=== PATIENT | female | born 1950 | race Caucasian/White ===

== ENCOUNTER 2020-01-14 12:22 | Day surgery (SDC) | payer MEDICARE, MEDICAID, SELFPAY ==
[2020-01-11 13:26] VITALS: BMI 43.5
--- NOTE | 2020-01-14 06:53 | PM.OP ---
Operative Report Date of procedure: January 14, 2020 Pre-op Diagnosis: lesion skin Post-op diagnosis: same Pathology: none sent Surgeon: Juan Booker Anesthesia: General Complications: none
[2020-01-14 12:39] VITALS: BP 153/96; PULSE 57; RESP 18; TEMP 36.7; O2SAT 98
[2020-01-14] MEDS: sodium chloride 0.9% 1,000 ML 30 ML IV (12:52)
--- NOTE | 2020-01-14 12:58 | ANES.PREANE2 ---
Pre-Anesthetic Assessment Pre-Anesthetic Assessment: Height/Weight: Height 1.6 m Weight 111.584 kg Temp Pulse Resp BP Pulse Ox 98.1 F 57 L 18 153/96 98 01/14/20 12:39 01/14/20 12:39 01/14/20 12:39 01/14/20 12:39 01/14/20 12:39 Preop Diagnosis: Lesion skin of nose Proposed Procedure: Operation Date: 01/14/20 14:00 Proposed Procedures p Excision of skin lesion of face with frozen section 17999 J35.89(Not Applicable) - Juan Booker MD Last intake: Intake Last Liquid Date 01/14/20 Last Liquid Time 11:59 Last Solid Date 01/14/20 Last Solid Time 11:59 Social: Packs per day: 1/3 Pack years: 20 Exam: Pre-Anes Outpt Exam: alert, oriented x 3, clear to auscultation bilaterally and regular rate & rhythm Airway: Submandibular: WNL Cervical ROM: WNL MP: 1 CV/HEM: CV/HEM: Afib (x 20 y) and HTN Comments: x 207 stress test '13 negative '13 cath neg GI: GI: GERD Metabolic: Metabolic: Thyroid Comments: replacement x 6y Musc/skel: Musc/skel: Lower Back Pain Comments: nonradiating Neuropsych: Neuropsych: DONALDSON Anesthetic Plan: ASA status: 3 Anesthesia: General and MAC Meds/Allergies Current Medications: Current Medications Generic Name Dose Route Start Last Admin Trade Name Freq PRN Reason Stop Dose Admin Sodium Chloride 1,000 mls @ 30 ml s/hr 01/14/20 12:45 01/14/20 12:52 Sodium Chloride 0.9% IV 01/15/20 12:44 30 mls/hr .Q24H MELA Administration PFSH Anesthesia PFSH: Medical History (Updated 01/14/20 @ 12:19 by Juan Booker MD) Lesion of skin of nose Social History Smoking and tobacco status: current every day smoker cigarettes [ Other cigarette details: smokes very little ] Data Anesthesia Cardiac Studies: No Data to Display
[2020-01-14] MEDS: neomycin-poly-bacitracin oint 28 gm 1 APPLIC TOPICAL (14:47)
--- NOTE | 2020-01-14 15:34 | SUR.OPER ---
1503 pt spouse updated
--- NOTE | 2020-01-14 16:12 | PM.OP ---
Operative Report Date of procedure: January 14, 2020 Pre-op Diagnosis: Lesion skin of nose Post-op Diagnosis: Nodular basal cell carcinoma Post-op Findings: Nodular basal cell carcinoma Procedure Done: Excision 1.5 cm basal cell carcinoma with rotation flap reconstruction Specimens removed/disposition: Basal cell carcinoma and associated frozen section margins Surgeon: Juan Booker Anesthesia: MAC Complications: None Condition: stable Disposition: PACU Brief History: Katie is a 69-year-old female with a nonhealing lesion in the left nasal tip. I discussed the goals risks and alternatives of treatment and informed consent was obtained to proceed with surgery. Procedure: The patient was taken to the operating room and under satisfactory monitored anesthesia care the area was prepped draped and injected. A 4-minute millimeter punch biopsy was taken. Preliminary frozen section analysis revealed nodular basal cell carcinoma with positive margins. Repeat margin was taken. Preliminary frozen section revealed positive margins at the 12:00 to 6:00 area. Repeat margins and frozen section was taken until the margins were free of cancer. A 1.5 cm defect was present once the cancer had been excised. A single lobe flap was harvested based on the angular artery. It was rotated in place to close the defect. The flap was set in place with 4-0 undyed Vicryl suture. The skin was closed with 5-0 fast-absorbing suture. No complications occurred. The patient tolerated the procedure well. She was returned to the recovery room in stable condition where she was observed. During the observation time postoperative care instructions and counseling including detailed written and verbal instruction given to the patient and her . Once all parties verbalized understanding of all instructions and once the patient met discharge criteria she was discharged in satisfactory and stable condition.
[2020-01-14 16:23] VITALS: BP 129/62; PULSE 64; RESP 18; TEMP 36.4; O2SAT 97
[2020-01-14 16:49] VITALS: BP 163/90; PULSE 54; RESP 18; O2SAT 99
== END 2020-01-14 17:00 | disposition home or self-care (01) ==
PROVIDERS: Family Provider Internal Medicine; PCP Internal Medicine; Visit Provider Otolaryngology
PROC: (CPT 14060; principal; 2020-01-14 14:00)
DX: C44.311 Basal cell carcinoma of skin of nose (principal); F17.210 Nicotine dependence, cigarettes, uncomplicated; I10 Essential (primary) hypertension; K21.9 Gastro-esophageal reflux disease without esophagitis; Z79.82 Long term (current) use of aspirin; Z79.01 Long term (current) use of anticoagulants
CPT/HCPCS: 14060; 12345; 88305; 99214; J2001; J2704; J3010; J7030

== ENCOUNTER → 2020-01-24 14:13 | Outpatient (BNVA) | payer MEDICARE, MEDICAID, SELFPAY | PROVIDERS: Family Provider Internal Medicine; PCP Internal Medicine; Visit Provider Otolaryngology | DX: J31.0 Chronic rhinitis (principal); L98.9 Disorder of the skin and subcutaneous tissue, unspecified; J34.2 Deviated nasal septum; J34.3 Hypertrophy of nasal turbinates | CPT/HCPCS: 96372; 99214; J3301 ==

== ENCOUNTER 2020-06-10 20:31 | Emergency (ER) | payer MEDICARE, MEDICAID, SELFPAY ==
[2020-06-10 20:35] VITALS: BP 184/89; PULSE 75; RESP 17; TEMP 37; O2SAT 96; BMI 44.6
--- NOTE | 2020-06-10 20:58 | W.ED.ANIMALB ---
HPI - Animal Bite General: Chief Complaint: Animal Bite Stated Complaint: bite/sting on butt Time Seen by Provider: 06/10/20 20:52 Source: patient Mode of arrival: ambulatory Limitations: no limitations History of Present Illness: HPI narrative: Ms. Finch is a nice 69-year-old female comes in complaining of a bite or sting on her left buttock. Patient states she was riding a lawnmower past a beehive that they keep but then felt something itchy on her buttock and then felt something staying in the same area. Patient is on Coumadin which concerned her that something may have punctured the skin. Patient denies any shortness of breath, wheezing, throat tightening, hives or any other type of anaphylactic reaction. She has no history of anaphylactic reactions. Associated symptoms: Deny chills, diaphoresis, fever(s), headache(s) or syncope Review of Systems Const: Denies: fever(s), chills, body aches, fatigue, malaise or diaphoresis Eyes: Denies: change in vision, blurry vision, blind spots, photophobia, eye discharge or eye redness ENMT: Denies: throat pain, odynophagia, hoarseness, swelling of lips/tongue, oral sores, ear or mastoid pain, ear discharge, change in hearing or nasal discharge Card: Denies: chest pain, palpitations, irregular heart rhythm, edema, lightheadedness, syncope, pre-syncope, dyspnea on exertion or orthopnea Resp: Denies: dyspnea, productive cough, non-productive cough, wheezing, hemoptysis or chest congestion GI: Denies: abdominal pain, nausea, vomiting, hematemesis, coffee ground emesis, heartburn, diarrhea, constipation, GI cramping, hematochezia or melena : Denies: flank pain, dysuria, urinary frequency, urinary urgency or hematuria Musc: Denies: neck pain, back pain, extremity pain, extremity swelling, joint pain, joint swelling, joint redness, joint warmth or joint stiffness Skin/Breast: Denies: rash, pruritus, erythema, skin tenderness or jaundice Neuro: Denies: headache(s), numbness in extremities, weakness in extremities, sensory changes, lack of coordination, difficulty walking, dizziness, vertigo, confusion, Slurred speech present or seizure-like activity Andrés/Lymph: Denies: easy bruising, easy bleeding, petechiae, purpura or enlarged lymph nodes All/Imm: Denies: urticaria, throat swelling, tongue swelling, facial swelling or acute wheezing PFSH ED PFSH: Medical History Deviated septum Lesion of skin of nose Nasal turbinate hypertrophy Rhinitis Social History Smoking and tobacco status: former smoker Alcohol intake: never Physical Exam Const: COMMON NORMALS: no acute distress, patient oriented x3, no limitations, healthy appearing and well nourished GENERAL APPEARANCE: cooperative, well kempt and well developed HENMT: COMMON NORMALS: normocephalic, atraumatic, external ears normal, EAC's normal and Normal external nose present HEAD & SCALP: normal to inspection, normocephalic and atraumatic FACE & SINUS: normal facial exam and face symmetric NOSE: Normal external nose present and Normal nares present EXTERNAL EAR: Yes external ears normal EXTERNAL AUDITORY CANAL: EAC's normal MOUTH: Normal oral and palatal mucosa present, lip normal and tongue normal Eye: COMMON NORMALS: Equal, round and reactive pupils present and conjunctivae normal GENERAL EYE: appearance normal, both eyes and all related structures ALIGNMENT: Yes alignment normal PERIORBITAL: periorbital findings normal EYELID: eyelids normal CONJUNCTIVA: Yes conjunctivae normal SCLERA: sclerae normal PUPIL: Yes Equal, round and reactive pupils present Neck/C-Spine: COMMON NORMALS: full ROM, no lymphadenopathy, supple, no meningeal signs and no JVD GENERAL: Yes normal visual inspection and Yes trachea midline Chest: COMMONS NORMALS: normal inspection of the chest and normal palpation of entire chest wall Resp: COMMON NORMALS: normal respiratory effort, No retractions and No use of accessory muscles EFFORT & INSPECTION: Yes able to speak in complete sentences and Yes symmetric chest movement AUSCULTATION: no crackles, no rales, no rhonchi and no wheezes Cardio: COMMON NORMALS: no JVD, regular rate, regular rhythm, S1 normal heart sound present and S2 normal heart sound present RATE: regular rate RHYTHM: regular rhythm HEART SOUNDS: S1 normal heart sound present, S2 normal heart sound present, no click, no gallops, no murmurs, no rubs and abnormal split S2 GI: COMMON NORMALS: Soft to palpation and No hepatosplenomegaly present PALPATION: Yes Soft to palpation, No Tenderness to palpation present (GI), No Guarding due to palpation present (GI), No Rigid due to palpation, Yes No hepatosplenomegaly present, No Hernia present, No Palpable mass present and No Pulsatile mass present : COMMON NORMALS: Yes no CVA tenderness BLADDER/KIDNEY EXAM: Yes no CVA tenderness EXTERNAL FEMALE EXAM: No Hernia present Back/Pelvis: COMMON NORMALS: no CVA tenderness, thoracic and lumbar spine normal to inspection, no thoracic nor lumbar tenderness and thoraco-lumbar ROM normal Extremity: COMMON NORMALS: normal to inspection, full ROM, capillary refill normal, no joint enlargement, no clubbing, cyanosis or edema and no calf tenderness Neuro: COMMON NORMALS: patient oriented x3, CN's II-XII intact bilaterally, moves all extremities, no focal motor deficits and no sensory deficits noted MENINGEAL SIGNS: Yes no meningeal signs SPEECH: speech normal Psych: COMMON NORMALS: mental status grossly normal, Normal thought process present, cooperative, normal affect, speech normal and activity/motor behavior normal APPEARANCE: Yes well kempt SPEECH: Yes normal speech THOUGHT PROCESS: Normal thought process present Skin: COMMON NORMALS: no rashes or lesions noted, turgor normal, no jaundice, no petechiae and no mottling NARRATIVE SKIN EXAM: Small area approximately half dollar size around site of believed to be staying over left superior middle buttock. GENERAL SKIN EXAM: no rashes or lesions noted and turgor normal Course Vital Signs: Vital signs: Vital Signs Temperature 98.6 F 06/10/20 20:35 Pulse Rate 75 06/10/20 20:35 Respiratory Rate 16 06/10/20 22:13 Blood Pressure 184/89 06/10/20 20:35 Pulse Oximetry 96 06/10/20 20:35 MDM - Animal Bite MDM Narrative: Medical decision making narrative: Ms. Finch was mowing when something stung or bit her on the left buttock. This is too short of timeframe for her to be infected. I believe the underlying redness is likely blood from the Coumadin that she takes. There is some surrounding swelling like a hive. Family was concerned about brown recluse spider bite but I see no definitive evidence of this. She was driving past the beehive when this happened I believe it is more likely this was a bee sting. The patient agrees to return should she worsen but otherwise she will follow-up with Dr. Golden the in the next 1 to 2 days. I did discuss the case with Dr. Arriaza who is agreeable to have the patient rechecked and will arrange to have her do so. Patient was agree with return should her symptoms change or worsen but at this time she is requesting discharge. Lab Data: Labs: Lab Results 06/10/20 06/10/20 Range/Units 21:34 21:34 WBC 6.0 (4.0-10.0) 10^3/ uL RBC 4.09 L (4.1-5.3) 10^6/u L Hgb 12.7 (11.5-15.3) g/dL Hct 39.7 (37.0-47.0) % MCV 97.1 (81-99) fL MCH 31.1 (28.0-34.0) pg MCHC 32.0 (30.0-36.0) g/dL RDW 12.9 (12.1-15.1) % Plt Count 281 (130-400) 10^3/c mm MPV 10.4 (7.4-10.4) fL Neut % (Auto) 52.7 % Lymph % (Auto) 31.5 % Centre % (Auto) 6.5 % Eos % (Auto) 8.4 % Baso % (Auto) 0.7 % Neut # (Auto) 3.15 (1.8-7.7) 10^3/u L Lymph # (Auto) 1.9 (0.8-4.8) 10^3/u L Centre # (Auto) 0.4 (0.2-0.9) 10^3/u L Eos # (Auto) 0.5 (0.0-0.8) 10^3/u L Baso # (Auto) 0.0 (0.0-0.1) 10^3/u L Nucleated RBC % (a uto) 0 % Nucleated RBCs # 0.0 /100WBC PT 21.30 H (10.5-13.3) SECO NDS INR 1.77 H (0.8-1.2) Discharge Plan Discharge Patient Disposition: Home, Self-Care Clinical Impression: Insect bite Qualifiers: Encounter type: initial encounter Site of insect bite: unspecified site Qualified Code(s): W57.XXXA - Bitten or stung by nonvenomous insect and other nonvenomous arthropods, initial encounter Condition: Stable Prescriptions: New prednisone 10 mg tablet 10 mg PO TID 5 Days Qty: 15 RF: 0 No Action warfarin 5 mg Tablet 5 mg PO DAILY RF: 0 metoprolol tartrate 25 mg Tablet 25 mg PO BID RF: 0 multivitamin Tablet 1 tab PO DAILY RF: 0 potassium chloride 8 mEq Capsule, Extended Release 8 meq PO DAILY RF: 0 omeprazole 40 mg Capsule,Delayed Release(Dr/Ec) 40 mg PO DAILY RF: 0 aspirin [Aspir-81] 81 mg Tablet,Delayed Release (Dr/Ec) 81 mg PO DAILY RF: 0 levothyroxine 150 mcg Tablet 150 mcg PO DAILY RF: 0 vitamin C44-[id number] acid 500-400 mcg Tablet 1 tab PO DAILY RF: 0 albuterol sulfate 90 mcg/actuation HFA aerosol inhaler 5 puff INHALATION QID PRN (Reason: Shortness Of Breath) RF: 0 fluticasone propionate 50 mcg/actuation spray,suspension 2 spray INTRANASAL BID PRN (Reason: allergies) RF: 0 Allergy Relief (loratadine) 10 mg tablet 10 mg PO PRN PRN (Reason: allergies) RF: 0 Discharge Orders: Discharge Order (Routine); Ordered 06/10/20 Ordered By: Wendy Palmer Referrals: Norman Golden DO [Primary Care Provider] - 1-3 days Discharge Diet: Advance as tolerated Discharge Activity: Increase activity as tolerated Patient Instructions: Insect Bite or Sting (ED) Activity Restrictions/Additional Instructions: Please return to the ER immediately for any of the signs or symptoms listed on your discharge instruction sheets, worsening/changing of your symptoms, you are not getting better as quickly as expected, or for ANY other cause or concerns. Be certain to follow-up with Dr. Golden in the next 1 to 2 days for recheck. Discharge Date/Time: 06/10/20 22:15 Coding Level of Care Code ED Child Abuse Worker for Xenia Fwd Exam Comprehensive
[2020-06-10 21:40] LABS: Basophils % 0.7 %; Eosinophils # 0.5 10^3/uL (0.0-0.8); Eosinophils % 8.4 %; Hematocrit 39.7 % (37.0-47.0); Hemoglobin 12.7 g/dL (11.5-15.3); Lymphocytes # 1.9 10^3/uL (0.8-4.8); Lymphocytes % 31.5 %; Mean Corpuscular Hemoglobin 31.1 pg (28.0-34.0); Mean Corpuscular Volume 97.1 fL (81-99); Mean Platelet Volume 10.4 fL (7.4-10.4); Monocytes # 0.4 10^3/uL (0.2-0.9); Monocytes % 6.5 %; Neutrophils # 3.15 10^3/uL (1.8-7.7); Neutrophils % 52.7 %; Nucleated Red Blood Cells % 0 %; Platelet Count 281 10^3/cmm (130-400); Red Blood Count 4.09 10^6/uL (4.1-5.3); Red Cell Distribution Width 12.9 % (12.1-15.1)
[2020-06-10 21:49] LABS: INR 1.77 (0.8-1.2)
[2020-06-10] MEDS: predniSONE 20 mg Tablet 40 MG PO (22:08)
[2020-06-10 22:13] VITALS: RESP 16
== END 2020-06-10 22:15 | disposition home or self-care (01) ==
PROVIDERS: Emergency Provider Emergency Medicine; PCP Internal Medicine
DX: S30.860A Insect bite (nonvenomous) of lower back and pelvis, initial encounter (principal); W57.XXXA Bitten or stung by nonvenomous insect and other nonvenomous arthropods, initial encounter; Z79.01 Long term (current) use of anticoagulants; Z79.02 Long term (current) use of antithrombotics/antiplatelets; Z87.891 Personal history of nicotine dependence
CPT/HCPCS: 12345; 36415; 85025; 85610; 99281; 99283; J7512

== ENCOUNTER 2020-06-22 16:58 | Inpatient (IN) | payer MEDICARE, MEDICAID, SELFPAY ==
[2020-06-22] VITALS (7 sets, daily range): BP systolic 117–150; BP diastolic 80–95; PULSE 100–145; RESP 14–22; TEMP 36.7–37; O2SAT 95–99; BMI 46.0
--- NOTE | 2020-06-22 17:24 | XRR_ITS ---
PROCEDURE INFORMATION: Exam: XR Chest, 1 View Exam date and time: 06/22/2020 5:26 PM Age: 69 years old Clinical indication: Shortness of breath; Additional info: SOB TECHNIQUE: Imaging protocol: XR of the chest Views: 1 view. COMPARISON: CR Chest 1 [place] [id number] 09/23/2018 6:20 PM FINDINGS: Lungs: Unremarkable. No consolidation. Pleural space: Unremarkable. No pleural effusion. No pneumothorax. Heart/Mediastinum: Unremarkable. No cardiomegaly. Bones/joints: Unremarkable. XR/XR chest 1V portable [id number] IMPRESSION: No acute findings.
[2020-06-22 17:38] LABS: Basophils # 0.1 10^3/uL (0.0-0.1); Basophils % 0.9 %; Eosinophils # 0.3 10^3/uL (0.0-0.8); Eosinophils % 3.1 %; Hematocrit 43.4 % (37.0-47.0); Hemoglobin 13.9 g/dL (11.5-15.3); Lymphocytes # 2.5 10^3/uL (0.8-4.8); Lymphocytes % 24.3 %; Mean Corpuscular Volume 96.7 fL (81-99); Mean Platelet Volume 10.7 fL (7.4-10.4); Monocytes # 0.6 10^3/uL (0.2-0.9); Monocytes % 6.2 %; Neutrophils % 65.1 %; Nucleated Red Blood Cells % 0 %; Platelet Count 311 10^3/cmm (130-400); Red Blood Count 4.49 10^6/uL (4.1-5.3); Red Cell Distribution Width 12.8 % (12.1-15.1); White Blood Count 10.1 10^3/uL (4.0-10.0)
[2020-06-22] MEDS: sodium chloride 0.9% 500 ML 999 ML IV (17:39)
[2020-06-22 17:50] LABS: INR 1.71 (0.8-1.2)
[2020-06-22 17:52] LABS: D Dimer <= 0.27 ug/mIFEU (0-0.59)
[2020-06-22 18:00] LABS: Lactate (Lactic Acid level) 1.6 mmol/L (0.5-2.2)
[2020-06-22 18:10] LABS: Alanine Aminotransferase 14 U/L (0-33); Alkaline Phosphatase 97 IU/L (35-105); Anion Gap 14.2 (5-19); Aspartate Amino Transferase 20 U/L (0-32); Blood Urea Nitrogen 19 mg/dL (8-23); Calcium 9.4 mg/dL (8.5-10.5); Carbon Dioxide 25 mmol/L (22-29); Chloride 104 mmol/L (98-107); Globulin 3.5 g/dL (1.3-4.6); Glomerular Filtration Rate 49.5 mL/min (90-130); Glucose 132 mg/dL (65-115); NT Pro B Type Natriuretic Pept 3052 pg/mL (0-125); Osmolality Calculated 286 mOsm/kg (285-295); Potassium 4.2 mmol/L (3.5-5.1); Sodium 139 mmol/L (136-145); Total Bilirubin 0.3 mg/dL (0.15-1.2); Total Protein 7.5 g/dL (6.6-8.7)
--- NOTE | 2020-06-22 18:11 | W.ED.ARRPALP ---
HPI - Arrhythmia/Palpitations General: Chief Complaint: Arrhythmia/Palpitations Stated Complaint: AFIB RVR Time Seen by Provider: 06/22/20 17:15 History of Present Illness: HPI narrative: This patient is a 69-year-old female who comes in today complaining that she has atrial fibrillation. She has had paroxysmal A. fib for a while and gets episodes from time to time. This episode is been going on since 2 AM and she said she is never had one that lasted this long. She feels like her heart is racing and skipping beats. She feels shortness of breath particularly with any sort of exertion. She has some dizziness and actually notes that over the past few days before the A. fib started she has been having some dizzy spells. She takes warfarin and had it checked last about a week and a half or 2 weeks ago. At that time it was 2.3. She has taken her dose today. She takes metoprolol twice a day normally. Today she took it early at 2 AM when the symptoms started. She took a second dose around 9 AM. That has not helped her symptoms at all. MD complaint: rapid heart beat, skipped beats and atrial fibrillation Onset (ago): hour(s) (15) Duration: constant Severity: severe Context: occurred during rest Arrhythmia history: atrial fibrillation Associated symptoms: Reports short of breath; Deny nausea or vomiting Treatments prior to arrival: beta-nicolle Review of Systems General: Reports: 10 or more systems reviewed and unremarkable except in HPI and below Const: Denies: fever(s), chills, fatigue or malaise Eyes: Denies: change in vision ENMT: Denies: odynophagia Card: Reports: irregular heart rhythm and lightheadedness; Denies: chest pain or swelling of feet/ankles Resp: Reports: dyspnea and non-productive cough (Patient says this is related to allergies); Denies: productive cough GI: Denies: abdominal pain, nausea or vomiting : Denies: flank pain or difficulty voiding Musc: Denies: neck pain or back pain Skin/Breast: Denies: rash Neuro: Reports: dizziness; Denies: headache(s), numbness in extremities or weakness in extremities Andrés/Lymph: Denies: easy bruising or easy bleeding PFS ED PFSH: Medical History Anxiety Chronic anticoagulation Chronic kidney disease Deviated septum Diabetes GERD (gastroesophageal reflux disease) Hypertension Hypothyroidism Lesion of skin of nose Nasal turbinate hypertrophy Paroxysmal A-fib Rhinitis Surgical History H/O knee surgery bilateral knees H/O tubal ligation H/O: hysterectomy History of hernia surgery History 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, was malignant Family History Other CAD (coronary artery disease) Social History Smoking and tobacco status: former smoker Alcohol intake: current Alcohol intake frequency: holidays/special occasions only Alcohol type: wine Substance/Drug Use: never Physical Exam Const: COMMON NORMALS: patient oriented x3, no limitations and alert GENERAL APPEARANCE: cooperative and anxious NUTRITIONAL APPEARANCE: overweight ORIENTATION/CONSCIOUSNESS: Yes awake HENMT: HEAD & SCALP: normal to inspection FACE & SINUS: normal facial exam Eye: GENERAL EYE: appearance normal, both eyes and all related structures Neck/C-Spine: COMMON NORMALS: supple, no meningeal signs and no JVD Resp: COMMON NORMALS: normal respiratory effort, No use of accessory muscles and clear to auscultation bilaterally AUSCULTATION: clear to auscultation bilaterally Cardio: COMMON NORMALS: no JVD, regular rate, regular rhythm and No murmurs present (Cardio) RATE: regular rate RHYTHM: regular rhythm GI: COMMON NORMALS: Normal to inspection, nondistended, normoactive bowel sounds present, Soft to palpation and non-tender INSPECTION: Yes normal to inspection AUSCULTATION: Yes normoactive bowel sounds PALPATION: Yes Soft to palpation Back/Pelvis: COMMON NORMALS: thoracic and lumbar spine normal to inspection Extremity: COMMON NORMALS: normal to inspection Neuro: COMMON NORMALS: patient oriented x3, moves all extremities, no focal motor deficits and no sensory deficits noted SENSORIUM/ORIENTATION: Yes alert MENINGEAL SIGNS: Yes no meningeal signs Psych: COMMON NORMALS: mental status grossly normal, cooperative and normal affect Skin: COMMON NORMALS: no rashes or lesions noted and turgor normal GENERAL SKIN EXAM: no rashes or lesions noted and turgor normal Course ED course: Patient felt better on a Cardizem drip however even at a maximum dose her heart rate was still over 100. She remained in A. fib. She is agreeable to admission to the hospital for further management. Discussed with the hospitalist and they will admit. Vital Signs: Vital signs: Vital Signs Temperature 98.0 F 06/22/20 21:32 Pulse Rate 117 H 06/22/20 21:32 Respiratory Rate 22 H 06/22/20 21:32 Blood Pressure 150/86 06/22/20 21:32 Pulse Oximetry 99 06/22/20 21:32 MDM - Arrhythmia/Palpitations MDM Narrative: Medical decision making narrative: A. fib with RVR. Shortness of breath with exertion. INR is subtherapeutic. Control rate, rule out causes of A. fib. Lab Data: Labs: Lab Results 06/22/20 06/22/20 06/22/20 Range/Units 17:28 17:28 17:28 WBC 10.1 H (4.0-10.0) 10^3/ uL RBC 4.49 (4.1-5.3) 10^6/u L Hgb 13.9 (11.5-15.3) g/dL Hct 43.4 (37.0-47.0) % MCV 96.7 (81-99) fL MCH 31.0 (28.0-34.0) pg MCHC 32.0 (30.0-36.0) g/dL RDW 12.8 (12.1-15.1) % Plt Count 311 (130-400) 10^3/c mm MPV 10.7 H (7.4-10.4) fL Neut % (Auto) 65.1 % Lymph % (Auto) 24.3 % [place] % (Auto) 6.2 % Eos % (Auto) 3.1 % Baso % (Auto) 0.9 % Neut # (Auto) 6.60 (1.8-7.7) 10^3/u L Lymph # (Auto) 2.5 (0.8-4.8) 10^3/u L [place] # (Auto) 0.6 (0.2-0.9) 10^3/u L Eos # (Auto) 0.3 (0.0-0.8) 10^3/u L Baso # (Auto) 0.1 (0.0-0.1) 10^3/u L Nucleated RBC % (a uto) 0 % Nucleated RBCs # 0.0 /100WBC PT 20.70 H (10.5-13.3) SECO NDS INR 1.71 H (0.8-1.2) D-Dimer <= 0.27 (0-0.59) ug/mIFE U Sodium 139 (136-145) mmol/L Potassium 4.2 (3.5-5.1) mmol/L Chloride 104 (98-107) mmol/L Carbon Dioxide 25 (22-29) mmol/L Anion Gap 14.2 (5-19) BUN 19 (8-23) mg/dL Creatinine 1.1 H (0.5-0.9) mg/dL GFR Calculation 49.5 L (90-130) mL/min Glucose 132 H (65-115) mg/dL Calculated Osmolal ity 286 (285-295) mOsm/k g Lactate (0.5-2.2) mmol/L Calcium 9.4 (8.5-10.5) mg/dL Magnesium 2.0 (1.7-2.3) mg/dL Total Bilirubin 0.3 (0.15-1.2) mg/dL AST 20 (0-32) U/L ALT 14 (0-33) U/L Alkaline Phosphata se 97 (35-105) IU/L Troponin T Baselin e (0-10) ng/L Troponin T 120 Min chris (0-10) ng/L Delta Troponin T (0-10) ABS# NT-Pro-B Natriuret Pep 3052 H (0-125) pg/mL Total Protein 7.5 (6.6-8.7) g/dL Albumin 4.0 (3.5-5.2) g/dL Globulin 3.5 (1.3-4.6) g/dL TSH (0.27-4.20) uIU/ mL 06/22/20 06/22/20 06/22/20 Range/Units 17:28 17:28 17:28 WBC (4.0-10.0) 10^3/ uL RBC (4.1-5.3) 10^6/u L Hgb (11.5-15.3) g/dL Hct (37.0-47.0) % MCV (81-99) fL MCH (28.0-34.0) pg MCHC (30.0-36.0) g/dL RDW (12.1-15.1) % Plt Count (130-400) 10^3/c mm MPV (7.4-10.4) fL Neut % (Auto) % Lymph % (Auto) % [place] % (Auto) % Eos % (Auto) % Baso % (Auto) % Neut # (Auto) (1.8-7.7) 10^3/u L Lymph # (Auto) (0.8-4.8) 10^3/u L [place] # (Auto) (0.2-0.9) 10^3/u L Eos # (Auto) (0.0-0.8) 10^3/u L Baso # (Auto) (0.0-0.1) 10^3/u L Nucleated RBC % (a uto) % Nucleated RBCs # /100WBC PT (10.5-13.3) SECO NDS INR (0.8-1.2) D-Dimer (0-0.59) ug/mIFE U Sodium (136-145) mmol/L Potassium (3.5-5.1) mmol/L Chloride (98-107) mmol/L Carbon Dioxide (22-29) mmol/L Anion Gap (5-19) BUN (8-23) mg/dL Creatinine (0.5-0.9) mg/dL GFR Calculation (90-130) mL/min Glucose (65-115) mg/dL Calculated Osmolal ity (285-295) mOsm/k g Lactate 1.6 (0.5-2.2) mmol/L Calcium (8.5-10.5) mg/dL Magnesium (1.7-2.3) mg/dL Total Bilirubin (0.15-1.2) mg/dL AST (0-32) U/L ALT (0-33) U/L Alkaline Phosphata se (35-105) IU/L Troponin T Baselin e 17 H (0-10) ng/L Troponin T 120 Min chris (0-10) ng/L Delta Troponin T (0-10) ABS# NT-Pro-B Natriuret Pep (0-125) pg/mL Total Protein (6.6-8.7) g/dL Albumin (3.5-5.2) g/dL Globulin (1.3-4.6) g/dL TSH 2.03 (0.27-4.20) uIU/ mL 06/22/20 Range/Units 19:21 WBC (4.0-10.0) 10^3/ uL RBC (4.1-5.3) 10^6/u L Hgb (11.5-15.3) g/dL Hct (37.0-47.0) % MCV (81-99) fL MCH (28.0-34.0) pg MCHC (30.0-36.0) g/dL RDW (12.1-15.1) % Plt Count (130-400) 10^3/c mm MPV (7.4-10.4) fL Neut % (Auto) % Lymph % (Auto) % [place] % (Auto) % Eos % (Auto) % Baso % (Auto) % Neut # (Auto) (1.8-7.7) 10^3/u L Lymph # (Auto) (0.8-4.8) 10^3/u L [place] # (Auto) (0.2-0.9) 10^3/u L Eos # (Auto) (0.0-0.8) 10^3/u L Baso # (Auto) (0.0-0.1) 10^3/u L Nucleated RBC % (a uto) % Nucleated RBCs # /100WBC PT (10.5-13.3) SECO NDS INR (0.8-1.2) D-Dimer (0-0.59) ug/mIFE U Sodium (136-145) mmol/L Potassium (3.5-5.1) mmol/L Chloride (98-107) mmol/L Carbon Dioxide (22-29) mmol/L Anion Gap (5-19) BUN (8-23) mg/dL Creatinine (0.5-0.9) mg/dL GFR Calculation (90-130) mL/min Glucose (65-115) mg/dL Calculated Osmolal ity (285-295) mOsm/k g Lactate (0.5-2.2) mmol/L Calcium (8.5-10.5) mg/dL Magnesium (1.7-2.3) mg/dL Total Bilirubin (0.15-1.2) mg/dL AST (0-32) U/L ALT (0-33) U/L Alkaline Phosphata se (35-105) IU/L Troponin T Baselin e (0-10) ng/L Troponin T 120 Min chris 15.06 H (0-10) ng/L Delta Troponin T -1.94 L (0-10) ABS# NT-Pro-B Natriuret Pep (0-125) pg/mL Total Protein (6.6-8.7) g/dL Albumin (3.5-5.2) g/dL Globulin (1.3-4.6) g/dL TSH (0.27-4.20) uIU/ mL Discharge Plan Discharge Patient Disposition: Home Discharge Date/Time: 06/22/20 20:36 Coding Level of Care Code ED Gum Dipper for Chg Fwd Exam Comprehensive
--- NOTE | 2020-06-22 18:48 | ECG_ITS ---
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 Measurements Intervals [place] Rate: 100 P: AL: -1 QRS: 1 QRSD: 88 T: 2 QT: 318 QTc: 411 Interpretive Statements ATRIAL FIBRILLATION WITH RAPID VENTRICULAR RESPONSE MINIMAL ST DEPRESSION [0.025+ mV ST DEPRESSION] ABNORMAL RHYTHM ECG Compared to ECG 09/24/2018 01:21:38 ST (T wave) deviation now present Sinus bradycardia no longer present Electronically Signed On 06-23-2020 9:35:46 CDT by Fred Quesada M.D. [email or web address]
[2020-06-22 19:14] LABS: Troponin(5th) Baseline 17 ng/L (0-10)
[2020-06-22 19:21] LABS: Thyroid Stimulating Hormone 2.03 uIU/mL (0.27-4.20)
[2020-06-22 19:47] LABS: Troponin 5 2HR 15.06 ng/L (0-10)
[2020-06-22 19:52] LABS: Troponin 5 2HR Delta -1.94 ABS# (0-10)
--- NOTE | 2020-06-22 20:01 | P.HP_ITS ---
Providers/Chief Complaint Primary Care Provider: Norman Golden DO Chief Complaint: weak, sob, fast hr History of Present Illness Katie Finch is a 69 year old female who carries history of paroxysmal atrial fibrillation, chronic anticoagulation with Coumadin coming in with chief complaint of palpitations. Patient is stating that she was up last night around 2 AM watching television when she started experiencing palpitations, her heart rate was consistently high until she arrived in the ER. She was experiencing chest discomfort, shortness of breath but only on exertion, light activities would aggravate her symptoms hence decided to come to the hospital for further evaluation. She is denying headache, nausea, vomiting, diaphoresis, pressure- like chest discomfort, dysuria, diarrhea. Patient is denying previous history o f CHF. Patient is stating that on her last visit to the hospital her heart rate was consistently in the 50s on metoprolol. She has been compliant with her hypothyroid medications. She is a non-smoker, nonalcoholic, denying orthopnea, PND, weight gain. Diagnostics in the ER revealed A. fib RVR heart rate 1 35-1 40s, she was started on Cardizem drip after bolus, INR 1.7, troponin 3000, EKG did not show any ischemic or infarctive changes, troponins not incredibly high. At the time of my evaluation she was asymptomatic playing her puzzle in the bed, Cardizem was running at 15 mg/h Review of Systems Const: Reports: fatigue and malaise Eyes: Denies: change in vision ENMT: Denies: throat pain Card: Reports: palpitations, irregular heart rhythm and dyspnea on exertion; Denies: chest pain, pre-syncope or orthopnea Resp: Reports: dyspnea; Denies: productive cough or non-productive cough GI: Denies: abdominal pain, nausea or vomiting : Denies: flank pain or difficulty voiding Musc: Denies: neck pain or back pain Skin/Breast: Denies: rash or pruritus Neuro: Denies: headache(s) Psych: Denies: anxiety Endo: Reports: polyuria Andrés/Lymph: Denies: easy bruising All/Imm: Denies: urticaria Medications/Allergies Home Medications Medication Instructions Recorded Confirmed Last Taken Type aspirin [Aspir-81] 81 mg PO DAILY 01/11/20 06/22/20 06/21/20 History levothyroxine See Rx Instructions .ROUTE .COMPLEX 01/11/20 06/22/20 06/21/20 History metoprolol tartrate 25 mg PO BID 01/11/20 06/22/20 06/22/20 History multivitamin 1 tab PO DAILY 01/11/20 06/22/20 06/22/20 History omeprazole 40 mg PO DAILY 01/11/20 06/22/20 06/22/20 History potassium chloride 8 meq PO DAILY 01/11/20 06/22/20 06/22/20 History vitamin T98-[id number] acid 1 tab PO DAILY 01/11/20 06/22/20 06/21/20 History warfarin 5 mg PO DAILY 01/11/20 06/22/20 06/22/20 History albuterol sulfate 5 puff INHALATION QID PRN 06/10/20 06/22/20 Unknown History fluticasone propionate 2 spray INTRANASAL BID PRN 06/10/20 06/22/20 Unknown History loratadine [Allergy Relief 10 mg PO PRN PRN 06/10/20 06/22/20 Unknown History (loratadine)] Allergies Allergy/AdvReac Type Severity Reaction Status Date / Time codeine Allergy ADR-Vomitin Verified 06/22/20 17:42 g Sulfa (Sulfonamide Allergy Unknown Verified 06/22/20 17:42 Antibiotics) Tetanus Vaccines and Toxoid Allergy Unknown Verified 06/22/20 17:42 PFSH Acute PFSH: Medical History Anxiety Chronic anticoagulation Chronic kidney disease Deviated septum Diabetes GERD (gastroesophageal reflux disease) Hypertension Hypothyroidism Lesion of skin of nose Nasal turbinate hypertrophy Paroxysmal A-fib Rhinitis Surgical History H/O knee surgery bilateral knees H/O tubal ligation H/O: hysterectomy History of hernia surgery History 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, was malignant Family History Other CAD (coronary artery disease) Social History Smoking and tobacco status: former smoker Alcohol intake: current Alcohol intake frequency: holidays/special occasions only Alcohol type: wine Substance/Drug Use: never Vitals/I&O/Wt Last Vital Signs Temp 98.6 F 06/22/20 17:07 Pulse 103 H 06/22/20 19:26 Resp 21 H 06/22/20 19:26 BP 143/93 06/22/20 19:26 Pulse Ox 95 06/22/20 19:26 06/22/20 06/22/20 06/22/20 06:59 14:59 22:59 Intake Total 12.584 / 12.584 Balance 12.584 / 12.584 Weight last 48 hrs Weight 117.934 kg Physical Exam Narrative: EXAM NARRATIVE: Head to toe examination Pleasant female who was swelling possible when I entered the room Asymptomatic No active respiratory distress Saturating well on room air Cardizem drip at the bedside 50 mg/h S1, S2 variable, tachycardia Clinically does not look fluid overloaded Lungs are clear to auscultation Abdomen soft nontender distended bowel sound present No lower extremity edema gangrene ulcer EOMI, PERRLA No neurological deficit Data : 06/22/20 17:28 06/22/20 17:28 A&P Assessment and plan (1) Paroxysmal A-fib: Status: Acute (2) Hypothyroidism: Status: Acute (3) Chronic anticoagulation: Status: Acute (4) New onset of congestive heart failure: Status: Acute Additional A&P Information Paroxysmal A. fib with RVR Rule out PE with CTA chest as she is subtherapeutic, no signs of sepsis or pneumonia Continue Cardizem drip and titrate with target heart rate less than 110 on ambulation, less than 90 at rest I would bridge her with Lovenox until her INR is therapeutic, I would do Lovenox 120mg every 12h for a day I would increase her metoprolol to 50 mg instead of 25 mg and monitor her heart rate on telemetry floor New onset congestive heart failure Chest x-ray is clear, no signs of left-sided heart failure, BNP is high, clinically looks well compensated, concern for tachyarrhythmia induced heart failure Rule out PE Would use low-dose Lasix Previous ejection fraction preserved without diastolic heart failure Echo in the morning Hypothyroidism: Check TSH, continue levothyroxine every other day Cardiac diet DVT prophylaxis not needed currently on Lovenox and Coumadin Full code Attestations Medical Necessity Statement*: Patient is requiring Cardizem drip for A. fib RVR currently I am anticipating she will need more than 2 midnights in the hospital for adjustment of her medications to control her A. 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
--- NOTE | 2020-06-22 20:04 | CTR_ITS ---
PROCEDURE INFORMATION: Exam: CT Angiography Chest With Contrast Exam date and time: 06/22/2020 8:10 PM Age: 69 years old Clinical indication: Patient HX: A fib/rvr and SOB; Additional info: Paroxysmal a. Fib TECHNIQUE: Imaging protocol: Computed tomographic angiography of the chest with intravenous contrast. 3D rendering: MIP and/or 3D reconstructed images were created by the technologist. Radiation optimization: All CT scans at this facility use at least one of these dose optimization techniques: automated exposure control; mA and/or kV adjustment per patient size (includes targeted exams where dose is matched to clinical indication); or iterative reconstruction. Contrast material: VISI 320; Contrast volume: 95 ml; Contrast route: INTRAVENOUS (IV); COMPARISON: CR (CHEST, ) 06/22/2020 5:24 PM RADIATION DOSE METRICS: Total DLP (mGy-cm): 593.18 FINDINGS: Pulmonary arteries: Normal. No pulmonary emboli. Aorta: Unremarkable. No aortic aneurysm. No aortic dissection. Lungs: There is a 0.4 cm pleural based nodule along the left major fissure as seen on series 2, image 244.There is probable atelectasis/scar in the lungs. No significant lung consolidation. Pleural space: Unremarkable. No pneumothorax. No pleural effusion. Heart: Unremarkable. No cardiomegaly. No pericardial effusion. Lymph nodes: Unremarkable. No enlarged lymph nodes. Bones/joints: Degenerative change is identified in the spine. There is no evidence for acute fracture or malalignment. Soft tissues: Unremarkable. CT/CT angio chest PE protcl [id number] IMPRESSION: There is no evidence for a pulmonary embolus. There is a pleural base nodule along the left major fissure.For patients at low risk (minimal or absent history of smoking and of other known risk factors), no routine follow-up is indicated. For patients at high risk (history of smoking or of other known risk factors), consider optional CT at 12 months. (keshawn Jeronimo al., Fleischner Society, 2017) Radiation Dose CTDIVOL = (mGy): DLP = 593.18 (mGy-cm)
[2020-06-22] MEDS: iodixanol 320 mg/mL 100mL Btl IV (21:20)
--- NOTE | 2020-06-22 22:08 | PC.NURSE ---
Patient arrived from ER. Patient alert and oriented. Placed on telemetry. Cardizem gtt is infusing at 15mls/hr and heart rate 90 to 110 bpm. Patient denies any pain. call light within reach. Will continue to montior.
[2020-06-22] MEDS: enoxaparin 100 mg/mL Syringe 120 MG SUBCUT (22:19)
--- NOTE | 2020-06-22 22:28 | PC.NURSE ---
Patient questioning whether or not she would get a dose of PO metoprolol. Called Dr. Yates regarding patient concern updated on vitals, heart rate and drip rate. He stated her metopolol would start in the AM and if she comes off the drip tonight we could give her dose then. relayed to the patient the information about the metoprolol and she verbalized understanding. Will continue to monitor.
[2020-06-23 01:04] LABS: Troponin 5 6HR 15.79 ng/L (0-10)
[2020-06-23 01:07] LABS: Troponin 5 6HR Delta -1.21 ng/L (0-12)
[2020-06-23 03:19] VITALS: BP 117/85; PULSE 115; RESP 20; TEMP 36.7; O2SAT 93
[2020-06-23 05:25] LABS: Basophils # 0.1 10^3/uL (0.0-0.1); Basophils % 0.5 %; Eosinophils # 0.4 10^3/uL (0.0-0.8); Eosinophils % 3.4 %; Hematocrit 39.7 % (37.0-47.0); Hemoglobin 12.9 g/dL (11.5-15.3); Lymphocytes # 2.8 10^3/uL (0.8-4.8); Lymphocytes % 26.9 %; Mean Corpuscular HGB Conc 32.5 g/dL (30.0-36.0); Mean Corpuscular Hemoglobin 31.8 pg (28.0-34.0); Mean Corpuscular Volume 97.8 fL (81-99); Mean Platelet Volume 10.9 fL (7.4-10.4); Monocytes # 0.6 10^3/uL (0.2-0.9); Monocytes % 5.4 %; Neutrophils # 6.49 10^3/uL (1.8-7.7); Neutrophils % 63.6 %; Nucleated Red Blood Cells % 0 %; Platelet Count 285 10^3/cmm (130-400); Red Blood Count 4.06 10^6/uL (4.1-5.3); White Blood Count 10.2 10^3/uL (4.0-10.0)
[2020-06-23 05:54] LABS: Anion Gap 13.8 (5-19); Blood Urea Nitrogen 16 mg/dL (8-23); Calcium 8.4 mg/dL (8.5-10.5); Carbon Dioxide 24 mmol/L (22-29); Chloride 105 mmol/L (98-107); Glomerular Filtration Rate 62.5 mL/min (90-130); Glucose 122 mg/dL (65-115); Osmolality Calculated 286 mOsm/kg (285-295); Potassium 3.8 mmol/L (3.5-5.1); Sodium 139 mmol/L (136-145)
--- NOTE | 2020-06-23 06:32 | PC.NURSE ---
Patient states she takes her levothyroxin on , , sat. Changed per patient request.
[2020-06-23] MEDS: FUROsemide 20 mg Tablet PO (08:08)
[2020-06-23 08:10] VITALS: TEMP 36.6
[2020-06-23 08:31] VITALS: BP 150/90; PULSE 90; RESP 23; O2SAT 93
[2020-06-23] MEDS: metoprolol tartrate 25 mg Tablet 50 MG PO ×2 (08:46→17:10)
[2020-06-23] MEDS: warfarin 5 mg Tablet PO (08:46)
[2020-06-23] MEDS: pantoprazole DR 40 mg Tablet PO (08:46)
[2020-06-23] MEDS: aspirin 81 mg EC Tablet PO (08:47)
--- NOTE | 2020-06-23 10:16 | PC.CHAP ---
Pastoral Care Encounter/Spiritual Assessment Type of Contact [] Declined rope walker visit [] Patient/Family/Request visit [] Outpatient visit [] Follow-up visit [] Physician referral [] Code/Alert [x] Routine visit [] Staff referral [] Actively dying [] Patient sleeping [] Family support [] [] Out of room [] Palliative care [] [] Receiving care in room [] Pre-surgical visit [] Trauma [] Long length of stay [] ICU visit [] Other: Relational/Emotional Strength [] Patient feels connected with others/family/visitors/staff [] Distress [] Loneliness/isolation [] Abandonment Spirituality of Patient [] Person of Monique [] Attends Roman Catholic of their Monique [] Believes in Prayer [] Reads Bible or Presybeterian materials [] There are Spiritual issues to be addressed 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 Interventions [x] Prayer [x] Active listening [x] Non-anxious presence [x] Spiritual/emotional support [] Crisis/trauma care [] Spiritual counseling [] Bereavement support [] Provided bereavement packet [] Provided Bible/devotional materials [] Provided toy/stuffed animal, coloring book to patient or family member [] Provided Communion [] Anointing/[place] [] Salvation [x] Completed spiritual assessment [] Other: Impact on Illness or Injury [] Angry [] Fearful [] Anxious [] Often cries [] Exhaustion [] Unable to work [] Unable to attend religion [] Unable to walk/stand [] Unable to read [] Unable to drive [] Unable to eat/drink [] Unable to sleep [] Unable to be with family [] Patient intubated [] Other: Summary patient feeling better. waiting for results of test Time spent with patient 10 min
[2020-06-23] MEDS: enoxaparin 120 mg/0.8 mL Syringe SUBCUT ×2 (10:38→20:28)
[2020-06-23 12:00] VITALS: BP 118/87; PULSE 84; RESP 23; TEMP 36.5; O2SAT 96
--- NOTE | 2020-06-23 14:51 | PM.PN ---
Subjective Subjective: Interval history: Chart reviewed, able to wean off Cardizem drip once rate better controlled, will start on oral Cardizem. Her previously been noted to be bradycardic with metoprolol. On anticoagulation with Coumadin. Vital signs stable, on room air, normal hemoglobin, improved renal function. Resting quietly in bed, no complaints currently, has been ambulatory to and from the bathroom and has felt fine, no recurrence of palpitations, shortness of breath or chest discomfort. Medications: Reviewed: Yes Medication Review Details: Active Medications Generic Name Dose Route Start Last Admin Trade Name Freq PRN Reason Stop Dose Admin Albuterol/Ipratrop ium 3 ml 06/22/20 21:31 Duoneb INHALATION Q6H PRN SHORTNESS OF LONG TH Aspirin 81 mg 06/23/20 09:00 06/23/20 08:47 Aspirin Ec PO 81 mg DAILY [facility] Administration Diltiazem HCl 30 mg 06/23/20 15:00 Cardizem PO Q6H [facility] Enoxaparin Sodium 120 mg 06/23/20 10:00 06/23/20 10:38 Lovenox 1 mg/kg (120 mg) 120 mg SUBCUT Administration Q12H [facility] Fluticasone Propio perico 2 spray 06/22/20 21:31 Flonase INTRANASAL BID PRN allergies Furosemide 20 mg 06/23/20 08:00 06/23/20 08:08 Lasix PO 20 mg DAILY@0800 [facility] Administration Diltiazem HCl 125 mg/ Sodium 125 mls @ 0 mls/h r 06/22/20 17:30 06/23/20 10:39 Chloride IV 0 mg/hr .Q0M [facility] 0 mls/hr Titration Protocol Per Protocol Levothyroxine Sodi um 150 mcg 06/24/20 06:00 Synthroid PO TuThSa [facility] Metoprolol Tartrat e 50 mg 06/23/20 09:00 06/23/20 08:46 Lopressor PO 50 mg BID [facility] Administration Pantoprazole Sodiu m 40 mg 06/23/20 09:00 06/23/20 08:46 Protonix PO 40 mg DAILY [facility] Administration Warfarin Sodium 5 mg 06/23/20 09:00 06/23/20 08:46 Coumadin PO 5 mg DAILY [facility] Administration codeine Allergy (Verified 06/22/20 17:42) ADR-Vomiting Sulfa (Sulfonamide Antibiotics) Allergy (Verified 06/22/20 17:42) Unknown Tetanus Vaccines and Toxoid Allergy (Verified 06/22/20 17:42) Unknown Vitals/I&O/Wt Last Vital Signs Temp 97.7 F 06/23/20 12:00 Pulse 84 06/23/20 12:00 Resp 23 H 06/23/20 12:00 BP 118/87 06/23/20 12:00 Pulse Ox 96 06/23/20 12:00 06/22/20 06/23/20 06/23/20 22:59 06:59 14:59 Intake Total 12.584 / 12.584 317.417 / 330.001 695.500 / 695.500 Balance 12.584 / 12.584 317.417 / 330.001 695.500 / 695.500 Weight last 48 hrs Weight 117.934 kg Physical Exam Const: COMMON NORMALS: no acute distress and patient oriented x3 GENERAL APPEARANCE: cooperative and comfortable NUTRITIONAL APPEARANCE: obese morbidly obese ORIENTATION/CONSCIOUSNESS: Yes awake HENMT: COMMON NORMALS: normocephalic, atraumatic, hearing grossly normal bilaterally and moist oral mucous membranes HEAD & SCALP: normocephalic and atraumatic Eye: COMMON NORMALS: Equal, round and reactive pupils present, EOMs intact bilaterally and conjunctivae normal CONJUNCTIVA: Yes conjunctivae normal PUPIL: Yes Equal, round and reactive pupils present Neck/C-Spine: COMMON NORMALS: full ROM GENERAL: Yes normal visual inspection and Yes trachea midline Resp: COMMON NORMALS: normal respiratory effort, No retractions, No use of accessory muscles and clear to auscultation bilaterally EFFORT & INSPECTION: Yes able to speak in complete sentences, Yes symmetric chest movement and No tachypneic AUSCULTATION: clear to auscultation bilaterally Cardio: COMMON NORMALS: regular rate, S1 normal heart sound present, S2 normal heart sound present and No murmurs present (Cardio) RATE: regular rate RHYTHM: abnormal rhythm irregularly irregular HEART SOUNDS: S1 normal heart sound present and S2 normal heart sound present GI: COMMON NORMALS: Normal to inspection, nondistended, normoactive bowel sounds present, Soft to palpation and non-tender INSPECTION: Yes central obesity PALPATION: Yes Soft to palpation Extremity: COMMON NORMALS: normal to inspection, full ROM and no clubbing, cyanosis or edema NARRATIVE EXTREMITY EXAM: -Minimal non-pitting ankle edema bilaterally Neuro: COMMON NORMALS: patient oriented x3, moves all extremities, no focal motor deficits, no sensory deficits noted and gait normal Psych: COMMON NORMALS: mental status grossly normal, Normal thought process present, cooperative, normal affect and speech normal SPEECH: Yes normal speech THOUGHT PROCESS: Normal thought process present Skin: COMMON NORMALS: no rashes or lesions noted, no jaundice, no petechiae and no mottling GENERAL SKIN EXAM: no rashes or lesions noted Data : 06/23/20 04:47 06/23/20 04:47 A&P Assessment and plan (1) Atrial fibrillation with RVR: -has known hx of paroxysmal atrial fibrillation, presented with A. fib with RVR -Required Cardizem drip, weaned off, will start on oral Cardizem -is already on metoprolol, had reported issues with bradycardia; per review of old [facility] records heart rates primarily in the 60s, lowest heart rate was in April 2018 of around 48 -Telemetry monitoring -Already on anticoagulation with Coumadin, daily INR -Echo: EF=60-65%, mild concentric LVH, trace MR, trace TR, trace MD; previous one in 2017 showed ejection fraction of 65% with normal diastolic function, no RWMA, trace TR, mild MR, mild AR, trace MD -troponins noted with no significant delta -would like referral to Dr. Thompson as outpatient Status: Acute (2) New onset of congestive heart failure: -BNP-3052 -imaging not indicative of fluid overload; not overtly decompensated; could be secondary to A.fib with RVR -Echo as noted above -on oral Lasix Status: Acute (3) Hypothyroidism: -TSH wnl -on levothyroxine Status: Chronic Qualifiers: Hypothyroidism type: unspecified Qualified Code(s): E03.9 - Hypothyroidism, unspecified (4) Chronic anticoagulation: -on Coumadin Status: Chronic Additional A&P Information -Morbid obesity: BMI-46 kg/m2 -cardiac diet as tolerated -GI ppx with PPI -DVT ppx not needed as on coumadin -Dispo: home -Code status: FULL code Attestations Medical Necessity Statement*: Patient requires hospitalization for continued management of A. fib with RVR, weaned off Cardizem drip and started on oral antiarrhythmic and requires continued telemetry monitoring. Time Spent in Patient Care: Greater than 35 minutes (>than 50% of time spent in counselling and/or direct pt care on unit). 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
[2020-06-23] MEDS: dilTIAZem 30 mg Tablet PO ×2 (15:12→20:28)
[2020-06-23] MEDS: TRAMadol 50 mg Tablet PO (15:14)
[2020-06-23 16:00] VITALS: BP 141/94; PULSE 95; RESP 20; TEMP 36.8; O2SAT 94
--- NOTE | 2020-06-23 18:13 | PC.NURSE ---
Patient resting in bed, watching tv. Patient is cooperative with cares and staff. IV Cardizem drip has stopped and switched to oral Cardizem every 6 hours per orders.
--- NOTE | 2020-06-23 18:15 | PC.NURSE ---
Patient does report right knee pain throughout the shift, and PRN tramadol given per orders for pain control. Pain has subsided and is under control at this time.
[2020-06-23 18:59] VITALS: BP 127/84; PULSE 81; RESP 15; TEMP 36.6; O2SAT 96
--- NOTE | 2020-06-23 19:48 | PC.NURSE ---
Rounding: Patient was resting in bed with eyes closed upon entering room. Patient easily awakened.Patient denies any complaints at this time. Patient is alert and oriented Will continue to monitor.
--- NOTE | 2020-06-23 21:47 | USCV_ITS ---
Katie Finch Age: 69 Gender: F : 1950 Exam Date: 06/23/2020 06:00 Ordering Phys: Estelita Yates MD Technologist: Belen Hassan [place] [facility] [place]: R/O Tachycardia induced HF BP: 117 / 85 HR: 91 Rhythm: Atrial fibrillation Technical Quality: Adequate MEASUREMENTS (Male / Female) Normal Values 2D ECHO LV Diastolic Diameter PLAX 4.0 cm 4.2 - 5.9 / 3.9 - 5.3 cm LV Systolic Diameter PLAX 2.0 cm LV Chamber Size 3.6 cm IVS Diastolic Thickness 1.5 cm 0.6 - 1.0 / 0.6 - 0.9 cm IVS Systolic Thickness 1.8 cm LVPW Diastolic Thickness 1.3 cm 0.6 - 1.0 / 0.6 - 0.9 cm LVPW Systolic Thickness 1.9 cm RV Chamber Size 2.9 cm LVOT Diameter 1.9 cm LV Ejection Fraction 2D Teich 82.6 % LV Ejection Fraction MOD 2C 54.7 % LV Ejection Fraction 2C AL 53.4 % LA Diameter 3.6 cm LA Width 3.3 cm LA Height 4.7 cm RA Width 4.2 cm RA Height 4.9 cm Aorta at Sinotubular Diameter 2.9 cm M-MODE Aortic Annulus Diameter 3.8 cm LA Ao Ratio MM 0.9 MV E Point Septal Separation 0.3 cm DOPPLER AV Peak Velocity 159.0 cm/s LVOT Peak Velocity 135.0 cm/s AV Area Cont Eq vti 2.5 cm squared AV Area Cont Eq pk 2.5 cm squared MV Area PHT 3.6 cm squared MV E' Velocity 12.0 cm/s Mitral E to MV E' Ratio 8.6 Mitral E to LV E' Lateral Ratio 9.0 Mitral E to LV E' Septal Ratio 8.2 TR Peak Velocity 258.7 cm/s TR Peak Gradient 26.8 mmHg TR Mean Velocity 180.6 cm/s TR Mean Gradient 15.3 mmHg TR Velocity Time Integral 71.5 cm TV Peak E Velocity 101.0 cm/s Right Atrial Pressure 5.0 mmHg Pulmonary Artery Systolic Pressu 31.8 mmHg PV Peak Velocity 95.0 cm/s RV Acceleration Time 0.1 s RV Ejection Time 0.3 s RV AcT/ET 0.3 FINDINGS Left Ventricle Normal left ventricular size and systolic function with no regional wall motion abnormalities. Mild concentric left ventricular hypertrophy. Left ventricular ejection fraction is estimated at 60-65 %. Right Ventricle Normal right ventricular size and systolic function, RVSP 31.8 mmHg. Right Atrium Normal right atrial size. Right atrial pressure estimated at 3 mmHg. Left Atrium Upper normal left atrial size. Mitral Valve Structurally normal mitral valve. No mitral valve stenosis. Trace mitral valve regurgitation. Aortic Valve Structurally normal trileaflet aortic valve. No aortic valve stenosis. No aortic valve regurgitation. Tricuspid Valve Structurally normal tricuspid valve. Trace tricuspid valve regurgitation. Pulmonic Valve Structurally normal pulmonic valve. No pulmonary valve stenosis. Trace pulmonary valve regurgitation. Pericardium No pericardial effusion. Aorta Normal size aortic root and proximal ascending aorta. Normal- sized inferior vena cava. CONCLUSIONS 1. Normal left ventricular size and systolic function with no regional wall motion abnormalities. Mild concentric left ventricular hypertrophy. Left ventricular ejection fraction is estimated at 60-65 %. 2. Pulmonary artery pressure estimated at 32 mmHg. 3. No significant valvular abnormality. 4. When compared to previous echocardiogram dated 08/22/2017, there may not have been any significant change Amanda Maravilla MD (Electronically Signed) Final Date: 23 June 2020 15:57 S
[2020-06-24] VITALS (10 sets, daily range): BP systolic 98–132; BP diastolic 60–93; PULSE 79–141; RESP 14–25; TEMP 36.4–36.9; O2SAT 92–98
[2020-06-24] MEDS: dilTIAZem 30 mg Tablet PO ×3 (03:09→14:18)
[2020-06-24] MEDS: TRAMadol 50 mg Tablet PO (03:19)
[2020-06-24 05:24] LABS: Basophils # 0.1 10^3/uL (0.0-0.1); Eosinophils # 0.5 10^3/uL (0.0-0.8); Hematocrit 40.9 % (37.0-47.0); Hemoglobin 13.2 g/dL (11.5-15.3); Lymphocytes # 2.8 10^3/uL (0.8-4.8); Lymphocytes % 30.9 %; Mean Corpuscular HGB Conc 32.3 g/dL (30.0-36.0); Mean Corpuscular Hemoglobin 31.4 pg (28.0-34.0); Mean Corpuscular Volume 97.4 fL (81-99); Monocytes # 0.6 10^3/uL (0.2-0.9); Neutrophils # 5.21 10^3/uL (1.8-7.7); Neutrophils % 56.7 %; Nucleated Red Blood Cells % 0 %; Platelet Count 288 10^3/cmm (130-400); White Blood Count 9.2 10^3/uL (4.0-10.0)
[2020-06-24] MEDS: levothyroxine 150 mcg Tablet PO (05:27)
[2020-06-24 05:34] LABS: INR 1.95 (0.8-1.2)
[2020-06-24 05:56] LABS: Blood Urea Nitrogen 17 mg/dL (8-23); Calcium 8.7 mg/dL (8.5-10.5); Carbon Dioxide 24 mmol/L (22-29); Chloride 104 mmol/L (98-107); Glomerular Filtration Rate 55.3 mL/min (90-130); Glucose 103 mg/dL (65-115); Osmolality Calculated 283 mOsm/kg (285-295); Sodium 138 mmol/L (136-145)
[2020-06-24 06:03] LABS: Anion Gap 13.8 (5-19); Potassium 3.8 mmol/L (3.5-5.1)
[2020-06-24] MEDS: aspirin 81 mg EC Tablet PO (07:39)
[2020-06-24] MEDS: warfarin 5 mg Tablet PO (07:39)
[2020-06-24] MEDS: FUROsemide 20 mg Tablet PO (07:39)
[2020-06-24] MEDS: metoprolol tartrate 25 mg Tablet 50 MG PO ×2 (07:39→17:07)
[2020-06-24] MEDS: pantoprazole DR 40 mg Tablet PO (07:39)
[2020-06-24] MEDS: enoxaparin 120 mg/0.8 mL Syringe SUBCUT ×2 (10:00→21:42)
--- NOTE | 2020-06-24 10:03 | PC.NURSE ---
PATIENT HAD EPISODE OF FAST HEART RATE THIS MORNING. 140-150 SUSTAINED IN AFIB. PATIENT SYMPTOMATIC. STATED THAT SHE DIDN'T FEEL GOOD. PATIENT NOTED TO BE CLAMMY AND DIAPHORETIC. NO CHEST PAIN NOTED. RESTARTED PATIENT ON CARDIZEM GTT. WILL TITRATE NEEDED. DR. ACUNA NOTIFIED. ORDERED TO GIVE PO MEDICATIONS EARLY.
--- NOTE | 2020-06-24 16:22 | P.PN_ITS ---
Subjective Subjective: Interval history: Had an episode of symptomatic atrial fibrillation with RVR earlier this AM, cardizem drip restarted, able to wean this off as the day progressed. Feels better when seen in the afternoon, hemodynamically stable, resolved leukocytosis, stable Hg, INR-1.95, stable renal function, voiding independently. Medications: Reviewed: Yes Medication Review Details: Active Medications Generic Name Dose Route Start Last Admin Trade Name Freq PRN Reason Stop Dose Admin Acetaminophen 650 mg 06/23/20 14:52 Tylenol PO Q6H PRN MILD PAIN OR INCR EASE TEMP Albuterol/Ipratrop ium 3 ml 06/22/20 21:31 Duoneb INHALATION Q6H PRN SHORTNESS OF LONG TH Aspirin 81 mg 06/23/20 09:00 06/24/20 07:39 Aspirin Ec PO 81 mg DAILY MELA Administration Diltiazem HCl 30 mg 06/23/20 15:00 06/24/20 14:18 Cardizem PO 30 mg Q6H MELA Administration Enoxaparin Sodium 120 mg 06/23/20 10:00 06/24/20 10:00 Lovenox 1 mg/kg (120 mg) 120 mg SUBCUT Administration Q12H MELA Fluticasone Propio perico 2 spray 06/22/20 21:31 Flonase INTRANASAL BID PRN allergies Furosemide 20 mg 06/23/20 08:00 06/24/20 07:39 Lasix PO 20 mg DAILY@0800 MELA Administration Diltiazem HCl 125 mg/ Sodium 125 mls @ 0 mls/h r 06/22/20 17:30 06/24/20 10:56 Chloride IV 0 mg/hr .Q0M MELA 0 mls/hr Titration Protocol Per Protocol Levothyroxine Sodi um 150 mcg 06/24/20 06:00 06/24/20 05:27 Synthroid PO 150 mcg TuThSa MELA Administration Metoprolol Tartrat e 50 mg 06/23/20 09:00 06/24/20 07:39 Lopressor PO 50 mg BID MELA Administration Pantoprazole Sodiu m 40 mg 06/23/20 09:00 06/24/20 07:39 Protonix PO 40 mg DAILY MELA Administration Potassium Chloride 20 meq 06/24/20 16:25 Klor-Con 10 PO DAILY MELA Tramadol HCl 50 mg 06/23/20 14:52 06/24/20 03:19 Ultram PO 50 mg Q6H PRN Administration MODERATE PAIN Warfarin Sodium 5 mg 06/23/20 09:00 06/24/20 07:39 Coumadin PO 5 mg DAILY MELA Administration codeine Allergy (Verified 06/22/20 17:42) ADR-Vomiting Sulfa (Sulfonamide Antibiotics) Allergy (Verified 06/22/20 17:42) Unknown Tetanus Vaccines and Toxoid Allergy (Verified 06/22/20 17:42) Unknown Vitals/I&O/Wt Last Vital Signs Temp 98.2 F 06/24/20 16:00 Pulse 97 06/24/20 16:00 Resp 21 H 06/24/20 16:00 BP 130/77 06/24/20 16:00 Pulse Ox 94 06/24/20 16:00 06/24/20 06/24/20 06/24/20 06:59 14:59 22:59 Intake Total 388.417 / 388.417 Balance 388.417 / 388.417 Weight last 48 hrs Weight 117.934 kg Physical Exam Const: COMMON NORMALS: no acute distress and patient oriented x3 GENERAL APPEARANCE: cooperative and comfortable NUTRITIONAL APPEARANCE: obese morbidly obese ORIENTATION/CONSCIOUSNESS: Yes awake HENMT: COMMON NORMALS: normocephalic, atraumatic, hearing grossly normal bilaterally and moist oral mucous membranes HEAD & SCALP: normocephalic and atraumatic Eye: COMMON NORMALS: Equal, round and reactive pupils present, EOMs intact bilaterally and conjunctivae normal CONJUNCTIVA: Yes conjunctivae normal PUPIL: Yes Equal, round and reactive pupils present Neck/C-Spine: COMMON NORMALS: full ROM GENERAL: Yes normal visual inspection and Yes trachea midline Resp: COMMON NORMALS: normal respiratory effort, No retractions, No use of accessory muscles and clear to auscultation bilaterally EFFORT & INSPECTION: Yes able to speak in complete sentences, Yes symmetric chest movement and No tachypneic AUSCULTATION: clear to auscultation bilaterally OTHER: -on RA Cardio: COMMON NORMALS: regular rate, S1 normal heart sound present, S2 normal heart sound present and No murmurs present (Cardio) RATE: regular rate RHYTHM: abnormal rhythm irregularly irregular HEART SOUNDS: S1 normal heart sound present and S2 normal heart sound present GI: COMMON NORMALS: Normal to inspection, nondistended, normoactive bowel sounds present, Soft to palpation and non-tender INSPECTION: Yes central obesity PALPATION: Yes Soft to palpation Extremity: COMMON NORMALS: normal to inspection, full ROM and no clubbing, cyanosis or edema NARRATIVE EXTREMITY EXAM: -Minimal non-pitting ankle edema bilaterally Neuro: COMMON NORMALS: patient oriented x3, moves all extremities, no focal motor deficits, no sensory deficits noted and gait normal Psych: COMMON NORMALS: mental status grossly normal, Normal thought process present, cooperative, normal affect and speech normal SPEECH: Yes normal speech THOUGHT PROCESS: Normal thought process present Skin: COMMON NORMALS: no rashes or lesions noted, no jaundice, no petechiae and no mottling GENERAL SKIN EXAM: no rashes or lesions noted Data : 06/24/20 04:19 06/24/20 04:19 A&P Assessment and plan (1) Atrial fibrillation with RVR: -has known hx of paroxysmal atrial fibrillation, presented with A. fib with RVR -Required Cardizem drip, weaned off, will start on oral Cardizem -is already on metoprolol, had reported issues with bradycardia; per review of [employer] records heart rates primarily in the 60s, lowest heart rate was in April 2018 of around 48 -Telemetry monitoring -Already on anticoagulation with Coumadin, bridging with therapeutic Lovenox, daily INR -Echo: EF=60-65%, mild concentric LVH, trace MR, trace TR, trace [place]; previous one in 2017 showed ejection fraction of 65% with normal diastolic function, no RWMA, trace TR, mild MR, mild [place], trace [place] -troponins noted with no significant delta -would like referral to Dr. Thompson as outpatient Status: Acute (2) New onset of congestive heart failure: -[id number] -imaging not indicative of fluid overload; not overtly decompensated; could be secondary to A.fib with RVR -Echo as noted above -on oral Lasix Status: Acute (3) Hypothyroidism: -TSH wnl -on levothyroxine Status: Chronic Qualifiers: Hypothyroidism type: unspecified Qualified Code(s): E03.9 - Hypothyroidism, unspecified (4) Chronic anticoagulation: -on Coumadin Status: Chronic Additional A&P Information -Morbid obesity: BMI-46 kg/m2 -cardiac diet as tolerated -GI ppx with PPI -DVT ppx not needed as on coumadin and lovenox -Dispo: home -Code status: FULL code Attestations Medical Necessity Statement*: Patient requires hospitalization for continued management of A. fib with RVR, requiring continued titration of antiarrhythmics and telemetry monitoring. Time Spent in Patient Care: 16 - 35 minutes (>than 50% of time spent in counselling and/or direct pt care on unit) . 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
[2020-06-24] MEDS: potassium chloride ER 10 mEq Tablet 20 MEQ PO (17:07)
[2020-06-24] MEDS: dilTIAZem 30 mg Tablet 60 MG PO ×2 (17:07→21:42)
[2020-06-25] VITALS (8 sets, daily range): BP systolic 106–134; BP diastolic 73–90; PULSE 79–120; RESP 16–24; TEMP 36.6–36.8; O2SAT 95–98
[2020-06-25] MEDS: dilTIAZem 30 mg Tablet 60 MG PO ×4 (03:59→21:18)
[2020-06-25 05:39] LABS: Blood Urea Nitrogen 19 mg/dL (8-23); Calcium 8.3 mg/dL (8.5-10.5); Carbon Dioxide 25 mmol/L (22-29); Chloride 103 mmol/L (98-107); Glomerular Filtration Rate 55.3 mL/min (90-130); Glucose 106 mg/dL (65-115); Osmolality Calculated 283 mOsm/kg (285-295); Sodium 138 mmol/L (136-145)
[2020-06-25] MEDS: warfarin 5 mg Tablet PO (08:11)
[2020-06-25] MEDS: metoprolol tartrate 25 mg Tablet 50 MG PO (08:11)
[2020-06-25] MEDS: FUROsemide 20 mg Tablet PO (08:12)
[2020-06-25] MEDS: pantoprazole DR 40 mg Tablet PO (08:12)
[2020-06-25] MEDS: aspirin 81 mg EC Tablet PO (08:12)
[2020-06-25] MEDS: potassium chloride ER 10 mEq Tablet 20 MEQ PO (08:13)
--- NOTE | 2020-06-25 08:33 | PC.NURSE ---
Physician Notification Patient running afib, HR 110s-130s on telemetry. PO 50 mg Metoprolol administered at 0811. Patient scheduled to receive 60 mg of Cardizem PO of 1030. Dr. Pickard gave telephone order for nurse to administer 1030 dose of Cardizem now, continue to monitor. RBVO.
--- NOTE | 2020-06-25 08:57 | PC.SOCIAL ---
IMM Update Pg 2 of IMM updated with patient, who verbalized understanding. Copy provided to patient.
[2020-06-25] MEDS: enoxaparin 120 mg/0.8 mL Syringe SUBCUT ×2 (09:04→21:18)
--- NOTE | 2020-06-25 11:07 | PM.PN ---
Subjective Subjective: Interval history: Normotensive, had 1200 mL urine output overnight, telemetry noted to be running in the 110-130 range, given Cardizem dose early. On anticoagulation with Coumadin, INR therapeutic at 2.20. Reports some dizziness when getting up, heart rate has been noted to be ranging from 60s to 80s during my assessment at bedside. Medications: Reviewed: Yes Medication Review Details: Active Medications Generic Name Dose Route Start Last Admin Trade Name Freq PRN Reason Stop Dose Admin Acetaminophen 650 mg 06/23/20 14:52 Tylenol PO Q6H PRN MILD PAIN OR INCR EASE TEMP Albuterol/Ipratrop ium 3 ml 06/22/20 21:31 Duoneb INHALATION Q6H PRN SHORTNESS OF LONG TH Aspirin 81 mg 06/23/20 09:00 06/25/20 08:12 Aspirin Ec PO 81 mg DAILY MELA Administration Diltiazem HCl 60 mg 06/24/20 16:30 06/25/20 08:42 Cardizem PO 60 mg Q6H MELA Administration Enoxaparin Sodium 120 mg 06/23/20 10:00 06/25/20 09:04 Lovenox 1 mg/kg (120 mg) 120 mg SUBCUT Administration Q12H MELA Fluticasone Propio perico 2 spray 06/22/20 21:31 Flonase INTRANASAL BID PRN allergies Furosemide 20 mg 06/23/20 08:00 06/25/20 08:12 Lasix PO 20 mg DAILY@0800 MELA Administration Diltiazem HCl 125 mg/ Sodium 125 mls @ 0 mls/h r 06/22/20 17:30 06/24/20 10:56 Chloride IV 0 mg/hr .Q0M MELA 0 mls/hr Titration Protocol Per Protocol Levothyroxine Sodi um 150 mcg 06/24/20 06:00 06/24/20 05:27 Synthroid PO 150 mcg TuThSa MELA Administration Metoprolol Tartrat e 50 mg 06/23/20 09:00 06/25/20 08:11 Lopressor PO 50 mg BID MELA Administration Pantoprazole Sodiu m 40 mg 06/23/20 09:00 06/25/20 08:12 Protonix PO 40 mg DAILY MELA Administration Potassium Chloride 20 meq 06/24/20 16:25 06/25/20 08:13 Klor-Con 10 PO 20 meq DAILY MELA Administration Tramadol HCl 50 mg 06/23/20 14:52 06/24/20 03:19 Ultram PO 50 mg Q6H PRN Administration MODERATE PAIN Warfarin Sodium 5 mg 06/23/20 09:00 06/25/20 08:11 Coumadin PO 5 mg DAILY MELA Administration codeine Allergy (Verified 06/22/20 17:42) ADR-Vomiting Sulfa (Sulfonamide Antibiotics) Allergy (Verified 06/22/20 17:42) Unknown Tetanus Vaccines and Toxoid Allergy (Verified 06/22/20 17:42) Unknown Vitals/I&O/Wt Last Vital Signs Temp 97.8 F 06/25/20 11:02 Pulse 79 06/25/20 11:02 Resp 23 H 06/25/20 11:02 BP 106/76 06/25/20 11:02 Pulse Ox 97 06/25/20 11:02 06/24/20 06/25/20 06/25/20 22:59 06:59 14:59 Intake Total 480 / 868.417 100 / 968.417 360 / 360 Output Total 1200 / 1200 Balance 480 / 868.417 -1100 / -231.583 360 / 360 Physical Exam Const: COMMON NORMALS: no acute distress and patient oriented x3 GENERAL APPEARANCE: cooperative and comfortable NUTRITIONAL APPEARANCE: obese morbidly obese ORIENTATION/CONSCIOUSNESS: Yes awake HENMT: COMMON NORMALS: normocephalic, atraumatic, hearing grossly normal bilaterally and moist oral mucous membranes HEAD & SCALP: normocephalic and atraumatic Eye: COMMON NORMALS: Equal, round and reactive pupils present, EOMs intact bilaterally and conjunctivae normal CONJUNCTIVA: Yes conjunctivae normal PUPIL: Yes Equal, round and reactive pupils present Neck/C-Spine: COMMON NORMALS: full ROM GENERAL: Yes normal visual inspection and Yes trachea midline Resp: COMMON NORMALS: normal respiratory effort, No retractions, No use of accessory muscles and clear to auscultation bilaterally EFFORT & INSPECTION: Yes able to speak in complete sentences, Yes symmetric chest movement and No tachypneic AUSCULTATION: clear to auscultation bilaterally OTHER: -on RA Cardio: COMMON NORMALS: regular rate, S1 normal heart sound present, S2 normal heart sound present and No murmurs present (Cardio) RATE: regular rate RHYTHM: abnormal rhythm irregularly irregular HEART SOUNDS: S1 normal heart sound present and S2 normal heart sound present GI: COMMON NORMALS: Normal to inspection, nondistended, normoactive bowel sounds present, Soft to palpation and non-tender INSPECTION: Yes central obesity PALPATION: Yes Soft to palpation Extremity: COMMON NORMALS: normal to inspection, full ROM and no clubbing, cyanosis or edema NARRATIVE EXTREMITY EXAM: -Minimal non-pitting ankle edema bilaterally Neuro: COMMON NORMALS: patient oriented x3, moves all extremities, no focal motor deficits, no sensory deficits noted and gait normal Psych: COMMON NORMALS: mental status grossly normal, Normal thought process present, cooperative, normal affect and speech normal SPEECH: Yes normal speech THOUGHT PROCESS: Normal thought process present Skin: COMMON NORMALS: no rashes or lesions noted, no jaundice, no petechiae and no mottling GENERAL SKIN EXAM: no rashes or lesions noted Data : 06/24/20 04:19 06/25/20 04:25 A&P Assessment and plan (1) Atrial fibrillation with RVR: -has known hx of paroxysmal atrial fibrillation, presented with A. fib with RVR -Required Cardizem drip, weaned off, will start on oral Cardizem -is already on metoprolol, had reported issues with bradycardia; per review of old [employer] records heart rates primarily in the 60s, lowest heart rate was in April 2018 of around 48 -Telemetry monitoring -Already on anticoagulation with Coumadin, bridging with therapeutic Lovenox, daily INR -Echo: EF=60-65%, mild concentric LVH, trace MR, trace TR, trace [place]; previous one in 2017 showed ejection fraction of 65% with normal diastolic function, no RWMA, trace TR, mild MR, mild [place], trace [place] -troponins noted with no significant delta -would like referral to Dr. Thompson as outpatient Status: Acute (2) New onset of congestive heart failure: -BNP-3052 -imaging not indicative of fluid overload; not overtly decompensated; could be secondary to A.fib with RVR -Echo as noted above -on oral Lasix Status: Acute (3) Hypothyroidism: -TSH wnl -on levothyroxine Status: Chronic Qualifiers: Hypothyroidism type: unspecified Qualified Code(s): E03.9 - Hypothyroidism, unspecified (4) Chronic anticoagulation: -on Coumadin Status: Chronic Additional A&P Information -Morbid obesity: BMI-46 kg/m2 -cardiac diet as tolerated -GI ppx with PPI -DVT ppx not needed as on coumadin and lovenox -Dispo: home -Code status: FULL code Attestations Medical Necessity Statement*: Patient requires hospitalization for continued optimization of antiarrhythmics for management of atrial fibrillation with RVR. Time Spent in Patient Care: 16 - 35 minutes (>than 50% of time spent in counselling and/or direct pt care on unit). 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
--- NOTE | 2020-06-25 13:00 | PC.NURSE ---
Physician Notification Patient currently bradycardic with complaints of dizziness and occasional SOB, HR 50s-60s. Dr. Pickard notified in person. Physician to report to bedside and make medication adjustments.
[2020-06-25] MEDS: metoprolol tartrate 25 mg Tablet PO (17:18)
--- NOTE | 2020-06-25 18:13 | PC.NURSE ---
Shift Summary No further events. Patient has maintained a fib with rate controlled. No new requests at this time. Nurse to continue to monitor.
--- NOTE | 2020-06-25 19:30 | PC.NURSE ---
Patient resting in bed. Patient is alert and oriented at this time. Patient is on telemetry and denies any complaints. Will continue to monitor.
[2020-06-26] VITALS (18 sets, daily range): BP systolic 100–148; BP diastolic 59–110; PULSE 66–152; RESP 17–25; TEMP 36.2–36.8; O2SAT 90–96
[2020-06-26] MEDS: dilTIAZem 30 mg Tablet 60 MG PO ×3 (04:10→17:07)
[2020-06-26] MEDS: levothyroxine 150 mcg Tablet PO (05:49)
--- NOTE | 2020-06-26 05:57 | PC.NURSE ---
End of shift: Patient has rested well this shift. Patient is alert and oriented and vitals are stable. Patient denies any complaints and will continue to monitor.
[2020-06-26] MEDS: warfarin 5 mg Tablet PO (08:27)
[2020-06-26] MEDS: FUROsemide 20 mg Tablet PO (08:28)
[2020-06-26] MEDS: aspirin 81 mg EC Tablet PO (08:28)
[2020-06-26] MEDS: potassium chloride ER 10 mEq Tablet 20 MEQ PO (08:28)
[2020-06-26] MEDS: pantoprazole DR 40 mg Tablet PO (08:28)
[2020-06-26] MEDS: metoprolol tartrate 25 mg Tablet PO ×2 (08:29→17:08)
[2020-06-26] MEDS: enoxaparin 120 mg/0.8 mL Syringe SUBCUT (09:48)
--- NOTE | 2020-06-26 10:32 | PC.NURSE ---
Patient up ad frannie to chair this am for breakfast. Patient has not had any complaints of SOB, CP, or dizziness. Patient in a fib rate controlled at this time. Nurse to continue to monitor.
--- NOTE | 2020-06-26 14:10 | PC.NURSE ---
Dr. Pickard at bedside. Physician discussed plan of care with patient and will make adjustments accordingly.
--- NOTE | 2020-06-26 14:59 | PM.PN ---
Subjective Subjective: Interval history: Patient seen and examined, quite anxious, emotional and tearful this morning during my visit, states that she continues to be dizzy particularly when she sits up or tries to ambulate, also continues to have palpitations. Overall her demeanor is extremely anxious. Had 900 mL urine output overnight. INR is 2.40, so we will discontinue Lovenox. Hemodynamically stable for review of vital signs, HR peaked in the 110 range at bedside during my encounter. Discussed that we will have cardiology further evaluate which she is agreeable to. Medications: Reviewed: Yes Medication Review Details: Active Medications Generic Name Dose Route Start Last Admin Trade Name Freq PRN Reason Stop Dose Admin Acetaminophen 650 mg 06/23/20 14:52 Tylenol PO Q6H PRN MILD PAIN OR INCR EASE TEMP Albuterol/Ipratrop ium 3 ml 06/22/20 21:31 Duoneb INHALATION Q6H PRN SHORTNESS OF LONG TH Aspirin 81 mg 06/23/20 09:00 06/26/20 08:28 Aspirin Ec PO 81 mg DAILY MELA Administration Diltiazem HCl 60 mg 06/24/20 16:30 06/26/20 09:48 Cardizem PO 60 mg Q6H MELA Administration Fluticasone Propio perico 2 spray 06/22/20 21:31 Flonase INTRANASAL BID PRN allergies Furosemide 20 mg 06/23/20 08:00 06/26/20 08:28 Lasix PO 20 mg DAILY@0800 MELA Administration Diltiazem HCl 125 mg/ Sodium 125 mls @ 0 mls/h r 06/22/20 17:30 06/24/20 10:56 Chloride IV 0 mg/hr .Q0M MELA 0 mls/hr Titration Protocol Per Protocol Levothyroxine Sodi um 150 mcg 06/24/20 06:00 06/26/20 05:49 Synthroid PO 150 mcg TuThSa MELA Administration Metoprolol Tartrat e 25 mg 06/25/20 18:00 06/26/20 08:29 Lopressor PO 25 mg BID MELA Administration Pantoprazole Sodiu m 40 mg 06/23/20 09:00 06/26/20 08:28 Protonix PO 40 mg DAILY MELA Administration Potassium Chloride 20 meq 06/24/20 16:25 06/26/20 08:28 Klor-Con 10 PO 20 meq DAILY MELA Administration Tramadol HCl 50 mg 06/23/20 14:52 06/24/20 03:19 Ultram PO 50 mg Q6H PRN Administration MODERATE PAIN Warfarin Sodium 5 mg 06/23/20 09:00 06/26/20 08:27 Coumadin PO 5 mg DAILY MELA Administration codeine Allergy (Verified 06/22/20 17:42) ADR-Vomiting Sulfa (Sulfonamide Antibiotics) Allergy (Verified 06/22/20 17:42) Unknown Tetanus Vaccines and Toxoid Allergy (Verified 06/22/20 17:42) Unknown Vitals/I&O/Wt Last Vital Signs Temp 98.0 F 06/26/20 11:31 Pulse 86 06/26/20 11:31 Resp 19 H 06/26/20 11:31 BP 108/68 06/26/20 11:31 Pulse Ox 94 06/26/20 11:31 06/25/20 06/26/20 06/26/20 22:59 06:59 14:59 Intake Total 120 / 480 120 / 600 600 / 600 Output Total 900 / 1400 300 / 300 Balance 120 / -20 -780 / -800 300 / 300 Physical Exam Const: COMMON NORMALS: patient oriented x3 and alert GENERAL APPEARANCE: cooperative, comfortable and anxious (Tearful and very emotional) NUTRITIONAL APPEARANCE: obese morbidly obese ORIENTATION/CONSCIOUSNESS: Yes awake HENMT: COMMON NORMALS: normocephalic, atraumatic, hearing grossly normal bilaterally and moist oral mucous membranes HEAD & SCALP: normocephalic and atraumatic Eye: COMMON NORMALS: Equal, round and reactive pupils present, EOMs intact bilaterally and conjunctivae normal CONJUNCTIVA: Yes conjunctivae normal PUPIL: Yes Equal, round and reactive pupils present Neck/C-Spine: COMMON NORMALS: full ROM GENERAL: Yes normal visual inspection and Yes trachea midline Resp: COMMON NORMALS: normal respiratory effort, No retractions, No use of accessory muscles and clear to auscultation bilaterally EFFORT & INSPECTION: Yes able to speak in complete sentences, Yes symmetric chest movement and No tachypneic AUSCULTATION: clear to auscultation bilaterally OTHER: -on RA Cardio: COMMON NORMALS: regular rate, S1 normal heart sound present, S2 normal heart sound present and No murmurs present (Cardio) RATE: regular rate and tachycardic (Intermittently) RHYTHM: abnormal rhythm irregularly irregular HEART SOUNDS: S1 normal heart sound present and S2 normal heart sound present GI: COMMON NORMALS: Normal to inspection, nondistended, normoactive bowel sounds present, Soft to palpation and non-tender INSPECTION: Yes central obesity PALPATION: Yes Soft to palpation Extremity: COMMON NORMALS: normal to inspection, full ROM and no clubbing, cyanosis or edema Neuro: COMMON NORMALS: patient oriented x3, moves all extremities, no focal motor deficits, no sensory deficits noted and gait normal SENSORIUM/ORIENTATION: Yes alert Psych: COMMON NORMALS: mental status grossly normal, Normal thought process present, cooperative and speech normal SPEECH: Yes normal speech MOOD & AFFECT: Yes anxious and Yes tearful THOUGHT PROCESS: Normal thought process present Skin: COMMON NORMALS: no rashes or lesions noted, no jaundice, no petechiae and no mottling GENERAL SKIN EXAM: no rashes or lesions noted Data : 06/24/20 04:19 06/25/20 04:25 A&P Assessment and plan (1) Atrial fibrillation with RVR: -has known hx of paroxysmal atrial fibrillation, presented with A. fib with RVR -Required Cardizem drip, weaned off, will start on oral Cardizem -is already on metoprolol, had reported issues with bradycardia; per review of old [employer] records heart rates primarily in the 60s, lowest heart rate was in April 2018 of around 48 -Telemetry monitoring -Already on anticoagulation with Coumadin, bridging with therapeutic Lovenox, daily INR -Echo: EF=60-65%, mild concentric LVH, trace MR, trace TR, trace [place]; previous one in 2017 showed ejection fraction of 65% with normal diastolic function, no RWMA, trace TR, mild MR, mild AR, trace [place] -troponins noted with no significant delta -would like referral to Dr. Thompson as outpatient -Cardiology consult requested due to continued symptomatic A. fib, case discussed briefly with Dr. Bowling who will evaluate the patient later this afternoon. Status: Acute (2) New onset of congestive heart failure: -BNP-3052 -imaging not indicative of fluid overload; not overtly decompensated; could be secondary to A.fib with RVR -Echo as noted above -on oral Lasix Status: Acute (3) Hypothyroidism: -TSH wnl -on levothyroxine Status: Chronic Qualifiers: Hypothyroidism type: unspecified Qualified Code(s): E03.9 - Hypothyroidism, unspecified (4) Chronic anticoagulation: -on Coumadin Status: Chronic Additional A&P Information -Morbid obesity: BMI-46 kg/m2 -cardiac diet as tolerated -GI ppx with PPI -DVT ppx not needed as on coumadin and lovenox -Dispo: home -Code status: FULL code Attestations Medical Necessity Statement*: Patient requires hospitalization for continued management of symptomatic atrial fibrillation with intermittent RVR requiring continued telemetry monitoring, optimization of medication. Time Spent in Patient Care: 16 - 35 minutes (>than 50% of time spent in counselling and/or direct pt care on unit). 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
--- NOTE | 2020-06-26 18:18 | PC.NURSE ---
Patient returned to afib RVR, HR 140-160s, diaphoretic, SOB, dizzy while resting in bed. Dr. Bowling notified of findings via telephone at 1740. Physician to report to bedside before giving further orders. Patient states she sees Dr. Thompson outpatient. Dr. Thompson currently on unit. Dr. Thompson reported to bedside to examine patient. Physician gave verbal order to give patient 10 mg Cardizem bolus over 15 minutes then initiate Cardizem gtt per protocol. Orders were also clarified with Dr. Gonzalez who reported to floor. Physician gave verbal permission to continue with Dr. Thompson's orders.
--- NOTE | 2020-06-26 18:34 | PC.NURSE ---
Cardizem bolus administered with gtt. See infusion record.
--- NOTE | 2020-06-26 19:15 | PC.NURSE ---
Received report from KYRIE Anton. Patient current heart rate running 120s to mid 130s. Patient has cardizem drip running at 5ml/hr. Increased to 10ml/hr at this time. Patient assisted up to bathroom. Patient reports feeling palpitations, dizziness and lightheadedness. Instructed patient to call for assistance when ambulating to bathroom. Patient verbalized complete understanding.
--- NOTE | 2020-06-26 20:27 | PC.NURSE ---
Current heart rate at low 80s to low 90s. Patient still reports feeling slightly SOB. Denies other discomforts at this time. Decreased Cardizem drip to 5ml/hr.
--- NOTE | 2020-06-26 21:19 | P.CONIM_ITS ---
Providers/Reason For Consult Consulting Physican/Specialty*: Cardiology Reason for Consult*: Atrial fibrillation with RVR Attending Physician: Emily Pickard MD Primary Care Provider: Norman Golden DO History of Present Illness History of Present Illness 69 year old female with PMH of paroxysmal atrial fibrillation, chronic anticoagulation with Coumadin was admitted with chief complaint of palpitations and found to have afib with RVR 4 days ago. Patient was initially on Cardizem gtt, that was switched to PO cardizem and metoprolol. Cardiology was consulted today as her heart rates have intermittently been increasing and today went upto 150. She feels chest tightness, shortness of breath and anxiety with these episodes. Blood pressure has stayed stable. At admission, her INR was 1.7, today it is 2.4. Review of Systems Narrative: CONSTITUTIONAL: No fever chills weight loss or gain or night sweats. [] HEENT: Normocephalic, atraumatic.[] RESPIRATORY: Shortness of breath.[] CARDIOVASCULAR: Palpitations, chest discomfort[] GI: no nausea vomiting diarrhea. [] BOTTOM TURNER: No numbness, tingling, weakness or loss of function in any part of the body. [] MUSCULOSKELETAL: No knee or joint pain or rashes. [] Meds/Allergies Home Medications and Allergies Home Medications Medication Instructions Recorded Confirmed Last Taken Type aspirin [Aspir-81] 81 mg PO DAILY 01/11/20 06/22/20 06/21/20 History levothyroxine See Rx Instructions .ROUTE .COMPLEX 01/11/20 06/22/20 06/21/20 History multivitamin 1 tab PO DAILY 01/11/20 06/22/20 06/22/20 History omeprazole 40 mg PO DAILY 01/11/20 06/22/20 06/22/20 History potassium chloride 8 meq PO DAILY 01/11/20 06/22/20 06/22/20 History vitamin [id number] acid 1 tab PO DAILY 01/11/20 06/22/20 06/21/20 History albuterol sulfate 5 puff INHALATION QID PRN 06/10/20 06/22/20 Unknown History fluticasone propionate 2 spray INTRANASAL BID PRN 06/10/20 06/22/20 Unknown History loratadine [Allergy Relief 10 mg PO PRN PRN 06/10/20 06/22/20 Unknown History (loratadine)] metoprolol tartrate 25 mg PO BID 30 Days #60 tab 06/26/20 Unknown Rx warfarin 5 mg PO DAILY #30 tab 06/26/20 Unknown Rx Allergies Allergy/AdvReac Type Severity Reaction Status Date / Time codeine Allergy ADR-Vomitin Verified 06/22/20 17:42 g Sulfa (Sulfonamide Allergy Unknown Verified 06/22/20 17:42 Antibiotics) Tetanus Vaccines and Toxoid Allergy Unknown Verified 06/22/20 17:42 Current Medications Current Medications Generic Name Dose Route Start Last Admin Trade Name Freq PRN Reason Stop Dose Admin Aspirin 81 mg 06/23/20 09:00 06/26/20 08:28 Aspirin Ec PO 81 mg DAILY MELA Administration Diltiazem HCl 60 mg 06/24/20 16:30 06/26/20 17:07 Cardizem PO 60 mg Q6H MELA Administration Furosemide 20 mg 06/23/20 08:00 06/26/20 08:28 Lasix PO 20 mg DAILY@0800 MELA Administration Diltiazem HCl 125 mg/ Sodium 125 mls @ 0 mls/hr 06/22/20 17:30 06/26/20 20:27 Chloride IV 5 mg/hr .Q0M MELA 5 mls/hr Titration Protocol Per Protocol Levothyroxine Sodium 150 mcg 06/24/20 06:00 06/26/20 05:49 Synthroid PO 150 mcg TuThSa MELA Administration Metoprolol Tartrate 25 mg 06/25/20 18:00 06/26/20 17:08 Lopressor PO 25 mg BID MELA Administration Pantoprazole Sodium 40 mg 06/23/20 09:00 06/26/20 08:28 Protonix PO 40 mg DAILY MELA Administration Potassium Chloride 20 meq 06/24/20 16:25 06/26/20 08:28 Klor-Con 10 PO 20 meq DAILY MELA Administration Tramadol HCl 50 mg 06/23/20 14:52 06/24/20 03:19 Ultram PO 50 mg Q6H PRN Administration MODERATE PAIN Warfarin Sodium 5 mg 06/23/20 09:00 06/26/20 08:27 Coumadin PO 5 mg DAILY MELA Administration PFSH Acute PFSH: Medical History Anxiety Chronic anticoagulation Chronic kidney disease Deviated septum Diabetes GERD (gastroesophageal reflux disease) Hypertension Hypothyroidism Lesion of skin of nose Nasal turbinate hypertrophy Paroxysmal A-fib Rhinitis Surgical History H/O knee surgery bilateral knees H/O tubal ligation H/O: hysterectomy History of hernia surgery History 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, was malignant Family History Other CAD (coronary artery disease) Social History Smoking and tobacco status: former smoker Alcohol intake: current Alcohol intake frequency: holidays/special occasions only Alcohol type: wine Substance/Drug Use: never Vitals/I&O/Wt Last Vital Signs Temp 98.2 F 06/26/20 20:00 Pulse 66 06/26/20 20:48 Resp 18 06/26/20 20:48 BP 127/87 06/26/20 20:00 Pulse Ox 95 06/26/20 20:48 06/26/20 06/26/20 06/26/20 06:59 14:59 22:59 Intake Total 120 / 600 600 / 600 384.917 / 984.917 Output Total 900 / 1400 300 / 300 250 / 550 Balance -780 / -800 300 / 300 134.917 / 434.917 Physical Exam Narrative: EXAM NARRATIVE: GENERAL: Patient is alert, awake and oriented x3. [] NECK: No jugular vein distension. [] HEENT: No cyanosis. No icterus. No pallor. [] HEART: Irregularly irregular rhythm, tachycardia. No murmur, rub or gallop. [] LUNGS: Clear to auscultate bilaterally. [] ABDOMEN: Soft, nontender and nondistended. Positive bowel sounds. No guarding, rebound or tenderness. [] CENTRAL NERVOUS SYSTEM: Grossly nonfocal. [] EXTREMITIES: Lower extremities with 1+ edema bilaterally. Pulses palpable in the lower extremities, both dorsalis pedis and posterior tibial. A&P Assessment and plan (1) Atrial fibrillation with RVR: Status: Acute (2) New onset of congestive heart failure: Status: Acute (3) Chronic anticoagulation: Status: Chronic (4) Hypertension: Patient has been having episodes of intermittent RVR on p.o. medications. We will recommend to put her back on Cardizem drip for tonight. In the a.m. if her heart rate is well controlled, start p.o. Cardizem at 90 mg q6 hours. After 1hour of first dose of Cardizem p.o., please start weaning off the Cardizem drip. In case rate control is difficult to achieve with p.o. medications, will consider rhythm control strategy. As patient's INR at time of admission was less than 2, MALACHI will be needed if final plan is to cardiovert her back to normal sinus rhythm with chemical or electrical cardioversion. In that case, rhythm controlling medications will need to be continued after cardioversion. Continue anticoagulation with Coumadin at current dose and monitor daily INR. Thank you for involving us in the management of this patient, please feel free to call with questions. We will continue to follow the patient. 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
--- NOTE | 2020-06-26 23:03 | PC.NURSE ---
Assisted patient up to bathroom. Heart rate at 70s to low 90s. Rate does increase to low 100s-120s on exertion. Patient only c/o feeling palpitations during exertion. No distress observed.
[2020-06-27] VITALS (11 sets, daily range): BP systolic 99–146; BP diastolic 62–90; PULSE 62–116; RESP 15–25; TEMP 36.4–36.9; O2SAT 91–97
[2020-06-27 05:04] LABS: INR 2.14 (0.8-1.2)
--- NOTE | 2020-06-27 08:30 | PC.NURSE ---
Dr. Bowling at bedside. Physician gives verbal order to change PO Cardizem to 90 mg [id number]. Discontinue Cardizem gtt 1 hour after oral Cardizem dose. Physician to collaborate with Dr. Pickard.
[2020-06-27] MEDS: dilTIAZem 30 mg Tablet 90 MG PO ×3 (08:57→21:00)
[2020-06-27] MEDS: aspirin 81 mg EC Tablet PO (08:57)
[2020-06-27] MEDS: warfarin 5 mg Tablet PO (08:58)
[2020-06-27] MEDS: pantoprazole DR 40 mg Tablet PO (08:58)
[2020-06-27] MEDS: potassium chloride ER 10 mEq Tablet 20 MEQ PO (08:58)
[2020-06-27] MEDS: metoprolol tartrate 25 mg Tablet PO ×3 (08:58→18:09)
[2020-06-27] MEDS: FUROsemide 20 mg Tablet PO (08:59)
--- NOTE | 2020-06-27 10:08 | PC.SOCIAL ---
IMM Update Pg. 2 of IMM updated and copy provided to patient.
--- NOTE | 2020-06-27 11:16 | PM.PN ---
Subjective Subjective: Interval history: Cardizem drip restarted yesterday afternoon due to A.fib with RVR, remains on drip, will resume oral cardizem at higher dose. Hemodynamically stable, on RA. INR-2.14. Reports that she had 2 more symptomatic episodes correlating with RVR. She is currently sitting in chair by bedside, seems to be in good spirits and reports feeling well. Has been off Cardizem drip for about an hour now. Medications: Reviewed: Yes Medication Review Details: Active Medications Generic Name Dose Route Start Last Admin Trade Name Freq PRN Reason Stop Dose Admin Acetaminophen 650 mg 06/23/20 14:52 Tylenol PO Q6H PRN MILD PAIN OR INCR EASE TEMP Albuterol/Ipratrop ium 3 ml 06/22/20 21:31 Duoneb INHALATION Q6H PRN SHORTNESS OF LONG TH Aspirin 81 mg 06/23/20 09:00 06/27/20 08:57 Aspirin Ec PO 81 mg DAILY MELA Administration Diltiazem HCl 90 mg 06/27/20 09:00 06/27/20 08:57 Cardizem PO 90 mg Q6H MELA Administration Fluticasone Propio perico 2 spray 06/22/20 21:31 Flonase INTRANASAL BID PRN allergies Furosemide 20 mg 06/23/20 08:00 06/27/20 08:59 Lasix PO 20 mg DAILY@0800 MELA Administration Diltiazem HCl 125 mg/ Sodium 125 mls @ 0 mls/h r 06/22/20 17:30 06/27/20 10:12 Chloride IV 0 mg/hr .Q0M MELA 0 mls/hr Titration Protocol Per Protocol Levothyroxine Sodi um 150 mcg 06/24/20 06:00 06/26/20 05:49 Synthroid PO 150 mcg TuThSa MELA Administration Metoprolol Tartrat e 25 mg 06/25/20 18:00 06/27/20 08:58 Lopressor PO 25 mg BID MELA Administration Pantoprazole Sodiu m 40 mg 06/23/20 09:00 06/27/20 08:58 Protonix PO 40 mg DAILY MELA Administration Potassium Chloride 20 meq 06/24/20 16:25 06/27/20 08:58 Klor-Con 10 PO 20 meq DAILY MELA Administration Tramadol HCl 50 mg 06/23/20 14:52 06/24/20 03:19 Ultram PO 50 mg Q6H PRN Administration MODERATE PAIN Warfarin Sodium 5 mg 06/23/20 09:00 06/27/20 08:58 Coumadin PO 5 mg DAILY MELA Administration codeine Allergy (Verified 06/22/20 17:42) ADR-Vomiting Sulfa (Sulfonamide Antibiotics) Allergy (Verified 06/22/20 17:42) Unknown Tetanus Vaccines and Toxoid Allergy (Verified 06/22/20 17:42) Unknown Vitals/I&O/Wt Last Vital Signs Temp 97.6 F 06/27/20 07:01 Pulse 94 06/27/20 07:01 Resp 19 H 06/27/20 07:01 BP 106/65 06/27/20 07:01 Pulse Ox 94 06/27/20 07:01 06/26/20 06/27/20 06/27/20 22:59 06:59 14:59 Intake Total 387.667 / 987.667 16.917 / 1004.584 515.666 / 515.666 Output Total 250 / 550 600 / 600 Balance 137.667 / 437.667 16.917 / 454.584 -84.334 / -84.334 Physical Exam Const: COMMON NORMALS: patient oriented x3 and alert GENERAL APPEARANCE: cooperative, comfortable and anxious (Low threshold for anxiety) NUTRITIONAL APPEARANCE: obese morbidly obese ORIENTATION/CONSCIOUSNESS: Yes awake HENMT: COMMON NORMALS: normocephalic, atraumatic, hearing grossly normal bilaterally and moist oral mucous membranes HEAD & SCALP: normocephalic and atraumatic Eye: COMMON NORMALS: Equal, round and reactive pupils present, EOMs intact bilaterally and conjunctivae normal CONJUNCTIVA: Yes conjunctivae normal PUPIL: Yes Equal, round and reactive pupils present Neck/C-Spine: COMMON NORMALS: full ROM GENERAL: Yes normal visual inspection and Yes trachea midline Resp: COMMON NORMALS: normal respiratory effort, No retractions, No use of accessory muscles and clear to auscultation bilaterally EFFORT & INSPECTION: Yes able to speak in complete sentences, Yes symmetric chest movement and No tachypneic AUSCULTATION: clear to auscultation bilaterally OTHER: -on RA Cardio: COMMON NORMALS: regular rate, S1 normal heart sound present, S2 normal heart sound present and No murmurs present (Cardio) RATE: regular rate and tachycardic (Intermittently) RHYTHM: abnormal rhythm irregularly irregular HEART SOUNDS: S1 normal heart sound present and S2 normal heart sound present GI: COMMON NORMALS: Normal to inspection, nondistended, normoactive bowel sounds present, Soft to palpation and non-tender INSPECTION: Yes central obesity PALPATION: Yes Soft to palpation Extremity: COMMON NORMALS: normal to inspection, full ROM and no clubbing, cyanosis or edema Neuro: COMMON NORMALS: patient oriented x3, moves all extremities, no focal motor deficits, no sensory deficits noted and gait normal SENSORIUM/ORIENTATION: Yes alert Psych: COMMON NORMALS: mental status grossly normal, Normal thought process present, cooperative and speech normal SPEECH: Yes normal speech MOOD & AFFECT: Yes anxious THOUGHT PROCESS: Normal thought process present Skin: COMMON NORMALS: no rashes or lesions noted, no jaundice, no petechiae and no mottling GENERAL SKIN EXAM: no rashes or lesions noted Data : 06/24/20 04:19 06/25/20 04:25 A&P Assessment and plan (1) Atrial fibrillation with RVR: -has known hx of paroxysmal atrial fibrillation, presented with A. fib with RVR, quite symptomatic -Resumed Cardizem drip, wean off as tolerated, increase oral Cardizem dose -is already on metoprolol, had reported issues with bradycardia; per review of old [facility] records heart rates primarily in the 60s, lowest heart rate was in April 2018 of around 48 -Telemetry monitoring -Already on anticoagulation with Coumadin, off therapeutic Lovenox, INR therapeutic (2.14) -Echo: EF=60-65%, mild concentric LVH, trace MR, trace TR, trace ID; previous one in 2017 showed ejection fraction of 65% with normal diastolic function, no RWMA, trace TR, mild MR, mild AR, trace ID -troponins noted with no significant delta -would like referral to Dr. Thompson as outpatient -Cardiology consult by Dr. Bowling appreciated -may need cardioversion if persist despite medication optimization Status: Acute (2) New onset of congestive heart failure: -[id number] -imaging not indicative of fluid overload; not overtly decompensated; could be secondary to A.fib with RVR -Echo as noted above -on oral Lasix Status: Acute (3) Hypothyroidism: -TSH wnl -on levothyroxine Status: Chronic Qualifiers: Hypothyroidism type: unspecified Qualified Code(s): E03.9 - Hypothyroidism, unspecified (4) Chronic anticoagulation: -on Coumadin Status: Chronic Additional A&P Information -Morbid obesity: BMI-46 kg/m2 -cardiac diet as tolerated -GI ppx with PPI -DVT ppx not needed as on coumadin and lovenox -Dispo: home -Code status: FULL code Attestations Medical Necessity Statement*: Patient requires hospitalization for continued management of atrial fibrillation with RVR, needs optimization of medication, telemetry monitoring. Time Spent in Patient Care: 16 - 35 minutes (>than 50% of time spent in counselling and/or direct pt care on unit). Coding Level of Care Code Acute Underwriting Support Manager for [facility] Fwd Exam Comprehensive Diagnoses Atrial fibrillation with RVR I48.91 New onset of congestive heart failure I50.9 Hypothyroidism E03.9 Hypothyroidism type: unspecified Chronic anticoagulation Z79.01
--- NOTE | 2020-06-27 14:00 | PC.NURSE ---
Dr. Thompson informed nurse he will be taking over for cardiology on patient. Nurse will report to him for any concerns or patient updates.
--- NOTE | 2020-06-27 16:39 | PC.NURSE ---
Patient HR 100-120s a fib, patient reports dizziness, denies palpitations or SOB. BP 109/77. Dr. Thompson notified of findings. Physician gave telephone order for metoprolol 25 mg now, RBVO.
--- NOTE | 2020-06-27 17:55 | PM.PN ---
Subjective Subjective: Interval history: Patient continues to have fast heart rate anywhere ranges from 100-140 Medications: Reviewed: Yes Medication Review Details: Active Medications Generic Name Dose Route Start Last Admin Trade Name Freq PRN Reason Stop Dose Admin Acetaminophen 650 mg 06/23/20 14:52 Tylenol PO Q6H PRN MILD PAIN OR INCR EASE TEMP Albuterol/Ipratrop ium 3 ml 06/22/20 21:31 Duoneb INHALATION Q6H PRN SHORTNESS OF LONG TH Aspirin 81 mg 06/23/20 09:00 06/27/20 08:57 Aspirin Ec PO 81 mg DAILY MELA Administration Diltiazem HCl 90 mg 06/27/20 09:00 06/27/20 08:57 Cardizem PO 90 mg Q6H MELA Administration Fluticasone Propio perico 2 spray 06/22/20 21:31 Flonase INTRANASAL BID PRN allergies Furosemide 20 mg 06/23/20 08:00 06/27/20 08:59 Lasix PO 20 mg DAILY@0800 MELA Administration Diltiazem HCl 125 mg/ Sodium 125 mls @ 0 mls/h r 06/22/20 17:30 06/27/20 10:12 Chloride IV 0 mg/hr .Q0M MELA 0 mls/hr Titration Protocol Per Protocol Levothyroxine Sodi um 150 mcg 06/24/20 06:00 06/26/20 05:49 Synthroid PO 150 mcg TuThSa MELA Administration Metoprolol Tartrat e 25 mg 06/25/20 18:00 06/27/20 08:58 Lopressor PO 25 mg BID MELA Administration Pantoprazole Sodiu m 40 mg 06/23/20 09:00 06/27/20 08:58 Protonix PO 40 mg DAILY MELA Administration Potassium Chloride 20 meq 06/24/20 16:25 06/27/20 08:58 Klor-Con 10 PO 20 meq DAILY MELA Administration Tramadol HCl 50 mg 06/23/20 14:52 06/24/20 03:19 Ultram PO 50 mg Q6H PRN Administration MODERATE PAIN Warfarin Sodium 5 mg 06/23/20 09:00 06/27/20 08:58 Coumadin PO 5 mg DAILY MELA Administration codeine Allergy (Verified 06/22/20 17:42) ADR-Vomiting Sulfa (Sulfonamide Antibiotics) Allergy (Verified 06/22/20 17:42) Unknown Tetanus Vaccines and Toxoid Allergy (Verified 06/22/20 17:42) Unknown Vitals/I&O/Wt Last Vital Signs Temp 97.5 F L 06/27/20 16:00 Pulse 116 H 06/27/20 16:00 Resp 20 H 06/27/20 16:00 BP 120/83 06/27/20 16:00 Pulse Ox 95 06/27/20 16:00 06/27/20 06/27/20 06/27/20 06:59 14:59 22:59 Intake Total 16.917 / 1004.584 875.666 / 875.666 360 / 1235.666 Output Total 600 / 600 300 / 900 Balance 16.917 / 454.584 275.666 / 275.666 60 / 335.666 Physical Exam Narrative: EXAM NARRATIVE: GENERAL: Patient is alert, awake and oriented x3. NECK: No jugular vein distension. HEENT: No cyanosis. No icterus. No pallor. HEART: iregularly irregular S1 and S2. No murmur, rub or gallop. LUNGS: Clear to auscultate bilaterally. ABDOMEN: Soft, nontender and nondistended. Positive bowel sounds. No guarding, rebound or tenderness. CENTRAL NERVOUS SYSTEM: Grossly nonfocal. EXTREMITIES: Lower extremities without edema bilaterally. Data : 06/24/20 04:19 06/25/20 04:25 A&P Assessment and plan (1) Atrial fibrillation with RVR: We will further titrate medicine. I will give extra 25 mg of metoprolol. She is on Cardizem 90 mg every 6. I will increase metoprolol 50 mg twice daily from tomorrow. Status: Acute (2) Chronic anticoagulation: INR is therapeutic now Status: Chronic (3) Hypertension: Well-controlled continue medicine Status: Acute Attestations Medical Necessity Statement*: Patient require continuation hospitalization for above defined care. Coding Level of Care Code Established Pt Acute Lapel Padder Blindstitch for Xenia Fwd Patient Type Established History Expanded Problem Focused Exam Expanded Problem Focused Medical Decision Making Moderate Complexity Diagnoses Atrial fibrillation with RVR I48.91 Chronic anticoagulation Z79.01 Hypertension I10
--- NOTE | 2020-06-27 18:00 | PC.NURSE ---
Evening administration of metoprolol clarified with Dr. Thompson as that would put patient receiving 50 mg in 1 hour. Physician gave verbal order for nurse to administer metoprolol as scheduled. Dr. Thompson gave verbal order for patient to begin taking metoprolol 50 mg BID and Cardizem (extended release) 240 mg daily starting 0900 tomorrow. Physician instructed nurse to continue 60 mg Cardizem q6 administration for 2100 and 0300 doses then discontinue and start long acting form at 0900 tomorrow, RBVO.
[2020-06-28] MEDS: dilTIAZem 30 mg Tablet 90 MG PO (01:57)
[2020-06-28 03:33] VITALS: BP 103/81; PULSE 82; RESP 14; TEMP 36.6; O2SAT 97
[2020-06-28 05:00] LABS: INR 2.02 (0.8-1.2)
[2020-06-28] MEDS: levothyroxine 150 mcg Tablet PO (05:10)
[2020-06-28 07:25] VITALS: BP 103/76; PULSE 74; RESP 20; TEMP 36.6; O2SAT 93
[2020-06-28] MEDS: aspirin 81 mg EC Tablet PO (08:20)
[2020-06-28] MEDS: FUROsemide 20 mg Tablet PO (08:20)
[2020-06-28] MEDS: dilTIAZem ER (24HR) 240 mg Capsule PO (08:20)
[2020-06-28] MEDS: metoprolol tartrate 50 mg Tablet PO ×2 (08:20→17:58)
[2020-06-28] MEDS: potassium chloride ER 10 mEq Tablet 20 MEQ PO (08:20)
[2020-06-28] MEDS: pantoprazole DR 40 mg Tablet PO (08:21)
[2020-06-28] MEDS: warfarin 5 mg Tablet PO (08:21)
[2020-06-28 09:32] VITALS: PULSE 94; RESP 16; O2SAT 96
[2020-06-28 12:00] VITALS: BP 103/64; PULSE 88; RESP 17; TEMP 36.7; O2SAT 93
--- NOTE | 2020-06-28 12:18 | P.PN_ITS ---
Subjective Subjective: Interval history: Some noted tachycardia overnight, metoprolol dose increased to 50 mg twice daily, INR therapeutic at 2.02, Cardizem changed to extended release, 240 mg daily. Seems to be in better spirits today, seen ambulating with nursing staff, case discussed with Dr. Thompson and if patient continues to do well may be discharged to this afternoon. We will plan on event monitor, to be done on Tuesday. Medications: Reviewed: Yes Medication Review Details: Active Medications Generic Name Dose Route Start Last Admin Trade Name Freq PRN Reason Stop Dose Admin Acetaminophen 650 mg 06/23/20 14:52 Tylenol PO Q6H PRN MILD PAIN OR INCR EASE TEMP Albuterol/Ipratrop ium 3 ml 06/22/20 21:31 Duoneb INHALATION Q6H PRN SHORTNESS OF LONG TH Aspirin 81 mg 06/23/20 09:00 06/28/20 08:20 Aspirin Ec PO 81 mg DAILY MELA Administration Diltiazem HCl 90 mg 06/27/20 09:00 06/28/20 01:57 Cardizem PO 90 mg Q6H MELA Administration Diltiazem HCl 240 mg 06/28/20 09:00 06/28/20 08:20 Cardizem Cd (24h r) PO 240 mg DAILY MELA Administration Fluticasone Propio perico 2 spray 06/22/20 21:31 Flonase INTRANASAL BID PRN allergies Furosemide 20 mg 06/23/20 08:00 06/28/20 08:20 Lasix PO 20 mg DAILY@0800 MELA Administration Diltiazem HCl 125 mg/ Sodium 125 mls @ 0 mls/h r 06/22/20 17:30 06/27/20 10:12 Chloride IV 0 mg/hr .Q0M MELA 0 mls/hr Titration Protocol Per Protocol Levothyroxine Sodi um 150 mcg 06/24/20 06:00 06/28/20 05:10 Synthroid PO 150 mcg TuThSa MELA Administration Lorazepam 0.5 mg 06/27/20 11:16 Ativan PO TID PRN ANXIETY Metoprolol Tartrat e 50 mg 06/28/20 09:00 06/28/20 08:20 Lopressor PO 50 mg BID MELA Administration Pantoprazole Sodiu m 40 mg 06/23/20 09:00 06/28/20 08:21 Protonix PO 40 mg DAILY MELA Administration Potassium Chloride 20 meq 06/24/20 16:25 06/28/20 08:20 Klor-Con 10 PO 20 meq DAILY MELA Administration Tramadol HCl 50 mg 06/23/20 14:52 06/24/20 03:19 Ultram PO 50 mg Q6H PRN Administration MODERATE PAIN Warfarin Sodium 5 mg 06/23/20 09:00 06/28/20 08:21 Coumadin PO 5 mg DAILY MELA Administration codeine Allergy (Verified 06/22/20 17:42) ADR-Vomiting Sulfa (Sulfonamide Antibiotics) Allergy (Verified 06/22/20 17:42) Unknown Tetanus Vaccines and Toxoid Allergy (Verified 06/22/20 17:42) Unknown Vitals/I&O/Wt Last Vital Signs Temp 97.9 F 06/28/20 07:25 Pulse 94 06/28/20 09:32 Resp 16 06/28/20 09:32 BP 103/76 06/28/20 07:25 Pulse Ox 96 06/28/20 09:32 06/27/20 06/28/20 06/28/20 22:59 06:59 14:59 Intake Total 360 / 1235.666 0 / 1235.666 360 / 360 Output Total 300 / 900 Balance 60 / 335.666 0 / 335.666 360 / 360 Physical Exam Const: COMMON NORMALS: patient oriented x3 and alert GENERAL APPEARANCE: cooperative, comfortable and anxious (Low threshold for anxiety) NUTRITIONAL APPEARANCE: obese morbidly obese ORIENTATION/CONSCIOUSNESS: Yes awake HENMT: COMMON NORMALS: normocephalic, atraumatic, hearing grossly normal bilaterally and moist oral mucous membranes HEAD & SCALP: normocephalic and atraumatic Eye: COMMON NORMALS: Equal, round and reactive pupils present, EOMs intact bilaterally and conjunctivae normal CONJUNCTIVA: Yes conjunctivae normal PUPIL: Yes Equal, round and reactive pupils present Neck/C-Spine: COMMON NORMALS: full ROM GENERAL: Yes normal visual inspection and Yes trachea midline Resp: COMMON NORMALS: normal respiratory effort, No retractions, No use of accessory muscles and clear to auscultation bilaterally EFFORT & INSPECTION: Yes able to speak in complete sentences, Yes symmetric chest movement and No tachypneic AUSCULTATION: clear to auscultation bilaterally OTHER: -on RA Cardio: COMMON NORMALS: regular rate, S1 normal heart sound present, S2 normal heart sound present and No murmurs present (Cardio) RATE: regular rate and tachycardic (Intermittently) RHYTHM: abnormal rhythm irregularly irregular HEART SOUNDS: S1 normal heart sound present and S2 normal heart sound present GI: COMMON NORMALS: Normal to inspection, nondistended, normoactive bowel sounds present, Soft to palpation and non-tender INSPECTION: Yes central obesity PALPATION: Yes Soft to palpation Extremity: COMMON NORMALS: normal to inspection, full ROM and no clubbing, cyanosis or edema Neuro: COMMON NORMALS: patient oriented x3, moves all extremities, no focal motor deficits, no sensory deficits noted and gait normal SENSORIUM /ORIENTATION: Yes alert Psych: COMMON NORMALS: mental status grossly normal, Normal thought process present, cooperative and speech normal SPEECH: Yes normal speech MOOD & AFFECT: Yes anxious THOUGHT PROCESS: Normal thought process present Skin: COMMON NORMALS: no rashes or lesions noted, no jaundice, no petechiae and no mottling GENERAL SKIN EXAM: no rashes or lesions noted Data : 06/24/20 04:19 06/25/20 04:25 A&P Assessment and plan (1) Atrial fibrillation with RVR: -has known hx of paroxysmal atrial fibrillation, presented with A. fib with RVR, quite symptomatic -Resumed Cardizem drip, wean off as tolerated, switched to long acting Cardizem -is already on metoprolol, had reported issues with bradycardia; per review of old [employer] records heart rates primarily in the 60s, lowest heart rate was in April 2018 of around 48 -Telemetry monitoring -Already on anticoagulation with Coumadin, off therapeutic Lovenox, INR therapeutic (2.02) -Echo: EF=60-65%, mild concentric LVH, trace MR, trace TR, trace MA; previous one in 2017 showed ejection fraction of 65% with normal diastolic function, no RWMA, trace TR, mild MR, mild AR, trace MA -troponins noted with no significant delta -f/u with Dr. Thompson on d/c -Cardiology consult appreciated -may need cardioversion if persist despite medication optimization Status: Acute (2) New onset of congestive heart failure: -[id number] -imaging not indicative of fluid overload; not overtly decompensated; could be secondary to A.fib with RVR -Echo as noted above -on oral Lasix Status: Acute (3) Hypothyroidism: -TSH wnl -on levothyroxine Status: Chronic Qualifiers: Hypothyroidism type: unspecified Qualified Code(s): E03.9 - Hypothyroidism, unspecified (4) Chronic anticoagulation: -on Coumadin Status: Chronic Additional A&P Information -Morbid obesity: BMI-46 kg/m2 -cardiac diet as tolerated -GI ppx with PPI -DVT ppx not needed as on coumadin -Dispo: home -Code status: FULL code Attestations Medical Necessity Statement*: Discharge home this afternoon Time Spent in Patient Care: 16 - 35 minutes (>than 50% of time spent in counselling and/or direct pt care on unit) . 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
--- NOTE | 2020-06-28 13:59 | PM.PN ---
Subjective Subjective: Interval history: Heart rate is under control resting heart rate 70 which has not gone above 105 upon ambulation. She still feels weak but overall better Medications: Reviewed: Yes Medication Review Details: Active Medications Generic Name Dose Route Start Last Admin Trade Name Freq PRN Reason Stop Dose Admin Acetaminophen 650 mg 06/23/20 14:52 Tylenol PO Q6H PRN MILD PAIN OR INCR EASE TEMP Albuterol/Ipratrop ium 3 ml 06/22/20 21:31 Duoneb INHALATION Q6H PRN SHORTNESS OF LONG TH Aspirin 81 mg 06/23/20 09:00 06/28/20 08:20 Aspirin Ec PO 81 mg DAILY MELA Administration Diltiazem HCl 90 mg 06/27/20 09:00 06/28/20 01:57 Cardizem PO 90 mg Q6H MELA Administration Diltiazem HCl 240 mg 06/28/20 09:00 06/28/20 08:20 Cardizem Cd (24h r) PO 240 mg DAILY MELA Administration Fluticasone Propio perico 2 spray 06/22/20 21:31 Flonase INTRANASAL BID PRN allergies Furosemide 20 mg 06/23/20 08:00 06/28/20 08:20 Lasix PO 20 mg DAILY@0800 MELA Administration Diltiazem HCl 125 mg/ Sodium 125 mls @ 0 mls/h r 06/22/20 17:30 06/27/20 10:12 Chloride IV 0 mg/hr .Q0M MELA 0 mls/hr Titration Protocol Per Protocol Levothyroxine Sodi um 150 mcg 06/24/20 06:00 06/28/20 05:10 Synthroid PO 150 mcg TuThSa MELA Administration Lorazepam 0.5 mg 06/27/20 11:16 Ativan PO TID PRN ANXIETY Metoprolol Tartrat e 50 mg 06/28/20 09:00 06/28/20 08:20 Lopressor PO 50 mg BID MELA Administration Pantoprazole Sodiu m 40 mg 06/23/20 09:00 06/28/20 08:21 Protonix PO 40 mg DAILY MELA Administration Potassium Chloride 20 meq 06/24/20 16:25 06/28/20 08:20 Klor-Con 10 PO 20 meq DAILY MELA Administration Tramadol HCl 50 mg 06/23/20 14:52 06/24/20 03:19 Ultram PO 50 mg Q6H PRN Administration MODERATE PAIN Warfarin Sodium 5 mg 06/23/20 09:00 06/28/20 08:21 Coumadin PO 5 mg DAILY MELA Administration codeine Allergy (Verified 06/22/20 17:42) ADR-Vomiting Sulfa (Sulfonamide Antibiotics) Allergy (Verified 06/22/20 17:42) Unknown Tetanus Vaccines and Toxoid Allergy (Verified 06/22/20 17:42) Unknown Vitals/I&O/Wt Last Vital Signs Temp 98.0 F 06/28/20 12:00 Pulse 88 06/28/20 12:00 Resp 17 06/28/20 12:00 BP 103/64 06/28/20 12:00 Pulse Ox 93 06/28/20 12:00 06/27/20 06/28/20 06/28/20 22:59 06:59 14:59 Intake Total 360 / 1235.666 0 / 1235.666 480 / 480 Output Total 300 / 900 Balance 60 / 335.666 0 / 335.666 480 / 480 Physical Exam Narrative: EXAM NARRATIVE: GENERAL: Patient is alert, awake and oriented x3. NECK: No jugular vein distension. HEENT: No cyanosis. No icterus. No pallor. HEART: iregularly irregular S1 and S2. No murmur, rub or gallop. LUNGS: Clear to auscultate bilaterally. ABDOMEN: Soft, nontender and nondistended. Positive bowel sounds. No guarding, rebound or tenderness. CENTRAL NERVOUS SYSTEM: Grossly nonfocal. EXTREMITIES: Lower extremities without edema bilaterally. Data : 06/24/20 04:19 06/25/20 04:25 A&P Assessment and plan (1) Atrial fibrillation with RVR: We will switch patient to 300 mg of Cardizem long-acting along with 50 mg of twice daily. Continue anticoagulation. 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 Patient can follow-up with Nakita Ivy cardiology nurse practitioner in 7 to 10 days. I will see patient back in 6 to 8 weeks in my office. Status: Acute (2) Chronic anticoagulation: INR is therapeutic now Status: Chronic (3) Hypertension: Well-controlled. 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
[2020-06-28 15:13] VITALS: BP 121/74; PULSE 83; RESP 17; TEMP 36.7; O2SAT 95
--- NOTE | 2020-06-28 16:52 | P.DS_ITS ---
Discharge Providers Date of Admission: 06/22/20 20:07 Date of Discharge: June 28, 2020 Attending Provider at Admission: Estelita Yates MD Attending Provider at Discharge: Emily Pickard MD Consults: Cardiology Primary Care Provider: Norman Golden DO Diagnoses at Discharge Discharge Diagnosis (1) Atrial fibrillation with RVR: Status: Acute Problem details: -has known hx of paroxysmal atrial fibrillation, presented with A. fib with RVR, quite symptomatic -off Cardizem drip, switched to long acting Cardizem -is already on metoprolol, had reported issues with bradycardia; per review of old [employer] records heart rates primarily in the 60s, lowest heart rate was in April 2018 of around 48 -Telemetry monitoring -Already on anticoagulation with Coumadin, off therapeutic Lovenox, INR therapeutic (2.02) -Echo: EF=60-65%, mild concentric LVH, trace MR, trace TR, trace VT; previous one in 2017 showed ejection fraction of 65% with normal diastolic function, no RWMA, trace TR, mild MR, mild AR, trace VT -troponins noted with no significant delta -f/u with Dr. Thompson on d/c -Cardiology consult appreciated -may need cardioversion if persist despite medication optimization (2) New onset of congestive heart failure: Status: Acute Problem details: -BNP-3052 -imaging not indicative of fluid overload; not overtly decompensated; could be secondary to A.fib with RVR -Echo as noted above -on oral Lasix (3) Hypothyroidism: Status: Chronic Problem details: -TSH wnl -on levothyroxine Qualifiers: Hypothyroidism type: unspecified Qualified Code(s): E03.9 - Hypothyroidism, unspecified (4) Chronic anticoagulation: Status: Chronic Problem details: -on Coumadin Other Information Additional DC diagnoses/information: -Morbid obesity: BMI-46 kg/m2 Reason for Visit Reason for Visit: weak, sob, fast hr Hospital Course Hospital Course: Patient was admitted to the cardiac stepdown unit and placed on telemetry monitoring due to noted atrial fibrillation with RVR. She required Cardizem drip off and on due to intermittent RVR in addition to oral metoprolol and Cardizem as well. Rate control was a challenge so cardiology was consulted. Recommended continued titration of medication of which she is currently on long-acting Cardizem and an increased dose of her metoprolol. She has been maintained on her anticoagulation with Coumadin, initially bridged with addition of therapeutic Lovenox. INR has been therapeutic, currently at 2.02. Anxiety seems to be a factor and increasing her tendency to be symptomatic, as such I have added an anxiolytic that she can take as needed. She will be following up closely with cardiology and there there has been some discussion about possible cardioversion if unable to consistently control her heart rate. Rhythm has consistently been irregularly irregular. Arrangements have been made for event monitor to be placed on Tuesday through [facility] with Dr. Thompson following up on this. Echo is as noted above. She will continue on her anticoagulation with Coumadin with appropriate INR checks. She will also need to follow-up with her primary care physician. She will follow-up with Nakita Ivy at [facility] in 7 to 10 days. Of note she also appears to have new onset diastolic CHF so diuretic has been added to her medication regimen. She did not require aggressive diuresis as she was not overtly fluid overloaded and I suspect that this was brought on by her underlying arrhythmia. Discharge Summary: -Patient to follow-up with her primary care physician within 1 week -Patient to follow-up with Nakita Ivy at [facility] in 7 to 10 days -Patient to follow-up with Dr. Thompson in 6 weeks Physical Exam Const: COMMON NORMALS: patient oriented x3 and alert GENERAL APPEARANCE: cooperative, comfortable and anxious (Low threshold for anxiety) NUTRITIONAL APPEARANCE: obese morbidly obese ORIENTATION/CONSCIOUSNESS: Yes awake HENMT: COMMON NORMALS: normocephalic, atraumatic, hearing grossly normal bilaterally and moist oral mucous membranes HEAD & SCALP: normocephalic and atraumatic Eye: COMMON NORMALS: Equal, round and reactive pupils present, EOMs intact bilaterally and conjunctivae normal CONJUNCTIVA: Yes conjunctivae normal PUPIL: Yes Equal, round and reactive pupils present Neck/C-Spine: COMMON NORMALS: full ROM GENERAL: Yes normal visual inspection and Yes trachea midline Resp: COMMON NORMALS: normal respiratory effort, No retractions, No use of accessory muscles and clear to auscultation bilaterally EFFORT & INSPECTION: Yes able to speak in complete sentences, Yes symmetric chest movement and No tachypneic AUSCULTATION: clear to auscultation bilaterally OTHER: -on RA Cardio: COMMON NORMALS: regular rate, S1 normal heart sound present, S2 normal heart sound present and No murmurs present (Cardio) RATE: regular rate and tachycardic (Intermittently) RHYTHM: abnormal rhythm irregularly irregular HEART SOUNDS: S1 normal heart sound present and S2 normal heart sound present GI: COMMON NORMALS: Normal to inspection, nondistended, normoactive bowel sounds present, Soft to palpation and non-tender INSPECTION: Yes central obesity PALPATION: Yes Soft to palpation Extremity: COMMON NORMALS: normal to inspection, full ROM and no clubbing, cyanosis or edema NARRATIVE EXTREMITY EXAM: -Minimal non-pitting ankle edema bilaterally Neuro: COMMON NORMALS: patient oriented x3, moves all extremities, no focal motor deficits, no sensory deficits noted and gait normal SENSORIUM/ORIENTATION: Yes alert Psych: COMMON NORMALS: mental status grossly normal, Normal thought process present, cooperative and speech normal SPEECH: Yes normal speech MOOD & AFFECT: Yes anxious THOUGHT PROCESS: Normal thought process present Skin: COMMON NORMALS: no rashes or lesions noted, no jaundice, no petechiae and no mottling GENERAL SKIN EXAM: no rashes or lesions noted Discharge Data Data Completed and Pending: Completed Studies During Hospitalization Category Date Time Status CT angio chest PE protcl [id number] Stat Cat Scan 06/22/20 20:04 Completed XR chest 1V akash ble [id number] Stat Exams 06/22/20 17:24 Completed CV echo complete* [id number] Routine Ultrasound 06/23/20 21:47 Completed Pending at discharge Category Date Time Status Prothrombin Time INR AM LABS Lab 06/29/20 04:00 Ordered Labs from last 24 hours 06/28/20 04:22 PT 23.60 H INR 2.02 H Vitals: Last Vital Signs Temp 98.1 F 06/28/20 15:13 Pulse 83 06/28/20 15:13 Resp 17 06/28/20 15:13 BP 121/74 06/28/20 15:13 Pulse Ox 95 06/28/20 15:13 Discharge Plan Discharge Patient Disposition: Home Condition: Stable Prescriptions: New metoprolol tartrate 50 mg Tablet 50 mg PO BID Qty: 60 RF: 4 diltiazem HCl 240 mg Capsule,Extended Release 24hr 300 mg PO DAILY Qty: 30 RF: 3 lorazepam 0.5 mg Tablet 0.5 mg PO TID PRN (Reason: Anxiety) Qty: 30 RF: 0 furosemide 20 mg Tablet 20 mg PO DAILY@0800 Qty: 30 RF: 0 potassium chloride 10 mEq Tablet Extended Release 20 meq PO DAILY Qty: 60 RF: 0 Continued multivitamin Tablet 1 tab PO DAILY RF: 0 omeprazole 40 mg Capsule,Delayed Release(Dr/Ec) 40 mg PO DAILY RF: 0 aspirin [Aspir-81] 81 mg Tablet,Delayed Release (Dr/Ec) 81 mg PO DAILY RF: 0 levothyroxine 150 mcg Tablet See Rx Instructions .ROUTE .COMPLEX RF: 0 vitamin A11-vuerj acid 500-400 mcg Tablet 1 tab PO DAILY RF: 0 albuterol sulfate 90 mcg/actuation HFA aerosol inhaler 5 puff INHALATION QID PRN (Reason: Shortness Of Breath) RF: 0 fluticasone propionate 50 mcg/actuation spray,suspension 2 spray INTRANASAL BID PRN (Reason: allergies) RF: 0 loratadine [Allergy Relief (loratadine)] 10 mg tablet 10 mg PO PRN PRN (Reason: allergies) RF: 0 warfarin 5 mg Tablet 5 mg PO DAILY Qty: 30 RF: 0 Discontinued metoprolol tartrate 25 mg Tablet 25 mg PO BID RF: 0 potassium chloride 8 mEq Capsule, Extended Release 8 meq PO DAILY RF: 0 Discharge Orders: Discharge Order (Routine); Ordered 06/28/20 Ordered By: Emily Pickard Other Ambulatory Orders: [place] 2 week event monitor (Routine) Timeframe: 20200630 Facility: [facility] - Location: [facility] Ordered By: Emily Pickard Referrals: Estelita Thompson MD [Physician] - 6 Weeks (Post hospital discharge follow up) Nakita Ivy FNP [Nurse Practitioner] - 7-10 days (Post hospital discharge follow up) Norman Golden DO [Primary Care Provider] - 4-7 days (Post hospital discharge follow up. Treated for atrial fibrillation with RVR. ) Discharge Diet: Cardiac Discharge Activity: Resume usual activity and Increase activity as tolerated Patient Instructions: Atrial Fibrillation (DC), Hypertension (DC), CHF Stoplight Activity Restrictions/Additional Instructions: -Please continue to have your INR levels monitored as you are taking coumadin which is a blood thinner -Please seek medical attention immediately if symptoms recur -Please note that she will need to return to [facility] to be fitted for an event monitor Discharge Attestations Time Spent in Discharge Care*: greater than 30 min Specific Discharge Activities: Specific discharge activities: educating patient, educating and/or supporting family/caregiver, discussing with pcp/other providers, discussing with community case manager/social workers/dc planners, documenting/other paperwork and evaluating patient/reviewing data Status at Discharge: Cognitive status at discharge: cognitively intact , Behavioral status at discharge: cooperative , Functional status at discharge: independent ambulation Overall status at discharge: patient is progressing back to baseline Quality Metrics Clinical Quality Measures During this hospital stay, did patient experience: None 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
--- NOTE | 2020-06-28 17:04 | PC.NURSE ---
AT APPROXIMATELY 1420 PATIENT AMBULATED IN THE HALLWAY WITH STAFF AND PORTABLE [employer]. PATIENT HAD TWO EPISODES OF INCREASED DIZZINESS WITHOUT A CHANGE IN HER HEART RATE. DR. JO WAS ON THE FLOOR DURING THIS AND WAS NOTIFIED. THE HIGHEST HEART RATE NOTED WHILE AMBULATING WAS 105BPM. DR. JO AND DR. ACUNA PRESENT FOR THIS AMBULATION.
[2020-06-28 17:16] VITALS: BP 121/74; PULSE 83; RESP 17; TEMP 36.7; O2SAT 95
== END 2020-06-28 17:59 | disposition home or self-care (01) | DRG 308 ==
LOC: ER 17:15 → CSU 20:21
PROVIDERS: Emergency Medicine; Admitting Provider Internal Medicine; PCP Internal Medicine; Visit Provider Family Medicine
DX: I48.0 Paroxysmal atrial fibrillation (principal); I50.31 Acute diastolic (congestive) heart failure; I13.0 Hypertensive heart and chronic kidney disease with heart failure and stage 1 through stage 4 chronic kidney disease, or unspecified chronic kidney disease; Z68.42 Body mass index [BMI] 45.0-49.9, adult; E03.9 Hypothyroidism, unspecified; Z79.01 Long term (current) use of anticoagulants; E66.01 Morbid (severe) obesity due to excess calories; Z79.82 Long term (current) use of aspirin; F41.9 Anxiety disorder, unspecified; K21.9 Gastro-esophageal reflux disease without esophagitis; E11.22 Type 2 diabetes mellitus with diabetic chronic kidney disease; N18.9 Chronic kidney disease, unspecified; Z87.891 Personal history of nicotine dependence
CPT/HCPCS: 12345; 36415; 71045; 71275; 80048; 80053; 83605; 83735; 83880; 84443; 84484; 85025; 85378; 85610; 93005; 93306; 96372; 96375; 99282; J1650; J3490; J7040; Q9967

== ENCOUNTER 2020-07-04 01:29 | Emergency (ER) | payer MEDICARE, MEDICAID, SELFPAY ==
[2020-07-04 01:39] VITALS: BP 124/84; PULSE 102; RESP 16; TEMP 36.4; O2SAT 96; BMI 44.6
--- NOTE | 2020-07-04 01:39 | ECG_ITS ---
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 Measurements Intervals [place] Rate: 88 P: MI: -1 QRS: 20 QRSD: 97 T: 14 QT: 355 QTc: 430 Interpretive Statements ATRIAL FIBRILLATION MINIMAL ST DEPRESSION [0.025+ mV ST DEPRESSION] ABNORMAL RHYTHM ECG Compared to ECG 06/22/2020 20:16:09 No significant changes Electronically Signed On 07-04-2020 13:48:21 CDT by Rohan Bowling M.D. [email or web address]
--- NOTE | 2020-07-04 01:39 | XR_ITS ---
WS: [id number] Portable AP upright chest, 07/04/2020 Clinical Data: Shortness of breath Comparison: Frontal chest, 06/22/2020. Findings: No nodules, masses or effusions are seen. The heart is normal. The pulmonary vascularity is not increased. No pneumonia or pneumothorax is seen. The aortic arch is minimally tortuous. Monitor leads on the chest wall. There is an electronic device overlying the midportion of the chest. XR/XR chest 1V portable [id number] Impression: Atherosclerosis.
--- NOTE | 2020-07-04 01:53 | ED_ITS ---
HPI - Arrhythmia/Palpitations General: Chief Complaint: Arrhythmia/Palpitations Stated Complaint: went into a fib today/ swollen Time Seen by Provider: 07/04/20 01:48 Source: patient Mode of arrival: ambulatory Limitations: no limitations History of Present Illness: HPI narrative: Katie is a 69-year-old female who comes in complaining of palpitations. Patient has a history of paroxysmal A. fib but she states now she feels as though she is in A. fib all the time. She is on Coumadin. She also takes metoprolol. Dr. Daniesl has her on a Holter monitor she states for the next 14 days. This is to see if her heart truly is in atrial fibrillation constantly. Patient states tonight she felt her heart beating very rapidly but then took a metoprolol and it has improved. She denies any chest pain or worsening shortness of breath. She does describe mild increase in leg swelling. Associated symptoms: Deny diaphoresis, nausea, pre-syncope, syncope or vomiting Review of Systems Const: Denies: fever(s), chills, body aches, fatigue, malaise or diaphoresis Eyes: Denies: change in vision, blurry vision, photophobia, eye discomfort, eye discharge or eye redness ENMT: Denies: throat pain, odynophagia, hoarseness, swelling of lips/tongue, ear or mastoid pain, ear discharge, change in hearing or nasal discharge Card: Reports: swelling of feet/ankles; Denies: chest pain, irregular heart rhythm, edema, lightheadedness, syncope, pre-syncope, dyspnea on exertion or orthopnea Resp: Denies: dyspnea, productive cough, non-productive cough, wheezing, hemoptysis or chest congestion GI: Denies: abdominal pain, nausea, vomiting, hematemesis, coffee ground emesis, heartburn, diarrhea, constipation, GI cramping, hematochezia or melena : Denies: flank pain, dysuria, urinary frequency, urinary urgency or hematuria Musc: Denies: neck pain, back pain, extremity pain, extremity swelling, joint pain, joint swelling, joint redness, joint warmth or joint stiffness Skin/Breast: Denies: rash, pruritus, erythema or skin tenderness Neuro: Denies: headache(s), numbness in extremities, weakness in extremities, sensory changes, lack of coordination, difficulty walking, dizziness, vertigo, confusion, Slurred speech present or seizure-like activity Andrés/Lymph: Denies: easy bruising, easy bleeding, petechiae, purpura or enlarged lymph nodes All/Imm: Denies: urticaria, throat swelling, tongue swelling, facial swelling or acute wheezing PFSH ED PFSH: Medical History Anxiety Chronic anticoagulation -on Coumadin Chronic kidney disease Deviated septum Diabetes GERD (gastroesophageal reflux disease) Hypertension Hypothyroidism -TSH wnl -on levothyroxine Lesion of skin of nose Nasal turbinate hypertrophy New onset of congestive heart failure -[id number] -imaging not indicative of fluid overload; not overtly decompensated; could be secondary to A.fib with RVR -Echo as noted above -on oral Lasix Paroxysmal A-fib Rhinitis Surgical History H/O knee surgery bilateral knees H/O tubal ligation H/O: hysterectomy History of hernia surgery History 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, was malignant Family History Other CAD (coronary artery disease) Social History Smoking and tobacco status: former smoker Alcohol intake: current Alcohol intake frequency: holidays/special occasions only Alcohol type: wine Physical Exam Const: COMMON NORMALS: no acute distress, patient oriented x3, no limitations, healthy appearing and well nourished GENERAL APPEARANCE: cooperative, well kempt and well developed HENMT: COMMON NORMALS: normocephalic, atraumatic, external ears normal, EAC's normal and Normal external nose present HEAD & SCALP: normal to inspection, normocephalic and atraumatic FACE & SINUS: normal facial exam and face symmetric NOSE: Normal external nose present and Normal nares present EXTERNAL EAR: Yes external ears normal EXTERNAL AUDITORY CANAL: EAC's normal MOUTH: Normal oral and palatal mucosa present, lip normal and tongue normal Eye: COMMON NORMALS: Equal, round and reactive pupils present and conjunctivae normal GENERAL EYE: appearance normal, both eyes and all related structures ALIGNMENT: Yes alignment normal PERIORBITAL: periorbital findings normal EYELID: eyelids normal CONJUNCTIVA: Yes conjunctivae normal SCLERA: sclerae normal PUPIL: Yes Equal, round and reactive pupils present Neck/C-Spine: COMMON NORMALS: full ROM, no lymphadenopathy, supple, no meningeal signs and no JVD GENERAL: Yes normal visual inspection and Yes trachea midline Chest: COMMONS NORMALS: normal inspection of the chest and normal palpation of entire chest wall Resp: COMMON NORMALS: normal respiratory effort, No retractions, No use of accessory muscles and clear to auscultation bilaterally EFFORT & INSPECTION: Yes able to speak in complete sentences and Yes symmetric chest movement AUSCULTATION: clear to auscultation bilaterally, no crackles, no rales, no rhonchi and no wheezes Cardio: COMMON NORMALS: no JVD, S1 normal heart sound present and S2 normal heart sound present RATE: tachycardic RHYTHM: abnormal rhythm irregularly irregular HEART SOUNDS: S1 normal heart sound present, S2 normal heart sound present, no click, no gallops, no murmurs, no rubs and abnormal split S2 GI: COMMON NORMALS: Soft to palpation and No hepatosplenomegaly present PALPATION: Yes Soft to palpation, No Tenderness to palpation present (GI), No Guarding due to palpation present (GI), No Rigid due to palpation, Yes No hepatosplenomegaly present, No Hernia present, No Palpable mass present and No Pulsatile mass present : COMMON NORMALS: Yes no CVA tenderness BLADDER/KIDNEY EXAM: Yes no CVA tenderness EXTERNAL FEMALE EXAM: No Hernia present Back/Pelvis: COMMON NORMALS: no CVA tenderness, thoracic and lumbar spine normal to inspection, no thoracic nor lumbar tenderness and thoraco-lumbar ROM normal Extremity: COMMON NORMALS: normal to inspection, full ROM, capillary refill normal, no joint enlargement, no clubbing, cyanosis or edema and no calf tenderness Neuro: COMMON NORMALS: patient oriented x3, CN's II-XII intact bilaterally, moves all extremities, no focal motor deficits and no sensory deficits noted MENINGEAL SIGNS: Yes no meningeal signs SPEECH: speech normal Psych: COMMON NORMALS: mental status grossly normal, Normal thought process present, cooperative, normal affect, speech normal and activity/motor behavior normal APPEARANCE: Yes well kempt SPEECH: Yes normal speech THOUGHT PROCESS: Normal thought process present Skin: COMMON NORMALS: no rashes or lesions noted, turgor normal, no jaundice, no petechiae and no mottling GENERAL SKIN EXAM: no rashes or lesions noted and turgor normal Course Vital Signs: Vital signs: Vital Signs Temperature 97.6 F 07/04/20 01:39 Pulse Rate 83 07/04/20 03:34 Respiratory Rate 16 07/04/20 03:34 Blood Pressure 115/72 07/04/20 03:34 Pulse Oximetry 98 07/04/20 03:34 MDM - Arrhythmia/Palpitations MDM Narrative: Medical decision making narrative: Patient is feeling tremendously better and wants to go home. Her heart rate has dropped down to the 70s after the metoprolol she took at home. She is chronically in A. fib and she is anticoagulated. There is no evidence clinically of congestive heart failure but I will give her 1 dose of Lasix as she is complaining of increased leg swelling. The patient declined staying for another EKG and troponin. She wants to go home. She agrees to follow-up with Dr. Daniels as scheduled. Lab Data: Attestation: I reviewed the patient's lab results. Labs: Lab Results 07/04/20 07/04/20 07/04/20 Range/Units 02:00 02:00 02:00 WBC 9.0 (4.0-10.0) 10^3/ uL RBC 3.98 L (4.1-5.3) 10^6/u L Hgb 12.4 (11.5-15.3) g/dL Hct 38.5 (37.0-47.0) % MCV 96.7 (81-99) fL MCH 31.2 (28.0-34.0) pg MCHC 32.2 (30.0-36.0) g/dL RDW 13.1 (12.1-15.1) % Plt Count 317 (130-400) 10^3/c mm MPV 10.6 H (7.4-10.4) fL Neut % (Auto) 52.8 % Lymph % (Auto) 34.2 % [place] % (Auto) 6.6 % Eos % (Auto) 5.3 % Baso % (Auto) 0.9 % Neut # (Auto) 4.74 (1.8-7.7) 10^3/u L Lymph # (Auto) 3.1 (0.8-4.8) 10^3/u L [place] # (Auto) 0.6 (0.2-0.9) 10^3/u L Eos # (Auto) 0.5 (0.0-0.8) 10^3/u L Baso # (Auto) 0.1 (0.0-0.1) 10^3/u L Nucleated RBC % (a uto) 0 % Nucleated RBCs # 0.0 /100WBC PT 29.80 H (12.1-14.9) SECO NDS INR 2.71 H (0.8-1.2) Sodium 138 (136-145) mmol/L Potassium 4.2 (3.5-5.1) mmol/L Chloride 104 (98-107) mmol/L Carbon Dioxide 25 (22-29) mmol/L Anion Gap 13.2 (5-19) BUN 23 (8-23) mg/dL Creatinine 1.0 H (0.5-0.9) mg/dL GFR Calculation 55.3 L (90-130) mL/min Glucose 129 H (65-115) mg/dL Calculated Osmolal ity 284 L (285-295) mOsm/k g Calcium 8.7 (8.5-10.5) mg/dL Magnesium 2.1 (1.7-2.3) mg/dL Total Bilirubin 0.2 (0.15-1.2) mg/dL AST 19 (0-32) U/L ALT 26 (0-33) U/L Alkaline Phosphata se 125 H (35-105) IU/L Troponin T Baselin e (0-10) ng/L NT-Pro-B Natriuret Pep 1802 H (0-125) pg/mL Total Protein 7.3 (6.6-8.7) g/dL Albumin 3.8 (3.5-5.2) g/dL Globulin 3.5 (1.3-4.6) g/dL TSH 3.75 (0.27-4.20) uIU/ mL Free T4 1.27 (0.82-1.77) ng/d L 07/04/20 Range/Units 02:00 WBC (4.0-10.0) 10^3/ uL RBC (4.1-5.3) 10^6/u L Hgb (11.5-15.3) g/dL Hct (37.0-47.0) % MCV (81-99) fL MCH (28.0-34.0) pg MCHC (30.0-36.0) g/dL RDW (12.1-15.1) % Plt Count (130-400) 10^3/c mm MPV (7.4-10.4) fL Neut % (Auto) % Lymph % (Auto) % [place] % (Auto) % Eos % (Auto) % Baso % (Auto) % Neut # (Auto) (1.8-7.7) 10^3/u L Lymph # (Auto) (0.8-4.8) 10^3/u L [place] # (Auto) (0.2-0.9) 10^3/u L Eos # (Auto) (0.0-0.8) 10^3/u L Baso # (Auto) (0.0-0.1) 10^3/u L Nucleated RBC % (a uto) % Nucleated RBCs # /100WBC PT (12.1-14.9) SECO NDS INR (0.8-1.2) Sodium (136-145) mmol/L Potassium (3.5-5.1) mmol/L Chloride (98-107) mmol/L Carbon Dioxide (22-29) mmol/L Anion Gap (5-19) BUN (8-23) mg/dL Creatinine (0.5-0.9) mg/dL GFR Calculation (90-130) mL/min Glucose (65-115) mg/dL Calculated Osmolal ity (285-295) mOsm/k g Calcium (8.5-10.5) mg/dL Magnesium (1.7-2.3) mg/dL Total Bilirubin (0.15-1.2) mg/dL AST (0-32) U/L ALT (0-33) U/L Alkaline Phosphata se (35-105) IU/L Troponin T Baselin e 7 (0-10) ng/L NT-Pro-B Natriuret Pep (0-125) pg/mL Total Protein (6.6-8.7) g/dL Albumin (3.5-5.2) g/dL Globulin (1.3-4.6) g/dL TSH (0.27-4.20) uIU/ mL Free T4 (0.82-1.77) ng/d L EKG Data^: EKG 1: Attestation: I personally reviewed and interpreted this EKG as follows: EKG interpretation date: 07/04/20 EKG interpretation time: 01:59 Interpretation: Atrial fibrillation with a ventricular rate of 88 beats a minute, normal axis, no acute ST or T wave changes. Discharge Plan Discharge Patient Disposition: Home Clinical Impression: Atrial fibrillation Qualifiers: Atrial fibrillation type: persistent (not longstanding) Qualified Code(s): I48.19 - Other persistent atrial fibrillation Condition: Stable Prescriptions: No Action multivitamin Tablet 1 tab PO DAILY RF: 0 omeprazole 40 mg Capsule,Delayed Release(Dr/Ec) 40 mg PO DAILY RF: 0 aspirin [Aspir-81] 81 mg Tablet,Delayed Release (Dr/Ec) 81 mg PO DAILY RF: 0 levothyroxine 150 mcg Tablet See Rx Instructions .ROUTE .COMPLEX RF: 0 vitamin Q99-rbsxn acid 500-400 mcg Tablet 1 tab PO DAILY RF: 0 albuterol sulfate 90 mcg/actuation HFA aerosol inhaler 5 puff INHALATION QID PRN (Reason: Shortness Of Breath) RF: 0 fluticasone propionate 50 mcg/actuation spray,suspension 2 spray INTRANASAL BID PRN (Reason: allergies) RF: 0 loratadine [Allergy Relief (loratadine)] 10 mg tablet 10 mg PO PRN PRN (Reason: allergies) RF: 0 warfarin 5 mg Tablet 5 mg PO DAILY Qty: 30 RF: 0 metoprolol tartrate 50 mg Tablet 50 mg PO BID Qty: 60 RF: 4 diltiazem HCl 240 mg Capsule,Extended Release 24hr 300 mg PO DAILY Qty: 30 RF: 3 lorazepam 0.5 mg Tablet 0.5 mg PO TID PRN (Reason: Anxiety) Qty: 30 RF: 0 furosemide 20 mg Tablet 20 mg PO DAILY@0800 Qty: 30 RF: 0 potassium chloride 10 mEq Tablet Extended Release 20 meq PO DAILY Qty: 60 RF: 0 Discharge Orders: Discharge Order (Routine); Ordered 07/04/20 Ordered By: Wendy Palmer Referrals: Estelita Thompson MD [Physician] - 1-3 days Norman Golden DO [Primary Care Provider] - 1-3 days Discharge Diet: Advance as tolerated Discharge Activity: Increase activity as tolerated Patient Instructions: Atrial Fibrillation (ED) Activity Restrictions/Additional Instructions: Please return to the ER immediately for any of the signs or symptoms listed on your discharge instruction sheets, worsening/changing of your symptoms, you are not getting better as quickly as expected, or for ANY other cause or concerns. 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
[2020-07-04 02:11] VITALS: BP 118/81; PULSE 84; RESP 14; O2SAT 96
[2020-07-04 02:13] LABS: Basophils # 0.1 10^3/uL (0.0-0.1); Basophils % 0.9 %; Eosinophils # 0.5 10^3/uL (0.0-0.8); Eosinophils % 5.3 %; Hematocrit 38.5 % (37.0-47.0); Hemoglobin 12.4 g/dL (11.5-15.3); Lymphocytes # 3.1 10^3/uL (0.8-4.8); Lymphocytes % 34.2 %; Mean Corpuscular HGB Conc 32.2 g/dL (30.0-36.0); Mean Corpuscular Hemoglobin 31.2 pg (28.0-34.0); Mean Corpuscular Volume 96.7 fL (81-99); Mean Platelet Volume 10.6 fL (7.4-10.4); Monocytes # 0.6 10^3/uL (0.2-0.9); Monocytes % 6.6 %; Neutrophils # 4.74 10^3/uL (1.8-7.7); Neutrophils % 52.8 %; Nucleated Red Blood Cells % 0 %; Platelet Count 317 10^3/cmm (130-400); Red Blood Count 3.98 10^6/uL (4.1-5.3); Red Cell Distribution Width 13.1 % (12.1-15.1)
[2020-07-04 02:37] LABS: INR 2.71 (0.8-1.2)
[2020-07-04 02:38] LABS: Troponin(5th) Baseline 7 ng/L (0-10)
[2020-07-04 02:50] LABS: Alanine Aminotransferase 26 U/L (0-33); Albumin Level 3.8 g/dL (3.5-5.2); Alkaline Phosphatase 125 IU/L (35-105); Anion Gap 13.2 (5-19); Aspartate Amino Transferase 19 U/L (0-32); Blood Urea Nitrogen 23 mg/dL (8-23); Calcium 8.7 mg/dL (8.5-10.5); Carbon Dioxide 25 mmol/L (22-29); Chloride 104 mmol/L (98-107); Free T4 Free Thyroxine 1.27 ng/dL (0.82-1.77); Globulin 3.5 g/dL (1.3-4.6); Glomerular Filtration Rate 55.3 mL/min (90-130); Glucose 129 mg/dL (65-115); Magnesium 2.1 mg/dL (1.7-2.3); NT Pro B Type Natriuretic Pept 1802 pg/mL (0-125); Osmolality Calculated 284 mOsm/kg (285-295); Potassium 4.2 mmol/L (3.5-5.1); Sodium 138 mmol/L (136-145); Thyroid Stimulating Hormone 3.75 uIU/mL (0.27-4.20); Total Bilirubin 0.2 mg/dL (0.15-1.2); Total Protein 7.3 g/dL (6.6-8.7)
[2020-07-04] MEDS: FUROsemide 10 mg/mL SDV 4mL 40 MG IVP (03:29)
[2020-07-04 03:34] VITALS: BP 115/72; PULSE 83; RESP 16; O2SAT 98
== END 2020-07-04 03:43 | disposition home or self-care (01) ==
PROVIDERS: Emergency Provider Emergency Medicine; PCP Internal Medicine
DX: I48.19 Other persistent atrial fibrillation (principal); Z79.01 Long term (current) use of anticoagulants; Z79.82 Long term (current) use of aspirin; E11.9 Type 2 diabetes mellitus without complications; I11.0 Hypertensive heart disease with heart failure; I50.9 Heart failure, unspecified; Z87.891 Personal history of nicotine dependence
CPT/HCPCS: 12345; 71045; 80053; 83735; 83880; 84439; 84443; 84484; 85025; 85610; 93005; 93010; 96374; 99283; 99284; J1940

== ENCOUNTER 2020-10-10 04:47 | Emergency (ER) | payer MEDICARE, MEDICAID, SELFPAY ==
[2020-10-10 04:50] VITALS: BP 151/87; PULSE 95; RESP 18; TEMP 36.4; O2SAT 99; BMI 46.3
--- NOTE | 2020-10-10 05:21 | PC.NURSE ---
EKG done at 0520 and shown to ER doctor
--- NOTE | 2020-10-10 05:31 | XR_ITS ---
WS: [id number] Exam: XR chest 1V portable [id number] Date/Time of Exam: 10/10/2020 6:01 AM Reason For Exam: Dyspnea Compared to prior study 07/04/2020. The lungs are fully expanded. No consolidating infiltrates. Chronic interstitial changes in the right base. Heart size is top limits normal. No pleural effusions. Monitoring leads superimpose the chest. XR/XR chest 1V portable [id number] IMPRESSION: 1. No acute cardiopulmonary finding. 2. Chronic right basal changes.
--- NOTE | 2020-10-10 05:45 | W.ED.SOB ---
Documented by User: Wendy Palmer 10/10/20 05:49 HPI - SOB/Dyspnea General: Chief Complaint: Shortness of Breath/Dyspnea Stated Complaint: afib/ sounds like rice crispies in her throat Time Seen by Provider: 10/10/20 05:19 Source: patient Mode of arrival: ambulatory Limitations: no limitations History of Present Illness: HPI Narrative: Mrs. Finch is a very nice 69-year-old female who comes in complaining of crackles in her chest. Patient states that her A. fib has been out of control recently and she can feel the crackling in her chest. She has some shortness of breath but not much worse than normal. She denies any chest pain. She has palpitations at times she can feel her A. fib running very rapidly. Patient has any syncope or near syncope type symptoms. She has no cough or fever. She is unaware of anything that makes her symptoms better or worse. Associated symptoms: Reports palpitations; Deny abdominal pain, chest congestion, chest pain, diaphoresis, dizziness, extremity pain, fever(s), hemoptysis, lightheadedness, nausea, orthopnea, syncope or vomiting Review of Systems Const: Denies: fever(s), chills, body aches, fatigue, malaise or diaphoresis Eyes: Denies: change in vision, blurry vision, photophobia, eye discomfort, eye discharge, eye redness or yellow eyes ENMT: Denies: throat pain, odynophagia, hoarseness, swelling of lips/tongue, ear or mastoid pain, ear discharge, change in hearing or nasal discharge Card: Reports: palpitations; Denies: chest pain, irregular heart rhythm, edema, lightheadedness, syncope, pre-syncope, dyspnea on exertion or orthopnea Resp: Reports: dyspnea; Denies: productive cough, non-productive cough, wheezing, hemoptysis or chest congestion GI: Denies: abdominal pain, nausea, vomiting, hematemesis, coffee ground emesis, heartburn, diarrhea, constipation, GI cramping, hematochezia or melena : Denies: flank pain, dysuria, urinary frequency, urinary urgency or hematuria Musc: Denies: neck pain, back pain, extremity pain, extremity swelling, joint pain, joint swelling, joint redness, joint warmth or joint stiffness Skin/Breast: Denies: rash, pruritus, erythema, skin pain or skin tenderness Neuro: Denies: headache(s), numbness in extremities, weakness in extremities, sensory changes, lack of coordination, difficulty walking, dizziness, vertigo, confusion, Slurred speech present or seizure-like activity Andrés/Lymph: Denies: easy bruising, easy bleeding, petechiae, purpura or enlarged lymph nodes All/Imm: Denies: urticaria, throat swelling, tongue swelling, facial swelling or acute wheezing PFSH ED PFSH: Medical History Anxiety Atrial fibrillation Chronic anticoagulation -on Coumadin Chronic kidney disease Deviated septum Diabetes GERD (gastroesophageal reflux disease) Hypertension Hypothyroidism -TSH wnl -on levothyroxine Lesion of skin of nose Nasal turbinate hypertrophy New onset of congestive heart failure -BNP-3052 -imaging not indicative of fluid overload; not overtly decompensated; could be secondary to A.fib with RVR -Echo as noted above -on oral Lasix Paroxysmal A-fib Rhinitis Surgical History H/O knee surgery bilateral knees H/O tubal ligation H/O: hysterectomy History of hernia surgery History 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, was malignant Family History Other CAD (coronary artery disease) Social History Smoking and tobacco status: former smoker Alcohol intake: current Alcohol intake frequency: holidays/special occasions only Alcohol type: wine Physical Exam Const: COMMON NORMALS: no acute distress, patient oriented x3, no limitations and alert GENERAL APPEARANCE: cooperative HENMT: COMMON NORMALS: normocephalic, atraumatic, external ears normal, EAC's normal and Normal external nose present HEAD & SCALP: normal to inspection, normocephalic and atraumatic FACE & SINUS: normal facial exam and face symmetric NOSE: Normal external nose present and Normal nares present EXTERNAL EAR: Yes external ears normal EXTERNAL AUDITORY CANAL: EAC's normal MOUTH: Normal oral and palatal mucosa present, lip normal and tongue normal Eye: COMMON NORMALS: Equal, round and reactive pupils present and conjunctivae normal GENERAL EYE: appearance normal, both eyes and all related structures ALIGNMENT: Yes alignment normal PERIORBITAL: periorbital findings normal EYELID: eyelids normal CONJUNCTIVA: Yes conjunctivae normal SCLERA: sclerae normal PUPIL: Yes Equal, round and reactive pupils present Neck/C-Spine: COMMON NORMALS: full ROM, no lymphadenopathy, supple, no meningeal signs and no JVD GENERAL: Yes normal visual inspection and Yes trachea midline Chest: COMMONS NORMALS: normal inspection of the chest and normal palpation of entire chest wall Resp: COMMON NORMALS: normal respiratory effort, No retractions, No use of accessory muscles and clear to auscultation bilaterally EFFORT & INSPECTION: Yes able to speak in complete sentences and Yes symmetric chest movement AUSCULTATION: clear to auscultation bilaterally, no crackles, no rales, no rhonchi and no wheezes Cardio: COMMON NORMALS: no JVD, regular rate, S1 normal heart sound present and S2 normal heart sound present RATE: regular rate RHYTHM: abnormal rhythm irregularly irregular HEART SOUNDS: S1 normal heart sound present, S2 normal heart sound present, no click, no gallops, no murmurs and no rubs GI: COMMON NORMALS: Soft to palpation and No hepatosplenomegaly present PALPATION: Yes Soft to palpation, No Tenderness to palpation present (GI), No Guarding due to palpation present (GI), No Rigid due to palpation, Yes No hepatosplenomegaly present, No Hernia present, No Palpable mass present and No Pulsatile mass present : COMMON NORMALS: Yes no CVA tenderness BLADDER/KIDNEY EXAM: Yes no CVA tenderness EXTERNAL FEMALE EXAM: No Hernia present Back/Pelvis: COMMON NORMALS: no CVA tenderness, thoracic and lumbar spine normal to inspection, no thoracic nor lumbar tenderness and thoraco-lumbar ROM normal Extremity: COMMON NORMALS: normal to inspection, full ROM, capillary refill normal, no joint enlargement, no clubbing, cyanosis or edema and no calf tenderness Neuro: COMMON NORMALS: patient oriented x3, CN's II-XII intact bilaterally, moves all extremities, no focal motor deficits and no sensory deficits noted SENSORIUM/ORIENTATION: Yes alert MENINGEAL SIGNS: Yes no meningeal signs SPEECH: speech normal Psych: COMMON NORMALS: mental status grossly normal, Normal thought process present, cooperative, normal affect, speech normal and activity/motor behavior normal SPEECH: Yes normal speech THOUGHT PROCESS: Normal thought process present Skin: COMMON NORMALS: no rashes or lesions noted, turgor normal, no jaundice, no petechiae and no mottling GENERAL SKIN EXAM: no rashes or lesions noted and turgor normal Course Vital Signs: Vital signs: Vital Signs Temperature 97.6 F 10/10/20 04:50 Pulse Rate 74 10/10/20 08:30 Respiratory Rate 20 H 10/10/20 08:30 Blood Pressure 143/83 10/10/20 08:30 Pulse Oximetry 97 10/10/20 08:30 MDM - SOB/Dyspnea Lab Data: Labs: Lab Results 10/10/20 10/10/20 10/10/20 Range/Units 06:00 06:00 06:00 WBC 8.0 (4.0-10.0) 10^3/ uL RBC 3.95 L (4.1-5.3) 10^6/u L Hgb 12.4 (11.5-15.3) g/dL Hct 38.6 (37.0-47.0) % MCV 97.7 (81-99) fL MCH 31.4 (28.0-34.0) pg MCHC 32.1 (30.0-36.0) g/dL RDW 13.4 (12.1-15.1) % Plt Count 288 (130-400) 10^3/c mm MPV 10.2 (7.4-10.4) fL Neut % (Auto) 59.7 % Lymph % (Auto) 26.3 % Upson % (Auto) 7.1 % Eos % (Auto) 5.8 % Baso % (Auto) 0.8 % Neut # (Auto) 4.77 (1.8-7.7) 10^3/u L Lymph # (Auto) 2.1 (0.8-4.8) 10^3/u L Upson # (Auto) 0.6 (0.2-0.9) 10^3/u L Eos # (Auto) 0.5 (0.0-0.8) 10^3/u L Baso # (Auto) 0.1 (0.0-0.1) 10^3/u L Nucleated RBC % (a uto) 0 % Nucleated RBCs # 0.0 /100WBC PT (12.1-14.9) SECO NDS INR (0.8-1.2) Sodium 138 (136-145) mmol/L Potassium 4.1 (3.5-5.1) mmol/L Chloride 103 (98-107) mmol/L Carbon Dioxide 25 (22-29) mmol/L Anion Gap 14.1 (5-19) BUN 24 H (8-23) mg/dL Creatinine 1.1 H (0.5-0.9) mg/dL GFR Calculation 49.5 L (90-130) mL/min Glucose 109 (65-115) mg/dL Calculated Osmolal ity 291 (285-295) mOsm/k g Calcium 8.7 (8.5-10.5) mg/dL Total Bilirubin 0.2 (0.15-1.2) mg/dL AST 17 (0-32) U/L ALT 17 (0-33) U/L Alkaline Phosphata se 108 H (35-105) IU/L Troponin T Baselin e (0-10) ng/L Troponin T 120 Min morongo (0-10) ng/L Delta Troponin T (0-10) ABS# NT-Pro-B Natriuret Pep 1505 H (0-125) pg/mL Total Protein 7.0 (6.6-8.7) g/dL Albumin 3.9 (3.5-5.2) g/dL Globulin 3.1 (1.3-4.6) g/dL Urine Color (Yellow) Urine Appearance (CLEAR) Urine pH (5-7) Ur Specific Gravit y (1.005-1.030) Urine Protein (Negative) Urine Glucose (UA) (Normal) Urine Ketones (Negative) Urine Blood (Negative) Urine Nitrate (Negative) Urine Bilirubin (Negative) Urine Urobilinogen (Negative) mg/dL Ur Leukocyte Cassia ase (Negative) Digoxin 0.6 (0.6-1.2) ng/mL 10/10/20 10/10/20 10/10/20 Range/Units 06:00 06:00 06:25 WBC (4.0-10.0) 10^3/ uL RBC (4.1-5.3) 10^6/u L Hgb (11.5-15.3) g/dL Hct (37.0-47.0) % MCV (81-99) fL MCH (28.0-34.0) pg MCHC (30.0-36.0) g/dL RDW (12.1-15.1) % Plt Count (130-400) 10^3/c mm MPV (7.4-10.4) fL Neut % (Auto) % Lymph % (Auto) % Upson % (Auto) % Eos % (Auto) % Baso % (Auto) % Neut # (Auto) (1.8-7.7) 10^3/u L Lymph # (Auto) (0.8-4.8) 10^3/u L Upson # (Auto) (0.2-0.9) 10^3/u L Eos # (Auto) (0.0-0.8) 10^3/u L Baso # (Auto) (0.0-0.1) 10^3/u L Nucleated RBC % (a uto) % Nucleated RBCs # /100WBC PT 31.30 H (12.1-14.9) SECO NDS INR 2.89 H (0.8-1.2) Sodium (136-145) mmol/L Potassium (3.5-5.1) mmol/L Chloride (98-107) mmol/L Carbon Dioxide (22-29) mmol/L Anion Gap (5-19) BUN (8-23) mg/dL Creatinine (0.5-0.9) mg/dL GFR Calculation (90-130) mL/min Glucose (65-115) mg/dL Calculated Osmolal ity (285-295) mOsm/k g Calcium (8.5-10.5) mg/dL Total Bilirubin (0.15-1.2) mg/dL AST (0-32) U/L ALT (0-33) U/L Alkaline Phosphata se (35-105) IU/L Troponin T Baselin e 11 H (0-10) ng/L Troponin T 120 Min morongo (0-10) ng/L Delta Troponin T (0-10) ABS# NT-Pro-B Natriuret Pep (0-125) pg/mL Total Protein (6.6-8.7) g/dL Albumin (3.5-5.2) g/dL Globulin (1.3-4.6) g/dL Urine Color Straw (Yellow) Urine Appearance Clear (CLEAR) Urine pH 5 (5-7) Ur Specific Gravit y 1.015 (1.005-1.030) Urine Protein Neg (Negative) Urine Glucose (UA) Norm (Normal) Urine Ketones Negative (Negative) Urine Blood Neg (Negative) Urine Nitrate Negative (Negative) Urine Bilirubin Neg (Negative) Urine Urobilinogen Norm (Negative) mg/dL Ur Leukocyte Cassia ase Negative (Negative) Digoxin (0.6-1.2) ng/mL 10/10/20 Range/Units 08:00 WBC (4.0-10.0) 10^3/ uL RBC (4.1-5.3) 10^6/u L Hgb (11.5-15.3) g/dL Hct (37.0-47.0) % MCV (81-99) fL MCH (28.0-34.0) pg MCHC (30.0-36.0) g/dL RDW (12.1-15.1) % Plt Count (130-400) 10^3/c mm MPV (7.4-10.4) fL Neut % (Auto) % Lymph % (Auto) % Upson % (Auto) % Eos % (Auto) % Baso % (Auto) % Neut # (Auto) (1.8-7.7) 10^3/u L Lymph # (Auto) (0.8-4.8) 10^3/u L Upson # (Auto) (0.2-0.9) 10^3/u L Eos # (Auto) (0.0-0.8) 10^3/u L Baso # (Auto) (0.0-0.1) 10^3/u L Nucleated RBC % (a uto) % Nucleated RBCs # /100WBC PT (12.1-14.9) SECO NDS INR (0.8-1.2) Sodium (136-145) mmol/L Potassium (3.5-5.1) mmol/L Chloride (98-107) mmol/L Carbon Dioxide (22-29) mmol/L Anion Gap (5-19) BUN (8-23) mg/dL Creatinine (0.5-0.9) mg/dL GFR Calculation (90-130) mL/min Glucose (65-115) mg/dL Calculated Osmolal ity (285-295) mOsm/k g Calcium (8.5-10.5) mg/dL Total Bilirubin (0.15-1.2) mg/dL AST (0-32) U/L ALT (0-33) U/L Alkaline Phosphata se (35-105) IU/L Troponin T Baselin e (0-10) ng/L Troponin T 120 Min morongo 9.94 (0-10) ng/L Delta Troponin T -1.06 L (0-10) ABS# NT-Pro-B Natriuret Pep (0-125) pg/mL Total Protein (6.6-8.7) g/dL Albumin (3.5-5.2) g/dL Globulin (1.3-4.6) g/dL Urine Color (Yellow) Urine Appearance (CLEAR) Urine pH (5-7) Ur Specific Gravit y (1.005-1.030) Urine Protein (Negative) Urine Glucose (UA) (Normal) Urine Ketones (Negative) Urine Blood (Negative) Urine Nitrate (Negative) Urine Bilirubin (Negative) Urine Urobilinogen (Negative) mg/dL Ur Leukocyte Cassia ase (Negative) Digoxin (0.6-1.2) ng/mL EKG Data^: EKG 1: Attestation: I personally reviewed and interpreted this EKG as follows: EKG Interpretation Date: 10/10/20 EKG interpretation time: 05:18 Interpretation: Atrial fibrillation with a ventricular rate of 72 beats a minute, normal intervals, nonspecific ST-T wave changes. Discharge Plan Discharge Patient Disposition: Home Clinical Impression: Community acquired pneumonia, Atrial fibrillation Condition: Stable Prescriptions: New levofloxacin 750 mg tablet 750 mg PO DAILY 7 Days Qty: 7 RF: 0 Medrol (Carlin) 4 mg tablets,dose pack See Rx Instructions .ROUTE .COMPLEX Qty: 21 RF: 0 albuterol sulfate 90 mcg/actuation HFA aerosol inhaler 2 inh INHALATION Q4H PRN (Reason: shortness of breath or wheezing) Qty: 18 RF: 0 No Action digoxin 125 mcg (0.125 mg) tablet 125 mcg PO DAILY Qty: 30 RF: 2 multivitamin Tablet 1 tab PO DAILY RF: 0 omeprazole 40 mg Capsule,Delayed Release(Dr/Ec) 40 mg PO DAILY RF: 0 aspirin [Aspir-81] 81 mg Tablet,Delayed Release (Dr/Ec) 81 mg PO DAILY RF: 0 levothyroxine 150 mcg Tablet See Rx Instructions .ROUTE .COMPLEX RF: 0 vitamin L19-ixugu acid 500-400 mcg Tablet 1 tab PO DAILY RF: 0 albuterol sulfate 90 mcg/actuation HFA aerosol inhaler 2 puff INHALATION QID PRN (Reason: Shortness Of Breath) RF: 0 fluticasone propionate 50 mcg/actuation spray,suspension 2 spray INTRANASAL BID PRN (Reason: allergies) RF: 0 loratadine [Allergy Relief (loratadine)] 10 mg tablet 10 mg PO PRN PRN (Reason: allergies) RF: 0 warfarin 5 mg Tablet 5 mg PO DAILY Qty: 30 RF: 0 metoprolol tartrate 50 mg Tablet 50 mg PO BID Qty: 60 RF: 4 diltiazem HCl 240 mg Capsule,Extended Release 24hr 300 mg PO DAILY Qty: 30 RF: 3 lorazepam 0.5 mg Tablet 0.5 mg PO TID PRN (Reason: Anxiety) Qty: 30 RF: 0 furosemide 20 mg Tablet 20 mg PO DAILY@0800 Qty: 30 RF: 0 potassium chloride 10 mEq Tablet Extended Release 20 meq PO DAILY Qty: 60 RF: 0 Discharge Orders: Discharge Order (Routine); Ordered 10/10/20 Ordered By: Raymundo Arias Referrals: Norman Golden DO [Primary Care Provider] - Discharge Diet: Usual diet Discharge Activity: Increase activity as tolerated Activity Restrictions/Additional Instructions: Follow-up with your primary care physician in 3 to 4 days return to the emergency room sooner if you have problems. Sign Out Sign Out Data: Patient Sign Out occurred on 10/10/20 at 07:36. Patient's care was discussed, and care was transferred from to Raymundo Arias DO. 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 Fwd Exam Comprehensive Documented by User: Raymundo Arias DO 10/10/20 09:37 HPI - SOB/Dyspnea General: Chief Complaint: Shortness of Breath/Dyspnea Stated Complaint: afib/ sounds like rice crispies in her throat Time Seen by Provider: 10/10/20 05:19 PFSH ED PFSH: Medical History Anxiety Atrial fibrillation Chronic anticoagulation -on Coumadin Chronic kidney disease Deviated septum Diabetes GERD (gastroesophageal reflux disease) Hypertension Hypothyroidism -TSH wnl -on levothyroxine Lesion of skin of nose Nasal turbinate hypertrophy New onset of congestive heart failure -BNP-3052 -imaging not indicative of fluid overload; not overtly decompensated; could be secondary to A.fib with RVR -Echo as noted above -on oral Lasix Paroxysmal A-fib Rhinitis Surgical History H/O knee surgery bilateral knees H/O tubal ligation H/O: hysterectomy History of hernia surgery History 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, was malignant Family History Other CAD (coronary artery disease) Social History Smoking and tobacco status: former smoker Alcohol intake: current Alcohol intake frequency: holidays/special occasions only Alcohol type: wine Physical Exam Resp: AUSCULTATION: rales on the right at the base Cardio: COMMON NORMALS: regular rate and regular rhythm RATE: regular rate RHYTHM: regular rhythm HEART SOUNDS: no murmurs Course Vital Signs: Vital signs: Vital Signs Temperature 97.6 F 10/10/20 04:50 Pulse Rate 74 10/10/20 08:30 Respiratory Rate 20 H 10/10/20 08:30 Blood Pressure 143/83 10/10/20 08:30 Pulse Oximetry 97 10/10/20 08:30 MDM - SOB/Dyspnea MDM Narrative: Medical decision making narrative: Care assumed a change of shift. she does have a little bit of coarse breath sounds at the right base chest x-ray seems a little to have some increased markings we will go and treat her with prednisone Levaquin and albuterol her vital signs are good we will discharge her home we will also screen her for Covid asked her remaining quarantine until the results are available. Lab Data: Labs: Lab Results 10/10/20 10/10/20 10/10/20 Range/Units 06:00 06:00 06:00 WBC 8.0 (4.0-10.0) 10^3/ uL RBC 3.95 L (4.1-5.3) 10^6/u L Hgb 12.4 (11.5-15.3) g/dL Hct 38.6 (37.0-47.0) % MCV 97.7 (81-99) fL MCH 31.4 (28.0-34.0) pg MCHC 32.1 (30.0-36.0) g/dL RDW 13.4 (12.1-15.1) % Plt Count 288 (130-400) 10^3/c mm MPV 10.2 (7.4-10.4) fL Neut % (Auto) 59.7 % Lymph % (Auto) 26.3 % Upson % (Auto) 7.1 % Eos % (Auto) 5.8 % Baso % (Auto) 0.8 % Neut # (Auto) 4.77 (1.8-7.7) 10^3/u L Lymph # (Auto) 2.1 (0.8-4.8) 10^3/u L Upson # (Auto) 0.6 (0.2-0.9) 10^3/u L Eos # (Auto) 0.5 (0.0-0.8) 10^3/u L Baso # (Auto) 0.1 (0.0-0.1) 10^3/u L Nucleated RBC % (a uto) 0 % Nucleated RBCs # 0.0 /100WBC PT (12.1-14.9) SECO NDS INR (0.8-1.2) Sodium 138 (136-145) mmol/L Potassium 4.1 (3.5-5.1) mmol/L Chloride 103 (98-107) mmol/L Carbon Dioxide 25 (22-29) mmol/L Anion Gap 14.1 (5-19) BUN 24 H (8-23) mg/dL Creatinine 1.1 H (0.5-0.9) mg/dL GFR Calculation 49.5 L (90-130) mL/min Glucose 109 (65-115) mg/dL Calculated Osmolal ity 291 (285-295) mOsm/k g Calcium 8.7 (8.5-10.5) mg/dL Total Bilirubin 0.2 (0.15-1.2) mg/dL AST 17 (0-32) U/L ALT 17 (0-33) U/L Alkaline Phosphata se 108 H (35-105) IU/L Troponin T Baselin e (0-10) ng/L Troponin T 120 Min morongo (0-10) ng/L Delta Troponin T (0-10) ABS# NT-Pro-B Natriuret Pep 1505 H (0-125) pg/mL Total Protein 7.0 (6.6-8.7) g/dL Albumin 3.9 (3.5-5.2) g/dL Globulin 3.1 (1.3-4.6) g/dL Urine Color (Yellow) Urine Appearance (CLEAR) Urine pH (5-7) Ur Specific Gravit y (1.005-1.030) Urine Protein (Negative) Urine Glucose (UA) (Normal) Urine Ketones (Negative) Urine Blood (Negative) Urine Nitrate (Negative) Urine Bilirubin (Negative) Urine Urobilinogen (Negative) mg/dL Ur Leukocyte Cassia ase (Negative) Digoxin 0.6 (0.6-1.2) ng/mL 10/10/20 10/10/20 10/10/20 Range/Units 06:00 06:00 06:25 WBC (4.0-10.0) 10^3/ uL RBC (4.1-5.3) 10^6/u L Hgb (11.5-15.3) g/dL Hct (37.0-47.0) % MCV (81-99) fL MCH (28.0-34.0) pg MCHC (30.0-36.0) g/dL RDW (12.1-15.1) % Plt Count (130-400) 10^3/c mm MPV (7.4-10.4) fL Neut % (Auto) % Lymph % (Auto) % Upson % (Auto) % Eos % (Auto) % Baso % (Auto) % Neut # (Auto) (1.8-7.7) 10^3/u L Lymph # (Auto) (0.8-4.8) 10^3/u L Upson # (Auto) (0.2-0.9) 10^3/u L Eos # (Auto) (0.0-0.8) 10^3/u L Baso # (Auto) (0.0-0.1) 10^3/u L Nucleated RBC % (a uto) % Nucleated RBCs # /100WBC PT 31.30 H (12.1-14.9) SECO NDS INR 2.89 H (0.8-1.2) Sodium (136-145) mmol/L Potassium (3.5-5.1) mmol/L Chloride (98-107) mmol/L Carbon Dioxide (22-29) mmol/L Anion Gap (5-19) BUN (8-23) mg/dL Creatinine (0.5-0.9) mg/dL GFR Calculation (90-130) mL/min Glucose (65-115) mg/dL Calculated Osmolal ity (285-295) mOsm/k g Calcium (8.5-10.5) mg/dL Total Bilirubin (0.15-1.2) mg/dL AST (0-32) U/L ALT (0-33) U/L Alkaline Phosphata se (35-105) IU/L Troponin T Baselin e 11 H (0-10) ng/L Troponin T 120 Min morongo (0-10) ng/L Delta Troponin T (0-10) ABS# NT-Pro-B Natriuret Pep (0-125) pg/mL Total Protein (6.6-8.7) g/dL Albumin (3.5-5.2) g/dL Globulin (1.3-4.6) g/dL Urine Color Straw (Yellow) Urine Appearance Clear (CLEAR) Urine pH 5 (5-7) Ur Specific Gravit y 1.015 (1.005-1.030) Urine Protein Neg (Negative) Urine Glucose (UA) Norm (Normal) Urine Ketones Negative (Negative) Urine Blood Neg (Negative) Urine Nitrate Negative (Negative) Urine Bilirubin Neg (Negative) Urine Urobilinogen Norm (Negative) mg/dL Ur Leukocyte Cassia ase Negative (Negative) Digoxin (0.6-1.2) ng/mL 10/10/20 Range/Units 08:00 WBC (4.0-10.0) 10^3/ uL RBC (4.1-5.3) 10^6/u L Hgb (11.5-15.3) g/dL Hct (37.0-47.0) % MCV (81-99) fL MCH (28.0-34.0) pg MCHC (30.0-36.0) g/dL RDW (12.1-15.1) % Plt Count (130-400) 10^3/c mm MPV (7.4-10.4) fL Neut % (Auto) % Lymph % (Auto) % Upson % (Auto) % Eos % (Auto) % Baso % (Auto) % Neut # (Auto) (1.8-7.7) 10^3/u L Lymph # (Auto) (0.8-4.8) 10^3/u L Upson # (Auto) (0.2-0.9) 10^3/u L Eos # (Auto) (0.0-0.8) 10^3/u L Baso # (Auto) (0.0-0.1) 10^3/u L Nucleated RBC % (a uto) % Nucleated RBCs # /100WBC PT (12.1-14.9) SECO NDS INR (0.8-1.2) Sodium (136-145) mmol/L Potassium (3.5-5.1) mmol/L Chloride (98-107) mmol/L Carbon Dioxide (22-29) mmol/L Anion Gap (5-19) BUN (8-23) mg/dL Creatinine (0.5-0.9) mg/dL GFR Calculation (90-130) mL/min Glucose (65-115) mg/dL Calculated Osmolal ity (285-295) mOsm/k g Calcium (8.5-10.5) mg/dL Total Bilirubin (0.15-1.2) mg/dL AST (0-32) U/L ALT (0-33) U/L Alkaline Phosphata se (35-105) IU/L Troponin T Baselin e (0-10) ng/L Troponin T 120 Min morongo 9.94 (0-10) ng/L Delta Troponin T -1.06 L (0-10) ABS# NT-Pro-B Natriuret Pep (0-125) pg/mL Total Protein (6.6-8.7) g/dL Albumin (3.5-5.2) g/dL Globulin (1.3-4.6) g/dL Urine Color (Yellow) Urine Appearance (CLEAR) Urine pH (5-7) Ur Specific Gravit y (1.005-1.030) Urine Protein (Negative) Urine Glucose (UA) (Normal) Urine Ketones (Negative) Urine Blood (Negative) Urine Nitrate (Negative) Urine Bilirubin (Negative) Urine Urobilinogen (Negative) mg/dL Ur Leukocyte Cassia ase (Negative) Digoxin (0.6-1.2) ng/mL Discharge Plan Discharge Patient Disposition: Home Clinical Impression: Community acquired pneumonia, Atrial fibrillation Condition: Stable Prescriptions: New levofloxacin 750 mg tablet 750 mg PO DAILY 7 Days Qty: 7 RF: 0 Medrol (Carlin) 4 mg tablets,dose pack See Rx Instructions .ROUTE .COMPLEX Qty: 21 RF: 0 albuterol sulfate 90 mcg/actuation HFA aerosol inhaler 2 inh INHALATION Q4H PRN (Reason: shortness of breath or wheezing) Qty: 18 RF: 0 No Action digoxin 125 mcg (0.125 mg) tablet 125 mcg PO DAILY Qty: 30 RF: 2 multivitamin Tablet 1 tab PO DAILY RF: 0 omeprazole 40 mg Capsule,Delayed Release(Dr/Ec) 40 mg PO DAILY RF: 0 aspirin [Aspir-81] 81 mg Tablet,Delayed Release (Dr/Ec) 81 mg PO DAILY RF: 0 levothyroxine 150 mcg Tablet See Rx Instructions .ROUTE .COMPLEX RF: 0 vitamin S47-wrhtj acid 500-400 mcg Tablet 1 tab PO DAILY RF: 0 albuterol sulfate 90 mcg/actuation HFA aerosol inhaler 2 puff INHALATION QID PRN (Reason: Shortness Of Breath) RF: 0 fluticasone propionate 50 mcg/actuation spray,suspension 2 spray INTRANASAL BID PRN (Reason: allergies) RF: 0 loratadine [Allergy Relief (loratadine)] 10 mg tablet 10 mg PO PRN PRN (Reason: allergies) RF: 0 warfarin 5 mg Tablet 5 mg PO DAILY Qty: 30 RF: 0 metoprolol tartrate 50 mg Tablet 50 mg PO BID Qty: 60 RF: 4 diltiazem HCl 240 mg Capsule,Extended Release 24hr 300 mg PO DAILY Qty: 30 RF: 3 lorazepam 0.5 mg Tablet 0.5 mg PO TID PRN (Reason: Anxiety) Qty: 30 RF: 0 furosemide 20 mg Tablet 20 mg PO DAILY@0800 Qty: 30 RF: 0 potassium chloride 10 mEq Tablet Extended Release 20 meq PO DAILY Qty: 60 RF: 0 Discharge Orders: Discharge Order (Routine); Ordered 10/10/20 Ordered By: Raymundo Arias Referrals: Norman Golden DO [Primary Care Provider] - Discharge Diet: Usual diet Discharge Activity: Increase activity as tolerated Activity Restrictions/Additional Instructions: Follow-up with your primary care physician in 3 to 4 days return to the emergency room sooner if you have problems. Sign Out Sign Out Data: Patient Sign Out occurred on 10/10/20 at 07:36. Patient's care was discussed, and care was transferred from to Raymundo Arias DO. Coding Level of Care Code ED [employer] Fwd Exam Comprehensive
[2020-10-10 05:56] VITALS: BP 136/79; PULSE 88; RESP 16; O2SAT 98
[2020-10-10 06:11] LABS: Basophils # 0.1 10^3/uL (0.0-0.1); Basophils % 0.8 %; Eosinophils # 0.5 10^3/uL (0.0-0.8); Eosinophils % 5.8 %; Hematocrit 38.6 % (37.0-47.0); Hemoglobin 12.4 g/dL (11.5-15.3); Lymphocytes # 2.1 10^3/uL (0.8-4.8); Lymphocytes % 26.3 %; Mean Corpuscular HGB Conc 32.1 g/dL (30.0-36.0); Mean Corpuscular Hemoglobin 31.4 pg (28.0-34.0); Mean Corpuscular Volume 97.7 fL (81-99); Mean Platelet Volume 10.2 fL (7.4-10.4); Monocytes # 0.6 10^3/uL (0.2-0.9); Monocytes % 7.1 %; Neutrophils # 4.77 10^3/uL (1.8-7.7); Neutrophils % 59.7 %; Nucleated Red Blood Cells % 0 %; Platelet Count 288 10^3/cmm (130-400); Red Blood Count 3.95 10^6/uL (4.1-5.3); Red Cell Distribution Width 13.4 % (12.1-15.1)
[2020-10-10 06:22] LABS: INR 2.89 (0.8-1.2)
[2020-10-10 06:30] VITALS: PULSE 82; RESP 18; O2SAT 98
[2020-10-10 06:42] LABS: Alanine Aminotransferase 17 U/L (0-33); Albumin Level 3.9 g/dL (3.5-5.2); Alkaline Phosphatase 108 IU/L (35-105); Anion Gap 14.1 (5-19); Aspartate Amino Transferase 17 U/L (0-32); Blood Urea Nitrogen 24 mg/dL (8-23); Calcium 8.7 mg/dL (8.5-10.5); Carbon Dioxide 25 mmol/L (22-29); Chloride 103 mmol/L (98-107); Globulin 3.1 g/dL (1.3-4.6); Glomerular Filtration Rate 49.5 mL/min (90-130); Glucose 109 mg/dL (65-115); Osmolality Calculated 291 mOsm/kg (285-295); Potassium 4.1 mmol/L (3.5-5.1); Sodium 138 mmol/L (136-145); Total Bilirubin 0.2 mg/dL (0.15-1.2); Troponin(5th) Baseline 11 ng/L (0-10)
[2020-10-10 06:50] LABS: Add Urine Microscopic? NO
[2020-10-10] MEDS: cefTRIAXone 1,000 MG in sodium chloride 0.9% (plus) 50 ML 100 MG IV (06:52)
[2020-10-10 07:03] LABS: Digoxin 0.6 ng/mL (0.6-1.2)
[2020-10-10 07:26] LABS: Bilirubin Urine Neg (Negative); Blood Urine Neg (Negative); Glucose Urine UA Norm (Normal); Ketones Urine Negative (Negative); Leukocyte Esterase Urine Negative (Negative); Nitrate Urine Negative (Negative); Protein Urine Neg (Negative); Specific Gravity, Urine 1.015 (1.005-1.030); Urine Appearance Clear (CLEAR); Urine Color Straw (Yellow); Urobilinogen Urine Norm (Negative); pH Urine 5 (5-7)
--- NOTE | 2020-10-10 07:32 | ECG_ITS ---
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 Measurements Intervals [place] Rate: 71 P: [place]: QRS: 14 QRSD: 89 T: 5 QT: 369 QTc: 402 Interpretive Statements ATRIAL FIBRILLATION LOW QRS VOLTAGE IN PRECORDIAL LEADS [QRS DEFLECTION < 1.0 mV IN CHEST LEADS] NONSPECIFIC T-WAVE ABNORMALITY Compared to ECG 10/10/2020 05:18:52 No significant changes Electronically Signed On 10-10-2020 10:27:38 BABY DOCTOR by Amanda Maravilla M.D. [id number]
[2020-10-10 07:39] LABS: NT Pro B Type Natriuretic Pept 1505 pg/mL (0-125)
[2020-10-10 08:25] LABS: Troponin 5 2HR 9.94 ng/L (0-10)
[2020-10-10 08:30] VITALS: BP 143/83; PULSE 74; RESP 20; O2SAT 97
[2020-10-10 08:37] LABS: Troponin 5 2HR Delta -1.06 ABS# (0-10)
[2020-10-10 09:36] VITALS: BP 132/85; PULSE 89; RESP 18; O2SAT 97
--- NOTE | 2020-10-10 11:32 | ECG_ITS ---
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 Measurements Intervals [place] Rate: 72 P: [place]: QRS: 12 QRSD: 90 T: 29 QT: 359 QTc: 395 Interpretive Statements ATRIAL FIBRILLATION LOW QRS VOLTAGE IN PRECORDIAL LEADS [QRS DEFLECTION < 1.0 mV IN CHEST LEADS] NONSPECIFIC ST & T-WAVE ABNORMALITY Compared to ECG 07/04/2020 01:59:44 Low QRS voltage now present T-wave abnormality now present ST (T wave) deviation no longer present Electronically Signed On 10-10-2020 10:27:45 PREASSEMBLER PRINTED CIRCUIT BOARD by Amanda Maravilla M.D. [id number]
[2020-10-12 22:19] LABS: Quest SARS-CoV-2 RNA NOT DETECTED (NOT DETECTED)
--- NOTE | 2020-10-13 08:34 | PC.NURSE ---
notified pt of negative COVID results
== END 2020-10-10 09:36 | disposition home or self-care (01) ==
PROVIDERS: Emergency Medicine; Emergency Provider Family Medicine; PCP Internal Medicine
DX: I48.91 Unspecified atrial fibrillation (principal); J18.9 Pneumonia, unspecified organism; Z79.82 Long term (current) use of aspirin; Z79.01 Long term (current) use of anticoagulants; E11.9 Type 2 diabetes mellitus without complications; I10 Essential (primary) hypertension; Z87.891 Personal history of nicotine dependence
CPT/HCPCS: 12345; 71045; 80053; 80162; 81003; 83880; 84484; 85025; 85610; 87635; 93005; 96365; 99283; 99284; J0696

== ENCOUNTER 2020-11-12 22:24 | Emergency (ER) | payer MEDICARE, MEDICAID, SELFPAY ==
[2020-11-12 22:29] VITALS: BP 179/120; PULSE 108; RESP 20; TEMP 36.6; O2SAT 98; BMI 48.9
--- NOTE | 2020-11-12 22:37 | XRR_ITS ---
PROCEDURE INFORMATION: Exam: XR Chest, 1 View Exam date and time: 11/12/2020 10:46 PM Age: 69 years old Clinical indication: Shortness of breath; Additional info: SOB TECHNIQUE: Imaging protocol: XR of the chest Views: 1 view. COMPARISON: CR XR chest 2V* [id number] 10/31/2020 12:33 PM FINDINGS: Lungs: Mild chronic bronchiectasis or interstitial scarring of right lower lung. No lobar consolidation. Pleural space: Unremarkable. No pleural effusion. No pneumothorax. Heart/Mediastinum: Cardiac enlargement. Vasculature: Calcified thoracic aorta. Bones/joints: Degenerative change of the spine. Osteopenia. XR/XR chest 1V portable [id number] IMPRESSION: 1. Cardiomegaly. 2. Mild chronic bronchiectasis or interstitial scarring right lower lobe.
--- NOTE | 2020-11-12 22:37 | ECG_ITS ---
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 Measurements Intervals [place] Rate: 101 P: [place]: QRS: 23 QRSD: 100 T: 12 QT: 335 QTc: 436 Interpretive Statements ATRIAL FIBRILLATION WITH RAPID VENTRICULAR RESPONSE MODERATE ST DEPRESSION [0.05+ mV ST DEPRESSION] Compared to ECG 10/10/2020 07:50:01 ST (T wave) deviation now present T-wave abnormality no longer present Electronically Signed On 11-15-2020 16:45:52 CLIENT DIRECTOR by Rohan Bowling M.D. [id number]
--- NOTE | 2020-11-12 22:49 | ED_ITS ---
HPI - Arrhythmia/Palpitations General: Chief Complaint: Arrhythmia/Palpitations Stated Complaint: swollen, in afib, blood thin Time Seen by Provider: 11/12/20 22:30 Source: patient Mode of arrival: ambulatory Limitations: no limitations History of Present Illness: HPI narrative: 69-year-old female states that she has had increased leg swelling over the last week. States she talked her PCP today who informed her to increase her Lasix states she is continued to have swelling. She is only on 20 mg daily. She states that she has a history of A. fib as well and is on digoxin and her heart rate had increased today but is currently 95 in the room. She denies any chest pain. She denies any shortness of breath. Denies any weakness. Denies any worsening improving factors. She states her main complaint is the swelling she is having in her lower extremities. Associated symptoms: Deny nausea or vomiting Review of Systems Const: Denies: fever(s), chills, body aches or change in appetite Eyes: Denies: blurry vision or eye discomfort ENMT: Denies: throat pain or dental pain Card: Reports: irregular heart rhythm Resp: Denies: dyspnea GI: Denies: abdominal pain, nausea, vomiting or diarrhea : Denies: dysuria Musc: Reports: extremity swelling Skin/Breast: Denies: rash Neuro: Denies: headache(s) Psych: Denies: depression Andrés/Lymph: Denies: easy bruising All/Imm: Denies: urticaria PFSH ED PFSH: Medical History Anxiety Atrial fibrillation Chronic anticoagulation -on Coumadin Chronic kidney disease Deviated septum Diabetes GERD (gastroesophageal reflux disease) Hypertension Hypothyroidism -TSH wnl -on levothyroxine Lesion of skin of nose Nasal turbinate hypertrophy New onset of congestive heart failure -BNP-3052 -imaging not indicative of fluid overload; not overtly decompensated; could be secondary to A.fib with RVR -Echo as noted above -on oral Lasix Paroxysmal A-fib Rhinitis Surgical History H/O knee surgery bilateral knees H/O tubal ligation H/O: hysterectomy History of hernia surgery History 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, was malignant Family History Other CAD (coronary artery disease) Social History Smoking and tobacco status: former smoker Alcohol intake: current Alcohol intake frequency: holidays/special occasions only Alcohol type: wine Current gender identity: Female Physical Exam Const: COMMON NORMALS: no acute distress, patient oriented x3 and healthy appearing HENMT: COMMON NORMALS: normocephalic and atraumatic HEAD & SCALP: normocephalic and atraumatic Eye: COMMON NORMALS: Equal, round and reactive pupils present and EOMs intact bilaterally PUPIL: Yes Equal, round and reactive pupils present Neck/C-Spine: COMMON NORMALS: full ROM and supple Chest: COMMONS NORMALS: normal inspection of the chest and normal palpation of entire chest wall Resp: COMMON NORMALS: normal respiratory effort, No retractions, No use of accessory muscles and clear to auscultation bilaterally AUSCULTATION: clear to auscultation bilaterally Cardio: COMMON NORMALS: regular rate and No murmurs present (Cardio) RATE: regular rate RHYTHM: abnormal rhythm irregularly irregular GI: COMMON NORMALS: Normal to inspection, nondistended, normoactive bowel sounds present, Soft to palpation, non-tender and no masses PALPATION: Yes Soft to palpation Extremity: COMMON NORMALS: full ROM NARRATIVE EXTREMITY EXAM: 2+ edema Neuro: COMMON NORMALS: patient oriented x3, moves all extremities and no focal motor deficits Psych: COMMON NORMALS: mental status grossly normal, Normal thought process present and cooperative THOUGHT PROCESS: Normal thought process present Skin: COMMON NORMALS: no rashes or lesions noted and no wounds GENERAL SKIN EXAM: no rashes or lesions noted Course Vital Signs: Vital signs: Vital Signs Temperature 97.8 F 11/12/20 22:29 Pulse Rate 108 H 11/12/20 22:29 Respiratory Rate 20 H 11/12/20 22:29 Blood Pressure 179/120 11/12/20 22:29 Pulse Oximetry 98 11/12/20 22:29 MDM - Arrhythmia/Palpitations 2 MDM Narrative: Medical decision making narrative: Patient presents here with A. fib that is chronic. She has no tachycardia or RVR here. Patient is worried about edema did give her IV Lasix will up her Lasix from 20-40. She has no signs of congestive heart failure. Patient is stable for discharge and is to follow-up with PCP in 3 to 5 days return if worsening. She understands and agrees to plan. Lab Data: Labs: Lab Results 11/12/20 11/12/20 11/12/20 Range/Units 22:50 22:50 22:50 WBC 8.1 (4.0-10.0) 10^3/ uL RBC 4.02 L (4.1-5.3) 10^6/u L Hgb 12.6 (11.5-15.3) g/dL Hct 38.6 (37.0-47.0) % MCV 96.0 (81-99) fL MCH 31.3 (28.0-34.0) pg MCHC 32.6 (30.0-36.0) g/dL RDW 13.7 (12.1-15.1) % Plt Count 270 (130-400) 10^3/c mm MPV 10.3 (7.4-10.4) fL Neut % (Auto) 56.4 % Lymph % (Auto) 27.6 % Randolph % (Auto) 8.0 % Eos % (Auto) 6.6 % Baso % (Auto) 0.9 % Neut # (Auto) 4.55 (1.8-7.7) 10^3/u L Lymph # (Auto) 2.2 (0.8-4.8) 10^3/u L Randolph # (Auto) 0.6 (0.2-0.9) 10^3/u L Eos # (Auto) 0.5 (0.0-0.8) 10^3/u L Baso # (Auto) 0.1 (0.0-0.1) 10^3/u L Nucleated RBC % (a uto) 0 % Nucleated RBCs # 0.0 /100WBC PT 31.90 H (12.1-14.9) SECO NDS INR 2.96 H (0.8-1.2) Sodium 137 (136-145) mmol/L Potassium 3.9 (3.5-5.1) mmol/L Chloride 103 (98-107) mmol/L Carbon Dioxide 24 (22-29) mmol/L Anion Gap 13.9 (5-19) BUN 16 (8-23) mg/dL Creatinine 1.0 H (0.5-0.9) mg/dL GFR Calculation 55.3 L (90-130) mL/min Glucose 120 H (65-115) mg/dL Calculated Osmolal ity 286 (285-295) mOsm/k g Calcium 9.1 (8.5-10.5) mg/dL Total Bilirubin 0.2 (0.15-1.2) mg/dL AST 26 (0-32) U/L ALT 23 (0-33) U/L Alkaline Phosphata se 118 H (35-105) IU/L Troponin T Baselin e (0-10) ng/L Troponin T 120 Min [place] (0-10) ng/L Delta Troponin T (0-10) ABS# NT-Pro-B Natriuret Pep 1593 H (0-125) pg/mL Total Protein 7.3 (6.6-8.7) g/dL Albumin 3.8 (3.5-5.2) g/dL Globulin 3.5 (1.3-4.6) g/dL Digoxin (0.6-1.2) ng/mL 11/12/20 11/12/20 11/13/20 Range/Units 22:50 23:13 01:00 WBC (4.0-10.0) 10^3/ uL RBC (4.1-5.3) 10^6/u L Hgb (11.5-15.3) g/dL Hct (37.0-47.0) % MCV (81-99) fL MCH (28.0-34.0) pg MCHC (30.0-36.0) g/dL RDW (12.1-15.1) % Plt Count (130-400) 10^3/c mm MPV (7.4-10.4) fL Neut % (Auto) % Lymph % (Auto) % Randolph % (Auto) % Eos % (Auto) % Baso % (Auto) % Neut # (Auto) (1.8-7.7) 10^3/u L Lymph # (Auto) (0.8-4.8) 10^3/u L Randolph # (Auto) (0.2-0.9) 10^3/u L Eos # (Auto) (0.0-0.8) 10^3/u L Baso # (Auto) (0.0-0.1) 10^3/u L Nucleated RBC % (a uto) % Nucleated RBCs # /100WBC PT (12.1-14.9) SECO NDS INR (0.8-1.2) Sodium (136-145) mmol/L Potassium (3.5-5.1) mmol/L Chloride (98-107) mmol/L Carbon Dioxide (22-29) mmol/L Anion Gap (5-19) BUN (8-23) mg/dL Creatinine (0.5-0.9) mg/dL GFR Calculation (90-130) mL/min Glucose (65-115) mg/dL Calculated Osmolal ity (285-295) mOsm/k g Calcium (8.5-10.5) mg/dL Total Bilirubin (0.15-1.2) mg/dL AST (0-32) U/L ALT (0-33) U/L Alkaline Phosphata se (35-105) IU/L Troponin T Baselin e 11 H (0-10) ng/L Troponin T 120 Min [place] 11.26 H (0-10) ng/L Delta Troponin T 0.26 (0-10) ABS# NT-Pro-B Natriuret Pep (0-125) pg/mL Total Protein (6.6-8.7) g/dL Albumin (3.5-5.2) g/dL Globulin (1.3-4.6) g/dL Digoxin 0.8 (0.6-1.2) ng/mL Imaging Data^: CXR: Attestation: I personally reviewed and interpreted this imaging study as follows: My impression: no acute abnormality EKG Data^: EKG 1: Attestation: I personally reviewed and interpreted this EKG as follows: EKG interpretation date: 11/12/20 EKG interpretation time: 22:37 Interpretation: afib hr [address] or t wave abnormaliites qrs 100 qtc 393 EKG 2: Attestation: I personally reviewed and interpreted this EKG as follows: EKG interpretation date: 11/13/20 EKG interpretation time: 00:36 Interpretation: afib hr [address] or t wave abnormalities qrs 91 qtc 388 Discharge Plan Discharge Patient Disposition: Home Clinical Impression: Atrial fibrillation Qualifiers: Atrial fibrillation type: unspecified Qualified Code(s): I48.91 - Unspecified atrial fibrillation Condition: Stable Prescriptions: Changed furosemide 20 mg Tablet 40 mg PO DAILY@0800 Qty: 30 RF: 0 No Action digoxin 125 mcg (0.125 mg) tablet 125 mcg PO DAILY Qty: 30 RF: 2 diltiazem HCl 240 mg capsule,extended release 24hr 300 mg PO DAILY Qty: 90 RF: 3 multivitamin Tablet 1 tab PO DAILY RF: 0 omeprazole 40 mg Capsule,Delayed Release(Dr/Ec) 40 mg PO DAILY RF: 0 aspirin [Aspir-81] 81 mg Tablet,Delayed Release (Dr/Ec) 81 mg PO DAILY RF: 0 levothyroxine 150 mcg Tablet See Rx Instructions .ROUTE .COMPLEX RF: 0 vitamin S46-jcbti acid 500-400 mcg Tablet 1 tab PO DAILY RF: 0 albuterol sulfate 90 mcg/actuation HFA aerosol inhaler 2 puff INHALATION QID PRN (Reason: Shortness Of Breath) RF: 0 fluticasone propionate 50 mcg/actuation spray,suspension 2 spray INTRANASAL BID PRN (Reason: allergies) RF: 0 loratadine [Allergy Relief (loratadine)] 10 mg tablet 10 mg PO PRN PRN (Reason: allergies) RF: 0 warfarin 5 mg Tablet 5 mg PO DAILY Qty: 30 RF: 0 metoprolol tartrate 50 mg Tablet 50 mg PO BID Qty: 60 RF: 4 lorazepam 0.5 mg Tablet 0.5 mg PO TID PRN (Reason: Anxiety) Qty: 30 RF: 0 potassium chloride 10 mEq Tablet Extended Release 20 meq PO DAILY Qty: 60 RF: 0 Medrol (Carlin) 4 mg tablets,dose pack See Rx Instructions .ROUTE .COMPLEX Qty: 21 RF: 0 albuterol sulfate 90 mcg/actuation HFA aerosol inhaler 2 inh INHALATION Q4H PRN (Reason: shortness of breath or wheezing) Qty: 18 RF: 0 Discharge Orders: Discharge ED (Routine); Ordered 11/13/20 Ordered By: Laura Cowart Referrals: Norman Golden DO [Primary Care Provider] - 1-3 days Discharge Diet: Advance as tolerated Discharge Activity: Resume usual activity Patient Instructions: Atrial Fibrillation (ED), Leg Edema (ED) Coding Level of Care Code ED Logistics Tech for Chg Fwd Exam Comprehensive
[2020-11-12 22:55] LABS: Basophils # 0.1 10^3/uL (0.0-0.1); Basophils % 0.9 %; Eosinophils # 0.5 10^3/uL (0.0-0.8); Eosinophils % 6.6 %; Hematocrit 38.6 % (37.0-47.0); Hemoglobin 12.6 g/dL (11.5-15.3); Lymphocytes # 2.2 10^3/uL (0.8-4.8); Lymphocytes % 27.6 %; Mean Corpuscular HGB Conc 32.6 g/dL (30.0-36.0); Mean Corpuscular Hemoglobin 31.3 pg (28.0-34.0); Mean Platelet Volume 10.3 fL (7.4-10.4); Monocytes # 0.6 10^3/uL (0.2-0.9); Neutrophils # 4.55 10^3/uL (1.8-7.7); Neutrophils % 56.4 %; Nucleated Red Blood Cells % 0 %; Platelet Count 270 10^3/cmm (130-400); Red Blood Count 4.02 10^6/uL (4.1-5.3); Red Cell Distribution Width 13.7 % (12.1-15.1); White Blood Count 8.1 10^3/uL (4.0-10.0)
[2020-11-12 23:16] LABS: INR 2.96 (0.8-1.2)
[2020-11-12] MEDS: FUROsemide 10 mg/mL SDV 10mL 60 MG IVP (23:16)
[2020-11-12 23:21] LABS: Troponin(5th) Baseline 11 ng/L (0-10)
[2020-11-12 23:29] LABS: Alanine Aminotransferase 23 U/L (0-33); Albumin Level 3.8 g/dL (3.5-5.2); Alkaline Phosphatase 118 IU/L (35-105); Anion Gap 13.9 (5-19); Aspartate Amino Transferase 26 U/L (0-32); Blood Urea Nitrogen 16 mg/dL (8-23); Calcium 9.1 mg/dL (8.5-10.5); Carbon Dioxide 24 mmol/L (22-29); Chloride 103 mmol/L (98-107); Creatinine Clr Calc Pharmacy 70.2513; Globulin 3.5 g/dL (1.3-4.6); Glomerular Filtration Rate 55.3 mL/min (90-130); Glucose 120 mg/dL (65-115); NT Pro B Type Natriuretic Pept 1593 pg/mL (0-125); Osmolality Calculated 286 mOsm/kg (285-295); Potassium 3.9 mmol/L (3.5-5.1); Sodium 137 mmol/L (136-145); Total Bilirubin 0.2 mg/dL (0.15-1.2); Total Protein 7.3 g/dL (6.6-8.7)
[2020-11-13 00:06] LABS: Digoxin 0.8 ng/mL (0.6-1.2)
--- NOTE | 2020-11-13 00:37 | ECG_ITS ---
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 Measurements Intervals [place] Rate: 84 P: [place]: QRS: 20 QRSD: 91 T: 44 QT: 347 QTc: 412 Interpretive Statements ATRIAL FIBRILLATION NONSPECIFIC ST & T-WAVE ABNORMALITY ABNORMAL RHYTHM ECG Compared to ECG 11/12/2020 22:37:39 T-wave abnormality now present ST (T wave) deviation no longer present Electronically Signed On 11-16-2020 10:10:13 BUFFING MACHINE OPERATOR by Amanda Maravilla M.D. [id number]
--- NOTE | 2020-11-13 00:40 | PC.NURSE ---
EKG done at 0035 and shown to ER doctor
[2020-11-13 01:34] LABS: Troponin 5 2HR 11.26 ng/L (0-10); Troponin 5 2HR Delta 0.26 ABS# (0-10)
[2020-11-13 01:48] VITALS: BP 154/87; PULSE 78; RESP 16; O2SAT 98
== END 2020-11-13 01:50 | disposition home or self-care (01) ==
PROVIDERS: Emergency Provider Emergency Medicine; PCP Internal Medicine
DX: I48.91 Unspecified atrial fibrillation (principal); Z79.01 Long term (current) use of anticoagulants; Z79.82 Long term (current) use of aspirin; E11.9 Type 2 diabetes mellitus without complications; I11.0 Hypertensive heart disease with heart failure; I50.9 Heart failure, unspecified; Z87.891 Personal history of nicotine dependence
CPT/HCPCS: 12345; 71045; 80053; 80162; 83880; 84484; 85025; 85610; 93005; 96374; 99282; 99284; J1940

== ENCOUNTER → 2021-02-23 14:45 | Outpatient (BNVA) | payer MEDICARE, MEDICAID, SELFPAY | PROVIDERS: PCP Internal Medicine; Visit Provider Nurse Practitioner Family | DX: I50.32 Chronic diastolic (congestive) heart failure (principal); I48.91 Unspecified atrial fibrillation | CPT/HCPCS: 80048 ==

== ENCOUNTER 2021-03-19 11:51 | Inpatient (IN) | payer MEDICARE, MEDICAID, SELFPAY ==
[2021-03-19 13:09] VITALS: BMI 43.9
--- NOTE | 2021-03-19 14:00 | PC.NURSE ---
Direct admit Received pt from [facility] clinic. Pt stated she's been SOB and fatigue for past months. Pt denies any chest pain or discomfort. Call light provided to pt.
--- NOTE | 2021-03-19 14:12 | ECG_ITS ---
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 Measurements Intervals [place] Rate: 55 P: [place]: QRS: 29 QRSD: 89 T: -3 QT: 395 QTc: 379 Interpretive Statements ATRIAL FIBRILLATION WITH SLOW VENTRICULAR RESPONSE NONSPECIFIC ST & T-WAVE ABNORMALITY Compared to ECG 11/13/2020 00:36:24 No significant changes Electronically Signed On 03-20-2021 7:42:56 CDT by Amanda Maravilla M.D. [email or web address]/store/[id number]
--- NOTE | 2021-03-19 19:10 | PC.NURSE ---
Bedside report received from Ernst RN. Patient is sitting in bed watching TV. Patient has no complaints of pain or other needs at this time. Nurse will continue to monitor.
[2021-03-19 19:26] VITALS: BP 115/77; PULSE 67; RESP 20; TEMP 36.6; O2SAT 97
--- NOTE | 2021-03-19 19:38 | PM.HP ---
Providers/Chief Complaint Admitting Physician: Estelita Thompson MD Primary Care Provider: Norman Golden DO Chief Complaint: Afib History of Present Illness Katie Finch is a 70 year old female past medical history significant for hypertension hyperlipidemia diastolic heart failure chronic atrial fibrillation for worsening of atrial fibrillation RVR and because of the fact she is not tolerating rate control strategy remains short of breath and in heart failure we decided to bring her to the hospital for loading of antiarrhythmics. I will start her on sotalol 80 mg twice a day we will monitor QT QTC 3 hours after every dose of sotalol for 6 doses. If patient does not convert into sinus rhythm I may will electrically cardiovert her. I will continue warfarin. Echocardiogram showed normal left ventricle ejection fraction without significant valvular abnormality. Medications/Allergies Home Medications Medication Instructions Recorded Confirmed Last Taken Type aspirin [Aspir-81] 81 mg PO DAILY 01/11/20 03/19/21 03/18/21 22:30 History levothyroxine 150 mcg PO TUTHSA 01/11/20 03/19/21 03/19/21 09:30 History omeprazole 40 mg PO DAILY 01/11/20 03/19/21 03/19/21 09:30 History warfarin 5 mg PO DAILY #30 tab 06/26/20 03/19/21 03/19/21 09:30 Rx lorazepam 0.5 mg PO TID PRN #30 tab 06/28/20 03/19/21 Unknown Rx metoprolol tartrate 50 mg tablet 50 mg PO BID #60 tab 11/20/20 03/19/21 03/19/21 09:30 Rx digoxin 125 mcg (0.125 mg) tablet 125 mcg PO DAILY #30 tab 12/23/20 03/19/21 03/19/21 09:30 Rx alprazolam 0.25 mg tablet 0.25 mg PO TID PRN 02/09/21 03/19/21 Unknown History furosemide 20 mg tablet 40 mg PO BID #180 tab 02/09/21 03/19/21 03/18/21 16:30 Rx diltiazem HCl [Cartia XT] 300 mg PO DAILY 03/19/21 03/19/21 03/19/21 09:30 History omnemaiujvn-doaehmojq-bymijyfa 1 inh INHALATION DAILY 03/19/21 03/19/21 Unknown History [Trelegy Ellipta] potassium chloride 10 meq PO 1600 03/19/21 03/19/21 03/18/21 16:30 History potassium chloride 20 meq PO DAILY 03/19/21 03/19/21 03/19/21 09:30 History Allergies Allergy/AdvReac Type Severity Reaction Status Date / Time avocado Allergy Severe cant breath Verified 03/10/21 13:04 codeine Allergy ADR-Vomitin Verified 03/10/21 13:04 g Sulfa (Sulfonamide Allergy Unknown Verified 03/10/21 13:04 Antibiotics) Tetanus Vaccines and Toxoid Allergy Unknown Verified 03/10/21 13:04 PFSH Acute PFSH: Medical History (Updated 03/19/21 @ 19:42 by Estelita Thompson MD) Anxiety Atrial fibrillation CHF (congestive heart failure) Chronic anticoagulation -on Coumadin Chronic kidney disease Deviated septum Diabetes GERD (gastroesophageal reflux disease) Hypertension Hypothyroidism -TSH wnl -on levothyroxine Lesion of skin of nose Nasal turbinate hypertrophy New onset of congestive heart failure -BNP-3052 -imaging not indicative of fluid overload; not overtly decompensated; could be secondary to A.fib with RVR -Echo as noted above -on oral Lasix Paroxysmal A-fib Rhinitis Surgical History H/O knee surgery bilateral knees H/O tubal ligation H/O: hysterectomy History of hernia surgery History 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, was malignant Family History Other CAD (coronary artery disease) Social History Smoking and tobacco status: former smoker Alcohol intake: current Alcohol intake frequency: holidays/special occasions only Alcohol type: wine Current gender identity: Female Vitals/I&O/Wt Last Vital Signs Temp 97.9 F 03/19/21 19:26 Pulse 67 03/19/21 19:26 Resp 20 H 03/19/21 19:26 BP 115/77 03/19/21 19:26 Pulse Ox 97 03/19/21 19:26 03/19/21 03/19/21 03/19/21 06:59 14:59 22:59 Intake Total 240 / 240 Balance 240 / 240 Weight last 48 hrs Weight 256 lb Weight 256 lb 1.6 oz Physical Exam Narrative: EXAM NARRATIVE: GENERAL: Patient is alert, awake and oriented x3. NECK: No jugular vein distension. HEENT: No cyanosis. No icterus. No pallor. HEART: Irregularly irregular S1 and S2. No murmur, rub or gallop. LUNGS: Clear to auscultate bilaterally. ABDOMEN: Soft, nontender and nondistended. Positive bowel sounds. No guarding, rebound or tenderness. CENTRAL NERVOUS SYSTEM: Grossly nonfocal. EXTREMITIES: Lower extremities without edema bilaterally. A&P Assessment and plan (1) Atrial fibrillation: I will stop beta-nicolle and calcium channel nicolle. I will start patient on sotalol. We will monitor QT QTC along with the dosages. Continue anticoagulation. We will monitor her for next 48 hours if does not controlled with antiarrhythmic I may will electrically cardiovert her Status: Acute Qualifiers: Atrial fibrillation type: unspecified Qualified Code(s): I48.91 - Unspecified atrial fibrillation (2) CHF (congestive heart failure): Appear to be euvolemic continue current Status: Acute Qualifiers: Heart failure type: diastolic Heart failure chronicity: chronic Qualified Code(s): I50.32 - Chronic diastolic (congestive) heart failure (3) Hypertension: Well-controlled continue medicine. Status: Acute Qualifiers: Hypertension type: essential hypertension Qualified Code(s): I10 - Essential (primary) hypertension Attestations Medical Necessity Statement*: Patient require continuation hospitalization for above defined care. I am expecting her stay to cross more than 2 midnights. This is inpatient admission Coding Level of Care Code New Pt Acute Inspector Heating And Refrigeration for g Fwd Patient Type New History Detailed Exam Detailed Medical Decision Making Moderate Complexity Diagnoses Atrial fibrillation I48.91 Atrial fibrillation type: unspecified CHF (congestive heart failure) I50.32 Heart failure type: diastolic Heart failure chronicity: chronic Hypertension I10 Hypertension type: essential hypertension
[2021-03-19 20:02] VITALS: PULSE 66
--- NOTE | 2021-03-19 21:22 | PC.NURSE ---
Patient's heart rate decreasing to upper 50s to mid 70s. Informed Dr Thompson and received instruction to hold beta blockers tonight.
--- NOTE | 2021-03-19 21:52 | PC.NURSE ---
Sotalol not given. VORB from Dr. Brooks to hold Sotalol dose due to patients HR going down to 40's.
[2021-03-19] MEDS: pneumococcal (23 valent) SDV 0.5 mL IM (21:54)
[2021-03-19 22:00] VITALS: PULSE 75
[2021-03-19 23:58] VITALS: BP 122/71; PULSE 70; RESP 21
[2021-03-20] VITALS (9 sets, daily range): BP systolic 126–139; BP diastolic 71–92; PULSE 63–101; RESP 15–20; TEMP 36.6–36.9; O2SAT 94–96
[2021-03-20] MEDS: sotalol 80 mg Tablet PO ×2 (08:45→20:48)
[2021-03-20] MEDS: aspirin 81 mg EC Tablet PO (08:46)
[2021-03-20] MEDS: digoxin 125 mcg Tablet PO (08:46)
[2021-03-20] MEDS: pantoprazole DR 40 mg Tablet PO (08:46)
[2021-03-20] MEDS: FUROsemide 40 mg Tablet PO ×2 (08:46→17:19)
[2021-03-20 09:16] LABS: INR 2.48 (0.8-1.2)
--- NOTE | 2021-03-20 12:00 | ECG_ITS ---
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 Measurements Intervals [place] Rate: 77 P: [place]: QRS: 23 QRSD: 101 T: -5 QT: 397 QTc: 452 Interpretive Statements ATRIAL FIBRILLATION NONSPECIFIC ST & T-WAVE ABNORMALITY ABNORMAL RHYTHM ECG Compared to ECG 03/19/2021 14:27:04 No significant changes Electronically Signed On 03-20-2021 19:16:57 CDT by Rohan Bowling M.D. [id number]
[2021-03-20] MEDS: warfarin 5 mg Tablet PO (14:51)
[2021-03-20] MEDS: potassium chloride ER 20 mEq Tablet PO (14:52)
[2021-03-20] MEDS: potassium chloride ER 10 mEq Tablet PO (17:19)
--- NOTE | 2021-03-20 19:05 | PC.NURSE ---
Bedside report received from Ernst RN. Patient is sitting in bed crocheting. A & O x4. Patient has complaints of mild anxiety. Will administer Xanax 0.25mg. Patients has no complaints of pain or other needs at this time. Nurse will continue to monitor.
--- NOTE | 2021-03-20 20:36 | PM.PN ---
Subjective Subjective: Interval history: Patient remained in atrial fibrillation with rapid ventricle response started on sotalol. Stable doing fine from a cardiac Medications: Reviewed: Yes Vitals/I&O/Wt Last Vital Signs Temp 97.8 F 03/20/21 19:24 Pulse 96 03/20/21 19:24 Resp 15 03/20/21 19:24 BP 126/90 03/20/21 19:24 Pulse Ox 94 03/20/21 19:24 03/20/21 03/20/21 03/20/21 06:59 14:59 22:59 Intake Total 480 / 480 360 / 840 Balance 480 / 480 360 / 840 Weight last 48 hrs Weight 256 lb Weight 256 lb 1.6 oz Physical Exam Narrative: EXAM NARRATIVE: GENERAL: Patient is alert, awake and oriented x3. NECK: No jugular vein distension. HEENT: No cyanosis. No icterus. No pallor. HEART: Irregularly irregular S1 and S2. No murmur, rub or gallop. LUNGS: Clear to auscultate bilaterally. ABDOMEN: Soft, nontender and nondistended. Positive bowel sounds. No guarding, rebound or tenderness. CENTRAL NERVOUS SYSTEM: Grossly nonfocal. EXTREMITIES: Lower extremities without edema bilaterally. A&P Assessment and plan (1) Atrial fibrillation: I will stop beta-nicolle and calcium channel nicolle. I will start patient on sotalol. We will monitor QT QTC along with the dosages. Continue anticoagulation. We will monitor her for next 48 hours if does not controlled with antiarrhythmic I may will electrically cardiovert her Last night sotalol was held because of bradycardia since home meds metoprolol wears off we started sotalol this morning check QT QTC every 3 hours after each dose. Please inform Dr. Thompson with the result. Patient has been discussed in detail regarding expectation she has to be watched for at least 6 dosages for 3 days. We have also discussed regarding if he does not convert into sinus rhythm we may have to perform MALACHI guided cardioversion for her. He says he is so fatigued and fed up that she would like to do it during this admission. Status: Acute Qualifiers: Atrial fibrillation type: unspecified Qualified Code(s): I48.91 - Unspecified atrial fibrillation (2) CHF (congestive heart failure): Appear to be well compensated continue current medicine Status: Acute Qualifiers: Heart failure type: diastolic Heart failure chronicity: chronic Qualified Code(s): I50.32 - Chronic diastolic (congestive) heart failure (3) Hypertension: Well-controlled continue medicine. Status: Acute Qualifiers: Hypertension type: essential hypertension Qualified Code(s): I10 - Essential (primary) hypertension Attestations Medical Necessity Statement*: Patient require continuation hospitalization for above defined care Coding Level of Care Code Established Pt Acute Human Services Care Specialist for g Fwd Patient Type Established History Detailed Exam Detailed Medical Decision Making Moderate Complexity Diagnoses Atrial fibrillation I48.91 Atrial fibrillation type: unspecified CHF (congestive heart failure) I50.32 Heart failure type: diastolic Heart failure chronicity: chronic Hypertension I10 Hypertension type: essential hypertension
[2021-03-20] MEDS: ALPRAZolam 0.25 mg Tablet PO (20:54)
[2021-03-21] VITALS (10 sets, daily range): BP systolic 121–146; BP diastolic 75–107; PULSE 83–112; RESP 10–21; TEMP 36.4–37.1; O2SAT 91–97
--- NOTE | 2021-03-21 | ECG_ITS ---
[facility] Test Date: 2021-03-21 Pat Name: Katie Finch Department: Room: 105 Gender: Female Visual Training Aide: : 1950 Requested By: Estelita Thompson Order Number: [id number] Reading MD: ESTELITA THOMPSON Measurements Intervals [place] Rate: 93 P: [place]: QRS: 33 QRSD: 100 T: 28 QT: 373 QTc: 466 Interpretive Statements ATRIAL FIBRILLATION NONSPECIFIC ST & T-WAVE ABNORMALITY ABNORMAL RHYTHM ECG Compared to ECG 03/20/2021 11:52:38 No significant changes Electronically Signed On 03-22-2021 22:30:07 CDT by ESTELITA THOMPSON [id number]
[2021-03-21] MEDS: levothyroxine 150 mcg Tablet PO (05:21)
[2021-03-21] MEDS: FUROsemide 40 mg Tablet PO ×2 (09:02→16:15)
[2021-03-21] MEDS: aspirin 81 mg EC Tablet PO (09:02)
[2021-03-21] MEDS: digoxin 125 mcg Tablet PO (09:02)
[2021-03-21] MEDS: pantoprazole DR 40 mg Tablet PO (09:02)
[2021-03-21] MEDS: sotalol 80 mg Tablet PO ×2 (09:02→20:55)
[2021-03-21] MEDS: potassium chloride ER 20 mEq Tablet PO (09:04)
--- NOTE | 2021-03-21 12:00 | ECG_ITS ---
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
[2021-03-21] MEDS: sotalol 80 mg Tablet 40 MG PO ×2 (12:26→21:36)
--- NOTE | 2021-03-21 13:31 | PC.NURSE ---
QTc is 390 on 12 lead EKG done at 12 noon.
--- NOTE | 2021-03-21 14:13 | PM.PN ---
Subjective Subjective: Interval history: Heart rate remains 90-100 with atrial fibrillation as underlying rhythm. Denies any complaint except fatigue and shortness of breath Medications: Reviewed: Yes Vitals/I&O/Wt Last Vital Signs Temp 98.7 F 03/21/21 11:09 Pulse 94 03/21/21 14:00 Resp 19 H 03/21/21 11:09 BP 128/99 03/21/21 11:09 Pulse Ox 97 03/21/21 11:09 03/20/21 03/21/21 03/21/21 22:59 06:59 14:59 Intake Total 360 / 840 590 / 590 Balance 360 / 840 590 / 590 Physical Exam Narrative: EXAM NARRATIVE: GENERAL: Patient is alert, awake and oriented x3. NECK: No jugular vein distension. HEENT: No cyanosis. No icterus. No pallor. HEART: Irregularly irregular S1 and S2. No murmur, rub or gallop. LUNGS: Clear to auscultate bilaterally. ABDOMEN: Soft, nontender and nondistended. Positive bowel sounds. No guarding, rebound or tenderness. CENTRAL NERVOUS SYSTEM: Grossly nonfocal. EXTREMITIES: Lower extremities without edema bilaterally. A&P Assessment and plan (1) Atrial fibrillation: I will stop beta-nicolle and calcium channel nicolle. I will start patient on sotalol. We will monitor QT QTC along with the dosages. Continue anticoagulation. We will monitor her for next 48 hours if does not controlled with antiarrhythmic I may will electrically cardiovert her Last night sotalol was held because of bradycardia since home meds metoprolol wears off we started sotalol this morning check QT QTC every 3 hours after each dose. Please inform Dr. Thompson with the result. Patient has been discussed in detail regarding expectation she has to be watched for at least 6 dosages for 3 days. We have also discussed regarding if he does not convert into sinus rhythm we may have to perform MALACHI guided cardioversion for her. He says he is so fatigued and fed up that she would like to do it during this admission. On today's visit we will increase sotalol to 120 mg in the morning and keep 80 mg in the night. We will will assess QT QTC within next few hours Status: Acute Qualifiers: Atrial fibrillation type: unspecified Qualified Code(s): I48.91 - Unspecified atrial fibrillation (2) CHF (congestive heart failure): Well compensated continue to monitor Status: Acute Qualifiers: Heart failure type: diastolic Heart failure chronicity: chronic Qualified Code(s): I50.32 - Chronic diastolic (congestive) heart failure (3) Hypertension: Well-controlled continue medicine. Status: Acute Qualifiers: Hypertension type: essential hypertension Qualified Code(s): I10 - Essential (primary) hypertension Attestations Medical Necessity Statement*: Patient require continuation hospitalization for above defined care Coding Level of Care Code Established Pt Acute Director Of Solutions Architecture for [facility] Norm Patient Type Established History Detailed Exam Detailed Diagnoses Atrial fibrillation I48.91 Atrial fibrillation type: unspecified CHF (congestive heart failure) I50.32 Heart failure type: diastolic Heart failure chronicity: chronic Hypertension I10 Hypertension type: essential hypertension
[2021-03-21] MEDS: warfarin 5 mg Tablet PO (14:59)
[2021-03-21] MEDS: potassium chloride ER 10 mEq Tablet PO (16:15)
--- NOTE | 2021-03-21 19:55 | PC.NURSE ---
Bedside report received from Katherine MITTAL. Patient is lying in bed watching TV. Patient has no complaints of pain or needs at this time. Nurse will continue to monitor.
[2021-03-21] MEDS: ALPRAZolam 0.25 mg Tablet PO (20:55)
--- NOTE | 2021-03-21 21:00 | PC.NURSE ---
Patient is questioning order for Sotalol. Patient given 80mg and patient thinks she should have 120mg. Dr. Brooks has been notified, awaiting response. BP 124/101 Pulse 124 at the time of administration of 80mg dose. Nurse will continue to monitor.
--- NOTE | 2021-03-21 21:16 | PC.NURSE ---
Clarified medication order with Dr Thompson regarding changes to Sotalol dosing.
[2021-03-22] VITALS (11 sets, daily range): BP systolic 101–131; BP diastolic 60–83; PULSE 86–115; RESP 15–35; TEMP 36.4–36.7; O2SAT 93–98
--- NOTE | 2021-03-22 00:30 | ECG_ITS ---
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
--- NOTE | 2021-03-22 02:19 | PC.NURSE ---
QTc is 392 on 12 lead EKG done at 0030 .
[2021-03-22] MEDS: sotalol 80 mg Tablet 120 MG PO ×2 (08:40→20:18)
[2021-03-22] MEDS: aspirin 81 mg EC Tablet PO (08:41)
[2021-03-22] MEDS: FUROsemide 40 mg Tablet PO ×2 (08:41→16:33)
[2021-03-22] MEDS: pantoprazole DR 40 mg Tablet PO (08:41)
[2021-03-22] MEDS: digoxin 125 mcg Tablet PO (08:41)
[2021-03-22] MEDS: potassium chloride ER 20 mEq Tablet PO (08:41)
--- NOTE | 2021-03-22 09:31 | PC.SOCIAL ---
*IMM UPDATE* Gave patient IMM update, provided her copy of page 2 of IMM. 03/22/21 @ 0908 Initialed, dated timed and placed in chart.
--- NOTE | 2021-03-22 11:38 | PC.CHAP ---
Pastoral Care Encounter/Spiritual Assessment Type of Contact [] Declined superintendent commissary visit [] Patient/Family/Request visit [] Outpatient visit [] Follow-up visit [] Physician referral [] Code/Alert [XX] Routine visit [] Staff referral [] Actively dying [] Patient sleeping [] Family support [] [] Out of room [] Palliative care [] [] Receiving care in room [] Pre-surgical visit [] Trauma [] Long length of stay [] ICU visit [] Other: Relational/Emotional Strength [XX] Patient feels connected with others/family/visitors/staff [] Distress [] Loneliness/isolation [] Abandonment Spirituality of Patient [XX] Person of Monique [] Attends Restorationism of their Monique [XX] Believes in Prayer [XX] Reads Bible or Methodist materials [] There are Spiritual issues to be addressed Insulation Power Unit Tender Interventions [XX] Prayer [XX] Active listening [] Non-anxious presence [] Spiritual/emotional support [] Crisis/trauma care [] Spiritual counseling [] Bereavement support [] Provided bereavement packet [XX] Provided Bible/devotional materials [] Provided toy/stuffed animal, coloring book to patient or family member [] Provided Communion [] Anointing/Margie [] Salvation [XX] Completed spiritual assessment [] Other: Impact on Illness or Injury [] Angry [] Fearful [XX] Anxious [] Often cries [] Exhaustion [] Unable to work [] Unable to attend hindu [] Unable to walk/stand [] Unable to read [] Unable to drive [] Unable to eat/drink [] Unable to sleep [] Unable to be with family [] Patient intubated [] Other: Summary: Pt's hospital admission was planned to get A-Fib under control. Pt's had undergone surgery to remove parts of pancreas and spleen due to pancreatic cancer. Pt was his caregiver until he was stable enough for pt to be admitted for the A-Fib issue. However, last night, pt's developed complications, was brought to ED at [facility] and transferred to [facility]. Pt rec'd a great deal of support and assistance by [facility] staff who took her to ED to be with her and security moved her car, etc. Pt is grateful. Meds have not yet stabilized the A-Fib so tomorrow, Tuesday, 03/23, she may undergo a procedure to shock the heart out of A-Fib and into regular rate and rhythm. This makes pt nervous. Pt has limited family/community support. Pt and her are primary supports for one another. Time spent with patient: 25 mins
[2021-03-22] MEDS: warfarin 5 mg Tablet PO (14:07)
--- NOTE | 2021-03-22 14:23 | PC.NURSE ---
rounding with Dr bonilla verbal instructions to schedule to order MALACHI with cardioversion
[2021-03-22] MEDS: potassium chloride ER 10 mEq Tablet PO (16:33)
--- NOTE | 2021-03-22 17:00 | P.PN_ITS ---
Subjective Subjective: Interval history: Heart rate remains in between 80 to 110. Patient would only like to be treated with the medicine she is little bit frustrated the heart rate is not getting under control. Medications: Reviewed: Yes Vitals/I&O/Wt Last Vital Signs Temp 97.6 F 03/22/21 14:35 Pulse 99 03/22/21 14:35 Resp 18 03/22/21 14:35 BP 117/74 03/22/21 14:35 Pulse Ox 98 03/22/21 14:35 03/22/21 03/22/21 03/22/21 06:59 14:59 22:59 Intake Total 840 / 840 Balance 840 / 840 Physical Exam Narrative: EXAM NARRATIVE: GENERAL: Patient is alert, awake and oriented x3. NECK: No jugular vein distension. HEENT: No cyanosis. No icterus. No pallor. HEART: Irregularly irregular S1 and S2. No murmur, rub or gallop. LUNGS: Clear to auscultate bilaterally. ABDOMEN: Soft, nontender and nondistended. Positive bowel sounds. No guarding, rebound or tenderness. CENTRAL NERVOUS SYSTEM: Grossly nonfocal. EXTREMITIES: Lower extremities without edema bilaterally. A&P Assessment and plan (1) Atrial fibrillation: I will stop beta-nicolle and calcium channel nicolle. I will start patient on sotalol. We will monitor QT QTC along with the dosages. Continue anticoagulation. We will monitor her for next 48 hours if does not controlled with antiarrhythmic I may will electrically cardiovert her Last night sotalol was held because of bradycardia since home meds metoprolol wears off we started sotalol this morning check QT QTC every 3 hours after each dose. Please inform Dr. Thomspon with the result. Patient has been discussed in detail regarding expectation she has to be watched for at least 6 dosages for 3 days. We have also discussed regarding if he does not convert into sinus rhythm we may have to perform MALACHI guided cardioversion for her. He says he is so fatigued and fed up that she would like to do it during this admission. On today's visit we will increase sotalol to 120 mg in the morning and keep 80 mg in the night. We will will assess QT QTC within next few hours On today's visit patient heart rate is not well controlled again he refused electrical cardioversion. I will increase amiodarone to 400 mg 3 times daily. We will back off on Cardizem to 60 twice daily due to low blood pressure. I have discussed with the patient her and her daughter who is joining us over the phone regarding her treatment they are all in agreement Status: Acute Qualifiers: Atrial fibrillation type: unspecified Qualified Code(s): I48.91 - Unspecified atrial fibrillation (2) CHF (congestive heart failure): Well compensated continue to monitor Status: Acute Qualifiers: Heart failure type: diastolic Heart failure chronicity: chronic Qualified Code(s): I50.32 - Chronic diastolic (congestive) heart failure (3) Hypertension: Well-controlled continue medicine. Status: Acute Qualifiers: Hypertension type: essential hypertension Qualified Code(s): I10 - Essential (primary) hypertension Attestations Medical Necessity Statement*: Patient require continuation hospitalization for above defined care Coding Level of Care Code Established Pt Acute Record Changer for Xenia Fwnati Patient Type Established History Detailed Exam Detailed Medical Decision Making Moderate Complexity Diagnoses Atrial fibrillation I48.91 Atrial fibrillation type: unspecified CHF (congestive heart failure) I50.32 Heart failure type: diastolic Heart failure chronicity: chronic Hypertension I10 Hypertension type: essential hypertension
[2021-03-22] MEDS: ALPRAZolam 0.25 mg Tablet PO (20:19)
--- NOTE | 2021-03-22 23:18 | ECG_ITS ---
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 Measurements Intervals [place] Rate: 95 P: [place]: QRS: 32 QRSD: 88 T: -31 QT: 345 QTc: 434 Interpretive Statements ATRIAL FIBRILLATION NONSPECIFIC ST & T-WAVE ABNORMALITY Compared to ECG 03/22/2021 01:02:52 No significant changes Electronically Signed On 03-25-2021 8:05:31 CDT by Rohan Bowling M.D. [id number]
[2021-03-23] VITALS (9 sets, daily range): BP systolic 109–130; BP diastolic 63–83; PULSE 84–121; RESP 16–20; TEMP 36.6–36.7; O2SAT 96–98
[2021-03-23 07:22] LABS: Basophils # 0.1 10^3/uL (0.0-0.1); Basophils % 0.6 %; Eosinophils # 0.5 10^3/uL (0.0-0.8); Eosinophils % 5.4 %; Hematocrit 41.7 % (37.0-47.0); Hemoglobin 13.6 g/dL (11.5-15.3); Lymphocytes # 2.1 10^3/uL (0.8-4.8); Lymphocytes % 20.5 %; Mean Corpuscular HGB Conc 32.6 g/dL (30.0-36.0); Mean Corpuscular Hemoglobin 31.3 pg (28.0-34.0); Mean Corpuscular Volume 96.1 fL (81-99); Mean Platelet Volume 10.2 fL (7.4-10.4); Monocytes # 0.5 10^3/uL (0.2-0.9); Monocytes % 5.3 %; Neutrophils # 6.79 10^3/uL (1.8-7.7); Neutrophils % 67.9 %; Nucleated Red Blood Cells % 0 %; Platelet Count 320 10^3/cmm (130-400); Red Blood Count 4.34 10^6/uL (4.1-5.3); Red Cell Distribution Width 13.5 % (12.1-15.1)
[2021-03-23 07:44] LABS: Anion Gap 13.2 (5-19); Blood Urea Nitrogen 15 mg/dL (8-23); Calcium 8.1 mg/dL (8.5-10.5); Carbon Dioxide 28 mmol/L (22-29); Chloride 101 mmol/L (98-107); Glomerular Filtration Rate 62.3 mL/min (90-130); Glucose 108 mg/dL (65-115); Osmolality Calculated 287 mOsm/kg (285-295); Potassium 4.2 mmol/L (3.5-5.1); Sodium 138 mmol/L (136-145)
[2021-03-23 07:45] LABS: INR 2.63 (0.8-1.2)
[2021-03-23] MEDS: FUROsemide 40 mg Tablet PO ×2 (09:04→17:57)
[2021-03-23] MEDS: potassium chloride ER 20 mEq Tablet PO (09:04)
[2021-03-23] MEDS: pantoprazole DR 40 mg Tablet PO (09:04)
[2021-03-23] MEDS: aspirin 81 mg EC Tablet PO (09:04)
[2021-03-23] MEDS: digoxin 125 mcg Tablet PO (09:04)
[2021-03-23] MEDS: sotalol 80 mg Tablet 120 MG PO ×2 (09:12→20:30)
--- NOTE | 2021-03-23 12:15 | ECG_ITS ---
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 Measurements Intervals [place] Rate: 89 P: SD: QRS: 7 QRSD: 101 T: -7 QT: 363 QTc: 442 Interpretive Statements ATRIAL FIBRILLATION NONSPECIFIC ST & T-WAVE ABNORMALITY ABNORMAL RHYTHM ECG Compared to ECG 03/22/2021 23:53:20 No significant changes Electronically Signed On 03-25-2021 8:07:08 CDT by Rohan Bowling M.D. [id number]
[2021-03-23] MEDS: potassium chloride ER 10 mEq Tablet PO (15:40)
[2021-03-23] MEDS: warfarin 5 mg Tablet PO (15:40)
--- NOTE | 2021-03-23 18:22 | PM.PN ---
Subjective Subjective: Interval history: Medicine atrial fibrillation. She is scheduled to undergo MALACHI guided electrical cardioversion tomorrow. Medications: Reviewed: Yes Vitals/I&O/Wt Last Vital Signs Temp 98.0 F 03/23/21 15:09 Pulse 114 H 03/23/21 15:09 Resp 18 03/23/21 15:09 BP 130/68 03/23/21 15:09 Pulse Ox 98 03/23/21 15:09 03/23/21 03/23/21 03/23/21 06:59 14:59 22:59 Intake Total 160 / 1280 720 / 720 120 / 840 Balance 160 / 1280 720 / 720 120 / 840 Weight last 48 hrs Weight 255 lb Physical Exam Narrative: EXAM NARRATIVE: GENERAL: Patient is alert, awake and oriented x3. NECK: No jugular vein distension. HEENT: No cyanosis. No icterus. No pallor. HEART: Irregularly irregular S1 and S2. No murmur, rub or gallop. LUNGS: Clear to auscultate bilaterally. ABDOMEN: Soft, nontender and nondistended. Positive bowel sounds. No guarding, rebound or tenderness. CENTRAL NERVOUS SYSTEM: Grossly nonfocal. EXTREMITIES: Lower extremities without edema bilaterally. Data : 03/23/21 07:16 03/23/21 07:16 A&P Assessment and plan (1) Atrial fibrillation: I will stop beta-nicolle and calcium channel nicolle. I will start patient on sotalol. We will monitor QT QTC along with the dosages. Continue anticoagulation. We will monitor her for next 48 hours if does not controlled with antiarrhythmic I may will electrically cardiovert her Last night sotalol was held because of bradycardia since home meds metoprolol wears off we started sotalol this morning check QT QTC every 3 hours after each dose. Please inform Dr. Thompson with the result. Patient has been discussed in detail regarding expectation she has to be watched for at least 6 dosages for 3 days. We have also discussed regarding if he does not convert into sinus rhythm we may have to perform MALACHI guided cardioversion for her. He says he is so fatigued and fed up that she would like to do it during this admission. On today's visit we will increase sotalol to 120 mg in the morning and keep 80 mg in the night. We will will assess QT QTC within next few hours Patient continues remain A. fib despite of optimization of medicine and increase sotalol to 120 mg twice a day. Tomorrow we will proceed with MALACHI guided cardioversion. Status: Acute Qualifiers: Atrial fibrillation type: unspecified Qualified Code(s): I48.91 - Unspecified atrial fibrillation (2) CHF (congestive heart failure): Well compensated continue to monitor Status: Acute Qualifiers: Heart failure type: diastolic Heart failure chronicity: chronic Qualified Code(s): I50.32 - Chronic diastolic (congestive) heart failure (3) Hypertension: Well-controlled continue medicine. Status: Acute Qualifiers: Hypertension type: essential hypertension Qualified Code(s): I10 - Essential (primary) hypertension Attestations Medical Necessity Statement*: Patient require continuation hospitalization for above defined care. Coding Level of Care Code Established Pt Acute Purchasing Clerk for Xenia Moore Patient Type Established History Expanded Problem Focused Exam Expanded Problem Focused Medical Decision Making Moderate Complexity Diagnoses Atrial fibrillation I48.91 Atrial fibrillation type: unspecified CHF (congestive heart failure) I50.32 Heart failure type: diastolic Heart failure chronicity: chronic Hypertension I10 Hypertension type: essential hypertension
--- NOTE | 2021-03-23 23:30 | ECG_ITS ---
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 Measurements Intervals [place] Rate: 99 P: [place]: QRS: 28 QRSD: 102 T: -21 QT: 387 QTc: 499 Interpretive Statements ATRIAL FIBRILLATION WITH ABERRANT CONDUCTION OR VENTRICULAR PREMATURE COMPLEXES NONSPECIFIC ST & T-WAVE ABNORMALITY ABNORMAL RHYTHM ECG Compared to ECG 03/23/2021 13:22:13 Ventricular premature complex(es) now present Aberrant conduction of supraventricular beat(s) now present T-wave abnormality still present Electronically Signed On 03-25-2021 8:05:14 CDT by Rohan Bowling M.D. [id number]
[2021-03-24] VITALS (10 sets, daily range): BP systolic 98–135; BP diastolic 56–82; PULSE 60–111; RESP 12–21; TEMP 36.6–36.8; O2SAT 95–98
[2021-03-24] MEDS: levothyroxine 150 mcg Tablet PO (06:11)
[2021-03-24] MEDS: digoxin 125 mcg Tablet PO (08:46)
[2021-03-24] MEDS: FUROsemide 40 mg Tablet PO ×2 (08:46→18:10)
[2021-03-24] MEDS: aspirin 81 mg EC Tablet PO (08:46)
[2021-03-24] MEDS: pantoprazole DR 40 mg Tablet PO (08:46)
[2021-03-24] MEDS: potassium chloride ER 20 mEq Tablet PO (08:47)
[2021-03-24] MEDS: sotalol 80 mg Tablet 120 MG PO (08:51)
--- NOTE | 2021-03-24 11:08 | PC.SOCIAL ---
IMM Update Pg. 2 of IMM updated and reviewed with patient who verbalized understanding. Copy provided.
--- NOTE | 2021-03-24 13:32 | P.PN_ITS ---
Subjective Subjective: Interval history: Atrial fibrillation continues patient has not converted to sinus rhythm. Today MALACHI guided cardioversion is scheduled at 130 Medications: Reviewed: Yes Vitals/I&O/Wt Last Vital Signs Temp 98.0 F 03/24/21 07:25 Pulse 111 H 03/24/21 11:00 Resp 15 03/24/21 11:00 BP 99/75 03/24/21 11:00 Pulse Ox 96 03/24/21 11:00 03/23/21 03/24/21 03/24/21 22:59 06:59 14:59 Intake Total 170 / 890 Balance 170 / 890 Weight last 48 hrs Weight 256 lb Weight 255 lb Physical Exam Narrative: EXAM NARRATIVE: GENERAL: Patient is alert, awake and oriented x3. NECK: No jugular vein distension. HEENT: No cyanosis. No icterus. No pallor. HEART: Irregularly irregular S1 and S2. No murmur, rub or gallop. LUNGS: Clear to auscultate bilaterally. ABDOMEN: Soft, nontender and nondistended. Positive bowel sounds. No guarding, rebound or tenderness. CENTRAL NERVOUS SYSTEM: Grossly nonfocal. EXTREMITIES: Lower extremities without edema bilaterally. Data : 03/23/21 07:16 03/23/21 07:16 A&P Assessment and plan (1) Atrial fibrillation: I will stop beta-nicolle and calcium channel nicolle. I will start patient on sotalol. We will monitor QT QTC along with the dosages. Continue anticoagulation. We will monitor her for next 48 hours if does not controlled with antiarrhythmic I may will electrically cardiovert her Last night sotalol was held because of bradycardia since home meds metoprolol wears off we started sotalol this morning check QT QTC every 3 hours after each dose. Please inform Dr. Thompson with the result. Patient has been discussed in detail regarding expectation she has to be watched for at least 6 dosages for 3 days. We have also discussed regarding if he does not convert into sinus rhythm we may have to perform MALACHI guided cardioversion for her. He says he is so fatigued and fed up that she would like to do it during this admission. On today's visit we will increase sotalol to 120 mg in the morning and keep 80 mg in the night. We will will assess QT QTC within next few hours Patient continues remain A. fib despite of optimization of medicine and increase sotalol to 120 mg twice a day. Tomorrow we will proceed with MALACHI guided cardioversion. MALACHI guided cardioversion today since patient continues to benefit Status: Acute Qualifiers: Atrial fibrillation type: unspecified Qualified Code(s): I48.91 - Unspecified atrial fibrillation (2) CHF (congestive heart failure): Well compensated continue to monitor Status: Acute Qualifiers: Heart failure type: diastolic Heart failure chronicity: chronic Qualified Code(s): I50.32 - Chronic diastolic (congestive) heart failure (3) Hypertension: Well-controlled continue medicine. 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
--- NOTE | 2021-03-24 13:47 | W.PM.OPSUD ---
Surgery/Procedure H&P Update DATE OF PROCEDURE: March 24, 2021 DATE H&P PERFORMED: 03/24/21 H&P UPDATE INFORMATION: I have reviewed H&P completed within last 30 days, I have examined patient prior to procedure and No changes to prior documentation PREOP DIAGNOSIS: MALACHI guided electrical cardioversion PLANNED PROCEDURE: Operation Date: 03/24/21 13:30 Proposed Procedures p MALACHI (Transesophageal Echocardiogram) w/ cardioversion(Not Applicable) - Estelita Thompson MD Related Problem List Diagnoses (1) Atrial fibrillation: Qualifiers: Atrial fibrillation type: unspecified Qualified Code(s): I48.91 - Unspecified atrial fibrillation (2) CHF (congestive heart failure): Qualifiers: Heart failure type: diastolic Heart failure chronicity: chronic Qualified Code(s): I50.32 - Chronic diastolic (congestive) heart failure (3) Hypertension: Qualifiers: Hypertension type: essential hypertension Qualified Code(s): I10 - Essential (primary) hypertension
--- NOTE | 2021-03-24 14:03 | USCV_ITS ---
Katie Finch Age: 70 Gender: F : 1950 Exam Date: 03/24/2021 14:05 Ordering Phys: Estelita Thompson MD ([email or web address]) Technologist: [place] [facility] [place]: AFIB CARDIOVERION BP: / HR: Rhythm: Sinus Technical Quality: Excellent MEASUREMENTS (Male / Female) Normal Values Medications Patient given IV sedation by anesthesia service, for details please refer to the anesthesia report. Complications None. Proc. Components FINDINGS Left Ventricle Normal left ventricular cavity size. Normal left ventricular systolic function. Left ventricular ejection fraction is estimated at 55 %. Right Ventricle The right ventricle is normal in size and function. Right Atrium The right atrium is normal in size. Left Atrium The left atrium is normal in size. LA Appendage The LA appendage is normal. IA Septum The interatrial septum is normal. Mitral Valve Structurally normal mitral valve without significant stenosis or prolapse. There is no mitral regurgitation. Aortic Valve Structurally normal aortic valve without significant sclerosis or stenosis. There is no aortic regurgitation. Tricuspid Valve Structurally normal tricuspid valve without significant stenosis or regurgitation. Pulmonary artery systolic pressure is normal. Pulmonic Valve Structurally normal pulmonic valve without significant stenosis. There is no pulmonic regurgitation. Pericardium Normal pericardium without effusion. Aorta Normal ascending aorta dimension. CONCLUSIONS 1-Normal left ventricular cavity size. Normal left ventricular systolic function. Left ventricular ejection fraction is estimated at 55 %. 2-The LA appendage is normal. 3-No significant valve abnormalities. 4-There is no pericardial effusion. 5-There are no prior echocardiogram studies to compare. Estelita Thompson MD (Electronically Signed) Final Date: 31 Mar 2021 22:50 S
--- NOTE | 2021-03-24 14:14 | ECG_ITS ---
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 Measurements Intervals [place] Rate: 68 P: 28 GA: 196 QRS: 3 QRSD: 91 T: -31 QT: 437 QTc: 466 Interpretive Statements SINUS RHYTHM ST DEVIATION AND MODERATE T-WAVE ABNORMALITY, CONSIDER ANTEROLATERAL ISCHEMIA [-0.1+ mV T WAVE IN V3-V6] Compared to ECG 03/23/2021 23:38:17 Possible ischemia now present Atrial fibrillation no longer present Ventricular premature complex(es) no longer present Aberrant conduction of supraventricular beat(s) no longer present T-wave abnormality still present Electronically Signed On 03-25-2021 8:02:52 CDT by Rohan Bowling M.D. [id number]
--- NOTE | 2021-03-24 14:25 | P.ANESASSM_ITS ---
Pre-Anesthetic Assessment Pre-Anesthetic Assessment: Height/Weight: Height 1.63 m Weight 116.12 kg Temp Pulse Resp BP Pulse Ox 98.0 F 111 H 15 99/75 96 03/24/21 07:25 03/24/21 11:00 03/24/21 11:00 03/24/21 11:00 03/24/21 11:00 Preop Diagnosis: MALACHI guided electrical cardioversion Proposed Procedure: Operation Date: 03/24/21 13:30 Proposed Procedures p MALACHI (Transesophageal Echocardiogram) w/ cardioversion(Not Applicable) - Estelita Thompson MD Was Beta Juju taken within 24 hours: Yes Was Clonidine taken within 24 hours: N/A Social: Social History: No alcohol and No tobacco Exam: Pre-Anes Outpt Exam: alert, oriented x 3 and clear to auscultation bilaterally Additional Exam Findings (including area of procedure): Irregular Airway: Submandibular: WNL Cervical ROM: WNL MP: 2 Additional comments: upper edentulous CV/HEM: CV/HEM: Afib, Arrythmia, CHF and HTN : : Chronic renal Insufficiency GI: GI: GERD Metabolic: Metabolic: Morbid obesity and Thyroid Neuropsych: Neuropsych: Anxiety Anesthetic Plan: ASA status: 3 Anesthesia: MAC Risk of > 500 ml blood loss (7ml/kg in children): No Meds/Allergies Current Medications: Current Medications Generic Name Dose Route Start Last Admin Trade Name Freq PRN Reason Stop Dose Admin Aspirin 81 mg 03/20/21 09:00 03/24/21 08:46 Aspirin 81 Mg Ec Tablet PO 81 mg DAILY MELA Administration Digoxin 125 mcg 03/20/21 09:00 03/24/21 08:46 Digoxin 125 Mcg Tablet PO 125 mcg DAILY MELA Administration Furosemide 40 mg 03/20/21 09:00 03/24/21 08:46 Furosemide 40 Mg Tablet PO 40 mg BID MELA Administration Levothyroxine Sodi um 150 mcg 03/21/21 06:00 03/24/21 06:11 Levothyroxine 15 0 Mcg Tablet PO 150 mcg TuThSa@0600 MELA Administration Non-Formulary Medi cation 1 inh 03/20/21 09:00 03/24/21 08:54 Fluticasone-Umec lidin-Vilanter [Tr elegy Ellipta] INHALATION Not Given DAILY MELA Pantoprazole Sodiu m 40 mg 03/20/21 09:00 03/24/21 08:[address] 40 Mg Tablet PO 40 mg DAILY MELA Administration Potassium Chloride 10 meq 03/20/21 16:00 03/23/21 15:40 Potassium Chlori de Er 10 Meq Table t PO 10 meq 1600 MELA Administration Potassium Chloride 20 meq 03/21/21 09:00 03/24/21 08:47 Potassium Chlori de Er 20 Meq Table t PO 20 meq DAILY MELA Administration Sotalol HCl 120 mg 03/22/21 09:00 03/24/21 08:51 Sotalol 80 Mg Ta blet PO 120 mg BID@0900,2100 MELA Administration Sotalol HCl 40 mg 03/21/21 21:15 03/21/21 21:36 Sotalol 80 Mg Ta blet PO 40 mg ONCE MELA Administration Warfarin Sodium 5 mg 03/20/21 14:00 03/23/21 15:40 Warfarin 5 Mg Ta blet PO 5 mg DAILY@1400 MELA Administration PFSH Anesthesia PFSH: Medical History (Updated 03/19/21 @ 19:42 by Estelita Thompson MD) Anxiety Atrial fibrillation CHF (congestive heart failure) Chronic anticoagulation -on Coumadin Chronic kidney disease Deviated septum Diabetes GERD (gastroesophageal reflux disease) Hypertension Hypothyroidism -TSH wnl -on levothyroxine Lesion of skin of nose Nasal turbinate hypertrophy New onset of congestive heart failure -[id number] -imaging not indicative of fluid overload; not overtly decompensated; could be secondary to A.fib with RVR -Echo as noted above -on oral Lasix Paroxysmal A-fib Rhinitis Surgical History H/O knee surgery bilateral knees H/O tubal ligation H/O: hysterectomy History of hernia surgery History 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, was malignant Family History Other CAD (coronary artery disease) Social History Smoking and tobacco status: former smoker Alcohol intake: current Alcohol intake frequency: holidays/special occasions only Alcohol type: wine Current gender identity: Female Data Anesthesia CBC & Chem 7: 03/23/21 07:16 03/23/21 07:16 Other Labs: Laboratory Results - last 48 hr 03/23/21 03/23/21 03/23/21 07:16 07:16 07:16 WBC 10.0 RBC 4.34 Hgb 13.6 Hct 41.7 MCV 96.1 MCH 31.3 MCHC 32.6 RDW 13.5 Plt Count 320 MPV 10.2 Neut % (Auto) 67.9 Lymph % (Auto) 20.5 [place] % (Auto) 5.3 Eos % (Auto) 5.4 Baso % (Auto) 0.6 Neut # (Auto) 6.79 Lymph # (Auto) 2.1 [place] # (Auto) 0.5 Eos # (Auto) 0.5 Baso # (Auto) 0.1 Nucleated RBC % (auto) 0 Nucleated RBCs # 0.0 PT 28.60 H INR 2.63 H Sodium 138 Potassium 4.2 Chloride 101 Carbon Dioxide 28 Anion Gap 13.2 BUN 15 Creatinine 0.9 GFR Calculation 62.3 L Glucose 108 Calculated Osmolality 287 Calcium 8.1 L 03/24/21 07:36 WBC RBC Hgb Hct MCV MCH MCHC RDW Plt Count MPV Neut % (Auto) Lymph % (Auto) [place] % (Auto) Eos % (Auto) Baso % (Auto) Neut # (Auto) Lymph # (Auto) [place] # (Auto) Eos # (Auto) Baso # (Auto) Nucleated RBC % (auto) Nucleated RBCs # PT 29.10 H INR 2.70 H Sodium Potassium Chloride Carbon Dioxide Anion Gap BUN Creatinine GFR Calculation Glucose Calculated Osmolality Calcium Cardiac Studies: Holter Monitor 07/22/20
--- NOTE | 2021-03-24 14:31 | P.PCN_ITS ---
Procedure Note: Date of procedure: 03/24/21 Pre-procedure diagnosis: Electrical cardioversion Other Information: After carefully explaining risk benefit and alternative for the procedure, propofol was administered by anesthesia to perform transesophageal echocardiogram. Transesophageal echocardiogram ruled out left ventricle atrial and appendicular thrombus. Once confirmed that there is no intracardiac thrombus transesophageal echocardiographic probe was withdrawn out of patient's body. Defibrillator patches were attached to the front and the back of the left side of the patient chest. After confirming deep anesthesia in the sync mode 200 J of shock was delivered to the patient. Patient converted back to sinus rhythm. Twelve-lead EKG was ordered. Patient tolerated procedure well and recovering without any complication. 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
--- NOTE | 2021-03-24 15:00 | PC.NURSE ---
After MALACHI & cardioversion was completed Dr. Thompson requested the nurse giving the next dose of sotalol call him prior ro giving dose. Next dose is scheduled for 2100 today.
--- NOTE | 2021-03-24 15:00 | ANE.PACU2 ---
Inpatient post-anesthesia follow up: Airway intact: Yes Vital signs: Temperature 98.0 F Pulse Rate 111 Respiratory Rate 15 Blood Pressure 99/75 Pulse Oximetry 96 Oxygen Delivery Me thod Room Air Oxygen Flow Rate Fraction of Inspir ed Oxygen Hydration adequate: Yes Nausea and vomiting: No Pain level: 1 Mental status: Baseline
[2021-03-24] MEDS: warfarin 5 mg Tablet PO (15:37)
[2021-03-24] MEDS: acetaminophen 325 mg Tablet 650 MG PO (18:10)
[2021-03-24] MEDS: potassium chloride ER 10 mEq Tablet PO (18:10)
--- NOTE | 2021-03-24 20:00 | ECG_ITS ---
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 Measurements Intervals [place] Rate: 71 P: 45 [place]: 192 QRS: 13 QRSD: 101 T: -62 QT: 413 QTc: 450 Interpretive Statements SINUS RHYTHM ST DEVIATION AND MODERATE T-WAVE ABNORMALITY, CONSIDER INFERIOR ISCHEMIA [-0.1+ mV T WAVE IN II/aVF] Compared to ECG 03/24/2021 14:24:04 No significant changes Electronically Signed On 03-25-2021 10:02:35 CDT by Rohan Bowling M.D. [id number]
[2021-03-24] MEDS: ALPRAZolam 0.25 mg Tablet PO (22:14)
[2021-03-24] MEDS: sotalol 80 mg Tablet PO (22:14)
[2021-03-25 04:00] VITALS: BP 104/57; PULSE 63; RESP 17; TEMP 36.6; O2SAT 96
--- NOTE | 2021-03-25 05:22 | ECG_ITS ---
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 Measurements Intervals [place] Rate: 67 P: 48 ME: 197 QRS: 41 QRSD: 105 T: -14 QT: 426 QTc: 453 Interpretive Statements SINUS RHYTHM NONSPECIFIC ST & T-WAVE ABNORMALITY Compared to ECG 03/24/2021 20:57:18 Possible ischemia no longer present T-wave abnormality still present Electronically Signed On 03-25-2021 10:02:24 CDT by Rohan Bowling M.D. [id number]
[2021-03-25 06:00] VITALS: PULSE 50
[2021-03-25 08:00] VITALS: BP 130/75; PULSE 66; RESP 14; TEMP 36.8; O2SAT 97
[2021-03-25] MEDS: sotalol 80 mg Tablet PO (08:25)
[2021-03-25] MEDS: aspirin 81 mg EC Tablet PO (08:26)
[2021-03-25] MEDS: FUROsemide 40 mg Tablet PO (08:26)
[2021-03-25] MEDS: pantoprazole DR 40 mg Tablet PO (08:26)
[2021-03-25] MEDS: potassium chloride ER 20 mEq Tablet PO (08:26)
--- NOTE | 2021-03-25 08:26 | PC.CHAP ---
Pastoral Care Encounter/Spiritual Assessment Type of Contact [] Declined employment clerk visit [] Patient/Family/Request visit [] Outpatient visit [] Follow-up visit [] Physician referral [] Code/Alert [x] Routine visit [] Staff referral [] Actively dying [] Patient sleeping [] Family support [] [] Out of room [] Palliative care [] [] Receiving care in room [] Pre-surgical visit [] Trauma [] Long length of stay [] ICU visit [] Other: Relational/Emotional Strength [x] Patient feels connected with others/family/visitors/staff [] Distress [] Loneliness/isolation [] Abandonment Spirituality of Patient [x] Person of Monique [x] Attends Scientologist of their Monique [x] Believes in Prayer [x] Reads Bible or Mosque materials [] There are Spiritual issues to be addressed Live Ammunition Inspector Interventions [] Prayer [x] Active listening [x] Non-anxious presence [x] Spiritual/emotional support [] Crisis/trauma care [] Spiritual counseling [] Bereavement support [] Provided bereavement packet [] Provided Bible/devotional materials [] Provided toy/stuffed animal, coloring book to patient or family member [] Provided Communion [] Anointing/[facility] [] Salvation [x] Completed spiritual assessment [] Other: Impact on Illness or Injury [] Angry [] Fearful [x] Anxious [] Often cries [] Exhaustion [] Unable to work [] Unable to attend hindu [] Unable to walk/stand [] Unable to read [] Unable to drive [] Unable to eat/drink [] Unable to sleep [] Unable to be with family [] Patient intubated [] Other: Summary Afib has been corrected so Pt believes she will be released to go home today. has been released from hospital and doing well. We discussed if she has considered her shelter situation and she stated she has but has not confirmed anything in her mind. We also discussed Pt exploring and becoming involved in a local spiritism which could provide the community support she may need in the future. We concluded our meeting when a nurse entered to complete some work. We did not pray but she stated she would appreciate chaplains prayers. Time spent with patient 15m
--- NOTE | 2021-03-25 11:00 | ECG_ITS ---
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 Measurements Intervals [place] Rate: 50 P: 56 [place]: 187 QRS: 28 QRSD: 87 T: 5 QT: 433 QTc: 398 Interpretive Statements SINUS BRADYCARDIA ST DEVIATION AND MODERATE T-WAVE ABNORMALITY, CONSIDER ANTERIOR ISCHEMIA [-0.1+ mV T WAVE IN V3/V4] Compared to ECG 03/25/2021 06:06:18 Possible ischemia now present Sinus rhythm no longer present T-wave abnormality still present Electronically Signed On 03-26-2021 9:41:23 CDT by Rohan Bowling M.D. [id number]
[2021-03-25 11:15] VITALS: BP 133/68; PULSE 49; RESP 16; TEMP 36.6; O2SAT 97
--- NOTE | 2021-03-25 13:03 | P.DS_ITS ---
Discharge Providers Date of Admission: 03/19/21 11:51 Date of Discharge: March 25, 2021 Attending Provider at Admission: Estelita Thompson MD Attending Provider at Discharge: Estelita Thompson MD Primary Care Provider: Norman Golden DO Diagnoses at Discharge Discharge Diagnosis (1) Atrial fibrillation: Status: Acute Qualifiers: Atrial fibrillation type: unspecified Qualified Code(s): I48.91 - Unspecified atrial fibrillation (2) CHF (congestive heart failure): Status: Acute Qualifiers: Heart failure type: diastolic Heart failure chronicity: chronic Qualified Code(s): I50.32 - Chronic diastolic (congestive) heart failure (3) Hypertension: Status: Acute Qualifiers: Hypertension type: essential hypertension Qualified Code(s): I10 - Essential (primary) hypertension Reason for Visit Reason for Visit: Afib Hospital Course Hospital Course 70-year-old female past medical history significant for uncontrolled atrial fibrillation, hypertension, congestive heart failure after failing conservative management and titration of medicine admitted to the hospital for better control of heart rate along with symptoms of shortness of breath and fatigue secondary to not tolerating atrial fibrillation rhythm. She was loaded with sotalol. QT QTC remains within normal limits. Despite of increase sotalol to 120 mg twice a day her heart rate did not get under control and she did not converted to sinus rhythm. Yesterday she underwent transesophageal guided electrical cardioversion which remained successful. With MALACHI no clot was seen in the left atrial appendage or left ventricle. Patient was shocked out using 200 J biphasic defibrillator. Metoprolol was discontinued along with digoxin. Cartia was reduced to 240 mg due to bradycardia. Sotalol was reduced to 80 mg twice a day. Currently her heart rate stays in the 70s. She is moving around without any difficulty. She is being discharged home. Follow-up with Nakita Ivy in 7 days. Follow-up with Dr. Thompson in 3 months Physical Exam Narrative: EXAM NARRATIVE: GENERAL: Patient is alert, awake and oriented x3. NECK: No jugular vein distension. HEENT: No cyanosis. No icterus. No pallor. HEART: Regular S1 and S2. No murmur, rub or gallop. LUNGS: Clear to auscultate bilaterally. ABDOMEN: Soft, nontender and nondistended. Positive bowel sounds. No guarding, rebound or tenderness. CENTRAL NERVOUS SYSTEM: Grossly nonfocal. EXTREMITIES: Lower extremities without edema bilaterally. Discharge Data Data Completed and Pending: Pending at discharge Category Date Time Status CV echo transesop hageal 01331 Routi ne Ultrasound 03/24/21 14:03 Taken Vitals: Last Vital Signs Temp 97.9 F 03/25/21 11:15 Pulse 49 L 03/25/21 11:15 Resp 16 03/25/21 11:15 BP 133/68 03/25/21 11:15 Pulse Ox 97 03/25/21 11:15 Discharge Plan Discharge Patient Disposition: Home Condition: Stable Prescriptions: New sotalol 80 mg Tablet 80 mg PO BID@0900,2100 Qty: 60 RF: 3 Continued alprazolam [Xanax] 0.25 mg tablet 0.25 mg PO TID PRN (Reason: Anxiety) RF: 0 furosemide 20 mg tablet 40 mg PO BID Qty: 180 RF: 2 omeprazole 40 mg Capsule,Delayed Release(Dr/Ec) 40 mg PO DAILY RF: 0 aspirin [Aspir-81] 81 mg Tablet,Delayed Release (Dr/Ec) 81 mg PO DAILY RF: 0 levothyroxine 150 mcg Tablet 150 mcg PO TUTHSA RF: 0 warfarin 5 mg Tablet 5 mg PO DAILY Qty: 30 RF: 0 lorazepam 0.5 mg Tablet 0.5 mg PO TID PRN (Reason: Anxiety) Qty: 30 RF: 0 potassium chloride 20 mEq tablet,ER particles/crystals 20 meq PO DAILY RF: 0 potassium chloride 10 mEq tablet extended release 10 meq PO 1600 RF: 0 Trelegy Ellipta 100-62.5-25 mcg Blister With Device 1 inh INHALATION DAILY RF: 0 Changed Cartia XT 300 mg capsule,extended release 24hr 240 mg PO DAILY Qty: 0 RF: 0 Discontinued metoprolol tartrate 50 mg tablet 50 mg PO BID Qty: 60 RF: 3 digoxin 125 mcg (0.125 mg) tablet 125 mcg PO DAILY Qty: 30 RF: 2 Discharge Diet: Cardiac and Low Salt Discharge Activity: Increase activity as tolerated Patient Instructions: Transesophageal Echocardiogram (DC), Opioid Safety Discharge Attestations Time Spent in Discharge Care*: less than 30 min Specific Discharge Activities: educating patient Status at Discharge: Cognitive status at discharge: cognitively intact , Behavioral status at discharge: cooperative , Quality Metrics Clinical Quality Measures During this hospital stay, did patient experience: None Coding Level of Care Code Established Pt Acute Chg FW DC note Patient Type Established History Detailed Exam Detailed Medical Decision Making Moderate Complexity Diagnoses Atrial fibrillation I48.91 Atrial fibrillation type: unspecified CHF (congestive heart failure) I50.32 Heart failure type: diastolic Heart failure chronicity: chronic Hypertension I10 Hypertension type: essential hypertension
[2021-03-25 14:39] VITALS: BP 133/68; PULSE 49; RESP 16; TEMP 36.6; O2SAT 97
--- NOTE | 2021-03-25 15:28 | PC.NURSE ---
Patient education provided to patient and . No questions or concerns. IV removed with no complications. VS stable upon departure. Wheeled pt out to main entrance via wheelchair.
--- NOTE | 2021-06-25 15:09 | DCPLANNER ---
fixed income manager had message that patient received the monoclonal antibody infusion. fixed income manager called patient to check on patient to see how she was feeling. Patient stated that before the infusion, she had a cough, was achy, had a low grade fever, had a headache, and had some nausea. Patient stated that after the infusion, patient stated that she still has a small cough, she does not have a headache, does not have a fever, and she has no achyness. Patient stated that overall she is feeling better.
== END 2021-03-25 15:00 | disposition home or self-care (01) | DRG 309 ==
PROVIDERS: Admitting Provider Internal Medicine Cardiovascular Disease; PCP Internal Medicine; Visit Provider Internal Medicine Cardiovascular Disease
DX: I48.91 Unspecified atrial fibrillation (principal); I13.0 Hypertensive heart and chronic kidney disease with heart failure and stage 1 through stage 4 chronic kidney disease, or unspecified chronic kidney disease; I50.32 Chronic diastolic (congestive) heart failure; E11.22 Type 2 diabetes mellitus with diabetic chronic kidney disease; N18.9 Chronic kidney disease, unspecified; E78.5 Hyperlipidemia, unspecified; F41.9 Anxiety disorder, unspecified; J34.2 Deviated nasal septum; K21.9 Gastro-esophageal reflux disease without esophagitis; E03.9 Hypothyroidism, unspecified; Z87.891 Personal history of nicotine dependence; Z79.82 Long term (current) use of aspirin; Z79.01 Long term (current) use of anticoagulants
CPT/HCPCS: 36415; 80048; 85025; 85610; 90471; 90732; 93005; 93312; 93320; 93325; J2704

== ENCOUNTER → 2021-06-11 11:40 | Outpatient (BNVA) | payer MEDICARE, MEDICAID, SELFPAY | PROVIDERS: PCP Internal Medicine; Visit Provider Internal Medicine Cardiovascular Disease | DX: I49.1 Atrial premature depolarization (principal); I50.32 Chronic diastolic (congestive) heart failure | CPT/HCPCS: 80162 ==

== ENCOUNTER 2021-06-18 07:24 | Outpatient (CLI) | payer MEDICARE, MEDICAID, SELFPAY ==
[2021-06-18 08:39] VITALS: BP 151/90; BP 165/84; PULSE 59; PULSE 64; RESP 18; RESP 22; TEMP 37.9; O2SAT 100; O2SAT 96
--- NOTE | 2021-06-18 08:51 | ED_ITS ---
HPI - General Adult History of Present Illness: HPI narrative: This patient presents to the emerg ency department for outpatient monoclonal antibiotic therapy. Due to recent COVID-19 infection. Patient states no increased shortness of breath is mild body aches. Patient understands risk and concerns were answered patient may proceed with monoclonal antibody infusion. Will be discharged afterward if no complications. Onset (ago): day(s) Associated symptoms: Deny chest pain, dyspnea, headache(s), nausea, rash, palpitations or vomiting Review of Systems General: Reports: 10 or more systems reviewed and unremarkable except in HPI and below Const: Denies: fever(s), chills, body aches or fatigue Eyes: Denies: change in vision or blurry vision ENMT: Denies: throat pain, hoarseness or mouth pain Card: Denies: chest pain, palpitations, irregular heart rhythm, edema, swelling of feet/ankles or lightheadedness Resp: Denies: dyspnea, productive cough, non-productive cough, wheezing or pain on inspiration GI: Denies: abdominal pain, nausea or vomiting : Denies: flank pain, difficulty voiding, dysuria, urinary frequency, urinary urgency or urinary hesitancy Musc: Denies: neck pain, back pain, extremity pain, extremity swelling, joint pain, joint swelling, joint redness, joint warmth or limited range of motion Skin/Breast: Denies: rash, pruritus, erythema or skin tenderness Neuro: Denies: headache(s), numbness in extremities or weakness in extremities Psych: Denies: anxiety or depression PFSH ED PFSH: Medical History Anxiety Atrial fibrillation CHF (congestive heart failure) Chronic anticoagulation -on Coumadin Chronic kidney disease Deviated septum Diabetes GERD (gastroesophageal reflux disease) History of cardioversion Hypertension Hypothyroidism -TSH wnl -on levothyroxine Lesion of skin of nose Nasal turbinate hypertrophy New onset of congestive heart failure -BNP-3052 -imaging not indicative of fluid overload; not overtly decompensated; could be secondary to A.fib with RVR -Echo as noted above -on oral Lasix Paroxysmal A-fib Rhinitis Surgical History H/O knee surgery bilateral knees H/O tubal ligation H/O: hysterectomy History of hernia surgery History 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, was malignant Family History Other CAD (coronary artery disease) Social History Smoking and tobacco status: former smoker Alcohol intake: current Alcohol intake frequency: holidays/special occasions only Alcohol type: wine Current gender identity: Female Physical Exam Const: COMMON NORMALS: no acute distress, average body habitus, patient oriented x3, no limitations, healthy appearing, alert and well nourished HENMT: COMMON NORMALS: normocephalic, atraumatic, hearing grossly normal bilaterally, external ears normal, EAC's normal, TM's normal bilaterally, Normal external nose present, Normal nasal mucous membranes and turbinates present, moist oral mucous membranes, oropharynx normal, dentition normal and gingiva normal HEAD & SCALP: normocephalic and atraumatic NOSE: Normal external nose present and Normal nasal mucous membranes and turbinates present EXTERNAL EAR: Yes external ears normal EXTERNAL AUDITORY CANAL: EAC's normal TYMPANIC MEMBRANE: TM's normal bilaterally Neck/C-Spine: COMMON NORMALS: full ROM, no lymphadenopathy, supple, no meningeal signs, no JVD, Thyroid normal and No carotid bruits THYROID: Thyroid normal Chest: COMMONS NORMALS: normal inspection of the chest, normal palpation of entire chest wall, normal inspection of the breasts and normal palpation of the breasts Breast/axilla inspection: Yes normal inspection of the breasts BREAST/AXILLA PALPATION: Yes normal palpation of the breasts Resp: COMMON NORMALS: normal respiratory effort, No retractions, No use of accessory muscles, clear to auscultation bilaterally and percussion normal AUSCULTATION: clear to auscultation bilaterally PERCUSSION: percussion normal Cardio: COMMON NORMALS: no JVD, regular rate, regular rhythm, S1 normal heart sound present, S2 normal heart sound present, No gallops present (Cardio), No clicks present (Cardio), No murmurs present (Cardio), No rub (Cardio) and Peripheral pulses 2+ throughout RATE: regular rate RHYTHM: regular rhythm HEART SOUNDS: S1 normal heart sound present and S2 normal heart sound present PERIPHERAL PULSES: Peripheral pulses 2+ throughout GI: COMMON NORMALS: Normal to inspection, nondistended, normoactive bowel sounds present, Soft to palpation, non-tender, No hepatosplenomegaly present, no masses and no bruits PALPATION: Yes Soft to palpation and Yes No hepatosplenomegaly present Back/Pelvis: COMMON NORMALS: thoracic and lumbar spine normal to inspection, no thoracic nor lumbar tenderness, thoraco-lumbar ROM normal and straight leg raise negative bilaterally Extremity: COMMON NORMALS: normal to inspection, full ROM, capillary refill normal, no joint enlargement, no clubbing, cyanosis or edema, no calf tenderness and no pedal edema Neuro: COMMON NORMALS: patient oriented x3 SENSORIUM/ORIENTATION: Yes alert MENINGEAL SIGNS: Yes no meningeal signs Course Vital Signs: Vital signs: Vital Signs Temperature 100.3 F H 06/18/21 08:39 Pulse Rate 59 L 06/18/21 08:39 Respiratory Rate 18 06/18/21 08:39 Blood Pressure 151/90 06/18/21 08:39 Pulse Oximetry 100 06/18/21 08:39 Discharge Plan Discharge Prescriptions: No Action alprazolam [Xanax] 0.25 mg tablet 0.25 mg PO TID PRN (Reason: Anxiety) RF: 0 montelukast 10 mg tablet 10 mg PO DAILY RF: 0 losartan 50 mg tablet 50 mg PO DAILY RF: 0 digoxin 125 mcg (0.125 mg) tablet 125 mcg PO DAILY Qty: 30 RF: 0 potassium chloride 10 mEq tablet extended release 30 meq PO DIRECTED Qty: 90 RF: 6 furosemide 20 mg tablet 40 mg PO BID Qty: 360 RF: 3 omeprazole 40 mg Capsule,Delayed Release(Dr/Ec) 40 mg PO DAILY RF: 0 aspirin [Aspir-81] 81 mg Tablet,Delayed Release (Dr/Ec) 81 mg PO DAILY RF: 0 levothyroxine 150 mcg Tablet 150 mcg PO TUTHSA RF: 0 warfarin 5 mg Tablet 5 mg PO DAILY Qty: 30 RF: 0 lorazepam 0.5 mg Tablet 0.5 mg PO TID PRN (Reason: Anxiety) Qty: 30 RF: 0 Trelegy Ellipta 100-62.5-25 mcg Blister With Device 1 inh INHALATION DAILY RF: 0 sotalol 80 mg Tablet 80 mg PO BID@0900,2100 Qty: 60 RF: 3 Coding Level of Care Code ED Food Service Associate for Chg Teresa
== END 2021-06-18 12:06 | disposition home or self-care (01) ==
LOC: ER 07:26
PROVIDERS: PCP Internal Medicine; Visit Provider Nurse Practitioner
DX: U07.1 COVID-19 (principal); E11.22 Type 2 diabetes mellitus with diabetic chronic kidney disease; I13.0 Hypertensive heart and chronic kidney disease with heart failure and stage 1 through stage 4 chronic kidney disease, or unspecified chronic kidney disease; N18.9 Chronic kidney disease, unspecified; I50.9 Heart failure, unspecified; Z79.01 Long term (current) use of anticoagulants; I48.91 Unspecified atrial fibrillation; K21.9 Gastro-esophageal reflux disease without esophagitis; F41.9 Anxiety disorder, unspecified; E03.9 Hypothyroidism, unspecified; Z82.49 Family history of ischemic heart disease and other diseases of the circulatory system; Z87.891 Personal history of nicotine dependence
CPT/HCPCS: 96365

== ENCOUNTER 2021-07-29 13:00 | Outpatient (CLI) | payer MEDICARE, MEDICAID, SELFPAY ==
--- NOTE | 2021-07-29 13:09 | CT_ITS ---
WS: [id number] CT CHEST WITHOUT INTRAVENOUS CONTRAST HISTORY: Abnormal chest radiograph. TECHNIQUE: Contiguous 5 mm axial imaging performed on the thorax. Coronal and sagittal reformats are submitted. All CT scans at [facility] use at least one of these dose optimization techniques: automated exposure control; mA and/or kV adjustment per patient size (includes targeted exams where dose is matched to clinical indication); or iterative reconstruction. CONTRAST: None DLP: 1059.08 mGycm COMPARISON: 2019 and chest radiograph 07/01/2021 Lungs and central airway: As compared to the prior chest radiograph from 07/01/2021 the aeration appea rs better. There are a few residual patchy areas of interstitial thickening involving all lobes. Pred ominantly within a peripheral distribution no dense areas of consolidation. There are few pulmonary n odules which are subcentimeter in the RIGHT middle lobe and along the LEFT major fissure. Pleura: Normal. No pleural effusion. Heart and pericardium: Moderately enlarged heart. No effusion. Moderate coronary artery calcification s. Mediastinum and reginaldo: No mediastinum or hilar adenopathy. Vessels: Mild atherosclerosis aorta. Normal size pulmonary artery. Chest wall and lower neck: No soft tissue masses. Upper abdomen: Large incarcerated hiatal hernia. Hepatic steatosis. Osseous structures: No destructive process. CT/CT chest [facility] [id number] IMPRESSION: 1. Mild persistent peripheral interstitial opacifications. Opacifications do a ppear improved since the chest radiograph of 07/01/2021. Most likely due to reso lving pneumonitis. 2. Mild atherosclerosis aorta. 3. Large incarcerated hiatal hernia.
== END 2021-07-29 13:01 | disposition home or self-care (01) ==
PROVIDERS: PCP Internal Medicine; Visit Provider Internal Medicine
DX: R93.89 Abnormal findings on diagnostic imaging of other specified body structures (principal); I70.0 Atherosclerosis of aorta; K44.9 Diaphragmatic hernia without obstruction or gangrene
CPT/HCPCS: 71250

== ENCOUNTER 2021-09-13 17:37 | Emergency (ER) | payer MEDICARE, MEDICAID, SELFPAY ==
[2021-09-13] VITALS (8 sets, daily range): BP systolic 147–170; BP diastolic 68–94; PULSE 52–60; RESP 14–20; TEMP 36.9; O2SAT 95–99; BMI 42.5
--- NOTE | 2021-09-13 18:41 | XRR_ITS ---
PROCEDURE INFORMATION: Exam: XR Chest Exam date and time: 09/13/2021 6:41 PM Age: 70 years old Clinical indication: Patient HX: Hypertensive. History of afib. ; Additional info: HTN TECHNIQUE: Imaging protocol: XR of the chest. Views: 1 view. COMPARISON: CT chest wo con [id number] 07/29/2021 1:14 PM FINDINGS: Lungs: Lungs are clear bilaterally. Pleural spaces: No pleural effusion. No pneumothorax. Heart/Mediastinum: Stable moderate enlargement of the cardiac silhouette. Mediastinal contours are unremarkable. Stable small hiatal hernia. Vasculature: Stable vascular calcifications in the aorta. Bones/joints: Unremarkable for age. XR/XR chest 1V portable [id number] IMPRESSION: 1. No acute cardiopulmonary process. 2. Incidental/nonacute findings are listed in the report. Radiation Dose CTDIVOL = (mGy): DLP = (mGy-cm)
--- NOTE | 2021-09-13 18:42 | ECG_ITS ---
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 Measurements Intervals [place] Rate: 51 P: 12 ID: 180 QRS: 1 QRSD: 100 T: -13 QT: 465 QTc: 430 Interpretive Statements SINUS BRADYCARDIA MINIMAL ST DEPRESSION [0.025+ mV ST DEPRESSION] Compared to ECG 03/25/2021 10:43:58 ST (T wave) deviation now present T-wave abnormality no longer present Possible ischemia no longer present Electronically Signed On 09-14-2021 23:38:12 CDT by Fred Quesada M.D. [id number]
--- NOTE | 2021-09-13 18:43 | CTR_ITS ---
PROCEDURE INFORMATION: Exam: CT Head Without Contrast Exam date and time: 09/13/2021 6:43 PM Age: 70 years old Clinical indication: Patient HX: Dizziness with hypertension. ; Additional info: Dizzy, HTN TECHNIQUE: Imaging protocol: Computed tomography of the head without contrast. Sagittal and coronal reformatted images were created and reviewed. Radiation optimization: All CT scans at this facility use at least one of these dose optimization techniques: automated exposure control; mA and/or kV adjustment per patient size (includes targeted exams where dose is matched to clinical indication); or iterative reconstruction. COMPARISON: No relevant prior studies available. RADIATION DOSE METRICS: Total DLP (mGy-cm): 872.79 FINDINGS: Brain: No acute intracranial hemorrhage. No acute infarct. No intra-axial or extra-axial masses. [place]-white matter differentiation is preserved. No cerebral edema. No extra-axial fluid collections. No midline shift. Mildly decreased attenuation in the deep white matter, consistent with mild chronic microangiopathic change. Focal areas of decreased attenuation consistent with old lacunar infarcts in the right and left basal ganglia. No evidence for Chiari 1 malformation. Cerebral ventricles: No hydrocephalus. Paranasal sinuses: Visualized paranasal sinuses are clear. Mastoid air cells: Mastoid air cells are clear bilaterally. Orbital cavity: No acute abnormality in the visualized orbits. Vasculature: Atherosclerotic changes in the visualized arteries. Bones/joints: No acute fracture. Soft tissues: The extracranial soft tissues are unremarkable. CT/CT head wo con* [id number] IMPRESSION: 1. No acute abnormality of the brain. 2. Mild chronic white matter microangiopathic change. 3. 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 4. Incidental/nonacute findings are listed in the report. Radiation Dose CTDIVOL = (mGy): DLP = 872.79 (mGy-cm)
[2021-09-13 18:58] LABS: Basophils # 0.1 10^3/uL (0.0-0.1); Basophils % 0.7 %; Eosinophils # 0.5 10^3/uL (0.0-0.8); Eosinophils % 6.2 %; Hematocrit 38.7 % (37.0-47.0); Hemoglobin 12.5 g/dL (11.5-15.3); Lymphocytes # 2.4 10^3/uL (0.8-4.8); Lymphocytes % 29.1 %; Mean Corpuscular HGB Conc 32.3 g/dL (30.0-36.0); Mean Corpuscular Hemoglobin 31.6 pg (28.0-34.0); Mean Platelet Volume 11.4 fL (7.4-10.4); Monocytes # 0.6 10^3/uL (0.2-0.9); Monocytes % 7.8 %; Neutrophils # 4.51 10^3/uL (1.8-7.7); Nucleated Red Blood Cells % 0 %; Platelet Count 296 10^3/cmm (130-400); Red Blood Count 3.95 10^6/uL (4.1-5.3); Red Cell Distribution Width 13.2 % (12.1-15.1); White Blood Count 8.1 10^3/uL (4.0-10.0)
[2021-09-13 19:03] LABS: INR 1.36 (0.8-1.2)
[2021-09-13 19:07] LABS: Troponin(5th) Baseline 11 ng/L (0-10)
[2021-09-13 19:15] LABS: Alanine Aminotransferase 14 U/L (0-33); Albumin Level 3.4 g/dL (3.5-5.2); Alkaline Phosphatase 96 IU/L (35-105); Anion Gap 15.3 (5-19); Aspartate Amino Transferase 14 U/L (0-32); Blood Urea Nitrogen 14 mg/dL (8-23); Calcium 8.9 mg/dL (8.5-10.5); Carbon Dioxide 26 mmol/L (22-29); Chloride 102 mmol/L (98-107); Globulin 3.7 g/dL (1.3-4.6); Glomerular Filtration Rate 71.3 mL/min (90-130); Glucose 94 mg/dL (65-115); NT Pro B Type Natriuretic Pept 534 pg/mL (0-125); Osmolality Calculated 288 mOsm/kg (285-295); Potassium 4.3 mmol/L (3.5-5.1); Sodium 139 mmol/L (136-145); Total Bilirubin 0.2 mg/dL (0.15-1.2); Total Protein 7.1 g/dL (6.6-8.7)
[2021-09-13] MEDS: hyDRALAzine 20 mg/mL INJ 1 mL 10 MG IVP (19:48)
[2021-09-13] MEDS: amlodipine 10 mg Tablet PO (19:49)
--- NOTE | 2021-09-13 19:55 | ED_ITS ---
HPI - Dizziness General: Chief Complaint: Dizziness Stated Complaint: DIZZINESS, HIGH BP Time Seen by Provider: 09/13/21 18:14 History of Present Illness: HPI Narrative: 70-year-old female with a history of hypertension and atrial fibrillation. She presents with uncontrolled blood pressures for about 2 days. She states that she has been having trouble controlling her blood pressure on her medication. Her 25 mg losartan was doubled to 50 mg twice daily, which resulted in some lower blood pressures. She went back to 25 mg twice daily, with increased blood pressure. She was last told to take 1.5 tablets of her 25 mg twice daily, but is still had trouble with hypertension. Her blood pressure was 209 systolic at home. When she is hypertensive like this, she has headaches, blurry vision, and dizziness. The symptoms have resolved currently. She also notes that she had an episode of rapid A. fib earlier today, that was resolved after she took her home sotalol. MD elicited complaint: dizziness and other Pertinent past history: other Onset (ago): day(s) Timing: intermittent Severity: moderate Context: change in medication History of similar symptoms: No Exacerbating factors: other Relieving factors: other Associated symptoms: Reports chest pain (2 days ago none currently) and palpitations (Earlier today, resolved); Denies chills Associated neuro symptoms: Reports visual changes; Deny confusion, difficulty speaking, dysphagia, diplopia, extremity weakness, facial numbness, facial weakness or numbness in extremities Stroke scale total: 0 Review of Systems Const: Denies: fever(s) or chills Card: Reports: chest pain (2 days ago none currently), palpitations (Earlier today, resolved), irregular heart rhythm (Earlier today, resolved) and lightheadedness Resp: Denies: dyspnea, productive cough or non-productive cough GI: Denies: dysphagia Neuro: Denies: numbness in extremities or confusion [facility] ED PFSH: Medical History (Updated 09/13/21 @ 20:43 by Rufino Nagel DO) Anxiety Atrial fibrillation CHF (congestive heart failure) Chronic anticoagulation -on Coumadin Chronic kidney disease Deviated septum Diabetes GERD (gastroesophageal reflux disease) Hiatal hernia History of cardioversion Hypertension Hypothyroidism -TSH wnl -on levothyroxine New onset of congestive heart failure -BNP-3052 -imaging not indicative of fluid overload; not overtly decompensated; could be secondary to A.fib with RVR -Echo as noted above -on oral Lasix Rhinitis Surgical History H/O knee surgery bilateral knees H/O tubal ligation H/O: hysterectomy History of hernia surgery History 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, was malignant Family History Other CAD (coronary artery disease) Social History (Updated 08/25/21 @ 11:20 by Jourdan West) Smoking and tobacco status: former smoker Alcohol intake: current Alcohol intake frequency: holidays/special occasions only Alcohol type: wine History of recent travel: No Current gender identity: Female Physical Exam Const: COMMON NORMALS: no acute distress, patient oriented x3 and alert HENMT: COMMON NORMALS: normocephalic HEAD & SCALP: normocephalic Eye: COMMON NORMALS: Equal, round and reactive pupils present and EOMs intact bilaterally PUPIL: Yes Equal, round and reactive pupils present Chest: COMMONS NORMALS: normal inspection of the chest Resp: COMMON NORMALS: normal respiratory effort, No use of accessory muscles and clear to auscultation bilaterally AUSCULTATION: clear to auscultation bilaterally Cardio: COMMON NORMALS: regular rate and regular rhythm RATE: regular rate RHYTHM: regular rhythm GI: COMMON NORMALS: Normal to inspection, nondistended, normoactive bowel sounds present Neuro: COMMON NORMALS: patient oriented x3 SENSORIUM/ORIENTATION: Yes alert CRANIAL NERVES: Yes CN normal except as noted SPEECH: speech normal Course Vital Signs: Vital signs: Vital Signs Temperature 98.4 F 09/13/21 17:40 Pulse Rate 53 L 09/13/21 18:45 Respiratory Rate 20 H 09/13/21 18:45 Blood Pressure 165/91 09/13/21 18:45 Pulse Oximetry 97 09/13/21 18:45 MDM - Dizziness MDM Narrative: Medical decision making narrative: 70-year-old female with symptomatic hypertension. She has headaches, blurred vision, and dizziness. Symptoms are resolved now. Blood pressure has been 150-160 systolic here. She is given hydralazine and amlodipine here for blood pressure control. Her troponin did not rise at 2 hours. EKG does not show any acute ST changes. Her chest x-ray is negative. Her head CT shows no acute findings she will be allowed home Lab Data: Labs: Lab Results 09/13/21 09/13/21 09/13/21 18:07 18:07 18:07 WBC 8.1 10^3/uL 10^3/ uL (4.0-10.0) RBC 3.95 10^6/uL L 10 ^6/uL (4.1-5.3) Hgb 12.5 g/dL g/dL (11.5-15.3) Hct 38.7 % % (37.0-47.0) MCV 98.0 fl fl (81-99) MCH 31.6 pg pg (28.0-34.0) MCHC 32.3 g/dL g/dL (30.0-36.0) RDW 13.2 % % (12.1-15.1) Plt Count 296 10^3/cmm 10^3 /cmm (130-400) MPV 11.4 fL H fL (7.4-10.4) Neut % (Auto) 56.0 % % Lymph % (Auto) 29.1 % % [place] % (Auto) 7.8 % % Eos % (Auto) 6.2 % % Baso % (Auto) 0.7 % % Neut # (Auto) 4.51 10^3/uL 10^3 /uL (1.8-7.7) Lymph # (Auto) 2.4 10^3/uL 10^3/ uL (0.8-4.8) [place] # (Auto) 0.6 10^3/uL 10^3/ uL (0.2-0.9) Eos # (Auto) 0.5 10^3/uL 10^3/ uL (0.0-0.8) Baso # (Auto) 0.1 10^3/uL 10^3/ uL (0.0-0.1) Nucleated RBC % (a uto) 0 % % Nucleated RBCs # 0.0 /100WBC /100W BC PT 17.20 SECONDS H S ECONDS (12.1-14.9) INR 1.36 H (0.8-1.2) Sodium 139 mmol/L mmol/L (136-145) Potassium 4.3 mmol/L mmol/L (3.5-5.1) Chloride 102 mmol/L mmol/L (98-107) Carbon Dioxide 26 mmol/L mmol/L (22-29) Anion Gap 15.3 (5-19) BUN 14 mg/dL mg/dL (8-23) Creatinine 0.8 mg/dL mg/dL (0.5-0.9) GFR Calculation 71.3 mL/min L mL/ min (90-130) Glucose 94 mg/dL mg/dL (65-115) Calculated Osmolal ity 288 mOsm/kg mOsm/ kg (285-295) Calcium 8.9 mg/dL mg/dL (8.5-10.5) Total Bilirubin 0.2 mg/dL mg/dL (0.15-1.2) AST 14 U/L U/L (0-32) ALT 14 U/L U/L (0-33) Alkaline Phosphata se 96 IU/L IU/L (35-105) Troponin T Baselin e Troponin T 120 Min [place] Troponin T NT-Pro-B Natriuret Pep 534 pg/mL H pg/mL (0-125) Total Protein 7.1 g/dL g/dL (6.6-8.7) Albumin 3.4 g/dL L g/dL (3.5-5.2) Globulin 3.7 g/dL g/dL (1.3-4.6) Urine Color Urine Appearance Urine pH Ur Specific Gravit y Urine Protein Urine Glucose (UA) Urine Ketones Urine Blood Urine Nitrate Urine Bilirubin Urine Urobilinogen Ur Leukocyte Cassia ase Digoxin 09/13/21 09/13/21 09/13/21 18:07 18:07 20:04 WBC RBC Hgb Hct MCV MCH MCHC RDW Plt Count MPV Neut % (Auto) Lymph % (Auto) [place] % (Auto) Eos % (Auto) Baso % (Auto) Neut # (Auto) Lymph # (Auto) [place] # (Auto) Eos # (Auto) Baso # (Auto) Nucleated RBC % (a uto) Nucleated RBCs # PT INR Sodium Potassium Chloride Carbon Dioxide Anion Gap BUN Creatinine GFR Calculation Glucose Calculated Osmolal ity Calcium Total Bilirubin AST ALT Alkaline Phosphata se Troponin T Baselin e 11 ng/L H ng/L (0-10) Troponin T 120 Min [place] 11.28 ng/L H ng/L (0-10) Delta Troponin T 0.28 ABS# ABS# (0-10) NT-Pro-B Natriuret Pep Total Protein Albumin Globulin Urine Color Urine Appearance Urine pH Ur Specific Gravit y Urine Protein Urine Glucose (UA) Urine Ketones Urine Blood Urine Nitrate Urine Bilirubin Urine Urobilinogen Ur Leukocyte Cassia ase Digoxin 0.5 ng/mL L ng/mL (0.6-1.2) 09/13/21 20:13 WBC RBC Hgb Hct MCV MCH MCHC RDW Plt Count MPV Neut % (Auto) Lymph % (Auto) [place] % (Auto) Eos % (Auto) Baso % (Auto) Neut # (Auto) Lymph # (Auto) [place] # (Auto) Eos # (Auto) Baso # (Auto) Nucleated RBC % (a uto) Nucleated RBCs # PT INR Sodium Potassium Chloride Carbon Dioxide Anion Gap BUN Creatinine GFR Calculation Glucose Calculated Osmolal ity Calcium Total Bilirubin AST ALT Alkaline Phosphata se Troponin T Baselin e Troponin T 120 Min [place] Troponin T NT-Pro-B Natriuret Pep Total Protein Albumin Globulin Urine Color Yellow (Yellow) Urine Appearance Clear (CLEAR) Urine pH 6 (5-7) Ur Specific Gravit y 1.015 (1.005-1.030) Urine Protein Neg (Negative) Urine Glucose (UA) Norm (Normal) Urine Ketones Negative (Negative) Urine Blood Neg (Negative) Urine Nitrate Negative (Negative) Urine Bilirubin Neg (Negative) Urine Urobilinogen Norm mg/dL mg/dL (Negative) Ur Leukocyte Cassia ase Negative (Negative) Digoxin Discharge Plan Discharge Patient Disposition: Home Clinical Impression: Hypertensive urgency Condition: Stable Prescriptions: New amlodipine 10 mg tablet 10 mg PO DAILY Qty: 30 RF: 0 No Action warfarin 5 mg tablet 2.5 mg PO DAILY RF: 0 alprazolam [Xanax] 0.25 mg tablet 0.25 mg PO TID PRN (Reason: Anxiety) RF: 0 montelukast 10 mg tablet 10 mg PO DAILY RF: 0 potassium chloride 10 mEq tablet extended release 30 meq PO DIRECTED Qty: 90 RF: 6 furosemide 20 mg tablet 40 mg PO BID Qty: 360 RF: 3 sotalol 80 mg tablet 80 mg PO BID@0900,2100 Qty: 60 RF: 3 digoxin 125 mcg (0.125 mg) tablet 125 mcg PO DAILY Qty: 30 RF: 6 losartan 25 mg tablet 37.5 mg PO BID Qty: 90 RF: 3 omeprazole 40 mg Capsule,Delayed Release(Dr/Ec) 40 mg PO DAILY RF: 0 aspirin [Aspir-81] 81 mg Tablet,Delayed Release (Dr/Ec) 81 mg PO DAILY RF: 0 levothyroxine 150 mcg Tablet 150 mcg PO TUTHSA RF: 0 Trelegy Ellipta 100-62.5-25 mcg Blister With Device 1 inh INHALATION DAILY RF: 0 Discharge Orders: Discharge ED (Routine); Ordered 09/13/21 Ordered By: Rufino Nagel Referrals: Norman Golden DO [Primary Care Provider] - 1-3 days Patient Instructions: Hypertension (ED) Activity Restrictions/Additional Instructions: Continue to check your blood pressures twice daily. If you have systolic (the top number) pressures greater than 150, you may take the medication prescribed (amlodipine). Wait at least 2 hours before checking your blood pressure again. Report numbers to your physician. Return to the emergency department for headaches, mental status changes, significant vision changes, chest discomfort, any other concerning symptoms. 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
[2021-09-13 20:25] LABS: Add Urine Microscopic? NO; Charge for UA Resulting for Rev
[2021-09-13 20:31] LABS: Bilirubin Urine Neg (Negative); Blood Urine Neg (Negative); Glucose Urine UA Norm (Normal); Ketones Urine Negative (Negative); Leukocyte Esterase Urine Negative (Negative); Nitrate Urine Negative (Negative); Protein Urine Neg (Negative); Specific Gravity, Urine 1.015 (1.005-1.030); Urine Appearance Clear (CLEAR); Urine Color Yellow (Yellow); Urobilinogen Urine Norm (Negative); pH Urine 6 (5-7)
[2021-09-13 20:36] LABS: Digoxin 0.5 ng/mL (0.6-1.2)
[2021-09-13 20:38] LABS: Troponin 5 2HR 11.28 ng/L (0-10); Troponin 5 2HR Delta 0.28 ABS# (0-10)
--- NOTE | 2021-09-13 20:42 | ECG_ITS ---
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 Measurements Intervals [place] Rate: 53 P: -1 [place]: 168 QRS: 3 QRSD: 102 T: -13 QT: 474 QTc: 447 Interpretive Statements SINUS BRADYCARDIA WITH OCCASIONAL SUPRAVENTRICULAR PREMATURE COMPLEXES Nonspecific T wave change Compared to ECG 09/13/2021 20:00:16 ST (T wave) deviation no longer present Electronically Signed On 09-14-2021 23:52:28 CDT by Fred Quesada M.D. [id number]
== END 2021-09-13 21:14 | disposition home or self-care (01) ==
PROVIDERS: Emergency Provider Emergency Medicine; PCP Internal Medicine
DX: I16.0 Hypertensive urgency (principal); I48.91 Unspecified atrial fibrillation; I13.0 Hypertensive heart and chronic kidney disease with heart failure and stage 1 through stage 4 chronic kidney disease, or unspecified chronic kidney disease; I50.9 Heart failure, unspecified; N18.9 Chronic kidney disease, unspecified; E11.22 Type 2 diabetes mellitus with diabetic chronic kidney disease; K21.9 Gastro-esophageal reflux disease without esophagitis; E03.9 Hypothyroidism, unspecified; Z87.891 Personal history of nicotine dependence; Z79.01 Long term (current) use of anticoagulants; Z79.82 Long term (current) use of aspirin; Z79.899 Other long term (current) drug therapy
CPT/HCPCS: 36415; 70450; 71045; 80053; 80162; 81003; 83880; 84484; 85025; 85610; 93005; 96374; 99284; J0360

== ENCOUNTER → 2021-09-28 14:00 | Outpatient (BNVA) | payer MEDICARE, MEDICAID, SELFPAY | PROVIDERS: PCP Internal Medicine; Visit Provider Surgery | DX: Z20.822 Contact with and (suspected) exposure to COVID-19 (principal); Z11.52 Encounter for screening for COVID-19 | CPT/HCPCS: 87635 ==

== ENCOUNTER 2021-10-01 08:20 | Day surgery (SDC) | payer MEDICARE, MEDICAID, SELFPAY ==
[2021-09-29 14:49] VITALS: BMI 42.5
--- NOTE | 2021-10-01 08:43 | ANES.PREANE2 ---
Pre-Anesthetic Assessment Pre-Anesthetic Assessment: Height/Weight: Height 1.6 m Weight 108.862 kg Preop Diagnosis: MALACHI guided electrical cardioversion Proposed Procedure: Operation Date: 10/01/21 10:00 Proposed Procedures p EGD Dilation W/ Balloon 75585 r13.10(Not Applicable) - Guanaco Young MD Was Beta Juju taken within 24 hours: Yes Was Clonidine taken within 24 hours: N/A Social: Social History: No alcohol and No tobacco Exam: Pre-Anes Outpt Exam: alert, oriented x 3, clear to auscultation bilaterally and regular rate & rhythm Airway: Submandibular: WNL Cervical ROM: WNL MP: 3 History/ROS: No significant complaints CV/HEM: CV/HEM: Afib, Arrythmia and HTN Comments: Echo 03/2021: EF 55%, normal function and valves. Anesthetic Plan: ASA status: 2 Anesthesia: Anesthesia Evaluation and MAC Risk of > 500 ml blood loss (7ml/kg in children): No PFSH Anesthesia PFSH: Medical History Anxiety Atrial fibrillation CHF (congestive heart failure) Chronic anticoagulation -on Coumadin Chronic kidney disease Deviated septum Diabetes GERD (gastroesophageal reflux disease) Hiatal hernia History of cardioversion Hypertension Hypothyroidism -TSH wnl -on levothyroxine New onset of congestive heart failure -BNP-3052 -imaging not indicative of fluid overload; not overtly decompensated; could be secondary to A.fib with RVR -Echo as noted above -on oral Lasix Rhinitis Surgical History H/O knee surgery bilateral knees H/O tubal ligation H/O: hysterectomy History of hernia surgery History 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
[2021-10-01 09:08] VITALS: BP 156/95; PULSE 52; RESP 18; TEMP 36.3; O2SAT 98
[2021-10-01] MEDS: sodium chloride 0.9% 1,000 ML 30 ML IV (09:15)
--- NOTE | 2021-10-01 10:20 | P.HP_ITS ---
Same Day Surgery H&P Indication for Procedure/HPI DATE OF PROCEDURE: October 01, 2021 CHIEF COMPLAINT/INDICATIONFOR SURGICAL PROCEDURE: egd with dilation PREOP DIAGNOSIS: upper gi symptoms PLANNED PROCEDRUE: Operation Date: 10/01/21 10:00 Proposed Procedures p EGD Dilation W/ Balloon 82787 r13.10(Not Applicable) - Guanaco Young MD Medications/Allergies* Home Medications Medication Instructions Recorded Confirmed Type aspirin [Aspir-81] 81 mg PO DAILY 01/11/20 10/01/21 History levothyroxine 150 mcg PO TUTHSA 01/11/20 10/01/21 History omeprazole 40 mg PO DAILY 01/11/20 10/01/21 History alprazolam 0.25 mg tablet 0.25 mg PO TID PRN 02/09/21 10/01/21 History Trelegy Ellipta 1 inh INHALATION DAILY 03/19/21 10/01/21 History montelukast 10 mg tablet 10 mg PO DAILY 06/08/21 10/01/21 History warfarin 5 mg tablet 2.5 mg PO DAILY tab 08/17/21 10/01/21 History Allergies/Adverse Reactions Allergy/AdvReac Type Severity Reaction Status Date / Time avocado Allergy Severe cant breath Verified 10/01/21 09:07 codeine Allergy ADR-Vomitin Verified 10/01/21 09:07 g Sulfa (Sulfonamide Allergy Unknown Verified 10/01/21 09:07 Antibiotics) Tetanus Vaccines and Toxoid Allergy Unknown Verified 10/01/21 09:07 Current Medications: Generic Name Dose Route Start Last Admin Trade Name Freq PRN Reason Stop Dose Admin Sodium Chloride 1,000 mls @ 30 mls/hr 10/01/21 09:00 10/01/21 09:15 Sodium Chloride 0.9% IV 10/02/21 08:59 30 mls/hr .Q24H MELA Administration Pertinent History/Comorbid Conditions* Medical History (Updated 09/21/21 @ 00:01 by ) Anxiety Atrial fibrillation CHF (congestive heart failure) Chronic anticoagulation -on Coumadin Chronic kidney disease Deviated septum Diabetes GERD (gastroesophageal reflux disease) Hiatal hernia History of cardioversion Hypertension Hypothyroidism -TSH wnl -on levothyroxine New onset of congestive heart failure -BNP-3052 -imaging not indicative of fluid overload; not overtly decompensated; could be secondary to A.fib with RVR -Echo as noted above -on oral Lasix Rhinitis Surgical History (Updated 06/22/20 @ 20:03 by Estelita Yates MD) H/O knee surgery bilateral knees H/O tubal ligation H/O: hysterectomy History of hernia surgery History 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, was malignant Family History (Updated 06/22/20 @ 20:03 by Estelita Yates MD) CAD (coronary artery disease) Social History Alcohol intake: current Alcohol intake frequency: holidays/special occasions only Alcohol type: wine History of recent travel: No Current gender identity: Female Pertinent Exam Findings alert, oriented x 3 and regular rate & rhythm Recommendations Surgery/Procedure today Coding Level of Care Code Acute 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
--- NOTE | 2021-10-01 10:20 | W.PM.OPSUD ---
Surgery/Procedure H&P Update DATE OF PROCEDURE: October 01, 2021 DATE H&P PERFORMED: 08/25/21 H&P UPDATE INFORMATION: I have reviewed H&P completed within last 30 days, I have examined patient prior to procedure and No changes to prior documentation PREOP DIAGNOSIS: upper gi symptoms PLANNED PROCEDURE: Operation Date: 10/01/21 10:00 Proposed Procedures p EGD Dilation W/ Balloon 29276 r13.10(Not Applicable) - Guanaco Young MD
[2021-10-01 10:41] VITALS: BP 128/65; PULSE 52; RESP 18; TEMP 36.1; O2SAT 97
[2021-10-01 10:51] VITALS: BP 124/72; PULSE 53; RESP 18; O2SAT 97
[2021-10-01 11:01] VITALS: BP 137/81; PULSE 48; RESP 18; O2SAT 97
[2021-10-01 11:11] VITALS: BP 143/99; PULSE 48; RESP 18; O2SAT 98
--- NOTE | 2021-10-01 15:28 | ANE.PACU2 ---
Inpatient post-anesthesia follow up: Airway intact: Yes Vital signs: Temperature 97.0 F Pulse Rate 48 Respiratory Rate 18 Blood Pressure 143/99 Pulse Oximetry 98 Oxygen Delivery Me thod Room Air Oxygen Flow Rate 4 Fraction of Inspir ed Oxygen Hydration adequate: Yes Nausea and vomiting: No Pain level: 1 Mental status: Baseline
== END 2021-10-01 11:15 | disposition home or self-care (01) ==
PROVIDERS: PCP Internal Medicine; Visit Provider Surgery
DX: R13.10 Dysphagia, unspecified (principal); I48.91 Unspecified atrial fibrillation; I13.0 Hypertensive heart and chronic kidney disease with heart failure and stage 1 through stage 4 chronic kidney disease, or unspecified chronic kidney disease; N18.9 Chronic kidney disease, unspecified; I50.9 Heart failure, unspecified; E11.22 Type 2 diabetes mellitus with diabetic chronic kidney disease; K21.9 Gastro-esophageal reflux disease without esophagitis; E03.9 Hypothyroidism, unspecified; Z79.82 Long term (current) use of aspirin; Z79.01 Long term (current) use of anticoagulants
CPT/HCPCS: 43235; 96360; 96361; J2704; J7030

== ENCOUNTER 2021-11-23 09:36 | Outpatient (CLI) | payer MEDICARE, MEDICAID, SELFPAY ==
--- NOTE | 2021-11-23 09:44 | FL_ITS ---
WS: [id number] UPPER GI WITH AIR TECHNICAL: Double contrast upper GI. FLUOROSCOPY TIME: 2.8 minutes CLINICAL INFORMATION: R13.10 - Dysphagia, unspecified COMPARISON: None. FINDINGS: Swallowing: Normal. Esophagus: Normal caliber and motility. No evidence of obstructing stricture or mass. Gastroesophageal reflux: Mild Stomach: Moderate esophageal hiatal hernia. Otherwise normal double contrast stomach. Normal stomach emptying. Duodenum: Normal duodenal C-loop. Incidental duodenal diverticulum measuring 2.6 x 1.5 cm Other findings: None. FL/FL upper GI w air* [id number] IMPRESSION: 1. Moderate esophageal hiatal hernia. 2. Mild esophageal reflux. 3. No evidence of esophageal stricture or obstructing mass. Normal esophageal motility. 4. Incidental duodenal diverticulum.
== END 2021-11-23 09:37 | disposition home or self-care (01) ==
PROVIDERS: PCP Internal Medicine; Visit Provider Surgery
DX: R13.10 Dysphagia, unspecified (principal); K44.9 Diaphragmatic hernia without obstruction or gangrene; K57.10 Diverticulosis of small intestine without perforation or abscess without bleeding
CPT/HCPCS: 74246

== ENCOUNTER 2021-12-20 17:47 | Emergency (ER) | payer MEDICARE, MEDICAID, SELFPAY ==
[2021-12-20 18:05] VITALS: BP 177/74; PULSE 61; RESP 18; TEMP 36.8; O2SAT 96; BMI 42.6
--- NOTE | 2021-12-20 18:32 | XRR_ITS ---
PROCEDURE INFORMATION: Exam: XR Chest Exam date and time: 12/20/2021 6:32 PM Age: 70 years old Clinical indication: Dyspnea; Additional info: SOB TECHNIQUE: Imaging protocol: XR of the chest. Views: 1 view. COMPARISON: CR XR chest 1V portable [id number] 09/13/2021 7:05 PM FINDINGS: Lungs: Mild left basilar atelectasis and/or pneumonia. Pleural spaces: Unremarkable. No pleural effusion. No pneumothorax. Heart/Mediastinum: Unremarkable. No cardiomegaly. Vasculature: Calcification of the thoracic aorta and/or great vessels consistent with atherosclerotic vessel disease. Bones/joints: Mild dextroscoliosis. XR/XR chest 1V portable [id number] IMPRESSION: Mild left basilar atelectasis and/or pneumonia.
--- NOTE | 2021-12-20 21:25 | W.ED.URI ---
HPI - URI/Sore Throat General: Chief Complaint: Headache Stated Complaint: Cough, Bad Headache Time Seen by Provider: 12/20/21 21:08 History of Present Illness: Patient is a 70-year-old female who comes to the ED with upper respiratory symptoms. She states she has had cough that has been going on mildly for the past 2 weeks but yesterday got a lot worse. Cough is described as productive but she has not looked at sputum to see what color it is. A couple of her kids live in her house and arel currently having upper respiratory symptoms and have been tested for Covid and all of them were negative. Patient has not been tested for COVID-19 yet. Endorses having a headache. She denies any fever, chills, body aches, diarrhea, nausea/vomiting, shortness of breath, chest pain. She is been able to eat and drink normally and still has her taste and smell. Patient does say she frequently gets bronchitis multiple times a year. Associated symptoms: Reports headache(s); Deny abdominal pain, chills, chest pain, diarrhea, fever(s), nasal congestion, nausea or vomiting Review of Systems Const: Denies: fever(s), chills or fatigue Eyes: Denies: change in vision or eye discomfort ENMT: Denies: throat pain, odynophagia, nasal discharge or nasal congestion Card: Denies: chest pain, palpitations, edema, swelling of feet/ankles, dyspnea on exertion or orthopnea Resp: Reports: productive cough; Denies: dyspnea or non-productive cough GI: Denies: abdominal pain, nausea, vomiting, diarrhea, constipation or hematochezia : Denies: flank pain, dysuria or hematuria Musc: Denies: neck pain, back pain or extremity swelling Skin/Breast: Denies: rash or new lesions Neuro: Reports: headache(s) PFS ED PFSH: Medical History Anxiety Atrial fibrillation CHF (congestive heart failure) Chronic anticoagulation -on Coumadin Chronic kidney disease Deviated septum Diabetes GERD (gastroesophageal reflux disease) Hiatal hernia History of cardioversion Hypertension Hypothyroidism -TSH wnl -on levothyroxine New onset of congestive heart failure -BNP-3052 -imaging not indicative of fluid overload; not overtly decompensated; could be secondary to A.fib with RVR -Echo as noted above -on oral Lasix Rhinitis Surgical History H/O esophagogastroduodenoscopy (10/01/21) H/O knee surgery bilateral knees H/O tubal ligation H/O: hysterectomy History of colonoscopy History of hernia surgery History 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, was malignant History of umbilical hernia repair Family History Other CAD (coronary artery disease) Social History Alcohol intake: current Alcohol intake frequency: holidays/special occasions only Alcohol type: wine History of recent travel: No Current gender identity: Female Physical Exam Const: COMMON NORMALS: no acute distress, patient oriented x3, healthy appearing and alert HENMT: COMMON NORMALS: normocephalic HEAD & SCALP: normocephalic MOUTH: Normal oral and palatal mucosa present THROAT: posterior oropharynx normal and uvula midline Eye: COMMON NORMALS: Equal, round and reactive pupils present GENERAL EYE: appearance normal, both eyes and all related structures PUPIL: Yes Equal, round and reactive pupils present Neck/C-Spine: COMMON NORMALS: supple GENERAL: Yes normal visual inspection Resp: COMMON NORMALS: normal respiratory effort, No retractions and No use of accessory muscles EFFORT & INSPECTION: Yes able to speak in complete sentences, No tachypneic and No respiratory distress AUSCULTATION: rhonchi left lower Cardio: COMMON NORMALS: regular rate, regular rhythm, S1 normal heart sound present, S2 normal heart sound present, No gallops present (Cardio), No clicks present (Cardio), No murmurs present (Cardio) and Peripheral pulses 2+ throughout RATE: regular rate RHYTHM: regular rhythm HEART SOUNDS: S1 normal heart sound present and S2 normal heart sound present PERIPHERAL PULSES: Peripheral pulses 2+ throughout GI: COMMON NORMALS: Normal to inspection, nondistended, normoactive bowel sounds present, Soft to palpation, non-tender and no masses PALPATION: Yes Soft to palpation : COMMON NORMALS: Yes no CVA tenderness BLADDER/KIDNEY EXAM: Yes no CVA tenderness Back/Pelvis: COMMON NORMALS: no CVA tenderness Extremity: COMMON NORMALS: normal to inspection Neuro: COMMON NORMALS: patient oriented x3 SENSORIUM/ORIENTATION: Yes alert GAIT: Yes Normal gait present Skin: GENERAL SKIN EXAM: dry skin Course Vital Signs: Vital signs: Vital Signs Temperature 97.9 F 12/20/21 22:34 Pulse Rate 58 L 12/20/21 22:34 Respiratory Rate 18 12/20/21 22:34 Blood Pressure 153/90 12/20/21 22:34 Pulse Oximetry 97 12/20/21 22:34 MDM - URI/Sore Throat Medical Decision Making Patient is a 70-year-old female comes to the ED with a cough that has been going on for over 2 weeks. Gotten worse over the past couple days. She says it is productive but she does not look at sputum color when she coughs it up. She has a history of getting bronchitis. Denies fever, chills, body aches, nausea/vomiting, diarrhea or any other upper respiratory symptoms. Vitals stable. Exam shows some coarse rhonchi lung sounds at left lung base but the rest of exam is benign. Patient appears in no acute distress or pain and showing no signs of any respiratory distress. COVID-19 test is pending. Chest x-ray shows possible atelectasis of left basilar. Patient diagnosed with bronchitis and was discharged home with a prescription for Tessalon Perles, prednisone and azithromycin. She was told to follow-up with her PCP in 7 to 10 days for reevaluation. Her COVID-19 test is pending I told her to call [facility] in the next day or 2 to get results. Return to ED precautions given. Patient understood and agreed with plan. Lab Data Radiology Impressions Chest X-Ray 12/20/21 18:32 IMPRESSION: Mild left basilar atelectasis and/or pneumonia. Discharge Plan Discharge Patient Disposition: Home Clinical Impression: Bronchitis Condition: Stable Prescriptions: New azithromycin 250 mg tablet 250 mg PO DAILY 4 Days Qty: 4 0RF Rx Instructions: start on day 2 of therapy prednisone 20 mg tablet 20 mg PO BID 5 Days Qty: 10 0RF Tessalon Perles 100 mg capsule 100 mg PO TID PRN (Reason: cough) Qty: 20 0RF No Action warfarin 5 mg tablet 2.5 mg PO DAILY 0RF amlodipine 10 mg tablet 10 mg PO DAILY Qty: 90 3RF alprazolam [Xanax] 0.25 mg tablet 0.25 mg PO TID PRN (Reason: Anxiety) 0RF montelukast 10 mg tablet 10 mg PO DAILY 0RF furosemide 20 mg tablet 40 mg PO BID Qty: 360 3RF digoxin 125 mcg (0.125 mg) tablet 125 mcg PO DAILY Qty: 30 6RF valsartan 40 mg tablet 20 mg PO DAILY Qty: 90 3RF sotalol 80 mg tablet 80 mg PO BID@0900,2100 Qty: 180 3RF potassium chloride 10 mEq tablet extended release 30 meq PO DIRECTED Qty: 90 6RF Rx Instructions: take 20Meq in AM 10meq in PM omeprazole 40 mg Capsule,Delayed Release(Dr/Ec) 40 mg PO DAILY 0RF aspirin [Aspir-81] 81 mg Tablet,Delayed Release (Dr/Ec) 81 mg PO DAILY 0RF levothyroxine 150 mcg Tablet 150 mcg PO TUTHSA 0RF Rx Instructions: 150 mcg orally takes Tuesday, and Tuesday. Trelegy Ellipta 100-62.5-25 mcg Blister With Device 1 inh INHALATION DAILY 0RF Discharge Orders: Discharge ED (Routine); Ordered 12/20/21 Ordered By: Marco Antonio Alcaraz Referrals: Norman Golden DO [Primary Care Provider] - Discharge Diet: Regular Discharge Activity: Increase activity as tolerated Patient Instructions: Bronchitis (Acute) - Adult Activity Restrictions/Additional Instructions: Follow-up with medical provider as directed in the next 5 to 7 days reevaluation. Your COVID-19 test is pending and results should be back in the next 2 to 3 days. You can call [facility] to find out results. Take medications as prescribed. Return to the ER or your medical provider if condition worsens. Please read and understand discharge instructions. Thank you for choosing [facility] for your healthcare needs today. Please realize this is an emergency room and that we are providing you with a medical screening exam and this may not be complete and all inclusive of all the testing and or work up that you may need to determine your ailment or severity of your illness. It is very important that you follow up as instructed or that you return to the Emergency Department should you have concerns or if your condition changes or worsens in any way. Coding Level of Care Code ED Learning Developer for Xenia Moore Exam Comprehensive
[2021-12-20] MEDS: predniSONE 20 mg Tablet 40 MG PO (22:05)
[2021-12-20] MEDS: acetaminophen 500 mg Tablet 1000 MG PO (22:05)
[2021-12-20] MEDS: azithromycin 250 mg Tablet 500 MG PO (22:05)
[2021-12-20 22:34] VITALS: BP 153/90; PULSE 58; RESP 18; TEMP 36.6; O2SAT 97
[2021-12-22 19:19] LABS: Quest SARS-CoV-2 RNA NOT DETECTED (NOT DETECTED)
--- NOTE | 2021-12-23 14:26 | PC.NURSE ---
Attempted to contact pt. No Voicemail.
== END 2021-12-20 22:36 | disposition home or self-care (01) ==
PROVIDERS: Emergency Provider Physician Assistant; PCP Internal Medicine
DX: J40 Bronchitis, not specified as acute or chronic (principal); Z79.01 Long term (current) use of anticoagulants; Z79.82 Long term (current) use of aspirin; I11.0 Hypertensive heart disease with heart failure; I50.9 Heart failure, unspecified; E11.9 Type 2 diabetes mellitus without complications; Z20.822 Contact with and (suspected) exposure to COVID-19
CPT/HCPCS: 71045; 87635; 99283; J7512; Q0144

== ENCOUNTER 2022-01-04 14:23 | Outpatient (CLI) | payer MEDICARE, MEDICAID, SELFPAY ==
--- NOTE | 2022-01-04 14:15 | USCV_ITS ---
Katie Finch Age: 71 Gender: F : 1950 Exam Date: 01/04/2022 14:58 Ordering Phys: Nakita Ivy Technologist: QUIN Exam Location: [facility] Indication: Evaluate for RIGHT heart strain. No hx cardiac intervention per patient. BP: / HR: 78 Rhythm: Sinus Technical Quality: Adequate MEASUREMENTS (Male / Female) Normal Values 2D ECHO LV Diastolic Diameter PLAX 4.5 cm 4.2 - 5.9 / 3.9 - 5.3 cm LV Systolic Diameter PLAX 3.0 cm IVS Diastolic Thickness 1.2 cm 0.6 - 1.0 / 0.6 - 0.9 cm IVS Systolic Thickness 1.8 cm LVPW Diastolic Thickness 1.4 cm 0.6 - 1.0 / 0.6 - 0.9 cm LVPW Systolic Thickness 1.7 cm LVOT Diameter 1.9 cm LV Ejection Fraction 2D Teich 60.3 % LV Ejection Fraction MOD 2C 77.5 % LV Ejection Fraction 2C AL 78.7 % LA Diameter 4.1 cm LA Width 4.3 cm LA Height 5.3 cm RA Width 3.8 cm RA Height 5.9 cm Aorta at Sinotubular Diameter 3.7 cm M-MODE Aortic Annulus Diameter 2.6 cm LA Ao Ratio MM 1.6 MV E Point Septal Separation 0.3 cm DOPPLER AV Peak Velocity 162.0 cm/s LVOT Peak Velocity 112.0 cm/s AV Area Cont Eq vti 1.8 cm squared AV Area Cont Eq pk 2.0 cm squared MV Peak Velocity 132.0 cm/s MV Area PHT 4.1 cm squared Mitral E to A Ratio 1.0 MV E' Velocity 56.5 cm/s Mitral E to MV E' Ratio 8.8 Mitral E to LV E' Lateral Ratio 10.2 Mitral E to LV E' Septal Ratio 7.7 TR Peak Velocity 267.7 cm/s TR Peak Gradient 28.7 mmHg TV Peak E Velocity 66.0 cm/s Right Atrial Pressure 10.0 mmHg Pulmonary Artery Systolic Pressu 38.7 mmHg PV Peak Velocity 87.0 cm/s RV Acceleration Time 0.1 s RV Ejection Time 0.5 s RV AcT/ET 0.2 FINDINGS Left Ventricle Normal left ventricular size, systolic function and wall thickness, with no regional wall motion abnormalities. Left ventricular ejection fraction is estimated at 65 %.Normal diastolic function. Right Ventricle Normal right ventricular size and systolic function. Right ventricular systolic pressure 45 mmHg. Right Atrium Mildly increased right atrial size. Left Atrium Moderately increased left atrial size. Mitral Valve Mildly thickened mitral valve. No mitral valve stenosis. Mild- moderate somewhat posteriorly directed mitral valve regurgitation. Aortic Valve Structurally normal trileaflet aortic valve. No aortic valve stenosis. Mild aortic valve regurgitation. Tricuspid Valve Structurally normal tricuspid valve. No tricuspid valve stenosis. Mild tricuspid valve regurgitation. Pulmonic Valve Structurally normal pulmonic valve. No pulmonary valve stenosis. Trace pulmonary valve regurgitation. Pericardium No pericardial effusion. Aorta Normal size aortic root and proximal ascending aorta. CONCLUSIONS 1. Normal left ventricular size, systolic function and wall thickness, with no regional wall motion abnormalities. Left ventricular ejection fraction is estimated at 65 %.Normal diastolic function. 2. Normal right ventricular size and systolic function. 3. Mild pulmonary hypertension with pulmonary pressure estimated at 45 mmHg. 4. Mild-moderate somewhat posteriorly directed mitral valve regurgitation. 5. Mild aortic and tricuspid valve regurgitation. 6. When compared to previous echocardiogram dated 06/23/2020, there is mild to moderate mitral regurgitation and mild aortic regurgitation now. Amanda Maravilla MD (Electronically Signed) Final Date: 05 January 2022 14:02 S
== END 2022-01-04 14:24 | disposition home or self-care (01) ==
LOC: RAD 14:26
PROVIDERS: PCP Internal Medicine; Visit Provider Nurse Practitioner Family
DX: I50.810 Right heart failure, unspecified (principal); R01.1 Cardiac murmur, unspecified; I27.20 Pulmonary hypertension, unspecified; I35.1 Nonrheumatic aortic (valve) insufficiency; I07.1 Rheumatic tricuspid insufficiency
CPT/HCPCS: 93306

== ENCOUNTER 2022-01-06 16:17 | Outpatient (CLI) | payer MEDICARE, MEDICAID, SELFPAY | END 2022-01-06 16:18 | disposition home or self-care (01) | LOC: SPT 16:18 | PROVIDERS: PCP Internal Medicine; Visit Provider Podiatrist Foot & Ankle Surgery | DX: Z46.89 Encounter for fitting and adjustment of other specified devices (principal); M72.2 Plantar fascial fibromatosis | CPT/HCPCS: 97760; L4397 ==

== ENCOUNTER 2022-01-27 14:44 | Outpatient (CLI) | payer MEDICARE, MEDICAID, SELFPAY ==
--- NOTE | 2022-01-27 14:50 | MM_ITS ---
WS: [id number] BILATERAL DIGITAL SCREENING MAMMOGRAPHY WITH CAD AND 3-D TOMOSYNTHESIS CLINICAL INFORMATION: SCREENING HISTORY: Screening mammogram. LEFT breast pain and soreness COMPARISON: 019 TECHNIQUE: Bilateral CC and MLO views. FINDINGS: Scattered fibroglandular densities bilaterally. Vascular calcification. Punctate calcifications. No s uspicious focal mass, asymmetry, calcifications, or architectural distortion. No evidence of malignan cy. MM/[place] [id number] IMPRESSION: BI-RADS: 2-Benign FOLLOW UP: 1 Year Follow-up Recommend return to annual screening mammography.
== END 2022-01-27 14:45 | disposition home or self-care (01) ==
LOC: RADSHAW 14:46
PROVIDERS: PCP Internal Medicine; Visit Provider Internal Medicine
DX: Z12.31 Encounter for screening mammogram for malignant neoplasm of breast (principal)
CPT/HCPCS: 77063; 77067

== ENCOUNTER 2022-02-04 00:34 | Emergency (ER) | payer MEDICARE, MEDICAID, SELFPAY ==
--- NOTE | 2022-02-04 00:43 | W.ED.CHESTPA ---
HPI - Chest Pain General: Chief Complaint: Chest Pain Stated Complaint: Chest discomfort, dizzy Time Seen by Provider: 02/04/22 00:42 History of Present Illness: Ms. Finch is a 71-year-old lady with significant past medical history of CHF, hypertension, hyperlipidemia, atrial fibrillation who presents emergency department due to generalized complaints including chest discomfort. She reports approximately 1 week history of intermittent episodes of chest discomfort which occurs randomly and increased palpitations. She denies other typical cardiac features. Over past few days she has also had cough, unsteady feeling, and mild headache. 2 days ago she noticed lower extremity edema which showed up fairly rapidly though has been symmetrical. Intensity symptoms moderate. Course has persisted. No other specific changes in health, sick contacts, exacerbating, relieving factors identified. Onset (ago): day(s) Timing of current episode: episodic Prior episodes: Yes Onset: other Severity: moderate Review of Systems General: Reports: 10 or more systems reviewed and unremarkable except in HPI and below PFSH ED PFSH: Medical History (Updated 02/05/22 @ 10:59 by TACO Abernathy) Anxiety Aortic regurgitation Atrial fibrillation CHF (congestive heart failure) Chronic anticoagulation -on Coumadin Chronic kidney disease Deviated septum Diabetes GERD (gastroesophageal reflux disease) Hiatal hernia History of cardioversion Hypertension Hypothyroidism -TSH wnl -on levothyroxine Mitral regurgitation New onset of congestive heart failure -[id number] -imaging not indicative of fluid overload; not overtly decompensated; could be secondary to A.fib with RVR -Echo as noted above -on oral Lasix Psychiatric care Rhinitis Surgical History H/O esophagogastroduodenoscopy (10/01/21) H/O knee surgery bilateral knees H/O tubal ligation H/O: hysterectomy History of colonoscopy History of hernia surgery History 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, was malignant History of umbilical hernia repair Family History Other CAD (coronary artery disease) Social History Smoking and tobacco status: former smoker Alcohol intake: current Alcohol intake frequency: holidays/special occasions only Alcohol type: wine History of recent travel: No Current gender identity: Female Physical Exam Const: COMMON NORMALS: alert GENERAL APPEARANCE: cooperative and well developed HENMT: COMMON NORMALS: normocephalic and atraumatic HEAD & SCALP: normocephalic and atraumatic Eye: COMMON NORMALS: conjunctivae normal CONJUNCTIVA: Yes conjunctivae normal SCLERA: sclerae normal Neck/C-Spine: COMMON NORMALS: supple GENERAL: Yes trachea midline Resp: COMMON NORMALS: normal respiratory effort and clear to auscultation bilaterally EFFORT & INSPECTION: Yes able to speak in complete sentences AUSCULTATION: clear to auscultation bilaterally Cardio: COMMON NORMALS: regular rate and regular rhythm RATE: regular rate RHYTHM: regular rhythm GI: COMMON NORMALS: Soft to palpation PALPATION: Yes Soft to palpation and No Tenderness to palpation present (GI) PERCUSSION: normal to percussion Extremity: GENERAL: Yes normal exam except as noted and Yes edema (2+ bilaterally) Neuro: COMMON NORMALS: moves all extremities SENSORIUM/ORIENTATION: Yes alert and No Orientation impaired Psych: COMMON NORMALS: mental status grossly normal and Normal thought process present THOUGHT PROCESS: Normal thought process present Course ED course: - Patient was seen and evaluated by me at bedside - Patient placed on cardiac monitors, IV access obtained - Initial evaluation notable for exam as above, bilateral lower extremity edema which is symmetric without evidence of infection - Labs notable for mild cytosis, normal hemoglobin. D-dimer negative. Metabolic and without acute electrolyte derangement. BNP only minimally elevated. TSH elevated with normal free T4. Urinalysis not concerning for urinary tract infection given squamous epithelial contamination. - Imaging notable for no lobar consolidation or pneumothorax. - Upon serial reexamination after treatment the patient was similar. Lasix ordered. - Based on patient history, evaluation, and testing as interpreted the most likely cause of the patient's condition is peripheral edema. - I discussed need for increased Lasix and close outpatient follow-up. Patient reports Lasix typically only taking the morning dose and afternoon dose rarely as needed. Plan to switch to twice daily. - The results of ED evaluation were discussed with the patient including prescriptions and/or symptomatic cares (if applicable) including appropriate and responsible use, followup plan, and return precautions. The patient verbalized understanding and felt safe for discharge. - Patient discharged in satisfactory condition. Note: Click bubbles or prepopulated long in note writing are used for assistance with data collection and billing and are inherently more limited than narrative and other text portions of this note. Please use narrative for additional clinical history and defer to narrative/free test for any case of contradictory information. If information appears in only free text or click bubble it should be considered present or absent as reported. Please contact note life underwriter for clarifications of clinical information or contradictory information. MDM is a brief summary, contradictory or erroneous seeming information should be clarified and full note should be reviewed. Vital Signs: Vital signs: Vital Signs Temperature 97.8 F 02/04/22 00:44 Pulse Rate 55 L 02/04/22 04:57 Respiratory Rate 16 02/04/22 00:44 Blood Pressure 170/80 02/04/22 04:57 Pulse Oximetry 98 02/04/22 04:57 MDM - Chest Pain Medical Decision Making 71-year-old lady with history of heart failure presenting with concern over palpitations, chest discomfort, and fluid overload. Patient does have peripheral edema however does not have abnormal lung sounds and is not requiring oxygen. Laboratory studies without acute abnormality to explain patient symptoms. Plan to increase Lasix to twice daily and have patient closely follow-up with cardiology with strict return precautions. Medical Records I reviewed the patient's medical records. Lab Data I reviewed the patient's lab results. : 02/04/22 01:09 02/04/22 01:09 Radiology Impressions Chest X-Ray 02/04/22 00:45 IMPRESSION: 1. Small intrathoracic hiatal hernia. 2. Borderline cardiomegaly. Laboratory Results WBC 10.8 10^3/uL (4.0-10.0) H 02/04/22 01:09 RBC 4.02 10^6/uL (4.1-5.3) L 02/04/22 01:09 Hgb 12.9 g/dL (11.5-15.3) 02/04/22 01:09 Hct 38.9 % (37.0-47.0) 02/04/22 01:09 MCV 96.8 fl (81-99) 02/04/22 01:09 MCH 32.1 pg (28.0-34.0) 02/04/22 01:09 MCHC 33.2 g/dL (30.0-36.0) 02/04/22 01:09 RDW 13.2 % (12.1-15.1) 02/04/22 01:09 Plt Count 287 10^3/cmm (130-400) 02/04/22 01:09 MPV 11.0 fL (7.4-10.4) H 02/04/22 01:09 Neut % (Auto) 62.2 % 02/04/22 01:09 Lymph % (Auto) 25.9 % 02/04/22 01:09 Maury % (Auto) 6.6 % 02/04/22 01:09 Eos % (Auto) 4.3 % 02/04/22 01:09 Baso % (Auto) 0.7 % 02/04/22 01:09 Neut # (Auto) 6.70 10^3/uL (1.8-7.7) 02/04/22 01:09 Lymph # (Auto) 2.8 10^3/uL (0.8-4.8) 02/04/22 01:09 Maury # (Auto) 0.7 10^3/uL (0.2-0.9) 02/04/22 01:09 Eos # (Auto) 0.5 10^3/uL (0.0-0.8) 02/04/22 01:09 Baso # (Auto) 0.1 10^3/uL (0.0-0.1) 02/04/22 01:09 Nucleated RBC % (auto) 0 % 02/04/22 01:09 Nucleated RBCs # 0.0 /100WBC 02/04/22 01:09 D-Dimer <= 0.27 ug/mIFEU (0-0.59) 02/04/22 03:01 Sodium 139 mmol/L (136-145) 02/04/22 01:09 Potassium 4.2 mmol/L (3.5-5.1) 02/04/22 01:09 Chloride 102 mmol/L (98-107) 02/04/22 01:09 Carbon Dioxide 25 mmol/L (22-29) 02/04/22 01:09 Anion Gap 16.2 (5-19) 02/04/22 01:09 BUN 17 mg/dL (8-23) 02/04/22 01:09 Creatinine 0.9 mg/dL (0.5-0.9) 02/04/22 01:09 GFR Calculation 62.1 mL/min (90-130) L 02/04/22 01:09 Glucose 102 mg/dL (65-115) 02/04/22 01:09 Calculated Osmolality 290 mOsm/kg (285-295) 02/04/22 01:09 Calcium 9.3 mg/dL (8.5-10.5) 02/04/22 01:09 Total Bilirubin 0.2 mg/dL (0.15-1.2) 02/04/22 01:09 AST 16 U/L (0-32) 02/04/22 01:09 ALT 17 U/L (0-33) 02/04/22 01:09 Alkaline Phosphatase 122 IU/L (35-105) H 02/04/22 01:09 Troponin T Baseline 9 ng/L (0-10) 02/04/22 01:09 Troponin T 120 Minute 9.58 ng/L (0-10) 02/04/22 02:55 Delta Troponin T 0.58 ABS# (0-10) 02/04/22 02:55 NT-Pro-B Natriuret Pep 294 pg/mL (0-125) H 02/04/22 01:09 Total Protein 7.2 g/dL (6.6-8.7) 02/04/22 01:09 Albumin 4.1 g/dL (3.5-5.2) 02/04/22 01:09 Globulin 3.1 g/dL (1.3-4.6) 02/04/22 01:09 TSH 4.39 uIU/mL (0.27-4.20) H 02/04/22 01:09 Free T4 1.02 ng/dL (0.82-1.77) 02/04/22 01:09 Urine Color Yellow (Yellow) 02/04/22 01:25 Urine Appearance Sl hazy (CLEAR) 02/04/22 01:25 Urine pH 5 (5-7) 02/04/22 01:25 Ur Specific [place] 1.020 (1.005-1.030) 02/04/22 01:25 Urine Protein Neg (Negative) 02/04/22 01:25 Urine Glucose (UA) Norm (Normal) 02/04/22 01:25 Urine Ketones Negative (Negative) 02/04/22 01:25 Urine Blood 2+ (Negative) H 02/04/22 01:25 Urine Nitrate Negative (Negative) 02/04/22 01:25 Urine Bilirubin Neg (Negative) 02/04/22 01:25 Urine Urobilinogen 1 mg/dL (Negative) H 02/04/22 01:25 Ur Leukocyte Esterase Negative (Negative) 02/04/22 01:25 Urine RBC 0-4 /hpf (0-2) H 02/04/22 01:25 Urine WBC 5-10 /hpf (0-5) H 02/04/22 01:25 Ur Squamous Epith Cells 15-25 /hpf (0-5) H 02/04/22 01:25 Amorphous Sediment Not Reportable 02/04/22 01:25 Urine Bacteria 2+ /hpf (NONE) H 02/04/22 01:25 Digoxin 0.5 ng/mL (0.6-1.2) L 02/04/22 01:09 Influenza Type A Ag Negative (Negative) 02/04/22 02:00 Influenza Type B Ag Negative (Negative) 02/04/22 02:00 SARS-CoV-2 Ag (Rapid) Negative (Negative) 02/04/22 02:00 EKG Data EKG 1: I personally reviewed and interpreted this EKG as follows: EKG interpretation date: 02/04/22 EKG interpretation time: 00:50 Interpretation: Twelve-lead EKG shows a regular rhythm at a rate of 52. UT interval 170. QRS duration 90. QTc 438. Regular [place]. . Interpretation: Sinus rhythm. Bradycardia. Nonspecific ST segment abnormalities.. EKG 2: I personally reviewed and interpreted this EKG as follows: EKG interpretation date: 02/04/22 EKG interpretation time: 02:35 Interpretation: Twelve-lead EKG shows a regular rhythm at a rate of 55. UT interval 164. QRS duration 100. QTc 446. Normal [place]. . Interpretation: Sinus rhythm. Bradycardia. Nonspecific ST segment abnormalities.. Discharge Plan Discharge Patient Disposition: Home Clinical Impression: Edema, Chest pain, Shortness of breath, Palpitations Condition: Stable Prescriptions: No Action warfarin 5 mg tablet 2.5 mg PO DAILY 0RF amlodipine 10 mg tablet 10 mg PO DAILY Qty: 90 3RF alprazolam [Xanax] 0.25 mg tablet 0.25 mg PO TID PRN (Reason: Anxiety) 0RF montelukast 10 mg tablet 10 mg PO DAILY 0RF (DME) Night Splint See Rx Instructions .Route .MEDSUPPLY Qty: 1 0RF Rx Instructions: As directed furosemide 20 mg tablet 40 mg PO BID Qty: 360 3RF digoxin 125 mcg (0.125 mg) tablet 125 mcg PO DAILY Qty: 30 6RF valsartan 40 mg tablet 20 mg PO DAILY Qty: 90 3RF sotalol 80 mg tablet 80 mg PO BID@0900,2100 Qty: 180 3RF potassium chloride 10 mEq tablet extended release 30 meq PO DIRECTED Qty: 90 6RF Rx Instructions: take 20Meq in AM 10meq in PM Tessalon Perles 100 mg capsule 100 mg PO TID PRN (Reason: cough) Qty: 20 0RF omeprazole 40 mg Capsule,Delayed Release(Dr/Ec) 40 mg PO DAILY 0RF aspirin [Aspir-81] 81 mg Tablet,Delayed Release (Dr/Ec) 81 mg PO DAILY 0RF levothyroxine 150 mcg Tablet 150 mcg PO TUTHSA 0RF Rx Instructions: 150 mcg orally takes Tuesday, and Tuesday. Trelegy Ellipta 100-62.5-25 mcg Blister With Device 1 inh INHALATION DAILY 0RF Discharge Orders: Discharge ED (Routine); Ordered 02/04/22 Ordered By: Lawrence Gifford Referrals: Norman Golden DO [Primary Care Provider] - Discharge Diet: Usual diet Discharge Activity: Resume usual activity Patient Instructions: Chest Pain (ED), Heart Palpitations (ED), Edema (ED), Shortness of Breath (ED) Activity Restrictions/Additional Instructions: Thank you for visiting the emergency department. You were seen and evaluated for chest pain, shortness of breath, edema, and palpitations. The exact cause of the symptoms is unclear however given your cardiac history is likely related to volume overload. When you have pulmonary hypertension/right heart failure you are more sensitive to fluid overload and this can manifest in a variety of ways. As discussed, please take your Lasix scheduled 40 mg twice daily. Please also continue potassium supplementation with this. I recommend repeat labs early next week such as Tuesday or Tuesday. Please also call your head knitting machine fixer to discuss your ER visit. Your head knitting machine fixer can also determine appropriate further cardiac testing regarding symptoms. Please return to the emergency department for worsening symptoms or anything that you are concerned about and feel needs emergency department evaluation. Coding Level of Care Code ED Distribution Center Administrator for Xenia Moore
[2022-02-04 00:44] VITALS: BP 191/85; PULSE 60; RESP 16; TEMP 36.6; O2SAT 96; BMI 41.8
--- NOTE | 2022-02-04 00:45 | ECG_ITS ---
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 Measurements Intervals [place] Rate: 52 P: 67 [place]: 170 QRS: -6 QRSD: 90 T: -3 QT: 457 QTc: 428 Interpretive Statements SINUS BRADYCARDIA Compared to ECG 09/13/2021 20:54:11 Some nonspecific T wave changes Electronically Signed On 02-04-2022 21:43:03 CDT by Fred Quesada M.D. [id number] f
--- NOTE | 2022-02-04 00:45 | XRR_ITS ---
PROCEDURE INFORMATION: Exam: XR Chest Exam date and time: 02/04/2022 12:45 AM Age: 71 years old Clinical indication: Pain; Chest pressure; Patient HX: C/O chest discomfort. ; Additional info: Chest pain TECHNIQUE: Imaging protocol: XR of the chest. Views: 1 view. COMPARISON: CR (CHEST, ) 12/20/2021 9:46 PM FINDINGS: Lungs: Unremarkable. No consolidation. Pleural spaces: Unremarkable. No pleural effusion. No pneumothorax. Heart/Mediastinum: Small intrathoracic hiatal hernia. Borderline cardiomegaly. Bones/joints: Moderate thoracic spondylosis. XR/XR chest 1V portable [id number] IMPRESSION: 1. Small intrathoracic hiatal hernia. 2. Borderline cardiomegaly.
[2022-02-04 01:17] VITALS: BP 186/85
[2022-02-04 01:37] LABS: Basophils # 0.1 10^3/uL (0.0-0.1); Basophils % 0.7 %; Eosinophils # 0.5 10^3/uL (0.0-0.8); Eosinophils % 4.3 %; Hematocrit 38.9 % (37.0-47.0); Hemoglobin 12.9 g/dL (11.5-15.3); Lymphocytes # 2.8 10^3/uL (0.8-4.8); Lymphocytes % 25.9 %; Mean Corpuscular HGB Conc 33.2 g/dL (30.0-36.0); Mean Corpuscular Hemoglobin 32.1 pg (28.0-34.0); Mean Corpuscular Volume 96.8 fl (81-99); Monocytes # 0.7 10^3/uL (0.2-0.9); Monocytes % 6.6 %; Neutrophils % 62.2 %; Nucleated Red Blood Cells % 0 %; Platelet Count 287 10^3/cmm (130-400); Red Blood Count 4.02 10^6/uL (4.1-5.3); Red Cell Distribution Width 13.2 % (12.1-15.1); White Blood Count 10.8 10^3/uL (4.0-10.0)
[2022-02-04 01:47] LABS: Add Urine Microscopic? YES; Bilirubin Urine Neg (Negative); Blood Urine 2+ (Negative); Glucose Urine UA Norm (Normal); Ketones Urine Negative (Negative); Leukocyte Esterase Urine Negative (Negative); Nitrate Urine Negative (Negative); Protein Urine Neg (Negative); RBC Urine 0-4 /hpf (0-2); Urine Appearance SL Hazy (CLEAR); Urine Color Yellow (Yellow); Urobilinogen Urine 1 mg/dL (Negative); pH Urine 5 (5-7)
[2022-02-04 01:48] LABS: Add Urine Culture? No; Bacteria Urine 2+ /hpf; Squamous Epithelial Cell Urine 15-25 /hpf (0-5)
[2022-02-04 02:12] LABS: Troponin(5th) Baseline 9 ng/L (0-10)
[2022-02-04 02:13] LABS: Digoxin 0.5 ng/mL (0.6-1.2)
[2022-02-04 02:19] LABS: Alanine Aminotransferase 17 U/L (0-33); Albumin Level 4.1 g/dL (3.5-5.2); Alkaline Phosphatase 122 IU/L (35-105); Anion Gap 16.2 (5-19); Aspartate Amino Transferase 16 U/L (0-32); Blood Urea Nitrogen 17 mg/dL (8-23); Calcium 9.3 mg/dL (8.5-10.5); Carbon Dioxide 25 mmol/L (22-29); Chloride 102 mmol/L (98-107); Globulin 3.1 g/dL (1.3-4.6); Glomerular Filtration Rate 62.1 mL/min (90-130); Glucose 102 mg/dL (65-115); NT Pro B Type Natriuretic Pept 294 pg/mL (0-125); Osmolality Calculated 290 mOsm/kg (285-295); Potassium 4.2 mmol/L (3.5-5.1); Sodium 139 mmol/L (136-145); Thyroid Stimulating Hormone 4.39 uIU/mL (0.27-4.20); Total Bilirubin 0.2 mg/dL (0.15-1.2); Total Protein 7.2 g/dL (6.6-8.7)
[2022-02-04 02:33] VITALS: BP 178/82
--- NOTE | 2022-02-04 02:45 | ECG_ITS ---
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 Measurements Intervals [place] Rate: 55 P: 11 [place]: 164 QRS: 11 QRSD: 100 T: -10 QT: 456 QTc: 440 Interpretive Statements SINUS BRADYCARDIA NONSPECIFIC T-WAVE ABNORMALITY WARNING: DATA QUALITY MAY AFFECT INTERPRETATION Compared to ECG 02/04/2022 00:43:56 T-wave abnormality now present Electronically Signed On 02-04-2022 21:57:15 CDT by Fred Quesada M.D. [id number]
[2022-02-04 02:51] LABS: Influenza A by IFA Negative (Negative); Influenza B by IFA Negative (Negative); SARS Covid-2 Antigen Negative (Negative)
[2022-02-04 03:11] LABS: Free T4 Free Thyroxine 1.02 ng/dL (0.82-1.77)
[2022-02-04 03:26] LABS: D Dimer <= 0.27 ug/mIFEU (0-0.59)
[2022-02-04 03:33] LABS: Troponin 5 2HR 9.58 ng/L (0-10)
[2022-02-04 04:01] LABS: Troponin 5 2HR Delta 0.58 ABS# (0-10)
[2022-02-04] MEDS: FUROsemide 10 mg/mL SDV 4mL 40 MG IVP (04:33)
[2022-02-04 04:57] VITALS: BP 170/80; PULSE 55; O2SAT 98
== END 2022-02-04 04:45 | disposition home or self-care (01) ==
PROVIDERS: Emergency Provider Emergency Medicine; PCP Internal Medicine
DX: R07.9 Chest pain, unspecified (principal); R00.2 Palpitations; R60.0 Localized edema; R06.02 Shortness of breath; Z79.01 Long term (current) use of anticoagulants; Z79.82 Long term (current) use of aspirin; I11.0 Hypertensive heart disease with heart failure; I50.9 Heart failure, unspecified; E11.9 Type 2 diabetes mellitus without complications; Z87.891 Personal history of nicotine dependence; Z20.822 Contact with and (suspected) exposure to COVID-19
CPT/HCPCS: 71045; 80053; 80162; 81001; 83880; 84439; 84443; 84484; 85025; 85378; 87426; 87804; 93005; 96374; 99284; J1940

== ENCOUNTER → 2022-02-05 08:53 | Outpatient (BNVA) | payer MEDICARE, MEDICAID, SELFPAY | PROVIDERS: PCP Internal Medicine; Visit Provider Nurse Practitioner Family | DX: I08.0 Rheumatic disorders of both mitral and aortic valves (principal); I10 Essential (primary) hypertension; I50.32 Chronic diastolic (congestive) heart failure; Z87.891 Personal history of nicotine dependence | CPT/HCPCS: 99214 ==

== ENCOUNTER → 2022-02-15 14:46 | Outpatient (BNVA) | payer MEDICARE, MEDICAID, SELFPAY | PROVIDERS: PCP Internal Medicine; Visit Provider Internal Medicine Cardiovascular Disease | DX: R07.9 Chest pain, unspecified (principal); I11.0 Hypertensive heart disease with heart failure; Z87.891 Personal history of nicotine dependence | CPT/HCPCS: 99214 ==

== ENCOUNTER 2022-03-02 06:43 | Outpatient (CLI) | payer MEDICARE, MEDICAID, SELFPAY ==
[2022-03-02 07:08] VITALS: BMI 41.8
--- NOTE | 2022-03-02 07:11 | ECG_ITS ---
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 Interpretive Statements NAME OF STUDY: LEXISCAN SESTAMIBI STRESS TEST INDICATION: Chest Pain PROCEDURE: At the baseline, the blood pressure was 162/80 mmHg with a heart rate of 50 beats per minute. The electrocardiogram showed sinus bradycardia, normal axis with nonspecific ST depression. The Lexiscan was infused over a period of 20 seconds. A total of 0.4 milligrams of Lexiscan was infused. The stress phase was continued for a total of 5 minutes. Heart rate at the end of the stress phase was 67 bpm with a blood pressure of 159/88 mmHg. The EKG at the peak infusion revealed sinus rhythm with nonspecific ST depression in lead II, III, aVF and V5 and V6. The study was terminated protocol completion. Sestamibi was injected 20 seconds after the Lexiscan infusion. Blood pressure at the end of the recovery phase was 160/85 mmHg with a heart rate of 66 beats per minute. CONCLUSION: 1. No significant EKG changes with the LexiScan infusion. 2. No LexiScan induced chest pain or cardiac arrhythmia. 3. Normal blood pressure and heart rate response. 4. Sestamibi/sestamibi perfusion scan pending; see separate report. Electronically Signed On 03-06-2022 15:21:32 CDT by Amanda Maravilla M.D. [email or web address] [email or web address]/[id number]
--- NOTE | 2022-03-02 07:11 | NMCV_ITS ---
NM adam perf SPECT r/s* [id number] Katie Finch Age: 71 Gender: F : 1950 Exam Date: 03/02/2022 07:11 Ordering Phys: Amanda Maravilla MD ([email or web address]) Technologist: NICOLE Eric Exam Location: [facility] Indications: CHEST PAIN STRESS TEST Please see separate stress test report in [facility] for full findings IMAGE PROTOCOL Rest/Stress 1 Lexiscan Day Radiopharmaceutical Dose (mCi) Administration Site Administered by Rest: Tc-99m 10.7 IV NICOLE Freeman Sestamibi Stress:Tc-99m 33.0 IV NICOLE Eric Sestamikeith Rest: 02-Mar-2022 60 Discovery 630 Stress: 02-Mar-2022 30 Discovery 630 0.4mg Lexiscan. Images obtained in supine and prone position. SPECT RESULTS Technical Quality: Excellent Raw Data Analysis: Normal Image Corrections: No attenuation or motion correction applied Summed Stress Score: 0 Summed Rest Score: 0 Summed Difference Score: 0 PERFUSION FINDINGS SPECT images demonstrate homogeneous tracer distribution throughout the myocardium. FUNCTIONAL RESULTS (calculated via Gated SPECT) Stress Image LV EF (%): 86 Stress EDV (mL):91 TID: 1.02 Stress ESV (mL):13 FUNCTIONAL FINDINGS: The left ventricle is normal in size. Transient Ischemia Dilatation of 1. There is normal left ventricular systolic function. There is hyperdynamic left ventricular wall thickening with no regional wall motion abnormality. The left ventricular ejection fraction is hyperdynamic with a value of 86%. Normal end-diastolic and end-systolic volumes. IMPRESSIONS 1. Myocardial perfusion imaging is normal. 2. Overall left ventricular systolic function is normal without regional wall motion abnormalities. 3. The left ventricular ejection fraction is hyperdynamic with a value of 86%. 4. EKG portion of the study will be reported separately. 5. Scan indicates low risk for cardiac events. Amanda Maravilla MD (Electronically Signed) Final Date: 06 March 2022 14:55 S
[2022-03-02] MEDS: regadenoson 0.4 Mg/5 ml Syringe IVP (08:57)
[2022-03-02 09:11] VITALS: BP 160/85; PULSE 64
== END 2022-03-02 06:44 | disposition home or self-care (01) ==
PROVIDERS: PCP Internal Medicine; Visit Provider Internal Medicine Cardiovascular Disease
DX: R07.9 Chest pain, unspecified (principal)
CPT/HCPCS: 78452; 93017; A9500; J2785

== ENCOUNTER → 2022-03-08 08:20 | Outpatient (BNVA) | payer MEDICARE, MEDICAID, SELFPAY | PROVIDERS: PCP Internal Medicine; Visit Provider Psychiatry & Neurology Psychiatry | DX: F33.1 Major depressive disorder, recurrent, moderate (principal) | CPT/HCPCS: 99204 ==

== ENCOUNTER → 2022-04-05 10:55 | Outpatient (BNVA) | payer MEDICARE, MEDICAID, SELFPAY | PROVIDERS: PCP Internal Medicine; Visit Provider Psychiatry & Neurology Psychiatry | DX: M72.2 Plantar fascial fibromatosis (principal); F33.1 Major depressive disorder, recurrent, moderate | CPT/HCPCS: 99214 ==

== ENCOUNTER → 2022-04-16 10:07 | Outpatient (BNVA) | payer MEDICARE, MEDICAID, SELFPAY | PROVIDERS: PCP Internal Medicine; Visit Provider Internal Medicine Cardiovascular Disease | DX: R94.31 Abnormal electrocardiogram [ECG] [EKG] (principal); I48.20 Chronic atrial fibrillation, unspecified | CPT/HCPCS: 93005 ==

== ENCOUNTER → 2022-04-22 10:14 | Outpatient (BNVA) | payer MEDICARE, MEDICAID, SELFPAY | PROVIDERS: PCP Internal Medicine; Visit Provider Internal Medicine Cardiovascular Disease | DX: I48.91 Unspecified atrial fibrillation (principal); R94.31 Abnormal electrocardiogram [ECG] [EKG] | CPT/HCPCS: 93005 ==

== ENCOUNTER → 2022-05-10 11:06 | Outpatient (BNVA) | payer MEDICARE, MEDICAID, SELFPAY | PROVIDERS: PCP Internal Medicine; Visit Provider Psychiatry & Neurology Psychiatry | DX: F33.1 Major depressive disorder, recurrent, moderate (principal); M72.2 Plantar fascial fibromatosis | CPT/HCPCS: 99214 ==

== ENCOUNTER → 2022-05-18 10:08 | Outpatient (BNVA) | payer MEDICARE, MEDICAID, SELFPAY | PROVIDERS: PCP Internal Medicine; Visit Provider Social Worker | DX: F33.1 Major depressive disorder, recurrent, moderate (principal) | CPT/HCPCS: 90837; 90834 ==

== ENCOUNTER → 2022-06-14 14:45 | Outpatient (BNVA) | payer MEDICARE, MEDICAID, SELFPAY | PROVIDERS: PCP Internal Medicine; Visit Provider Internal Medicine Cardiovascular Disease | DX: I13.0 Hypertensive heart and chronic kidney disease with heart failure and stage 1 through stage 4 chronic kidney disease, or unspecified chronic kidney disease (principal); E11.22 Type 2 diabetes mellitus with diabetic chronic kidney disease; N18.9 Chronic kidney disease, unspecified; I50.32 Chronic diastolic (congestive) heart failure; Z87.891 Personal history of nicotine dependence; Z79.84 Long term (current) use of oral hypoglycemic drugs; I48.91 Unspecified atrial fibrillation | CPT/HCPCS: 99214 ==

== ENCOUNTER → 2022-07-21 14:19 | Outpatient (BNVA) | payer MEDICARE, MEDICAID, SELFPAY | PROVIDERS: PCP Internal Medicine; Visit Provider Internal Medicine Cardiovascular Disease | DX: R07.9 Chest pain, unspecified (principal); I48.91 Unspecified atrial fibrillation; I50.32 Chronic diastolic (congestive) heart failure; I50.810 Right heart failure, unspecified | CPT/HCPCS: 93246 ==

== ENCOUNTER 2022-08-09 09:45 | Emergency (ER) | payer MEDICARE, MEDICAID, SELFPAY ==
--- NOTE | 2022-08-09 10:01 | XRR_ITS ---
PROCEDURE INFORMATION: Exam: XR Chest Exam date and time: 08/09/2022 10:41 AM Age: 71 years old Clinical indication: Pain; Shortness of breath; Angina pectoris; Additional info: Cp TECHNIQUE: Imaging protocol: Radiologic exam of the chest. Views: 1 view. COMPARISON: CR XR chest 1V portable [id number] 02/03/2022 11:57 PM FINDINGS: Lungs: Unremarkable. No consolidation. Pleural spaces: Unremarkable. No pleural effusion. No pneumothorax. Heart/Mediastinum: Small hiatal hernia. Bones/joints: Unremarkable. XR/XR chest 1V portable [id number] IMPRESSION: No acute cardiopulmonary abnormality.
--- NOTE | 2022-08-09 10:01 | ECG_ITS ---
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 Measurements Intervals [place] Rate: 113 P: [place]: QRS: 9 QRSD: 94 T: 19 QT: 307 QTc: 422 Interpretive Statements ATRIAL FIBRILLATION WITH RAPID VENTRICULAR RESPONSE MINIMAL ST DEPRESSION [0.025+ mV ST DEPRESSION] Compared to ECG 02/04/2022 02:32:09 ST (T wave) deviation now present Sinus bradycardia no longer present T-wave abnormality no longer present Electronically Signed On 08-09-2022 18:34:09 CDT by Rohan Bowling M.D. [id number]
[2022-08-09 10:08] VITALS: BP 129/95; PULSE 111; RESP 18; TEMP 36.9; O2SAT 97; BMI 43.2
[2022-08-09 10:28] VITALS: BP 133/67; PULSE 119; RESP 17; O2SAT 96
[2022-08-09 10:32] LABS: Basophils # 0.1 10^3/uL (0.0-0.1); Basophils % 0.6 %; Eosinophils # 0.5 10^3/uL (0.0-0.8); Eosinophils % 4.8 %; Hematocrit 42.8 % (37.0-47.0); Hemoglobin 13.8 g/dL (11.5-15.3); Lymphocytes # 2.7 10^3/uL (0.8-4.8); Lymphocytes % 28.3 %; Mean Corpuscular HGB Conc 32.2 g/dL (30.0-36.0); Mean Corpuscular Hemoglobin 30.8 pg (28.0-34.0); Mean Corpuscular Volume 95.5 fl (81-99); Monocytes # 0.5 10^3/uL (0.2-0.9); Monocytes % 5.7 %; Neutrophils # 5.72 10^3/uL (1.8-7.7); Neutrophils % 60.3 %; Nucleated Red Blood Cells % 0 %; Platelet Count 293 10^3/cmm (130-400); Red Blood Count 4.48 10^6/uL (4.1-5.3); White Blood Count 9.5 10^3/uL (4.0-10.0)
--- NOTE | 2022-08-09 10:49 | ED_ITS ---
HPI - Arrhythmia/Palpitations General: Chief Complaint: Arrhythmia/Palpitations Stated Complaint: Heart racing/Left arm pain Time Seen by Provider: 08/09/22 09:45 Source: patient Mode of arrival: ambulatory Limitations: no limitations History of Present Illness: 71-year-old female has a history of A. fib. She states she had having some palpitations last night at 2 AM states that she was feeling her heart was beating out of her chest along with some pain. She states is how she feels when her A. fib acts up. Patient denies any fever denies any shortness of breath she is tachycardic here into the 120s with A. fib with RVR. Associated symptoms: Deny nausea or vomiting Review of Systems Const: Denies: fever(s), chills, body aches or change in appetite Eyes: Denies: blurry vision or eye discomfort ENMT: Denies: throat pain or dental pain Card: Reports: palpitations Resp: Denies: dyspnea GI: Denies: abdominal pain, nausea, vomiting or diarrhea : Denies: dysuria Musc: Denies: neck pain or back pain Skin/Breast: Denies: rash Neuro: Denies: headache(s) Psych: Denies: depression Andrés/Lymph: Denies: easy bruising All/Imm: Denies: urticaria PFSH ED PFSH: Medical History Anxiety Aortic regurgitation Atrial fibrillation CHF (congestive heart failure) Chronic anticoagulation -on Coumadin Chronic kidney disease Deviated septum Diabetes GERD (gastroesophageal reflux disease) Hiatal hernia History of cardioversion Hypertension Hypothyroidism -TSH wnl -on levothyroxine Mitral regurgitation New onset of congestive heart failure -BNP-3052 -imaging not indicative of fluid overload; not overtly decompensated; could be secondary to A.fib with RVR -Echo as noted above -on oral Lasix Psychiatric care Rhinitis Surgical History H/O esophagogastroduodenoscopy (10/01/21) H/O knee surgery bilateral knees H/O tubal ligation H/O: hysterectomy History of colonoscopy History of hernia surgery History 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, was malignant History of umbilical hernia repair Family History Other CAD (coronary artery disease) Social History Smoking and tobacco status: former smoker Quit status (tobacco): has quit using tobacco Year quit tobacco: 2012 Second hand smoke exposure: No Smoking risk assessment/counseling performed?: No Alcohol intake: current Alcohol intake frequency: holidays/special occasions only Alcohol type: beer and wine Desire information about alcohol rehabilitation?: No Counseling given: No Desire information about substance/drug rehabilitation?: No Counseling given: No History of recent travel: No Current gender identity: Female Physical Exam Const: COMMON NORMALS: no acute distress, patient oriented x3 and healthy appearing HENMT: COMMON NORMALS: normocephalic and atraumatic HEAD & SCALP: normocephalic and atraumatic Eye: COMMON NORMALS: Equal, round and reactive pupils present and EOMs intact bilaterally PUPIL: Yes Equal, round and reactive pupils present Neck/C-Spine: COMMON NORMALS: full ROM and supple Chest: COMMONS NORMALS: normal inspection of the chest and normal palpation of entire chest wall Resp: COMMON NORMALS: normal respiratory effort, No retractions, No use of accessory muscles and clear to auscultation bilaterally AUSCULTATION: clear to auscultation bilaterally Cardio: COMMON NORMALS: No murmurs present (Cardio) RATE: tachycardic RHYTHM: abnormal rhythm irregularly irregular GI: COMMON NORMALS: Normal to inspection, nondistended, normoactive bowel sounds present, Soft to palpation, non-tender and no masses PALPATION: Yes Soft to palpation Extremity: COMMON NORMALS: normal to inspection and full ROM Neuro: COMMON NORMALS: patient oriented x3, moves all extremities and no focal motor deficits Psych: COMMON NORMALS: mental status grossly normal, Normal thought process present and cooperative THOUGHT PROCESS: Normal thought process present Skin: COMMON NORMALS: no rashes or lesions noted and no wounds GENERAL SKIN EXAM: no rashes or lesions noted Course Vital Signs: Vital signs: Vital Signs Temperature 98.5 F 08/09/22 10:08 Pulse Rate 74 08/09/22 12:20 Respiratory Rate 20 H 08/09/22 12:20 Blood Pressure 117/79 08/09/22 12:20 Pulse Oximetry 94 08/09/22 12:20 Oxygen Delivery Me thod 08/09/22 12:20 MDM - Arrhythmia/Palpitations Medical Decision Making Patient presents with A. fib likely causing her symptoms her heart rate is now in the 80s she feels much improved her troponins here are negative she is to follow-up with her PCP and return if worsening she understands and agrees to plan. Lab Data : 08/09/22 10:20 08/09/22 10:20 Radiology Impressions Chest X-Ray 08/09/22 10:01 IMPRESSION: No acute cardiopulmonary abnormality. Laboratory Results WBC 9.5 10^3/uL (4.0-10.0) 08/09/22 10:20 RBC 4.48 10^6/uL (4.1-5.3) 08/09/22 10:20 Hgb 13.8 g/dL (11.5-15.3) 08/09/22 10:20 Hct 42.8 % (37.0-47.0) 08/09/22 10:20 MCV 95.5 fl (81-99) 08/09/22 10:20 MCH 30.8 pg (28.0-34.0) 08/09/22 10:20 MCHC 32.2 g/dL (30.0-36.0) 08/09/22 10:20 RDW 13.0 % (12.1-15.1) 08/09/22 10:20 Plt Count 293 10^3/cmm (130-400) 08/09/22 10:20 MPV 11.0 fL (7.4-10.4) H 08/09/22 10:20 Neut % (Auto) 60.3 % 08/09/22 10:20 Lymph % (Auto) 28.3 % 08/09/22 10:20 [place]ney % (Auto) 5.7 % 08/09/22 10:20 Eos % (Auto) 4.8 % 08/09/22 10:20 Baso % (Auto) 0.6 % 08/09/22 10:20 Neut # (Auto) 5.72 10^3/uL (1.8-7.7) 08/09/22 10:20 Lymph # (Auto) 2.7 10^3/uL (0.8-4.8) 08/09/22 10:20 [place] # (Auto) 0.5 10^3/uL (0.2-0.9) 08/09/22 10:20 Eos # (Auto) 0.5 10^3/uL (0.0-0.8) 08/09/22 10:20 Baso # (Auto) 0.1 10^3/uL (0.0-0.1) 08/09/22 10:20 Nucleated RBC % (auto) 0 % 08/09/22 10:20 Nucleated RBCs # 0.0 /100WBC 08/09/22 10:20 Sodium 137 mmol/L (136-145) 08/09/22 10:20 Potassium 4.3 mmol/L (3.5-5.1) 08/09/22 10:20 Chloride 101 mmol/L (98-107) 08/09/22 10:20 Carbon Dioxide 25 mmol/L (22-29) 08/09/22 10:20 Anion Gap 15.3 (5-19) 08/09/22 10:20 BUN 15 mg/dL (8-23) 08/09/22 10:20 Creatinine 0.9 mg/dL (0.5-0.9) 08/09/22 10:20 GFR Calculation 62.1 mL/min (90-130) L 08/09/22 10:20 Glucose 126 mg/dL (65-115) H 08/09/22 10:20 Calculated Osmolality 286 mOsm/kg (285-295) 08/09/22 10:20 Calcium 9.1 mg/dL (8.5-10.5) 08/09/22 10:20 Total Bilirubin 0.5 mg/dL (0.15-1.2) 08/09/22 10:20 AST 19 U/L (0-32) 08/09/22 10:20 ALT 18 U/L (0-33) 08/09/22 10:20 Alkaline Phosphatase 100 U/L (35-105) 08/09/22 10:20 Troponin T Baseline 13 ng/L (0-10) H 08/09/22 10:20 Troponin T 120 Minute 12.31 ng/L (0-10) H 08/09/22 11:55 Delta Troponin T -0.69 ABS# (0-10) L 08/09/22 11:55 Total Protein 7.5 g/dL (6.6-8.7) 08/09/22 10:20 Albumin 3.5 g/dL (3.5-5.2) 08/09/22 10:20 Globulin 4.0 g/dL (1.3-4.6) 08/09/22 10:20 EKG Data EKG 1: I personally reviewed and interpreted this EKG as follows: EKG interpretation date: 08/09/22 EKG interpretation time: 10:30 Interpretation: afib with rvr hr [address] or t wave abnormalities qrs 94 qtc 374 Other EKG comments: Chest X-Ray 08/09/22 10:01 IMPRESSION: No acute cardiopulmonary abnormality. EKG 2: I personally reviewed and interpreted this EKG as follows: EKG interpretation date: 08/09/22 EKG interpretation time: 12:33 Interpretation: afib hr [address] or t wave abnormalities qrs 96 qtc 416 Other EKG comments: Chest X-Ray 08/09/22 10:01 IMPRESSION: No acute cardiopulmonary abnormality. Discharge Plan Discharge Patient Disposition: Home Clinical Impression: Atrial fibrillation Condition: Stable Prescriptions: No Action warfarin 5 mg tablet 5 mg PO QAM amlodipine 10 mg tablet 10 mg PO DAILY PRN (Reason: >150 systolic) montelukast 10 mg tablet 10 mg PO BEDTIME valsartan 40 mg tablet 20 mg PO QAM sotalol 80 mg tablet 80 mg PO BID@0900,2100 Qty: 180 3RF sertraline [Zoloft] 100 mg tablet 150 mg PO DAILY Qty: 45 2RF furosemide 20 mg tablet 40 mg PO BID PRN (Reason: edema) Qty: 360 1RF omeprazole 40 mg Capsule,Delayed Release(Dr/Ec) 40 mg PO QAM Trelegy Ellipta 100-62.5-25 mcg blister with device 1 inh INHALATION DAILY PRN (Reason: unknown) Aspir-81 81 mg Tablet,Delayed Release (Dr/Ec) 81 mg PO BEDTIME levothyroxine 88 mcg tablet 88 mcg PO QAM potassium chloride 10 mEq tablet extended release See Rx Instructions .ROUTE .COMPLEX Rx Instructions: Take 20mEq in AM and will take 10mEq in PM if needed trazodone 100 mg tablet 200 mg PO BEDTIME PRN (Reason: insomnia) digoxin 125 mcg (0.125 mg) tablet 125 mcg PO QAM ropinirole 4 mg tablet 4 mg PO BEDTIME Discharge Orders: Discharge ED (Routine); Ordered 08/09/22 Ordered By: Laura Cowart Referrals: Lavon Laughlin MD [Primary Care Provider] - Discharge Diet: Advance as tolerated Discharge Activity: Resume usual activity Patient Instructions: A-fib (Atrial Fibrillation) (ED) Coding Level of Care Code ED Fire Equipment Inspector for Chg Fwd Exam Comprehensive
[2022-08-09 10:58] VITALS: BP 132/90; PULSE 117; RESP 21; O2SAT 94
[2022-08-09 11:03] LABS: Troponin(5th) Baseline 13 ng/L (0-10)
[2022-08-09 11:05] LABS: Alanine Aminotransferase 18 U/L (0-33); Albumin Level 3.5 g/dL (3.5-5.2); Alkaline Phosphatase 100 U/L (35-105); Anion Gap 15.3 (5-19); Aspartate Amino Transferase 19 U/L (0-32); Blood Urea Nitrogen 15 mg/dL (8-23); Calcium 9.1 mg/dL (8.5-10.5); Carbon Dioxide 25 mmol/L (22-29); Chloride 101 mmol/L (98-107); Glomerular Filtration Rate 62.1 mL/min (90-130); Glucose 126 mg/dL (65-115); Osmolality Calculated 286 mOsm/kg (285-295); Potassium 4.3 mmol/L (3.5-5.1); Sodium 137 mmol/L (136-145); Total Bilirubin 0.5 mg/dL (0.15-1.2); Total Protein 7.5 g/dL (6.6-8.7)
[2022-08-09] MEDS: sodium chloride 0.9% 1,000 ML 999 ML IV (11:07)
[2022-08-09] MEDS: dilTIAZem 5 mg/mL SDV 5 mL 15 MG IVP (11:07)
[2022-08-09 11:12] VITALS: BP 108/45; PULSE 79; RESP 16; O2SAT 95
[2022-08-09 12:20] VITALS: BP 117/79; PULSE 74; RESP 20; O2SAT 94
[2022-08-09 12:22] LABS: Troponin 5 2HR 12.31 ng/L (0-10)
[2022-08-09 12:23] LABS: Troponin 5 2HR Delta -0.69 ABS# (0-10)
--- NOTE | 2022-08-09 12:33 | ECG_ITS ---
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 Measurements Intervals [place] Rate: 84 P: [place]: QRS: 19 QRSD: 96 T: 23 QT: 374 QTc: 445 Interpretive Statements ATRIAL FIBRILLATION ABNORMAL RHYTHM ECG Compared to ECG 08/09/2022 10:30:50 ST (T wave) deviation no longer present Electronically Signed On 08-09-2022 18:35:03 CDT by Rohan Bowling M.D. [id number]
[2022-08-09 12:56] VITALS: BP 123/77; PULSE 97; RESP 14; O2SAT 99
== END 2022-08-09 12:57 | disposition home or self-care (01) ==
PROVIDERS: Emergency Provider Emergency Medicine; PCP Family Medicine
DX: I48.91 Unspecified atrial fibrillation (principal); Z79.01 Long term (current) use of anticoagulants; Z79.82 Long term (current) use of aspirin; Z87.891 Personal history of nicotine dependence; E11.9 Type 2 diabetes mellitus without complications; I11.0 Hypertensive heart disease with heart failure; I50.9 Heart failure, unspecified
CPT/HCPCS: 36415; 71045; 80053; 84484; 85025; 93005; 96361; 96374; 99285; J3490; J7030

== ENCOUNTER → 2022-08-11 13:08 | Outpatient (BNVA) | payer MEDICARE, MEDICAID, SELFPAY | PROVIDERS: PCP Family Medicine; Visit Provider Orthopaedic Surgery | DX: M25.551 Pain in right hip (principal); M25.552 Pain in left hip | CPT/HCPCS: 73522; 99203 ==

== ENCOUNTER → 2022-08-30 12:41 | Outpatient (BNVA) | payer MEDICARE, MEDICAID, SELFPAY | PROVIDERS: PCP Family Medicine; Visit Provider Internal Medicine Cardiovascular Disease | DX: I48.91 Unspecified atrial fibrillation (principal) | CPT/HCPCS: 93005 ==

== ENCOUNTER → 2022-09-06 13:06 | Outpatient (BNVA) | payer MEDICARE, MEDICAID, SELFPAY | PROVIDERS: PCP Family Medicine; Visit Provider Nurse Practitioner Family | DX: I48.91 Unspecified atrial fibrillation (principal); R00.1 Bradycardia, unspecified; Z79.01 Long term (current) use of anticoagulants | CPT/HCPCS: 93005; 99213; 99214 ==

== ENCOUNTER 2022-11-05 18:26 | Emergency (ER) | payer MEDICARE, MEDICAID, SELFPAY ==
[2022-11-05 18:48] VITALS: BP 179/88; PULSE 54; RESP 14; TEMP 36.7; O2SAT 99; BMI 41.8
--- NOTE | 2022-11-05 22:02 | ED_ITS ---
HPI - Female Genitourinary General: Chief complaint: Urogenital-Female Stated complaint: bladder prolapse Time Seen by Provider: 11/05/22 21:10 Source: patient Mode of arrival: ambulatory Limitations: no limitations History of Present Illness: Patient presents to the emergency department today for evaluation treatment of return of her cystocele. Patient states that not too long ago she was in the shower and was performing vaginal hygiene when she noticed a bump in her vaginal area. Patient does see a sexton helper and went to go see them as the bump felt fleshy and related to the skin. However, when she was evaluated by dermatology, they indicated to her that it was a bladder prolapse. The nurse practitioner there manually manipulated and pushed the bladder back up. Patient states she had done well with it up until today when it began bothering her again. Patient attempted to be seen at 2 walk-in clinics however, neither 1 felt comfortable to treat her. Patient states she has an [facility] appointment on Tuesday with her doctor already scheduled. Associated symptoms: Deny vaginal discharge Review of Systems General: Reports: 10 or more systems reviewed and unremarkable except in HPI and below : Reports: pelvic pain and prolapse symptoms; Denies: vaginal bleeding or vaginal discharge PFSH ED PFSH: Medical History Anxiety Aortic regurgitation Atrial fibrillation CHF (congestive heart failure) Chronic anticoagulation -on Coumadin Chronic kidney disease Deviated septum Diabetes GERD (gastroesophageal reflux disease) Hiatal hernia History of cardioversion History of nonmelanoma skin cancer Hypertension Hypothyroidism -TSH wnl -on levothyroxine Mitral regurgitation New onset of congestive heart failure -BNP-3052 -imaging not indicative of fluid overload; not overtly decompensated; could be secondary to A.fib with RVR -Echo as noted above -on oral Lasix Psychiatric care Rhinitis Surgical History H/O esophagogastroduodenoscopy (10/01/21) H/O knee surgery bilateral knees H/O tubal ligation H/O: hysterectomy History of colonoscopy History of hernia surgery History 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, was malignant History of umbilical hernia repair Family History Other CAD (coronary artery disease) Social History Smoking and tobacco status: never smoked Quit status (tobacco): has quit using tobacco Year quit tobacco: 2012 Second hand smoke exposure: No Smoking risk assessment/counseling performed?: No Alcohol intake: current Alcohol intake frequency: holidays/special occasions only Alcohol type: beer and wine Desire information about alcohol rehabilitation?: No Counseling given: No Desire information about substance/drug rehabilitation?: No Counseling given: No History of recent travel: No Current gender identity: Female Physical Exam Const: COMMON NORMALS: no acute distress, average body habitus, patient oriented x3 and alert HENMT: COMMON NORMALS: normocephalic, atraumatic, hearing grossly normal bilaterally and moist oral mucous membranes HEAD & SCALP: normocephalic and atraumatic Eye: COMMON NORMALS: Equal, round and reactive pupils present, EOMs intact bilaterally and conjunctivae normal CONJUNCTIVA: Yes conjunctivae normal PUPIL: Yes Equal, round and reactive pupils present Neck/C-Spine: COMMON NORMALS: no JVD Lymph: LYMPHATIC: no lymphadenopathy noted Resp: COMMON NORMALS: normal respiratory effort, No retractions and No use of accessory muscles Cardio: COMMON NORMALS: no JVD and regular rate RATE: regular rate : OTHER: Patient does have a fleshy bump just inside the vaginal opening on the superior vaginal wall. It is soft and nontender on palpation. Manual manipulation was able to compress this area back up over the pubic symphysis Extremity: COMMON NORMALS: normal to inspection, full ROM and capillary refill normal Neuro: COMMON NORMALS: patient oriented x3 SENSORIUM/ORIENTATION: Yes alert Psych: COMMON NORMALS: mental status grossly normal, cooperative, normal affect, speech normal and activity/motor behavior normal SPEECH: Yes normal speech Course Vital Signs: Vital signs: Vital Signs Temperature 98.1 F 11/05/22 18:48 Pulse Rate 54 L 11/05/22 18:48 Respiratory Rate 14 11/05/22 18:48 Blood Pressure 179/88 11/05/22 18:48 Pulse Oximetry 99 11/05/22 18:48 Oxygen Delivery Me thod 11/05/22 18:48 MDM - Female Medical Decision Making Patient presented for return of her cystocele. Patient has an upcoming appointment on Tuesday but states the area is irritating and she is having low abdominal pressure. I was able to manipulate the area with gentle pressure to try and reduce the swelling back over the area of the pubic symphysis. Patient tolerated her procedure without any difficulty. We did discuss being seen and evaluated through the weekend for worsening abdominal pain, vaginal bleeding, or difficulty with her urination. Differential Diagnosis Likely abdominal pain (Bladder prolapse, rectal prolapse, vaginal dryness, UTI, yeast infection) and constipation Discharge Plan Discharge Patient Disposition: Home Clinical Impression: Female bladder prolapse, acquired Condition: Stable Prescriptions: No Action warfarin 5 mg tablet 5 mg PO QAM amlodipine 10 mg tablet 10 mg PO DAILY PRN (Reason: >150 systolic) montelukast 10 mg tablet 10 mg PO BEDTIME sertraline [Zoloft] 100 mg tablet 150 mg PO DAILY Qty: 45 2RF furosemide 20 mg tablet 40 mg PO BID PRN (Reason: edema) Qty: 360 1RF sotalol 80 mg tablet 200 mg PO DIRECTED Qty: 225 3RF Rx Instructions: 120mg (1.5 tabs) AM and 80mg (1 tab) PM valsartan 40 mg tablet 20 mg PO QAM Qty: 90 3RF omeprazole 40 mg Capsule,Delayed Release(Dr/Ec) 40 mg PO QAM Trelegy Ellipta 100-62.5-25 mcg blister with device 1 inh INHALATION DAILY PRN (Reason: unknown) Aspir-81 81 mg Tablet,Delayed Release (Dr/Ec) 81 mg PO BEDTIME levothyroxine 88 mcg tablet 88 mcg PO QAM potassium chloride 10 mEq tablet extended release See Rx Instructions .ROUTE .COMPLEX Rx Instructions: Take 20mEq in AM and will take 10mEq in PM if needed trazodone 100 mg tablet 200 mg PO BEDTIME PRN (Reason: insomnia) digoxin 125 mcg (0.125 mg) tablet 125 mcg PO QAM ropinirole 4 mg tablet 4 mg PO BEDTIME Discharge Orders: Discharge ED (Routine); Ordered 11/05/22 Ordered By: Frances Chadwick Referrals: Lavon Laughlin MD [Primary Care Provider] - Patient Instructions: Cystocele (ED) Activity Restrictions/Additional Instructions: We were able to push back the bladder into its more anatomical location however, unfortunately, prolapse will most likely occur again with any straining or prolonged times of standing. This is due to missing anatomical structures within the pelvic floor, weakening of the pelvic floor muscles, or loosening of the organ attachments to the inner abdominal jaimes. Keep your upcoming appointment on Tuesday however, if you develop low abdominal pain, decreased urine output, painful urine output, or any bleeding you need to be seen and reevaluated here through the emergency department. Coding Level of Care Code ED Small Engine Specialist for Xenia Moore
[2022-11-05 22:03] VITALS: BP 171/82; PULSE 56; RESP 18; O2SAT 99
== END 2022-11-05 22:04 | disposition home or self-care (01) ==
PROVIDERS: Emergency Provider Physician Assistant; PCP Family Medicine
DX: N81.10 Cystocele, unspecified (principal); Z79.01 Long term (current) use of anticoagulants; Z79.82 Long term (current) use of aspirin; I13.0 Hypertensive heart and chronic kidney disease with heart failure and stage 1 through stage 4 chronic kidney disease, or unspecified chronic kidney disease; E11.22 Type 2 diabetes mellitus with diabetic chronic kidney disease; N18.9 Chronic kidney disease, unspecified; I50.9 Heart failure, unspecified; Z87.891 Personal history of nicotine dependence
CPT/HCPCS: 99282

== ENCOUNTER 2023-01-03 14:39 | Outpatient (CLI) | payer MEDICARE, MEDICAID, SELFPAY ==
--- NOTE | 2023-01-03 14:52 | XR_ITS ---
WS: [id number] DEXA (DUAL ENERGY X-RAY ABSORPTIOMETRY) Bone mineral density was performed using a [employer] machine. HISTORY: OSTEOPOROSIS COMPARISON: None available. Lumbar spine BMD (L1-L4): 1.395 g/cm2 T score: 1.8 Z score: 2.3 Total hip BMD: Left: 0.977 g/cm2. T score: -0.2 Z score: 0.4 Right: 0.962 g/cm2. T score: -0.4 Z score: 0.3 10 year probability of a major osteoporotic fracture is 6.9%. XR/XR DEXA axial skeleton* 93297 IMPRESSION: NORMAL BONE MINERAL DENSITY based upon the WHO classification for females.
== END 2023-01-03 14:40 | disposition home or self-care (01) ==
LOC: RAD 14:41
PROVIDERS: PCP Family Medicine; Visit Provider Family Medicine
DX: M81.0 Age-related osteoporosis without current pathological fracture (principal)
CPT/HCPCS: 77080

== ENCOUNTER 2023-02-01 09:57 | Observation (INO) | payer MEDICARE, MEDICAID, SELFPAY ==
[2023-01-31 10:13] VITALS: BMI 42.9
[2023-02-01] VITALS (17 sets, daily range): BP systolic 111–181; BP diastolic 70–115; PULSE 59–80; RESP 12–18; TEMP 34.7–36.9; O2SAT 91–100
[2023-02-01] MEDS: acetaminophen 1,000 MG/100 ML PIGGYBACK 400 MG IV (06:15)
[2023-02-01] MEDS: sodium chloride 0.9% 1,000 ML 30 ML IV (06:15)
[2023-02-01] MEDS: phenazopyridine 100 mg Tablet 200 MG PO ×4 (06:16→21:26)
[2023-02-01] MEDS: scopolamine 1.5 Patch 1 PATCH TRANSDERMA (06:16)
[2023-02-01] MEDS: CELEcoxib 200 mg Capsule 400 MG PO (06:17)
[2023-02-01] MEDS: gabapentin 300 mg Capsule PO (06:23)
--- NOTE | 2023-02-01 06:59 | ANES.PREANE2 ---
Pre-Anesthetic Assessment Height/Weight: Height 1.63 m Weight 113.398 kg Temp Pulse Resp BP Pulse Ox O2 Del Method 97.0 F L 80 18 171/107 97 02/01/23 06:04 02/01/23 06:04 02/01/23 06:04 02/01/23 06:04 02/01/23 06:04 02/01/23 06:06 Preop Diagnosis: Cystocele Operation Date: 02/01/23 07:00 Proposed Procedures p Anterior and posterior repair 10382, possible mid urethral sling 03673,N81.10(Not Applicable) - Viridiana Huizar MD s Posterior Repair(Not Applicable) - Viridiana Huizar MD s Sling Single Incision Midurethral Sling(Not Applicable) - Viridiana Huizar MD Familial anesthetic complications: none Was Beta Juju taken within 24 hours: Yes Was Clonidine taken within 24 hours: N/A Last intake: Intake Last Liquid Date 01/31/23 Last Liquid Time 19:30 Last Solid Date 01/31/23 Last Solid Time 19:30 Last Intake: 19:30 Social No alcohol and No tobacco Exam alert, oriented x 3, clear to auscultation bilaterally and regular rate & rhythm Airway Submandibular: within normal limits Cervical ROM: within normal limits Mallampati: Class II Dentition: false (upper) Pulmonary Chronic Obstructive Pulmonary Disease and Shortness of Breath CV/HEM Atrial Fibrillation, Congestive Heart Failure and Hypertension SSS with pacemaker placed None reported Hepatic None reported GI Gastroesophageal Reflux Disease Metabolic Morbid Obesity and Thyroid Disease Musc/skel Lower Back Pain and Osteoarthritis/DJD Neuropsych Anxiety and Depression Anesthetic Plan ASA status: 3 Anesthesia: General Risk of > 500 ml blood loss (7ml/kg in children): No Medications/Allergies Home Medications Medication Instructions Recorded Confirmed Last Taken Type omeprazole 40 mg capsule,delayed 40 mg PO QAM 01/11/20 01/31/23 01/31/23 History release montelukast 10 mg tablet 10 mg PO BEDTIME 06/08/21 01/31/23 01/31/23 History (Singulair) fluticasone fur. 100 mcg-umeclid 1 inh inhalation DAILY PRN unknown 02/15/22 02/01/23 01/31/23 History 62.5 mcg-vilant 25 mcg inhalat.powder (Trelegy Ellipta) warfarin 5 mg tablet 5 mg PO QAM 03/08/22 01/31/23 01/27/23 History aspirin 81 mg tablet,delayed 81 mg PO BEDTIME 08/09/22 01/31/23 01/30/23 History release levothyroxine 88 mcg tablet 88 mcg PO QAM 08/09/22 01/31/23 02/01/23 History potassium chloride 10 mEq See Rx Instructions .Route 08/09/22 01/31/23 01/31/23 History tablet,extended release .COMPLEX PRN furosemide valsartan 40 mg tablet 20 mg PO QAM #90 tabs 10/21/22 01/31/23 01/31/23 Rx sotalol 80 mg tablet 120 mg PO BID 01/03/23 01/31/23 02/01/23 History furosemide 20 mg tablet 40 mg PO BID PRN edema #360 tabs 01/24/23 01/31/23 01/31/23 Rx atorvastatin 10 mg tablet 10 mg PO DAILY 01/31/23 01/31/23 01/31/23 History Allergies Allergy/AdvReac Type Severity Reaction Status Date / Time avocado Allergy Severe cant breath Verified 01/31/23 10:08 codeine Allergy ADR-Vomitin Verified 01/31/23 10:08 g Sulfa (Sulfonamide Allergy Unknown Verified 01/31/23 10:08 Antibiotics) Tetanus Vaccines and Toxoid Allergy Unknown Verified 01/31/23 10:08 [facility] Anesthesia Medical History Anxiety Aortic regurgitation Atrial fibrillation CHF (congestive heart failure) Chronic anticoagulation -on Coumadin Chronic kidney disease Deviated septum Diabetes GERD (gastroesophageal reflux disease) Hiatal hernia History of cardioversion History of nonmelanoma skin cancer Hypertension Hypothyroidism -TSH wnl -on levothyroxine Mitral regurgitation New onset of congestive heart failure -BNP-3052 -imaging not indicative of fluid overload; not overtly decompensated; could be secondary to A.fib with RVR -Echo as noted above -on oral Lasix Psychiatric care Rhinitis Surgical History H/O esophagogastroduodenoscopy (10/01/21) H/O knee surgery bilateral knees H/O tubal ligation H/O: hysterectomy History of colonoscopy History of hernia surgery History 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, was malignant History of umbilical hernia repair Family History Denies family history of Colon cancer Ovarian cancer Diabetes Heart disease Hypercholesteremia Breast cancer Hypertension Uterine cancer Thyroid disease Stroke Data Anesthesia 02/01/23 07:00 Cardiac Studies: Echocardiogram 01/04/22 Echocardiogram Ultrasound 06/23/20 Transesophageal Echocardiogram 03/24/21 Sestamibi Stress Test (Cardiology) 03/02/22 Holter Monitor 04/01/21
--- NOTE | 2023-02-01 07:04 | W.PM.OPSUD ---
Surgery/Procedure H&P Update DATE OF PROCEDURE: February 01, 2023 DATE H&P PERFORMED: 01/28/23 H&P UPDATE INFORMATION: I have reviewed H&P completed within last 30 days, I have examined patient prior to procedure and No changes to prior documentation PREOP DIAGNOSIS: Cystocele PLANNED PROCEDURE: Operation Date: 02/01/23 07:00 Proposed Procedures p Anterior and posterior repair 75875, possible mid urethral sling 25493,N81.10(Not Applicable) - Viridiana Huizar MD s Posterior Repair(Not Applicable) - Viridiana Huizar MD s Sling Single Incision Midurethral Sling(Not Applicable) - Viridiana Huizar MD Related Problem List Diagnoses (1) Urinary incontinence: (2) Cystocele:
[2023-02-01 07:31] LABS: Anion Gap 14.3 (5-19); Blood Urea Nitrogen 18 mg/dL (8-23); Calcium 8.6 mg/dL (8.5-10.5); Carbon Dioxide 26 mmol/L (22-29); Chloride 106 mmol/L (98-107); Glomerular Filtration Rate 70.9 mL/min (90-130); Glucose 118 mg/dL (65-115); Osmolality Calculated 297 mOsm/kg (285-295); Potassium 4.3 mmol/L (3.5-5.1); Sodium 142 mmol/L (136-145)
[2023-02-01] MEDS: ceFAZolin 2,000 MG in sodium chloride 0.9% (plus) 50 ML 100 MG IV ×3 (07:39→23:47)
--- NOTE | 2023-02-01 09:29 | PM.OP ---
Operative Report Date of procedure: February 01, 2023 Pre-op diagnosis: Preop Diagnosis cystocele, urinary incontinence Post-op diagnosis: same Post-op findings: Good cystocele repair. No need for perineorrhaphy, sling not indicated. Procedure done: Anterior repair Specimens removed/disposition: nothing to pathology Surgeon: Viridiana Huizar Anesthesia: General Estimated blood loss (mL): 20 IV fluids (mL): 500 Urine output (mL): 450 Complications: none Findings: large cystocele, normal appearing perineal body Condition: stable Disposition: PACU Procedure: The patient was taken to the operating room, where monitored anesthesia was administered and found to be adequate. She was prepped and draped in the normal sterile fashion in the dorsal lithotomy position in [facility]. A mcdowell catheter was placed. The vaginal cuff was identified and an allis clamp was placed in the midline of the vaginal mucosa, approximately 2 cm anterior to the cuff. A second allis clamp was placed in the midline of the vaginal mucosa, approximately 3 cm from the introitus. An incision was made in the midline from clamp to clamp. The vaginal mucosa was clamped laterally and the cystocle dissected off of the vesicovaginal fascia. The cystocele was packed away and the vesicovaginal fascia brought together in the midline with figure of 8 interrupted sutures of O-Vicryl. The packing was removed and the excess vaginal tissue trimmed. The incision was repaired with 0-Vicryl in a running fashion. The Mcdowell catheter was removed and the cystoscope advanced into the bladder. Pyridium was given in pre-op and bilateral spill of orange fluid was noted from both ureteral orifices. There were no deficits noted to be in the bladder. Vaginal packing was placed as well as the mcdowell catheter. The patient tolerated the procedure well. Sponge lap and needle counts were correct x3. She was taken to the recovery room in stable condition.
[2023-02-01] MEDS: ketorolac 30 mg/mL INJ IVP ×3 (10:31→21:26)
[2023-02-01] MEDS: dextrose 5%-lactated ringers 1,000 ML 125 ML IV ×2 (11:53→19:59)
[2023-02-01] MEDS: losartan 50 mg Tablet 25 MG PO (12:06)
--- NOTE | 2023-02-01 14:04 | ANE.PACU2 ---
Inpatient post-anesthesia follow up: Airway intact: Yes Vital signs: Temperature 97 F Pulse Rate 68 Respiratory Rate 12 Blood Pressure 167/94 Pulse Oximetry 96 Oxygen Delivery Me thod Room Air Oxygen Flow Rate 6 Fraction of Inspir ed Oxygen Hydration adequate: Yes Nausea and vomiting: No Pain level: 3 Mental status: Baseline
[2023-02-01] MEDS: docusate sodium 100 mg Capsule PO (18:10)
[2023-02-01] MEDS: sotalol 80 mg Tablet 120 MG PO (18:10)
[2023-02-01 18:34] LABS: Basophils % 0.2 %; Eosinophils % 0.1 %; Hematocrit 38.8 % (37.0-47.0); Hemoglobin 12.6 g/dL (11.5-15.3); Lymphocytes # 0.6 10^3/uL (0.8-4.8); Lymphocytes % 6.8 %; Mean Corpuscular HGB Conc 32.5 g/dL (30.0-36.0); Mean Corpuscular Hemoglobin 30.6 pg (28.0-34.0); Mean Corpuscular Volume 94.2 fl (81-99); Mean Platelet Volume 10.4 fL (7.4-10.4); Monocytes # 0.2 10^3/uL (0.2-0.9); Monocytes % 1.8 %; Neutrophils # 8.39 10^3/uL (1.8-7.7); Neutrophils % 90.9 %; Nucleated Red Blood Cells % 0 %; Platelet Count 295 10^3/cmm (130-400); Red Blood Count 4.12 10^6/uL (4.1-5.3); Red Cell Distribution Width 13.3 % (12.1-15.1); White Blood Count 9.2 10^3/uL (4.0-10.0)
[2023-02-01] MEDS: sodium chloride 0.9% 500 ML IV (19:17)
[2023-02-01] MEDS: montelukast sodium 10 mg Tablet PO (21:26)
[2023-02-01] MEDS: simethicone 80 mg Chew PO (21:26)
[2023-02-01] MEDS: acetaminophen 325 mg Tablet 650 MG PO (23:47)
[2023-02-02 04:35] VITALS: BP 158/79; PULSE 63; RESP 18; TEMP 36.6; O2SAT 95
[2023-02-02 04:49] VITALS: RESP 18
[2023-02-02] MEDS: oxyCODONE-APAP 5-325 mg Tablet PO (04:49)
[2023-02-02] MEDS: ketorolac 30 mg/mL INJ IVP (04:49)
[2023-02-02 05:23] LABS: INR 1.22 (0.8-1.2)
[2023-02-02 05:27] LABS: Hematocrit 34.2 % (37.0-47.0); Hemoglobin 10.9 g/dL (11.5-15.3); Mean Corpuscular HGB Conc 31.9 g/dL (30.0-36.0); Mean Corpuscular Volume 97.2 fl (81-99); Mean Platelet Volume 10.8 fL (7.4-10.4); Platelet Count 249 10^3/cmm (130-400); Red Blood Count 3.52 10^6/uL (4.1-5.3); Red Cell Distribution Width 13.6 % (12.1-15.1); White Blood Count 13.2 10^3/uL (4.0-10.0)
[2023-02-02 06:29] VITALS: BP 155/84
[2023-02-02] MEDS: warfarin 5 mg Tablet PO (06:29)
[2023-02-02] MEDS: losartan 50 mg Tablet 25 MG PO (06:29)
[2023-02-02] MEDS: levothyroxine 88 mcg Tablet PO (06:29)
[2023-02-02] MEDS: pantoprazole DR 40 mg Tablet PO (08:45)
[2023-02-02] MEDS: docusate sodium 100 mg Capsule PO (08:45)
[2023-02-02] MEDS: phenazopyridine 100 mg Tablet 200 MG PO (08:46)
[2023-02-02] MEDS: sotalol 80 mg Tablet 120 MG PO (08:47)
[2023-02-02 09:00] VITALS: BP 160/85; PULSE 82; RESP 18; TEMP 36.6; O2SAT 94
--- NOTE | 2023-02-02 10:03 | P.DS_ITS ---
Discharge Providers Date of Admission: 02/01/23 09:57 Date of Discharge: February 02, 2023 Attending Provider at Admission: Viridiana Huizar MD Attending Provider at Discharge: Viridiana Huizar MD Primary Care Provider: Lavon Laughlin MD Diagnoses at Discharge Discharge Diagnosis (1) Urinary incontinence: Status: Acute (2) Cystocele: Status: Acute Reason for Visit Reason for Visit: Cystocele, unspecified Hospital Course Hospital Course The patient was admitted for surgery. She did well postoperatively and was ready for discharge on day #1. Physical Exam Narrative: The patient is doing well today. Her packing and catheter has been removed. Her pain is well controlled. She is ambulating and tolerating a regular diet. Const: COMMON NORMALS: no acute distress, patient oriented x3, no limitations, healthy appearing, alert and well nourished GENERAL APPEARANCE: cooperative, comfortable, well kempt and well developed ORIENTATION/CONSCIOUSNESS: Yes awake, Yes oriented to person, Yes oriented to place and Yes oriented to time Resp: COMMON NORMALS: normal respiratory effort EFFORT & INSPECTION: Yes able to speak in complete sentences GI: COMMON NORMALS: Soft to palpation and non-tender PALPATION: Yes Soft to palpation Extremity: COMMON NORMALS: no calf tenderness Neuro: COMMON NORMALS: patient oriented x3 SENSORIUM/ORIENTATION: Yes alert, Yes oriented to person, Yes oriented to place and Yes oriented to time Psych: COMMON NORMALS: mental status grossly normal, Normal thought process present, cooperative, normal affect and speech normal APPEARANCE: Yes well kempt SPEECH: Yes normal speech THOUGHT PROCESS: Normal thought process present Urinary Catheter Management: Gomez: Cath Placed During This Visit: yes, but has since been removed by the nurse Reason for Continuing Indwelling Catheter: Decision to DC Catheter Urinary Catheter Date of Insertion: 02/01/23 Urinary Catheter Time of Insertion: 08:11 Date Urinary Catheter Removed: 02/02/23 Time Urinary Catheter Discontinued: 05:15 Discharge Data Studies Completed and Pending Pending at discharge Category Date Time Status Urine Culture Routine Lab 02/01/23 08:13 Results Laboratory Results WBC 13.2 10^3/uL (4.0-10.0) H 02/02/23 04:20 RBC 3.52 10^6/uL (4.1-5.3) L 02/02/23 04:20 Hgb 10.9 g/dL (11.5-15.3) L 02/02/23 04:20 Hct 34.2 % (37.0-47.0) L 02/02/23 04:20 MCV 97.2 fl (81-99) 02/02/23 04:20 MCH 31.0 pg (28.0-34.0) 02/02/23 04:20 MCHC 31.9 g/dL (30.0-36.0) 02/02/23 04:20 RDW 13.6 % (12.1-15.1) 02/02/23 04:20 Plt Count 249 10^3/cmm (130-400) 02/02/23 04:20 MPV 10.8 fL (7.4-10.4) H 02/02/23 04:20 Neut % (Auto) 90.9 % 02/01/23 18:25 Lymph % (Auto) 6.8 % 02/01/23 18:25 Blanco % (Auto) 1.8 % 02/01/23 18:25 Eos % (Auto) 0.1 % 02/01/23 18:25 Baso % (Auto) 0.2 % 02/01/23 18:25 Neut # (Auto) 8.39 10^3/uL (1.8-7.7) H 02/01/23 18:25 Lymph # (Auto) 0.6 10^3/uL (0.8-4.8) L 02/01/23 18:25 Blanco # (Auto) 0.2 10^3/uL (0.2-0.9) 02/01/23 18:25 Eos # (Auto) 0.0 10^3/uL (0.0-0.8) 02/01/23 18:25 Baso # (Auto) 0.0 10^3/uL (0.0-0.1) 02/01/23 18:25 Nucleated RBC % (auto) 0 % 02/01/23 18: Nucleated RBCs # 0.0 /100WBC 02/01/23 18:25 PT 15.80 SECONDS (12.1-14.9) H 02/02/23 04:20 INR 1.22 (0.8-1.2) H 02/02/23 04:20 Sodium 142 mmol/L (136-145) 02/01/23 07:00 Potassium 4.3 mmol/L (3.5-5.1) 02/01/23 07:00 Chloride 106 mmol/L (98-107) 02/01/23 07:00 Carbon Dioxide 26 mmol/L (22-29) 02/01/23 07:00 Anion Gap 14.3 (5-19) 02/01/23 07:00 BUN 18 mg/dL (8-23) 02/01/23 07:00 Creatinine 0.8 mg/dL (0.5-0.9) 02/01/23 07:00 GFR Calculation 70.9 mL/min (90-130) L 02/01/23 07:00 Glucose 118 mg/dL (65-115) H 02/01/23 07:00 Calculated Osmolality 297 mOsm/kg (285-295) H 02/01/23 07:00 Calcium 8.6 mg/dL (8.5-10.5) 02/01/23 07:00 Vitals Last Vital Signs Temp 97.9 F 02/02/23 09:00 Pulse 82 02/02/23 09:00 Resp 18 02/02/23 09:00 BP 160/85 02/02/23 09:00 Pulse Ox 94 02/02/23 09:00 O2 Del Method 02/02/23 09:00 O2 Flow Rate 6 02/01/23 09:40 Discharge Plan Discharge Patient Disposition: Home Condition: Stable Prescriptions: New ibuprofen 800 mg Tablet 800 mg PO Q8H Qty: 30 0RF oxycodone-acetaminophen 5-325 mg Tablet 1 tab PO Q4H PRN (Reason: Moderate To Severe Pain) Qty: 30 0RF docusate sodium 100 mg Capsule 100 mg PO BID Qty: 60 0RF Continued warfarin 5 mg tablet 5 mg PO QAM montelukast [Singulair] 10 mg tablet 10 mg PO BEDTIME valsartan 40 mg tablet 20 mg PO QAM Qty: 90 3RF furosemide 20 mg tablet 40 mg PO BID PRN (Reason: edema) Qty: 360 1RF omeprazole 40 mg Capsule,Delayed Release(Dr/Ec) 40 mg PO QAM Trelegy Ellipta 100-62.5-25 mcg blister with device 1 inh INHALATION DAILY PRN (Reason: unknown) sotalol 80 mg tablet 120 mg PO BID Rx Instructions: 120mg (1.5 tabs) AM and 120mg (1 tab) PM atorvastatin 10 mg tablet 10 mg PO DAILY aspirin 81 mg Tablet,Delayed Release (Dr/Ec) 81 mg PO BEDTIME levothyroxine 88 mcg tablet 88 mcg PO QAM potassium chloride 10 mEq tablet extended release See Rx Instructions .ROUTE .COMPLEX PRN (Reason: furosemide) Rx Instructions: Take 20mEq in AM and will take 10mEq in PM if needed Discharge Orders: Discharge Order (Routine); Ordered 02/02/23 Ordered By: Viridiana Huizar Patient Instructions: Anterior Vaginal Repair (GEN), OB Discharge Report, OB Home Care Instructions, Opioid Safety Discharge Attestations Time Spent in Discharge Care*: less than 30 min Status at Discharge: Cognitive status at discharge: cognitively intact , Behavioral status at discharge: cooperative , Quality Metrics Clinical Quality Measures [ No reported AMI, CVA or VTE this stay] Coding Level of Care Code Acute Code for Chg Fwd Diagnoses Urinary incontinence R32 Cystocele
[2023-02-02] MEDS: ibuprofen 800 mg tablet PO (10:13)
[2023-02-02 11:40] VITALS: BP 163/85; PULSE 82; RESP 18; TEMP 36.4
[2023-02-02 11:45] VITALS: BP 163/85; PULSE 82; RESP 18; TEMP 36.4
== END 2023-02-02 11:45 | disposition home or self-care (01) ==
LOC: OBGYN 09:57
PROVIDERS: Anesthesiology; Admitting Provider Obstetrics & Gynecology; PCP Family Medicine; Visit Provider Obstetrics & Gynecology
PROC: 0JQC0ZZ Repair Pelvic Region Subcutaneous Tissue and Fascia, Open Approach (ICD-10-PCS; CPT 57240; principal; 2023-02-01 07:00)
PROC: (CPT 57250; 2023-02-01 07:00)
DX: N81.10 Cystocele, unspecified (principal); R32 Unspecified urinary incontinence; J44.9 Chronic obstructive pulmonary disease, unspecified; I48.91 Unspecified atrial fibrillation; E11.22 Type 2 diabetes mellitus with diabetic chronic kidney disease; I13.0 Hypertensive heart and chronic kidney disease with heart failure and stage 1 through stage 4 chronic kidney disease, or unspecified chronic kidney disease; N18.9 Chronic kidney disease, unspecified; I50.9 Heart failure, unspecified; Z95.0 Presence of cardiac pacemaker; K21.9 Gastro-esophageal reflux disease without esophagitis; E66.01 Morbid (severe) obesity due to excess calories; Z68.41 Body mass index [BMI] 40.0-44.9, adult; Z79.01 Long term (current) use of anticoagulants; F41.9 Anxiety disorder, unspecified; E03.9 Hypothyroidism, unspecified
CPT/HCPCS: 57240; 36415; 80048; 85025; 85027; 85610; 87077; 87086; 87186; G0378; J0131; J0690; J1100; J1885; J2405; J2704; J2710; J3010; J3490; J7030; J7040; J7121

== ENCOUNTER 2023-02-16 13:12 | Outpatient (CLI) | payer MEDICARE, MEDICAID, SELFPAY ==
--- NOTE | 2023-02-16 13:19 | MM_ITS ---
WS: [id number] VIEWS: MLO and CC views both breasts. 3D digital tomosynthesis is also included in this exam. Comparison made with prior exam of 03/22/2017, 04/11/2018, 04/18/2019, 01/27/2022.. Findings: There was no sign of mass, architectural distortion or suspicious calcification in either breast. Sc attered fibroglandular densities MM/[place] [id number] Impression: BI-RADS: 2-Benign FOLLOW-UP: 1 Year Follow-up This mammogram was also analyzed by the Computer Aided Detection System R2 Imag e Chiropractic Assistant.
--- NOTE | 2023-02-16 13:21 | CT_ITS ---
WS: [id number] LDCT LUNG CANCER SCREENING HISTORY: HX OF TOBACCO USE TECHNIQUE: Axial imaging performed from the apices to 1 cm below the costophrenic angles. Coronal and sagittal reformats are submitted with axial MIP series. All CT scans at [facility] use at least one of these dose optimization techniques: automated exposure control; mA and/or kV adjustment per patient size (includes targeted exams where dose is matched to clinical indication); or iterativ e reconstruction. DLP: 75.29 mGy.cm DIvol: Mean CTDIvol: 1.60 (mGy) COMPARISON: 07/29/2021 Diagnostic quality: Satisfactory Lungs: Mild pulmonary hyperinflation. Focal consolidation along the RIGHT minor fissure measures 12 m m with extension towards the RIGHT upper lobe. May be an area of atelectasis or early neoplasm. There is an additional 4 mm benign-appearing nodule along the LEFT fissure. Heart: Prior dual lead LEFT subclavian pacer. Heart is normal size otherwise.. Other findings: Moderate atherosclerosis aorta. No adenopathy. Large hiatal hernia. No adrenal mass. CT/CT lung screening [id number] IMPRESSION: LUNG-RADS: 4A-Probably Suspicious FOLLOW UP: 3 Month LDCT OTHER FINDINGS (S MODIFIER): None.
== END 2023-02-16 13:13 | disposition home or self-care (01) ==
LOC: RAD 13:14
PROVIDERS: PCP Family Medicine; Visit Provider Family Medicine
DX: Z12.2 Encounter for screening for malignant neoplasm of respiratory organs (principal); Z12.31 Encounter for screening mammogram for malignant neoplasm of breast; Z87.891 Personal history of nicotine dependence
CPT/HCPCS: 71271; 77063; 77067

== ENCOUNTER 2023-04-03 12:58 | Emergency (ER) | payer MEDICARE, MEDICAID, SELFPAY ==
[2023-04-03 13:12] VITALS: BP 165/100; PULSE 67; TEMP 36.8; O2SAT 96; BMI 42.9
--- NOTE | 2023-04-03 13:33 | ED_ITS ---
HPI - General Adult General: Chief complaint: General Medical Stated complaint: states high bp Time Seen by Provider: 04/03/23 13:26 Source: patient Mode of arrival: ambulatory Limitations: no limitations History of Present Illness: 72-year-old female who states she does have a history of high blood pressure states that over the last months she has been running high she states she had taken a log and send it to her green lumber grader but she just sent to on Tuesday. She states that today she was just feeling she states weird denies any pain anywhere states her blood pressure in the 180s at home. She denies any fevers denies any vomiting or diarrhea. Associated symptoms: Deny chest pain, dyspnea, headache(s), nausea, rash or vomiting Review of Systems Const: Denies: fever(s), chills or change in appetite Eyes: Denies: blurry vision ENMT: Denies: throat pain or dental pain Card: Denies: chest pain Resp: Denies: dyspnea GI: Denies: abdominal pain, nausea, vomiting or diarrhea Musc: Denies: neck pain or back pain Skin/Breast: Denies: rash Neuro: Denies: headache(s) PFSH ED PFSH: Medical History Anxiety Aortic regurgitation Atrial fibrillation Chest pain CHF (congestive heart failure) Chronic anticoagulation -on Coumadin Chronic kidney disease Cystocele Deviated septum Diabetes GERD (gastroesophageal reflux disease) Hammertoe, bilateral Hiatal hernia History of cardioversion History of nonmelanoma skin cancer Hypertension Hypothyroidism -TSH wnl -on levothyroxine Left foot pain Mitral regurgitation New onset of congestive heart failure -[id number] -imaging not indicative of fluid overload; not overtly decompensated; could be secondary to A.fib with RVR -Echo as noted above -on oral Lasix Psychiatric care Rhinitis Surgical History H/O esophagogastroduodenoscopy (10/01/21) H/O knee surgery bilateral knees H/O tubal ligation H/O: hysterectomy History of colonoscopy History of hernia surgery History 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, was malignant History of umbilical hernia repair Family History Denies family history of Colon cancer Ovarian cancer Diabetes Heart disease Hypercholesteremia Breast cancer Hypertension Uterine cancer Thyroid disease Stroke Social History Substance/Drug Use: former Date of last use: Marijuana. Physical Exam Const: COMMON NORMALS: no acute distress, patient oriented x3 and healthy appearing HENMT: COMMON NORMALS: normocephalic and atraumatic HEAD & SCALP: normocephalic and atraumatic Eye: COMMON NORMALS: conjunctivae normal CONJUNCTIVA: Yes conjunctivae normal Neck/C-Spine: COMMON NORMALS: full ROM and supple Chest: COMMONS NORMALS: normal inspection of the chest and normal palpation of entire chest wall Resp: COMMON NORMALS: normal respiratory effort, No retractions, No use of accessory muscles and clear to auscultation bilaterally AUSCULTATION: clear to auscultation bilaterally Cardio: COMMON NORMALS: regular rate, regular rhythm and No murmurs present (Cardio) RATE: regular rate RHYTHM: regular rhythm GI: COMMON NORMALS: Normal to inspection, nondistended, normoactive bowel sounds present, Soft to palpation, non-tender and no masses PALPATION: Yes Soft to palpation Extremity: COMMON NORMALS: normal to inspection and full ROM Neuro: COMMON NORMALS: patient oriented x3, moves all extremities and no focal motor deficits Psych: COMMON NORMALS: mental status grossly normal, Normal thought process present and cooperative THOUGHT PROCESS: Normal thought process present Skin: COMMON NORMALS: no rashes or lesions noted and no wounds GENERAL SKIN EXAM: no rashes or lesions noted Course Vital Signs: Vital signs: Vital Signs Temperature 98.2 F 04/03/23 13:12 Pulse Rate 71 04/03/23 13:40 Blood Pressure 152/79 04/03/23 13:40 Pulse Oximetry 96 04/03/23 13:40 Oxygen Delivery Me thod Room Air 04/03/23 13:40 MDM - General Adult Medical Decision Making Patient presents here with high blood pressure she refused blood draw she is well-appearing here we will increase her valsartan to 40 mg twice daily she has a normal EKG she is to follow-up with her green lumber grader and return if worsening. Medical Records I reviewed the patient's medical records. Lab Data I reviewed the patient's lab results. EKG Data EKG 1: I personally reviewed and interpreted this EKG as follows: EKG interpretation date: 04/03/23 EKG interpretation time: 13:44 Interpretation: paced hr [address] or t wave abnormalities qrs 86 qtc 450 Discharge Plan Discharge Patient Disposition: Home Clinical Impression: Hypertension Condition: Stable Prescriptions: New valsartan 40 mg tablet 40 mg PO BID Qty: 60 0RF Discontinued valsartan 40 mg tablet 20 mg PO QAM Qty: 90 3RF No Action warfarin 5 mg tablet 5 mg PO QAM montelukast [Singulair] 10 mg tablet 10 mg PO BEDTIME furosemide 20 mg tablet 40 mg PO BID PRN (Reason: edema) Qty: 360 1RF cephalexin 500 mg capsule 500 mg PO TID Qty: 21 0RF metronidazole 0.75 % (37.5mg/5 gram) gel 1 appful vaginal DAILY 5 Days Qty: 70 0RF hydrochlorothiazide 12.5 mg capsule 12.5 mg PO DAILY omeprazole 40 mg Capsule,Delayed Release(Dr/Ec) 40 mg PO QAM Trelegy Ellipta 100-62.5-25 mcg blister with device 1 inh INHALATION DAILY PRN (Reason: unknown) sotalol 80 mg tablet 120 mg PO BID Rx Instructions: 120mg (1.5 tabs) AM and 120mg (1 tab) PM atorvastatin 10 mg tablet 10 mg PO DAILY ibuprofen 800 mg Tablet 800 mg PO Q8H Qty: 30 0RF docusate sodium 100 mg Capsule 100 mg PO BID Qty: 60 0RF aspirin 81 mg Tablet,Delayed Release (Dr/Ec) 81 mg PO BEDTIME levothyroxine 88 mcg tablet 88 mcg PO QAM potassium chloride 10 mEq tablet extended release See Rx Instructions .ROUTE .COMPLEX PRN (Reason: furosemide) Rx Instructions: Take 20mEq in AM and will take 10mEq in PM if needed Discharge Orders: Discharge ED (Routine); Ordered 04/03/23 Ordered By: Laura Cowart Referrals: Lavon Laughlin MD [Primary Care Provider] - Amanda Maravilla MD [Physician] - 1-3 days Discharge Diet: Advance as tolerated Discharge Activity: Resume usual activity Patient Instructions: Hypertension (ED) Coding Level of Care Code ED Balancer for Chg Teresa
[2023-04-03] MEDS: hyDRALAzine 20 mg/mL INJ 1 mL 10 MG IM (13:39)
[2023-04-03 13:40] VITALS: BP 152/79; PULSE 71; O2SAT 96
--- NOTE | 2023-04-03 13:44 | ECG_ITS ---
[facility] Test Date: 2023-04-03 Pat Name: Katie Finch Department: Room: Gender: Female Paraeducator: : 1950 Requested By: Laura Cowart Order Number: [id number] Danielle MD: Fred Quesada M.D. Measurements Intervals [place] Rate: 65 P: 183 MS: 195 QRS: 14 QRSD: 86 T: 9 QT: 439 QTc: 457 Interpretive Statements ELECTRONIC ATRIAL PACEMAKER ABNORMAL RHYTHM ECG Compared to ECG 08/09/2022 12:33:32 Atrial fibrillation no longer present Electronically Signed On 04-03-2023 21:08:20 CDT by Fred Quesada M.D. [id number]
[2023-04-03 13:54] VITALS: BP 152/76; PULSE 67; RESP 16; O2SAT 96
== END 2023-04-03 13:55 | disposition home or self-care (01) ==
PROVIDERS: Emergency Provider Emergency Medicine; PCP Family Medicine
DX: I13.0 Hypertensive heart and chronic kidney disease with heart failure and stage 1 through stage 4 chronic kidney disease, or unspecified chronic kidney disease (principal); E11.22 Type 2 diabetes mellitus with diabetic chronic kidney disease; N18.9 Chronic kidney disease, unspecified; I50.9 Heart failure, unspecified; Z79.01 Long term (current) use of anticoagulants; Z79.82 Long term (current) use of aspirin
CPT/HCPCS: 93005; 96372; 96374; 99284; J0360

== ENCOUNTER 2023-04-26 10:03 | Outpatient (CLI) | payer MEDICARE, MEDICAID, SELFPAY ==
--- NOTE | 2023-04-26 10:20 | CT_ITS ---
WS: [id number] CT chest wo con [id number] HISTORY: 3 MONTH LUNG NODULE FOLLOW UP TECHNIQUE: Axial imaging performed through the thorax. Coronal and sagittal reformats are submitted. All CT scans at [facility] use at least one of these dose optimization techniques: automated exposure control; mA and/or kV adjustment per patient size (includes targeted exams where dose is mat ched to clinical indication); or iterative reconstruction. CONTRAST: None DLP: 414.88 mGy.cm COMPARISON: 02/16/2023 and 07/29/2021 Lungs and central airway: Focal subsolid consolidation is reidentified in the RIGHT upper lobe abutti ng the minor fissure. Consolidation measures 18 x 8 mm without significant increase in size. There is groundglass attenuation surrounding the subsolid nodule. Remains concerning for malignancy. This asy mmetry was not present in 2020. There is an additional stable nodule RIGHT middle lobe measuring 3 mm and a 4 mm nodule along the LEFT fissure. Pleura: Normal. No pleural effusion. Heart and pericardium: Mild cardiomegaly. Mediastinum and reginaldo: No adenopathy. Vessels: Mild atherosclerosis aorta. Normal size pulmonary artery. Chest wall and lower neck: LEFT subclavian dual lead permanent pacer. Upper abdomen: Large hiatal hernia. No adrenal mass. Splenic artery calcifications. Osseous structures: No destructive process. CT/CT chest wo con [id number] IMPRESSION: 1. No significant change in the subsolid consolidation RIGHT upper lobe abutti ng the minor fissure measuring 18 x 8 mm. Still concerning for malignancy. Cons olidation is new since 2020. Consider evaluation by PET/CT imaging or additiona l [address] follow-up. 2. Additional 3 mm RIGHT middle lobe nodule and 4 mm LEFT fissural nodule are stable. 3. Mild atherosclerosis aorta.
== END 2023-04-26 10:04 | disposition home or self-care (01) ==
LOC: RAD 10:03
PROVIDERS: PCP Family Medicine; Visit Provider Family Medicine
DX: R91.1 Solitary pulmonary nodule (principal); R91.8 Other nonspecific abnormal finding of lung field; I70.0 Atherosclerosis of aorta
CPT/HCPCS: 71250

== ENCOUNTER → 2023-04-27 14:01 | Outpatient (BNVA) | payer MEDICARE, MEDICAID, SELFPAY | PROVIDERS: PCP Family Medicine; Visit Provider Internal Medicine Cardiovascular Disease | DX: I48.91 Unspecified atrial fibrillation (principal); Z95.0 Presence of cardiac pacemaker; I50.32 Chronic diastolic (congestive) heart failure; I10 Essential (primary) hypertension; E11.9 Type 2 diabetes mellitus without complications; K21.9 Gastro-esophageal reflux disease without esophagitis | CPT/HCPCS: 93005; 99214 ==

== ENCOUNTER 2023-05-02 13:27 | Outpatient (CLI) | payer MEDICARE, MEDICAID, SELFPAY ==
[2023-05-02 14:42] LABS: Anion Gap 10.9 (5-19); Blood Urea Nitrogen 25 mg/dL (8-23); Calcium 8.7 mg/dL (8.5-10.5); Carbon Dioxide 28 mmol/L (22-29); Chloride 104 mmol/L (98-107); Glomerular Filtration Rate 61.9 mL/min (90-130); Glucose 121 mg/dL (65-115); NT Pro B Type Natriuretic Pept 199 pg/mL (0-125); Osmolality Calculated 294 mOsm/kg (285-295); Potassium 3.9 mmol/L (3.5-5.1); Sodium 139 mmol/L (136-145)
== END 2023-05-02 13:28 | disposition home or self-care (01) ==
PROVIDERS: PCP Family Medicine; Visit Provider Internal Medicine Cardiovascular Disease
DX: I48.91 Unspecified atrial fibrillation (principal); I10 Essential (primary) hypertension; I50.9 Heart failure, unspecified
CPT/HCPCS: 36415; 80048; 83735; 83880

== ENCOUNTER 2023-05-14 05:35 | Outpatient (CLI) | payer MEDICARE, MEDICAID, SELFPAY ==
--- NOTE | 2023-05-14 | PETR_ITS ---
PROCEDURE INFORMATION: Exam: PET/CT Skull Base to Mid-thigh Exam date and time: 05/14/2023 8:25 AM Age: 72 years old Clinical indication: Abnormal findings; CT chest 04/26; Prior surgery; Surgery date: 6+ months; Surgery type: Pacemaker; Additional info: Lung mass LABS AND CLINICAL REPORTS: Glucose: 114 mg/dl Treatment strategy for malignancy (PET staging): Initial Staging (PI) TECHNIQUE: Imaging protocol: Following at least four-hour fasting and following the injection of radiopharmaceutical, low dose CT images were obtained. Then, PET images were obtained. Attenuation corrected images were constructed using the CT scan. Fused images of PET and CT were reviewed. The standardized uptake values (SUV) reported below are maximum values within a region of interest, expressed in gm/ml. Exam includes orbital meatal line to mid-thigh. Radiopharmaceutical: 10.8 mCi F-18 FDG (Fluorodeoxyglucose), IV. Time of imaging post radiopharmaceutical administration: 1 hour Injection site: site COMPARISON: CT chest [facility] [id number] 04/26/2023 10:46 AM FINDINGS: Tubes, catheters and devices: Stable left chest pacemaker. Brain: Visualized brain has normal physiologic uptake. Pharynx: No abnormal uptake. Larynx: No abnormal uptake. Lungs, pleura and trachea: Subsolid right upper lobe predominantly ground-glass nodule measuring 2.5 x 1.3 cm is unchanged when remeasured in the same fashion (series 3, image 49). This does not have significant uptake on PET with SUV max of 1.2. Stable 4 mm nodule along the left major fissure on series 3, image 52 and stable 3 mm nodule right middle lobe on image 55 both below PET resolution. Heart: Stable heart size. Mediastinal space: No abnormal uptake. Diaphragm: Stable [id number] size hiatal hernia. Liver: No abnormal uptake. Gallbladder and bile ducts: No abnormal uptake. Pancreas: No abnormal uptake. Spleen: No abnormal uptake. Adrenal glands: No abnormal uptake. Kidneys and ureters: Normal physiologic uptake. Stomach and bowel: No abnormal uptake. Reproductive: Hysterectomy. Vasculature: No abnormal uptake. Lymph nodes: No abnormal uptake. No lymphadenopathy in the head, neck, chest, abdomen, pelvis, and extremities. Bones/joints: No abnormal uptake in the visualized axial and appendicular skeleton. Soft tissues: No abnormal uptake in the visualized head, neck, chest, abdomen, pelvis, and extremities. PET/PET skulltothigh INITIAL [id number] IMPRESSION: 1. Stable predominantly ground-glass attenuation right upper lobe pulmonary nodule measuring up to 2.5 cm. This does not have significant uptake on PET. This may be a region of scarring related to previous infection, or could be related to lung adenocarcinoma which can be [id number]. Recommend continued follow-up and possible biopsy for further assessment. 2. No other findings suspicious for malignancy on PET.
== END 2023-05-14 05:36 | disposition home or self-care (01) ==
LOC: RAD 05-16 05:35
PROVIDERS: PCP Family Medicine; Visit Provider Family Medicine
DX: R91.8 Other nonspecific abnormal finding of lung field (principal)
CPT/HCPCS: 78815; A9552

== ENCOUNTER 2023-05-18 08:38 | Outpatient (CLI) | payer MEDICARE, MEDICAID, SELFPAY ==
--- NOTE | 2023-05-18 08:45 | USCV_ITS ---
Katie Finch Age: 72 Gender: F : 1950 Exam Date: 05/18/2023 09:05 Ordering Phys: Amanda Maravilla MD ([email or web address]) Technologist: BRIDGETTE Exam Location: [facility] – [place] Indication: POST PACEMAKER BP: 126 / 74 HR: 67 Rhythm: Sinus Technical Quality: Adequate MEASUREMENTS (Male / Female) Normal Values 2D ECHO LVOT Diameter 2.0 cm LV Ejection Fraction MOD 2C 66.0 % LV Ejection Fraction 2C AL 67.5 % LA Diameter 3.1 cm LA Width 3.3 cm LA Height 4.8 cm RA Width 3.4 cm RA Height 5.2 cm Aorta at Sinotubular Diameter 2.7 cm IVC Diameter 1.7 cm M-MODE Aortic Annulus Diameter 2.7 cm LA Ao Ratio MM 1.0 MV E Point Septal Separation 0.7 cm DOPPLER AV Peak Velocity 127.0 cm/s LVOT Peak Velocity 120.0 cm/s AV Area Cont Eq vti 2.7 cm squared AV Area Cont Eq pk 3.0 cm squared MV Peak Velocity 111.0 cm/s MV Area PHT 4.5 cm squared Mitral E to A Ratio 0.8 MV E' Velocity 52.5 cm/s Mitral E to MV E' Ratio 9.6 Mitral E to LV E' Lateral Ratio 8.8 Mitral E to LV E' Septal Ratio 10.7 TR Peak Velocity 267.3 cm/s TR Peak Gradient 28.6 mmHg TR Mean Velocity 274.0 cm/s TR Mean Gradient 31.4 mmHg TR Velocity Time Integral 130.1 cm TV Peak E Velocity 63.0 cm/s Right Atrial Pressure 3.0 mmHg Pulmonary Artery Systolic Pressu 31.6 mmHg PV Peak Velocity 103.0 cm/s RV Acceleration Time 0.1 s RV Ejection Time 0.4 s RV AcT/ET 0.4 FINDINGS Left Ventricle Normal left ventricular size, systolic function and wall thickness, with no regional wall motion abnormalities. Left ventricular ejection fraction is estimated at 65 %. Normal diastolic function. Right Ventricle Normal right ventricular size and systolic function. Right ventricular systolic pressure 47 mmHg. Pacemaker wire visualized in the right ventricle. Right Atrium Mildly increased right atrial size. Pacemaker wire in the right atrial cavity. Left Atrium Mildly increased left atrial size. Mitral Valve Mild mitral annular calcification. Structurally normal mitral valve. No mitral valve stenosis. Mild mitral valve regurgitation. Aortic Valve Structurally normal trileaflet aortic valve. No aortic valve stenosis. Trace to mild aortic valve regurgitation. Tricuspid Valve Structurally normal tricuspid valve. No tricuspid valve stenosis. Mild tricuspid valve regurgitation. Pulmonic Valve Structurally normal pulmonic valve. No pulmonary valve stenosis. Trace pulmonary valve regurgitation. Pericardium No pericardial effusion. Aorta Normal size aortic root and proximal ascending aorta. IVC Normal IVC dimension with >50% respiratory change of the inferior vena cava. CONCLUSIONS 1. Normal left ventricular size, systolic function and wall thickness, with no regional wall motion abnormalities. Left ventricular ejection fraction is estimated at 65 %. Normal diastolic function. 2. Mild biatrial enlargement. 3. Mild mitral and tricuspid valve regurgitation. 4. Mild pulmonary hypertension with pulmonary artery pressure estimated at 47 mmHg. 5. When compared to study dated 01/04/22, mitral regurgitation and aortic regurgitation seems to have improved. Amanda Maravilla MD (Electronically Signed) Final Date: 23 May 2023 17:07 S
== END 2023-05-18 08:39 | disposition home or self-care (01) ==
PROVIDERS: PCP Family Medicine; Visit Provider Internal Medicine Cardiovascular Disease
DX: I07.1 Rheumatic tricuspid insufficiency (principal); I34.0 Nonrheumatic mitral (valve) insufficiency; I27.20 Pulmonary hypertension, unspecified; Z95.0 Presence of cardiac pacemaker
CPT/HCPCS: 93306

== ENCOUNTER → 2023-06-07 14:14 | Outpatient (BNVA) | payer MEDICARE, MEDICAID, SELFPAY | PROVIDERS: PCP Family Medicine; Visit Provider Internal Medicine Pulmonary Disease | DX: J30.2 Other seasonal allergic rhinitis (principal); R06.02 Shortness of breath; R91.8 Other nonspecific abnormal finding of lung field | CPT/HCPCS: 36415; 82785; 86003; 99204 ==

== ENCOUNTER → 2023-06-22 14:15 | Outpatient (BNVA) | payer MEDICARE, MEDICAID, SELFPAY | PROVIDERS: PCP Family Medicine; Visit Provider Internal Medicine Cardiovascular Disease | DX: I48.91 Unspecified atrial fibrillation (principal); Z95.0 Presence of cardiac pacemaker; K21.9 Gastro-esophageal reflux disease without esophagitis; Z87.891 Personal history of nicotine dependence; I13.0 Hypertensive heart and chronic kidney disease with heart failure and stage 1 through stage 4 chronic kidney disease, or unspecified chronic kidney disease; I50.32 Chronic diastolic (congestive) heart failure; E11.22 Type 2 diabetes mellitus with diabetic chronic kidney disease; N18.9 Chronic kidney disease, unspecified; Z79.01 Long term (current) use of anticoagulants | CPT/HCPCS: 99214 ==

== ENCOUNTER → 2023-07-13 10:47 | Outpatient (BNVA) | payer MEDICARE, MEDICAID, SELFPAY | PROVIDERS: PCP Family Medicine; Visit Provider Podiatrist Foot & Ankle Surgery | DX: L60.3 Nail dystrophy; M19.072 Primary osteoarthritis, left ankle and foot | CPT/HCPCS: 73630; 99203 ==

== ENCOUNTER → 2023-09-09 09:12 | Outpatient (BNVA) | payer MEDICARE, MEDICAID, SELFPAY | PROVIDERS: PCP Family Medicine; Visit Provider Internal Medicine Pulmonary Disease | DX: R91.1 Solitary pulmonary nodule (principal); J44.9 Chronic obstructive pulmonary disease, unspecified; Z87.891 Personal history of nicotine dependence; Z79.01 Long term (current) use of anticoagulants; K44.9 Diaphragmatic hernia without obstruction or gangrene; J82.83 Eosinophilic asthma | CPT/HCPCS: 99214 ==

== ENCOUNTER 2023-10-11 06:38 | Outpatient (CLI) | payer MEDICARE, MEDICAID, SELFPAY ==
--- NOTE | 2023-10-11 | XRR_ITS ---
PROCEDURE INFORMATION: Exam: XR Chest Exam date and time: 10/11/2023 12:39 PM Age: 72 years old Clinical indication: Cough; Prior surgery; Surgery date: 6+ months; Surgery type: Pacemaker TECHNIQUE: Imaging protocol: Radiologic exam of the chest. Views: 2 views. COMPARISON: CT chest con [id number] 04/26/2023 10:46 AM FINDINGS: Tubes, catheters and devices: Left-sided pacing device Lungs: Unremarkable. No consolidation. Pleural spaces: Unremarkable. No pleural effusion. No pneumothorax. Heart/Mediastinum: Sliding-type hiatal hernia. Bones/joints: Unremarkable. XR/XR chest 2V* [id number] IMPRESSION: Sliding-type hiatal hernia. No acute process
== END 2023-10-11 06:39 | disposition home or self-care (01) ==
LOC: RADOUTREAD 10-12 06:40
PROVIDERS: PCP Family Medicine; Visit Provider Electrodiagnostic Medicine
DX: R05.9 Cough, unspecified (principal); R06.02 Shortness of breath
CPT/HCPCS: 36415

== ENCOUNTER 2023-10-26 10:50 | Outpatient (CLI) | payer MEDICARE, MEDICAID, SELFPAY ==
--- NOTE | 2023-10-26 11:00 | CT_ITS ---
WS: [id number] CT chest wo con [id number] HISTORY: lung cancer screening TECHNIQUE: Axial imaging performed through the thorax. Coronal and sagittal reformats are submitted. All CT scans at [facility] use at least one of these dose optimization techniques: automated exposure control; mA and/or kV adjustment per patient size (includes targeted exams where dose is mat ched to clinical indication); or iterative reconstruction. CONTRAST: None DLP: 585.73 mGy.cm COMPARISON: PET/CT 05/14/2023, chest CT 04/26/2023 and 02/16/2023 Lungs and central airway: Significant improvement in the groundglass attenuation in the RIGHT upper l obe which abutted the minor fissure. There is still a very vague area of slight increased attenuation but significant overall improvement. The additional 5 mm RIGHT middle lobe nodule and LEFT fissural nodule are stable. None of these findings were positive on the recent PET/CT. There has been no adver se progression or new mass or nodule. Pleura: Normal. No pleural effusion. Heart and pericardium: Normal size heart with no pericardial effusion. Mediastinum and reginaldo: No mediastinum or hilar adenopathy. Vessels: Mild atherosclerosis aorta. No aneurysm. Chest wall and lower neck: No soft tissue masses. Upper abdomen: Large hiatal hernia. Mild bilateral perinephric stranding. No adrenal mass. Visualized liver is negative. Osseous structures: Degenerative osteophytic disease throughout the thoracic spine. IMPRESSION: 1. Marked improvement in the groundglass nodule in the RIGHT upper lobe. There is very minimal hazy a ttenuation persistent but very subtle. This was also negative on the prior PET/CT. No additional imag ing follow-up necessary. 2. No interval change in the previously described bilateral 5 mm RIGHT middle and LEFT perifissural n odules. No new mass or nodule. 3. Atherosclerosis aorta. 4. Large hiatal hernia.
== END 2023-10-26 10:51 | disposition home or self-care (01) ==
LOC: RAD 10:50
PROVIDERS: PCP Family Medicine; Visit Provider Internal Medicine Pulmonary Disease
DX: R91.8 Other nonspecific abnormal finding of lung field (principal)
CPT/HCPCS: 71250

== ENCOUNTER → 2023-11-15 13:34 | Outpatient (BNVA) | payer MEDICARE, MEDICAID, SELFPAY | PROVIDERS: PCP Family Medicine; Visit Provider Nurse Practitioner Family | DX: Z85.828 Personal history of other malignant neoplasm of skin (principal); L57.0 Actinic keratosis; L82.0 Inflamed seborrheic keratosis; L57.8 Other skin changes due to chronic exposure to nonionizing radiation; L81.4 Other melanin hyperpigmentation; D22.4 Melanocytic nevi of scalp and neck | CPT/HCPCS: 17000; 17110; 99203 ==

== ENCOUNTER → 2023-12-08 15:59 | Outpatient (BNVA) | payer MEDICARE, MEDICAID, SELFPAY | PROVIDERS: PCP Family Medicine; Visit Provider Registered Nurse Neonatal Intensive Care | DX: M54.50 Low back pain, unspecified (principal); N39.0 Urinary tract infection, site not specified | CPT/HCPCS: 81000; 87077; 87086; 87184 ==

== ENCOUNTER → 2023-12-14 09:55 | Outpatient (BNVA) | payer MEDICARE, MEDICAID, SELFPAY | PROVIDERS: PCP Family Medicine; Visit Provider Internal Medicine Pulmonary Disease | DX: R91.1 Solitary pulmonary nodule (principal); J44.9 Chronic obstructive pulmonary disease, unspecified; Z87.891 Personal history of nicotine dependence; Z79.01 Long term (current) use of anticoagulants; K44.9 Diaphragmatic hernia without obstruction or gangrene; J82.83 Eosinophilic asthma; I48.91 Unspecified atrial fibrillation; I27.20 Pulmonary hypertension, unspecified; I07.1 Rheumatic tricuspid insufficiency | CPT/HCPCS: 99214 ==

== ENCOUNTER → 2023-12-15 14:49 | Outpatient (BNVA) | payer MEDICARE, MEDICAID, SELFPAY | PROVIDERS: PCP Family Medicine; Visit Provider Internal Medicine Cardiovascular Disease | DX: I13.0 Hypertensive heart and chronic kidney disease with heart failure and stage 1 through stage 4 chronic kidney disease, or unspecified chronic kidney disease (principal); E11.22 Type 2 diabetes mellitus with diabetic chronic kidney disease; N18.9 Chronic kidney disease, unspecified; I50.32 Chronic diastolic (congestive) heart failure; Z95.0 Presence of cardiac pacemaker; Z79.01 Long term (current) use of anticoagulants; I50.812 Chronic right heart failure; I48.91 Unspecified atrial fibrillation | CPT/HCPCS: 99214 ==

== ENCOUNTER 2024-01-04 09:46 | Outpatient (CLI) | payer MEDICARE, MEDICAID, SELFPAY | END 2024-01-04 09:47 | disposition home or self-care (01) | LOC: RT 09:47 | PROVIDERS: PCP Family Medicine; Visit Provider Internal Medicine Pulmonary Disease | DX: J44.9 Chronic obstructive pulmonary disease, unspecified (principal); Z87.891 Personal history of nicotine dependence | CPT/HCPCS: 94010; 94618; 94726; 94729 ==

== ENCOUNTER 2024-01-31 12:21 | Observation (INO) | payer MEDICARE, MEDICAID, SELFPAY ==
[2024-01-26 10:59] LABS: Basophils # 0.1 10^3/uL (0.0-0.1); Basophils % 0.8 %; Eosinophils # 0.5 10^3/uL (0.0-0.8); Hematocrit 38.3 % (36-47); Lymphocytes # 2.3 10^3/uL (0.8-4.8); Lymphocytes % 29.2 %; Mean Corpuscular HGB Conc 32.9 g/dL (30-55); Mean Corpuscular Hemoglobin 31.3 pg (27-33); Mean Corpuscular Volume 95.3 fl (85-98); Mean Platelet Volume 10.6 fL (7.4-10.4); Monocytes # 0.6 10^3/uL (0.2-0.9); Neutrophils # 4.44 10^3/uL (1.8-7.7); Neutrophils % 56.9 %; Nucleated Red Blood Cells % 0 %; Platelet Count 309 10^3/cmm (157-399); Red Blood Count 4.02 10^6/uL (3.85-5.65); Red Cell Distribution Width 13.2 % (12.1-15.1); White Blood Count 7.81 10^3/uL (3.29-11.43)
[2024-01-26 11:18] LABS: Alanine Aminotransferase 12 U/L (0-33); Albumin Level 3.7 g/dL (3.5-5.2); Alkaline Phosphatase 113 U/L (35-105); Anion Gap 16.6 (5-19); Aspartate Amino Transferase 24 U/L (0-32); Blood Urea Nitrogen 20 mg/dL (8-23); Calcium 8.7 mg/dL (8.5-10.5); Carbon Dioxide 27 mmol/L (22-29); Chloride 102 mmol/L (98-107); Globulin 3.7 g/dL (1.3-4.6); Glucose 111 mg/dL (65-115); Osmolality Calculated 297 mOsm/kg (285-295); Potassium 3.6 mmol/L (3.5-5.1); Sodium 142 mmol/L (136-145); Total Bilirubin 0.3 mg/dL (0.15-1.2); Total Protein 7.4 g/dL (6.6-8.7)
[2024-01-26 11:28] LABS: Add Urine Microscopic? YES; Bilirubin Urine Neg (Negative); Blood Urine 2+ (Negative); Glucose Urine UA Norm (Normal); Ketones Urine Negative (Negative); Leukocyte Esterase Urine Negative (Negative); Nitrate Urine Negative (Negative); Protein Urine Neg (Negative); Urine Appearance SL Hazy (CLEAR); Urine Color Yellow (Yellow); Urobilinogen Urine Norm (Negative); pH Urine 5 (5-7)
[2024-01-26 11:39] LABS: Bacteria Urine 2+ /hpf; Other Crystals Urine STARCH /hpf; Oval Fat Bodies Urine RARE /hpf; RBC Urine 0-4 /hpf (0-2)
[2024-01-26 11:40] LABS: Add Urine Culture? Yes
--- NOTE | 2024-01-26 16:56 | P.ANESASSM_ITS ---
Pre-Anesthetic Assessment Height/Weight: Height 1.63 m Preop Diagnosis: Cystocele stage 3, vaginal vault prolapse, Urinary incontinence Operation Date: 01/31/24 07:00 Proposed Procedures p Anterior and posterior colporrhaphy 07489, single incision sling 99044, sacrospinous fixation 63087, N81.10,N39.3(Not Applicable) - MD tamika José Posterior Repair Posterior Colporrhaphy(Not Applicable) - Eyad Asher MD s Sling Single Incision Sling(Not Applicable) - Eyad Asher MD s Sacrospinous Ligament Suspension(Not Applicable) - Eyad Asher MD Familial anesthetic complications: None Social No alcohol and No tobacco Exam alert, oriented x 3, clear to auscultation bilaterally and regular rate & rhythm Airway Mallampati: Class II Dentition: other (multiple missing teeth, no teeth on top) Pulmonary Asthma and Chronic Obstructive Pulmonary Disease allergies CV/HEM Atrial Fibrillation, Arrythmia (pacemaker for SSS) and Hypertension GI Hx hiatal hernia. No surgical repair, but reports it's not troublesome. Metabolic Thyroid Disease Anesthetic Plan ASA status: 3 Anesthesia: General Risk of > 500 ml blood loss (7ml/kg in children): No Medications/Allergies Home Medications Medication Instructions Recorded Confirmed Last Taken Type omeprazole 40 mg capsule,delayed 40 mg PO QAM 01/11/20 01/26/24 01/26/24 History release montelukast 10 mg tablet 10 mg PO BEDTIME 06/08/21 01/26/24 01/25/24 History (Singulair) warfarin 5 mg tablet 5 mg PO QAM 03/08/22 01/26/24 01/25/24 History aspirin 81 mg tablet,delayed 81 mg PO BEDTIME 08/09/22 01/26/24 01/25/24 History release levothyroxine 88 mcg tablet 88 mcg PO QAM 08/09/22 01/26/24 01/26/24 History atorvastatin 10 mg tablet 10 mg PO DAILY 01/31/23 01/26/24 01/25/24 History furosemide 20 mg tablet 40 mg (2 x 20 mg) PO BID PRN edema 08/16/23 01/26/24 Unknown Rx #360 tabs valsartan 40 mg tablet 40 mg PO BID #180 tabs 08/23/23 01/26/24 01/26/24 Rx budesonide-formoterol HFA 80 2 puff inhalation BID #10.2 grams 09/09/23 01/26/24 Unknown Rx mcg-4.5 mcg/actuation aerosol inhaler (Symbicort) potassium chloride 20 mEq 20 meq PO BID furosemide #180 tabs 11/18/23 01/26/24 Unknown Rx tablet,extended release sotalol 80 mg tablet 120 mg PO BID 12/15/23 01/26/24 01/26/24 History hydrochlorothiazide 12.5 mg capsule 12.5 mg PO BID 01/26/24 01/26/24 01/26/24 History loratadine 10 mg tablet (Claritin) 10 mg PO DAILY PRN Allergy Symptoms 01/26/24 01/26/24 01/25/24 History Allergies Allergy/AdvReac Type Severity Reaction Status Date / Time codeine Allergy ADR-Vomitin Verified 01/26/24 09:50 g Sulfa (Sulfonamide Allergy Unknown Verified 01/26/24 09:50 Antibiotics) Tetanus Vaccines and Toxoid Allergy Unknown Verified 01/26/24 09:50 PFS Anesthesia Medical History Arthritis, midfoot Sick sinus syndrome Cystocele History of nonmelanoma skin cancer Chest pain Aortic regurgitation Mitral regurgitation Left foot pain Hammertoe, bilateral Hiatal hernia History of cardioversion CHF (congestive heart failure) Atrial fibrillation New onset of congestive heart failure -BNP-3052 -imaging not indicative of fluid overload; not overtly decompensated; could be secondary to A.fib with RVR -Echo as noted above -on oral Lasix Chronic anticoagulation -on Coumadin Anxiety GERD (gastroesophageal reflux disease) Diabetes Hypertension Chronic kidney disease Hypothyroidism -TSH wnl -on levothyroxine Rhinitis Deviated septum Surgical History S/P cardiac pacemaker procedure History of colonoscopy History of umbilical hernia repair H/O esophagogastroduodenoscopy (10/01/21) H/O knee surgery bilateral knees H/O: hysterectomy H/O tubal ligation History of hernia surgery History 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, was malignant Family History Denies family history of Colon cancer Ovarian cancer Diabetes Heart disease Hypercholesteremia Breast cancer Hypertension Uterine cancer Thyroid disease Stroke Data Anesthesia 01/26/24 10:13 01/26/24 10:13 Short CBC 01/26/24 Range/Units 10:13 WBC 7.81 (3.29-11.43) 10^3/uL Hgb 12.60 (11.27-16.99) g/dL Hct 38.3 (36-47) % MCV 95.3 (85-98) fl Plt Count 309 (157-399) 10^3/cmm Neut % (Auto) 56.9 % Neut # (Auto) 4.44 (1.8-7.7) 10^3/uL BMP 01/26/24 10:13 Sodium 142 Potassium 3.6 Chloride 102 Carbon Dioxide 27 BUN 20 Creatinine 0.9 Glucose 111 Calcium 8.7 Liver Function 01/26/24 Range/Units 10:13 Total Bilirubin 0.3 (0.15-1.2) mg/dL AST 24 (0-32) U/L ALT 12 (0-33) U/L Alkaline Phosphatase 113 H (35-105) U/L Albumin 3.7 (3.5-5.2) g/dL Urine 01/26/24 Range/Units 10:13 Urine Color Yellow (Yellow) Urine Appearance Sl hazy A (CLEAR) Urine pH 5 (5-7) Ur Specific [place] 1.010 (1.005-1.030) Urine Protein Neg (Negative) Urine Glucose (UA) Norm (Normal) Urine Ketones Negative (Negative) Urine Nitrate Negative (Negative) Urine Bilirubin Neg (Negative) Ur Leukocyte Esterase Negative (Negative) Urine RBC 0-4 H (0-2) /hpf Urine WBC 5-10 H (0-5) /hpf Blood Bank 01/26/24 10:13 Blood Type O Positive Rho(D) Type Rh positive Antibody Screen Negative Cardiac Studies: 2 Echocardiogram 05/18/23 Echocardiogram Ultrasound 06/23/20 Transesophageal Echocardiogram 03/24/21 Sestamibi Stress Test (Cardiology) 03/02 Holter Monitor 04/01/21
[2024-01-31] VITALS (17 sets, daily range): BP systolic 120–185; BP diastolic 65–101; PULSE 64–81; RESP 13–20; TEMP 36.2–36.7; O2SAT 95–100; BMI 44.6
[2024-01-31] MEDS: sodium chloride 0.9% 1,000 ML 30 ML IV (08:55)
[2024-01-31] MEDS: enoxaparin 40 mg/0.4 mL Syringe SUBCUT (09:13)
[2024-01-31 09:27] LABS: INR 1.16 (0.8-1.2)
[2024-01-31] MEDS: labetalol 5 mg/mL SDV 20mL 10 MG IVP (09:31)
--- NOTE | 2024-01-31 09:43 | W.PM.OPSUD ---
Surgery/Procedure H&P Update DATE OF PROCEDURE: January 31, 2024 DATE H&P PERFORMED: 01/23/24 H&P UPDATE INFORMATION: I have reviewed H&P completed within last 30 days, I have examined patient prior to procedure and No changes to prior documentation PREOP DIAGNOSIS: Cystocele stage 3, vaginal vault prolapse, Urinary incontinence PLANNED PROCEDURE: Operation Date: 01/31/24 09:50 Proposed Procedures p Anterior and posterior colporrhaphy 46536, single incision sling 28352, sacrospinous fixation 30725, N81.10,N39.3(Not Applicable) - Eyad Asher MD s Posterior Repair Posterior Colporrhaphy(Not Applicable) - Eyad Asher MD s Sling Single Incision Sling(Not Applicable) - Eyad Asher MD s Sacrospinous Ligament Suspension(Not Applicable) - Eyad Asher MD
[2024-01-31] MEDS: ceFAZolin 3,000 MG in sodium chloride 0.9% (100 ml) 100 ML 200 MG IV (10:21)
[2024-01-31] MEDS: lidocaine-epi 2% PF 1:200,000 20 mL SDV INJECTION (11:06)
--- NOTE | 2024-01-31 12:08 | PM.OP ---
Operative Report Date of procedure: January 31, 2024 Pre-op diagnosis: Cystocele stage III Stress urinary incontinence Vaginal vault prolapse Post-op diagnosis: Cystocele stage III Stress incontinence Procedure done: Anterior colporrhaphy augmented with allograft Single incision mid urethral sling Implants: Coloplast Altis sling Surgeon: Eyad Asher MD Estimated blood loss (mL): 25 IV fluids (mL): 700 Urine output (mL): 500 Complications: None Procedure: After obtaining informed consent, the patient was taken to the operating room and placed in the supine position, given general anesthesia, and prepped and draped in sterile fashion. The abdomen, vulva and vagina were prepped and draped in a sterile manner. A time out procedure was performed. The anterior vaginal mucosa beneath the midurethra was infiltrated with 2% lidocaine with epinephrine. A vertical midline incision was made beneath the midurethra, nearly 1.5 cm length. Careful submucosal dissection was performed bilaterally up to the interior portion of the inferior pubic ramus. The insertion of adductor longus tendon on the patient?s pubic ramus was identified as reference land charlene. Palpated the notch along the internal edge of ischiopubic ramus where the adductor longus tendon and the inferior pubic ramus meet. The Altis single incision sling (SIS) was selected. Then the needle of the SIS inserted aiming at the location of this notch. One of the integrated self-fixating tips place onto the needle by sliding it over the end of the needle. The needle/sling assembly was inserted toward the location of identified reference notch making sure that the flat of the handle is perpendicular to the desired path. The needle was tracked along the posterior surface of the ischiopubic ramus until the midline charlene on the mesh is approximately at the midline position under the urethra. The needle was removed and the same was repeated on the contralateral side until the appropriate sling tension under the urethra was achieved ensuring that the mesh lays flat. The needle was removed and vaginal incision was closed in a running interlocking fashion with 2-0 Vicryl. The vaginal mucosa was then injected in the midline with normal saline. The vaginal mucosa was scored in the midline with the Bovie approximately 1 cm medial to the urethral meatus to 1 cm distal to the vaginal cuff. This vaginal mucosa was then undermined and then incised in the midline with the Metzenbaum scissors. The lateral aspects of the vaginal mucosa were then grasped with the Allis clamps and the vaginal mucosa was then dissected off the underlying fascia with the Metzenbaum scissors. Again, there was noted to be quite a bit of oozing at the incision, which was controlled with cautery. After adequate dissection was performed, bilaterally. An Coloplast dermis allograft was modified at time of application to fit spacea, 4 x 4 cm piece. Coloplast allograft was placed in front of cystocele ready to be implanted facing the vagina mucosa. Suture is placed at distal end of graft and placed towards vaginal cuff. Final suture is placed on proximal portion of the graft to complete the placement overlying the bladder. Then Interrupted vertical mattress sutures of 0 Vicryl were used to elevate the cystocele superiorly. The excessive vaginal mucosa was then trimmed with the Metzenbaum scissors and the vaginal mucosa was then reapproximated in the running interlocking fashion with 2-0 Vicryl. Then the Gomez catheter was removed and cystoscope was inserted. The bladder was filled with sterile water. Complete evaluation of the bladder mucosa was performed noting no lacerations, dimpling, tears, bleeding of the mucosa or muscular layers. Both ureteral orifices were identified. Prompt excretion of urine from both ureteral orifices was noted. Cystoscope was withdrawn. The Gomez catheter was replaced. Excellent hemostasis was obtained. A vaginal pack is placed overnight as postoperative support for the vaginal tissues after graft placement and closure of vaginal incisions. Sponge, lap, needle, and instrument counts were correct times three. The patient was taken to the recovery room, awake and in stable condition.
--- NOTE | 2024-01-31 12:45 | ANE.PACU2 ---
Inpatient post-anesthesia follow up: Airway intact: Yes Vital signs: Temperature 97.1 F Pulse Rate 71 Respiratory Rate 18 Blood Pressure 142/67 Pulse Oximetry 95 Oxygen Delivery Me thod Room Air Oxygen Flow Rate 8 Fraction of Inspir ed Oxygen Hydration adequate: Yes Nausea and vomiting: No Pain level: 1 Mental status: Baseline
--- NOTE | 2024-01-31 13:02 | PC.NURSE ---
1240 - Report called to KYRIE Resendez OB - RN notified of vaginal packing
[2024-01-31] MEDS: dextrose 5%-lactated ringers 1,000 ML 125 ML IV ×2 (13:09→22:31)
[2024-01-31] MEDS: ketorolac 30 mg/mL INJ IVP ×2 (13:09→19:56)
[2024-01-31] MEDS: HYDROcodone-acetaminophen 5-325 mg Tablet PO ×2 (16:02→22:03)
[2024-01-31] MEDS: docusate sodium 100 mg Capsule PO (19:56)
[2024-01-31] MEDS: hydroCHLOROthiazide 25 mg Tablet 12.5 MG PO (19:56)
[2024-01-31] MEDS: losartan 50 mg Tablet 25 MG PO (19:57)
[2024-01-31] MEDS: simethicone 80 mg Chew PO (19:58)
[2024-01-31] MEDS: aspirin 81 mg EC Tablet PO (20:00)
[2024-01-31] MEDS: potassium chloride ER 20 mEq Tablet PO (20:00)
[2024-01-31] MEDS: sotalol 80 mg Tablet 120 MG PO (20:00)
[2024-01-31] MEDS: montelukast sodium 10 mg Tablet PO (20:00)
[2024-01-31] MEDS: albuterol 2.5 mg/3 mL Neb INHALATION ×2 (22:51→22:52)
[2024-01-31] MEDS: budesonide 0.5 mg/2 mL Neb INHALATION (22:51)
[2024-02-01] MEDS: ketorolac 30 mg/mL INJ IVP (02:07)
[2024-02-01] MEDS: sodium chloride 0.9% 500 ML IV (02:07)
[2024-02-01] MEDS: FUROsemide 40 mg Tablet PO (02:37)
[2024-02-01 05:39] VITALS: BP 157/86; PULSE 69; RESP 17; TEMP 36.8
[2024-02-01] MEDS: levothyroxine 88 mcg Tablet PO (05:40)
[2024-02-01] MEDS: pantoprazole DR 40 mg Tablet PO (05:40)
[2024-02-01] MEDS: warfarin 5 mg Tablet PO (05:40)
--- NOTE | 2024-02-01 05:51 | PC.NURSE ---
Vaginal packing removed, patient tolerated procedure well; will continue to monitor condition.
[2024-02-01 06:00] LABS: Hematocrit 34.9 % (36-47); Mean Corpuscular HGB Conc 33.5 g/dL (30-55); Mean Corpuscular Hemoglobin 32.1 pg (27-33); Mean Corpuscular Volume 95.6 fl (85-98); Mean Platelet Volume 10.5 fL (7.4-10.4); Platelet Count 276 10^3/cmm (157-399); Red Blood Count 3.65 10^6/uL (3.85-5.65); Red Cell Distribution Width 13.2 % (12.1-15.1); White Blood Count 15.65 10^3/uL (3.29-11.43)
[2024-02-01] MEDS: HYDROcodone-acetaminophen 5-325 mg Tablet PO (06:01)
[2024-02-01] MEDS: simethicone 80 mg Chew PO (06:02)
--- NOTE | 2024-02-01 08:20 | P.DS_ITS ---
Discharge Providers [facility] Date of Admission: 01/31/24 12:21 Date of Discharge: 02/01/24 Attending Provider at Admission: Eyad Asher MD Attending Provider at Discharge: Eyad Asher MD Primary Care Provider: Lavon Laughlin MD Reason for Visit Reason for Visit: N39.3, N81.10 Hospital Course Hospital Course Mrs. Finch 73-year-old female, admitted for anterior colporrhaphy and single incision mid urethral sling. The procedures were performed without complication. Overnight observation was uneventful. PVR within normal limits. Tolerating diet well. Ambulating without difficulty. Pain well and controlled. She was counseled regarding pelvic rest for 6 weeks (no sex, no tampons, no vaginal douches). Return to the emergency room if any fever, increased bleeding or pain. Physical Exam Narrative: GA: Alert and oriented ?3. HEENT: WNL. Heart: Regular rate and rhythm. Lungs: Clear to auscultation bilaterally. Abdomen: Bowel sounds present, nontender. 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 Extremities: No edema, no cyanosis, no calves pain. Urinary Catheter Management: Gomez: Cath Placed During This Visit: yes, but has since been removed by the nurse Reason for Continuing Indwelling Catheter: Decision to DC Catheter Urinary Catheter Date of Insertion: 01/31/24 Urinary Catheter Time of Insertion: 10:52 Date Urinary Catheter Removed: 02/01/24 Time Urinary Catheter Discontinued: 05:52 History History History 5 Term 4 0 Miscarriages/Ectopic 1 Living Children 4 Discharge Data Studies Completed and Pending Laboratory Results WBC 15.65 10^3/uL (3.29-11.43) H 02/01/24 05:50 RBC 3.65 10^6/uL (3.85-5.65) L 02/01/24 05:50 Hgb 11.70 g/dL (11.27-16.99) 02/01/24 05:50 Hct 34.9 % (36-47) L 02/01/24 05:50 MCV 95.6 fl (85-98) 02/01/24 05:50 MCH 32.1 pg (27-33) 02/01/24 05:50 MCHC 33.5 g/dL (30-55) 02/01/24 05:50 RDW 13.2 % (12.1-15.1) 02/01/24 05:50 Plt Count 276 10^3/cmm (157-399) 02/01/24 05:50 MPV 10.5 fL (7.4-10.4) H 02/01/24 05:50 Neut % (Auto) 56.9 % 01/26/24 10:13 Lymph % (Auto) 29.2 % 01/26/24 10:13 [place] % (Auto) 7.0 % 01/26/24 10:13 Eos % (Auto) 6.0 % 01/26/24 10:13 Baso % (Auto) 0.8 % 01/26/24 10:13 Neut # (Auto) 4.44 10^3/uL (1.8-7.7) 01/26/24 10:13 Lymph # (Auto) 2.3 10^3/uL (0.8-4.8) 01/26/24 10:13 [place] # (Auto) 0.6 10^3/uL (0.2-0.9) 01/26/24 10:13 Eos # (Auto) 0.5 10^3/uL (0.0-0.8) 01/26/24 10:13 Baso # (Auto) 0.1 10^3/uL (0.0-0.1) 01/26/24 10:13 Nucleated RBC % (auto) 0 % 01/26/24 10:13 Nucleated RBCs # 0.0 /100WBC 01/26/24 10:13 PT 15.20 SECONDS (12.1-14.9) H 01/31/24 08:48 INR 1.16 (0.8-1.2) 01/31/24 08:48 Sodium 142 mmol/L (136-145) 01/26/24 10:13 Potassium 3.6 mmol/L (3.5-5.1) 01/26/24 10:13 Chloride 102 mmol/L (98-107) 01/26/24 10:13 Carbon Dioxide 27 mmol/L (22-29) 01/26/24 10:13 Anion Gap 16.6 (5-19) 01/26/24 10:13 BUN 20 mg/dL (8-23) 01/26/24 10:13 Creatinine 0.9 mg/dL (0.5-0.9) 01/26/24 10:13 GFR Calculation Not Reportable 01/26/24 10:13 Glucose 111 mg/dL (65-115) 01/26/24 10:13 Calculated Osmolality 297 mOsm/kg (285-295) H 01/26/24 10:13 Calcium 8.7 mg/dL (8.5-10.5) 01/26/24 10:13 Total Bilirubin 0.3 mg/dL (0.15-1.2) 01/26/24 10:13 AST 24 U/L (0-32) 01/26/24 10:13 ALT 12 U/L (0-33) 01/26/24 10:13 Alkaline Phosphatase 113 U/L (35-105) H 01/26/24 10:13 Total Protein 7.4 g/dL (6.6-8.7) 01/26/24 10:13 Albumin 3.7 g/dL (3.5-5.2) 01/26/24 10:13 Globulin 3.7 g/dL (1.3-4.6) 01/26/24 10:13 Urine Color Yellow (Yellow) 01/26/24 10:13 Urine Appearance Sl hazy (CLEAR) A 01/26/24 10:13 Urine pH 5 (5-7) 01/26/24 10:13 Ur Specific [place] 1.010 (1.005-1.030) 01/26/24 10:13 Urine Protein Neg (Negative) 01/26/24 10:13 Urine Glucose (UA) Norm (Normal) 01/26/24 10:13 Urine Ketones Negative (Negative) 01/26/24 10:13 Urine Blood 2+ (Negative) H 01/26/24 10:13 Urine Nitrate Negative (Negative) 01/26/24 10:13 Urine Bilirubin Neg (Negative) 01/26/24 10:13 Urine Urobilinogen Norm mg/dL (Negative) 01/26/24 10:13 Ur Leukocyte Esterase Negative (Negative) 01/26/24 10:13 Urine RBC 0-4 /hpf (0-2) H 01/26/24 10:13 Urine WBC 5-10 /hpf (0-5) H 01/26/24 10:13 Ur Squamous Epith Cells 5-10 /hpf (0-5) H 01/26/24 10:13 Other Crystals Starch /hpf 01/26/24 10:13 Amorphous Sediment Not Reportable 01/26/24 10:13 Urine Bacteria 2+ /hpf (NONE) H 01/26/24 10:13 Urine Mucus None /hpf 01/26/24 10:13 Ur Oval Fat Bodies Rare /hpf 01/26/24 10:13 Blood Type O Positive 01/31/24 08:48 Rho(D) Type Rh positive 01/31/24 08:48 Antibody Screen Negative 01/31/24 08:48 Vitals Last Vital Signs Temp 98.2 F 02/01/24 05:39 Pulse 69 02/01/24 05:39 Resp 17 02/01/24 05:39 BP 157/86 02/01/24 05:39 Pulse Ox 97 01/31/24 22:53 O2 Del Method Room Air 02/01/24 05:39 O2 Flow Rate 8 01/31/24 12:17 Results Labs OB ([facility]): Blood Type O Positive 01/31/24 Antibody Screen Negative 01/31/24 Hct 34.9 % (36-47) L 02/01/24 Hgb 11.70 g/dL (11.27-16.99) 02/01/24 Rho(D) Type Rh positive 01/31/24 Plt Count 276 10^3/cmm (157-399) 02/01/24 TSH 4.39 uIU/mL (0.27-4.20) H 02/04/22 Free T4 1.02 ng/dL (0.82-1.77) 02/04/22 Micro Urine Specimen 01/26/24 Discharge Plan Discharge Patient Disposition: Home Condition: Stable Prescriptions: New hydrocodone-acetaminophen 5-325 mg tablet 1 tab PO Q4H PRN (Reason: pain) Qty: 10 0RF acetaminophen 325 mg capsule 325 mg PO Q4H PRN (Reason: fever or pain) Qty: 60 0RF docusate sodium [Colace] 100 mg capsule 100 mg PO BID Qty: 60 0RF ibuprofen 800 mg tablet 800 mg PO TID PRN (Reason: pain) Qty: 60 0RF Continued warfarin 5 mg tablet 5 mg PO QAM montelukast [Singulair] 10 mg tablet 10 mg PO BEDTIME budesonide-formoterol [Symbicort] 80-4.5 mcg/actuation HFA aerosol inhaler 2 puff inhalation BID Qty: 10.2 3RF sotalol 80 mg tablet 120 mg PO BID furosemide 20 mg tablet 40 mg PO BID PRN (Reason: edema) Qty: 360 1RF valsartan 40 mg tablet 40 mg PO BID Qty: 180 3RF potassium chloride 20 mEq tablet extended release 20 meq PO BID Qty: 180 0RF omeprazole 40 mg Capsule,Delayed Release(Dr/Ec) 40 mg PO QAM atorvastatin 10 mg tablet 10 mg PO DAILY aspirin 81 mg Tablet,Delayed Release (Dr/Ec) 81 mg PO BEDTIME levothyroxine 88 mcg tablet 88 mcg PO QAM loratadine [Claritin] 10 mg Tablet 10 mg PO DAILY PRN (Reason: Allergy Symptoms) hydrochlorothiazide 12.5 mg capsule 12.5 mg PO BID Rx Instructions: Take 2 capsules by mouth once daily Discharge Orders: Discharge Order (Routine); Ordered 02/01/24 Ordered By: Eyad Asher Referrals: Eyad Asher MD [Physician] - 03/16/24 9:45 am Irasema Hernandez APN, WHNP [Nurse Practitioner] - 02/15/24 9:45 am Discharge Diet: Usual diet Discharge Activity: Limit activity as instructed Patient Instructions: Bladder Sling for Women (GEN), Anterior Vaginal Repair (GEN), Opioid Safety Activity Restrictions/Additional Instructions: 1. Please call [facility] on next working day to make your post-operative appointment in 2 weeks. 2. Please stay home until you come back to the clinic on first post- hospatilization check up. 3. Please follow instructions on your medications CAREFULLY. 4. If you have abdominal incision, do not cover it unless dressing is necessary because of drainage. OK to shower, but avoid bath. Leave steri-strips until they fall off. If they are still on one week after surgery, you may remove them. 5. If you had vaginal surgery or vaginal repair, Dr. Asher may instruct you to take SITZ bath. 6. Yellow, blood tinged odorous vaginal discharge is usually normal after hysterectomy or vaginal surgeries. 7. No SEXUAL INTERCOURSE, tampons, or douches until you are completely released from the post-operative care. 8. Avoid constipation by eating right and maybe using some Metamucil or Milk of Magnesia. 9. All prescription refills are given during the working hours. Please do no wait till it runs out. Call the clinic at [phone] before your medication runs out. The clinic will get in touch with your doctor to prescribe medications if necessary. 10. Please remain within 40 mile radius from our hospital because emergencies do happen now and then during the post-operative period. 11. If you have stairs at home, take one step at a time slowly and minimize the number of trips. It helps to stay in one floor for the next few days. No lifting except what you can lift by one hand until you are released from the post-operative care. 12. Driving is discouraged until you are well healed. It may be 3-4 weeks before you feel strong enough to drive. You should be able to turn and look th rough the rear window without pain and you should be able to push the brake pedal very hard without pain before you drive. No fast rules, but SAFETY should be your primary concern. DO NOT drive if you are on sedating medications such as narcotics. 13. Call the clinic (during working hours) to make urgent appointment or go to the Emergency room, if any of the following occurs: i. Vaginal bleeding becomes heavy, more than a period. ii. Incision becomes red and sore, or drains pus. iii. Your TEMPERATURE is over 100.4F or you have chill. iv. IV site becomes red and swollen (a little ``knot?? is usually OK) v. Persistent nausea and vomiting vi. Persistent constipation or diarrhea vii. Rash or allergic reaction to medications. Discharge Attestations [facility] Time Spent in Discharge Care*: greater than 30 min Status at Discharge: Cognitive status at discharge: cognitively intact , Behavioral status at discharge: cooperative , Coding Level of Care Code Acute Code for Chg Fwnati
[2024-02-01 10:37] VITALS: BP 136/73; PULSE 72; RESP 16; TEMP 36.7
== END 2024-02-01 10:55 | disposition home or self-care (01) ==
LOC: OBGYN 12:21
PROVIDERS: Admitting Provider Obstetrics & Gynecology; PCP Family Medicine; Visit Provider Obstetrics & Gynecology
PROC: 0JQC0ZZ Repair Pelvic Region Subcutaneous Tissue and Fascia, Open Approach (ICD-10-PCS; CPT 57240; principal; 2024-01-31 09:40)
PROC: (CPT 57288; 2024-01-31 09:40)
DX: N81.3 Complete uterovaginal prolapse (principal); N39.3 Stress incontinence (female) (male); I48.91 Unspecified atrial fibrillation; Z95.0 Presence of cardiac pacemaker; Z79.01 Long term (current) use of anticoagulants; F41.9 Anxiety disorder, unspecified; I12.9 Hypertensive chronic kidney disease with stage 1 through stage 4 chronic kidney disease, or unspecified chronic kidney disease; N18.9 Chronic kidney disease, unspecified; Z79.82 Long term (current) use of aspirin
CPT/HCPCS: 57240; 57288; 36415; 51798; 80053; 81001; 85025; 85027; 85610; 86850; 86900; 87077; 87086; 87186; 94640; C1713; C1762; G0378; J0131; J0690; J1100; J1650; J1885; J2371; J2405; J2704; J2710; J3010; J3490; J7030; J7040; J7121; J7613; J7626

== ENCOUNTER → 2024-02-01 13:00 | Outpatient (BNVA) | payer MEDICARE, MEDICAID, SELFPAY | PROVIDERS: PCP Family Medicine; Visit Provider Internal Medicine Cardiovascular Disease | DX: Z45.010 Encounter for checking and testing of cardiac pacemaker pulse generator [battery] (principal) | CPT/HCPCS: 93296 ==

== ENCOUNTER 2024-02-20 15:32 | Outpatient (CLI) | payer MEDICARE, MEDICAID, SELFPAY ==
--- NOTE | 2024-02-20 15:38 | MM_ITS ---
WS: [id number] BILATERAL SCREENING DIGITAL TOMOSYNTHESIS MAMMOGRAM WITH CAD HISTORY: SCREENING COMPARISON: 02/16/2023, 01/27/2022 Bilateral CC and MLO views with tomosynthesis and synthetic mammography submitted. Computer aided det ection analyzed. Breast composition: There are scattered areas of fibroglandular density. No suspicious masses, microc alcifications or architectural distortion. Moderate bilateral breast arterial calcifications. IMPRESSION: MM/[place] [id number] BI-RADS: 2-Benign FOLLOW UP: 1 Year Follow-up
== END 2024-02-20 15:33 | disposition home or self-care (01) ==
LOC: RAD 15:32
PROVIDERS: PCP Family Medicine; Visit Provider Family Medicine
DX: Z12.31 Encounter for screening mammogram for malignant neoplasm of breast (principal)
CPT/HCPCS: 77063; 77067

== ENCOUNTER → 2024-03-16 10:22 | Outpatient (BNVA) | payer MEDICARE, MEDICAID, SELFPAY | PROVIDERS: PCP Family Medicine; Visit Provider Obstetrics & Gynecology | DX: R39.9 Unspecified symptoms and signs involving the genitourinary system (principal) | CPT/HCPCS: 81000 ==

== ENCOUNTER 2024-03-17 03:56 | Emergency (ER) | payer MEDICARE, MEDICAID, SELFPAY ==
[2024-03-17 03:58] VITALS: BP 172/117; PULSE 72; RESP 20; TEMP 36.6; O2SAT 97; BMI 44.6
--- NOTE | 2024-03-17 03:58 | XRR_ITS ---
PROCEDURE INFORMATION: Exam: XR Chest Exam date and time: 03/17/2024 4:07 AM Age: 73 years old Clinical indication: Chest pressure; Prior surgery; Surgery date: 6+ months; Surgery type: Pacer; Patient HX: C/O chest pain TECHNIQUE: Imaging protocol: Radiologic exam of the chest. Views: 1 view. COMPARISON: CT chest con [id number] 10/26/2023 11:12 AM FINDINGS: Tubes, catheters and devices: A cardiac pacing device is again seen projecting over the left chest. Lungs: See Heart/Mediastinum finding. Pleural spaces: Unremarkable. No pleural effusion. No pneumothorax. Heart/Mediastinum: Hiatal hernia with adjacent atelectasis in the left lung base noted. No consolidation. Stable cardiomediastinal silhouette. Bones/joints: Unremarkable. XR/XR chest 1V portable [id number] IMPRESSION: No evidence of active cardiopulmonary disease.
--- NOTE | 2024-03-17 03:58 | ECG_ITS ---
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 Measurements Intervals Delta Rate: 81 P: 145 NH: 198 QRS: -3 QRSD: 92 T: -3 QT: 391 QTc: 456 Interpretive Statements ELECTRONIC ATRIAL PACEMAKER ABNORMAL RHYTHM ECG Compared to ECG 10/04/2023 10:44:37 No significant changes Electronically Signed On 03-17-2024 19:31:41 CDT by Fred Quesada M.D. [email or web address]
[2024-03-17 04:09] VITALS: BP 172/117; PULSE 80; RESP 18; O2SAT 98
--- NOTE | 2024-03-17 04:10 | ED_ITS ---
Documented by User: Mikel Nguyen DO 03/17/24 04:12 HPI - Chest Pain 2 General: Chief Complaint: Chest Pain Stated Complaint: Chest tightness, Headace, Neck pain, pacemaker pt Time Seen by Provider: 03/17/24 03:58 History of Present Illness: Patient presents to the ER ER with complaints of just not feeling well. Patient stated that she did not feel well yesterday. When she went to bed she felt she could not lie as flat as normal because of the pressure in her chest. Patient then set up a little bit and went to sleep and then she woke up this morning feeling panicky feeling her heart was palpating and going slow and speeding up. Patient does have a pacemaker. Patient does not have chest tightness or pain at this moment but she still does not feel well. Patient sees Dr. Quesada for cardiology. Patient does have a history of A-fib and is on Coumadin Review of Systems 2 General: Reports: 10 or more systems reviewed and unremarkable except in HPI and below PFSH ED 2 PFSH: Medical History Arthritis, midfoot Sick sinus syndrome Cystocele History of nonmelanoma skin cancer Chest pain Aortic regurgitation Mitral regurgitation Left foot pain Hammertoe, bilateral Hiatal hernia History of cardioversion CHF (congestive heart failure) Atrial fibrillation New onset of congestive heart failure -[id number] -imaging not indicative of fluid overload; not overtly decompensated; could be secondary to A.fib with RVR -Echo as noted above -on oral Lasix Chronic anticoagulation -on Coumadin Anxiety GERD (gastroesophageal reflux disease) Diabetes Hypertension Chronic kidney disease Hypothyroidism -TSH wnl -on levothyroxine Rhinitis Deviated septum Surgical History History of anterior colporrhaphy (~01/31/24) Anterior colporrhaphy augmented with allograft, single incision mid urethral sling performed by Dr. Asher at [facility] for stage III cystocele, stress urinary incontinence and vaginal vault prolapse. S/P cardiac pacemaker procedure History of colonoscopy History of umbilical hernia repair H/O esophagogastroduodenoscopy (10/01/21) H/O knee surgery bilateral knees H/O: hysterectomy H/O tubal ligation History of hernia surgery History 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, was malignant Family History Denies family history of Colon cancer Ovarian cancer Diabetes Heart disease Hypercholesteremia Breast cancer Hypertension Uterine cancer Thyroid disease Stroke Physical Exam 2 Const: COMMON NORMALS: no acute distress, average body habitus, patient oriented x3, no limitations, healthy appearing, alert and well nourished HENMT: COMMON NORMALS: normocephalic, atraumatic, hearing grossly normal bilaterally, external ears normal, Normal external nose present, moist oral mucous membranes and oropharynx normal HEAD & SCALP: normocephalic and atraumatic NOSE: Normal external nose present EXTERNAL EAR: Yes external ears normal Neck/C-Spine: COMMON NORMALS: full ROM, no lymphadenopathy, supple, no meningeal signs, no JVD and Thyroid normal THYROID: Thyroid normal Chest: COMMONS NORMALS: normal inspection of the chest and normal palpation of entire chest wall Resp: COMMON NORMALS: normal respiratory effort, No retractions, No use of accessory muscles and clear to auscultation bilaterally AUSCULTATION: clear to auscultation bilaterally Cardio: COMMON NORMALS: no JVD, regular rate, regular rhythm, S1 normal heart sound present, S2 normal heart sound present, No gallops present (Cardio), No clicks present (Cardio), No murmurs present (Cardio) and No rub (Cardio) R ATE: regular rate RHYTHM: regular rhythm HEART SOUNDS: S1 normal heart sound present and S2 normal heart sound present GI: COMMON NORMALS: Normal to inspection, nondistended, normoactive bowel sounds present, Soft to palpation, non-tender, No hepatosplenomegaly present and no masses PALPATION: Yes Soft to palpation and Yes No hepatosplenomegaly present Neuro: COMMON NORMALS: patient oriented x3 SENSORIUM/ORIENTATION: Yes alert MENINGEAL SIGNS: Yes no meningeal signs Course 2 Vital Signs: Vital signs: Vital Signs Temperature 97.8 F 03/17/24 03:58 Pulse Rate 62 03/17/24 06:39 Respiratory Rate 18 03/17/24 06:39 Blood Pressure 198/128 03/17/24 06:39 Pulse Oximetry 100 03/17/24 06:39 Oxygen Delivery Me thod Room Air 03/17/24 06:39 MDM - Chest Pain Differential Diagnosis Unlikely acute massive pulmonary embolism, acute respiratory failure, acute myocardial infarction, cardiac arrest or sudden cardiac Medical Records I reviewed the patient's medical records. Lab Data I reviewed the patient's lab results. 03/17/24 04:07 03/17/24 04:07 Radiology Impressions Chest X-Ray 03/17/24 03:58 IMPRESSION: No evidence of active cardiopulmonary disease. Laboratory Results WBC 8.86 10^3/uL (3.29-11.43) 03/17/24 04:07 RBC 3.95 10^6/uL (3.85-5.65) 03/17/24 04:07 Hgb 12.60 g/dL (11.27-16.99) 03/17/24 04:07 Hct 38.1 % (36-47) 03/17/24 04:07 MCV 96.5 fl (85-98) 03/17/24 04:07 MCH 31.9 pg (27-33) 03/17/24 04:07 MCHC 33.1 g/dL (30-55) 03/17/24 04:07 RDW 13.2 % (12.1-15.1) 03/17/24 04:07 Plt Count 267 10^3/cmm (157-399) 03/17/24 04:07 MPV 10.5 fL (7.4-10.4) H 03/17/24 04:07 Neut % (Auto) 53.2 % 03/17/24 04:07 Lymph % (Auto) 32.1 % 03/17/24 04:07 Gosper % (Auto) 6.7 % 03/17/24 04:07 Eos % (Auto) 7.1 % 03/17/24 04:07 Baso % (Auto) 0.8 % 03/17/24 04:07 Neut # (Auto) 4.72 10^3/uL (1.8-7.7) 03/17/24 04:07 Lymph # (Auto) 2.8 10^3/uL (0.8-4.8) 03/17/24 04:07 Gosper # (Auto) 0.6 10^3/uL (0.2-0.9) 03/17/24 04:07 Eos # (Auto) 0.6 10^3/uL (0.0-0.8) 03/17/24 04:07 Baso # (Auto) 0.1 10^3/uL (0.0-0.1) 03/17/24 04:07 Nucleated RBC % (auto) 0 % 03/17/24 04:07 Nucleated RBCs # 0.0 /100WBC 03/17/24 04:07 PT 27.60 SECONDS (12.1-14.9) H 03/17/24 04:07 INR 2.46 (0.8-1.2) H 03/17/24 04:07 Sodium 141 mmol/L (136-145) 03/17/24 04:07 Potassium 3.4 mmol/L (3.5-5.1) L 03/17/24 04:07 Chloride 102 mmol/L (98-107) 03/17/24 04:07 Carbon Dioxide 27 mmol/L (22-29) 03/17/24 04:07 Anion Gap 15.4 (5-19) 03/17/24 04:07 BUN 20 mg/dL (8-23) 03/17/24 04:07 Creatinine 1.2 mg/dL (0.5-0.9) H 03/17/24 04:07 GFR Calculation Not Reportable 03/17/24 04:07 Glucose 116 mg/dL (65-115) H 03/17/24 04:07 Calculated Osmolality 296 mOsm/kg (285-295) H 03/17/24 04:07 Calcium 8.8 mg/dL (8.5-10.5) 03/17/24 04:07 Total Bilirubin 0.2 mg/dL (0.15-1.2) 03/17/24 04:07 AST 18 U/L (0-32) 03/17/24 04:07 ALT 12 U/L (0-33) 03/17/24 04:07 Alkaline Phosphatase 119 U/L (35-105) H 03/17/24 04:07 Troponin T Baseline 7 ng/L (0-10) 03/17/24 04:07 Troponin T 120 Minute 10.07 ng/L (0-10) H 03/17/24 06:34 Delta Troponin T 3.07 ABS# (0-10) 03/17/24 06:34 NT-Pro-B Natriuret Pep 529 pg/mL (0-125) H 03/17/24 04:07 Total Protein 7.5 g/dL (6.6-8.7) 03/17/24 04:07 Albumin 3.6 g/dL (3.5-5.2) 03/17/24 04:07 Globulin 3.9 g/dL (1.3-4.6) 03/17/24 04:07 All radiology interpretation(s) finalized by discharge Discharge Plan Discharge Patient Disposition: Home Clinical Impression: Atrial fibrillation Qualifiers: Atrial fibrillation type: unspecified Qualified Code(s): I48.91 - Unspecified atrial fibrillation Hypertension Qualifiers: Hypertension type: primary hypertension Qualified Code(s): I10 - Essential (primary) hypertension Condition: Stable Prescriptions: No Action warfarin 5 mg tablet 5 mg PO QAM Rx Instructions: 5mg one day and then 4mg the next day montelukast [Singulair] 10 mg tablet 10 mg PO BEDTIME budesonide-formoterol [Symbicort] 160-4.5 mcg/actuation HFA aerosol inhaler 2 puff inhalation BID Qty: 10.2 3RF sotalol 80 mg tablet 120 mg PO BID oxybutynin chloride 5 mg tablet extended release 24hr 5 mg PO DAILY Qty: 30 0RF nitrofurantoin monohyd/m-cryst 100 mg capsule 100 mg PO Q12H 7 Days Qty: 14 0RF Rx Instructions: must administer with a meal/food furosemide 20 mg tablet 40 mg PO BID PRN (Reason: edema) Qty: 360 1RF valsartan 40 mg tablet 40 mg PO BID Qty: 180 3RF omeprazole 40 mg Capsule,Delayed Release(Dr/Ec) 40 mg PO QAM aspirin 81 mg Tablet,Delayed Release (Dr/Ec) 81 mg PO BEDTIME levothyroxine 88 mcg tablet 88 mcg PO QAM loratadine [Claritin] 10 mg Tablet 10 mg PO DAILY hydrochlorothiazide 12.5 mg capsule 25 mg PO DAILY Rx Instructions: Take 2 capsules by mouth once daily warfarin 4 mg tablet 4 mg PO EVERY OTHER DAY Rx Instructions: on days after 5 mg rosuvastatin 5 mg tablet 5 mg PO DAILY metronidazole 500 mg tablet 500 mg PO BID potassium chloride 20 mEq tablet extended release 20 meq PO BID PRN (Reason: with lasix) Discharge Orders: Discharge ED (Routine); Ordered 03/17/24 Ordered By: Radha Hernandez Referrals: Lavon Laughlin MD [Primary Care Provider] - (You have been screened and evaluated and felt safe for discharge. Health conditions do change or evolve sometimes and as such it is important that you follow up with your Primary Doctor to be re checked, 3-5 days is a general good time frame for follow up. You are always welcome to return to the ED for re assessment if your symptoms are worsening or you have new concerns) Discharge Diet: Usual diet Discharge Activity: Increase activity as tolerated Patient Instructions: A-fib (Atrial Fibrillation) (ED), Opioid Safety, Pain Management Coding Level of Care Code ED Biological Sciences Instructor for Chg Fwd Documented by User: Radha Hernandez MD 03/17/24 07:44 HPI - Chest Pain 2 General: Chief Complaint: Chest Pain Stated Complaint: Chest tightness, Headace, Neck pain, pacemaker pt Time Seen by Provider: 03/17/24 03:58 PFSH ED 2 PFSH: Medical History Arthritis, midfoot Sick sinus syndrome Cystocele History of nonmelanoma skin cancer Chest pain Aortic regurgitation Mitral regurgitation Left foot pain Hammertoe, bilateral Hiatal hernia History of cardioversion CHF (congestive heart failure) Atrial fibrillation New onset of congestive heart failure -BNP-3052 -imaging not indicative of fluid overload; not overtly decompensated; could be secondary to A.fib with RVR -Echo as noted above -on oral Lasix Chronic anticoagulation -on Coumadin Anxiety GERD (gastroesophageal reflux disease) Diabetes Hypertension Chronic kidney disease Hypothyroidism -TSH wnl -on levothyroxine Rhinitis Deviated septum Surgical History History of anterior colporrhaphy (~01/31/24) Anterior colporrhaphy augmented with allograft, single incision mid urethral sling performed by Dr. Asher at [facility] for stage III cystocele, stress urinary incontinence and vaginal vault prolapse. S/P cardiac pacemaker procedure History of colonoscopy History of umbilical hernia repair H/O esophagogastroduodenoscopy (10/01/21) H/O knee surgery bilateral knees H/O: hysterectomy H/O tubal ligation History of hernia surgery History 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, was malignant Family History Denies family history of Colon cancer Ovarian cancer Diabetes Heart disease Hypercholesteremia Breast cancer Hypertension Uterine cancer Thyroid disease Stroke Course 2 Vital Signs: Vital signs: Vital Signs Temperature 97.8 F 03/17/24 03:58 Pulse Rate 62 03/17/24 06:39 Respiratory Rate 18 03/17/24 06:39 Blood Pressure 198/128 03/17/24 06:39 Pulse Oximetry 100 03/17/24 06:39 Oxygen Delivery Or thod Room Air 03/17/24 06:39 MDM - Chest Pain Medical Decision Making Patient care was transitioned to la this morning at shift change. Awaiting second troponin and interrogation of pacemaker. Patient's INR is therapeutic at 2.47. Troponin remain negative. Blood pressure has been a bit high at times but has resolved spontaneously. Interrogation of the pacemaker showed that she did have an episode where she was in A-fib for about an hour and a half. She is now back into sinus rhythm. Lab Data 03/17/24 04:07 03/17/24 04:07 Radiology Impressions Chest X-Ray 03/17/24 03:58 IMPRESSION: No evidence of active cardiopulmonary disease. Laboratory Results WBC 8.86 10^3/uL (3.29-11.43) 03/17/24 04:07 RBC 3.95 10^6/uL (3.85-5.65) 03/17/24 04:07 Hgb 12.60 g/dL (11.27-16.99) 03/17/24 04:07 Hct 38.1 % (36-47) 03/17/24 04:07 MCV 96.5 fl (85-98) 03/17/24 04:07 MCH 31.9 pg (27-33) 03/17/24 04:07 MCHC 33.1 g/dL (30-55) 03/17/24 04:07 RDW 13.2 % (12.1-15.1) 03/17/24 04:07 Plt Count 267 10^3/cmm (157-399) 03/17/24 04:07 MPV 10.5 fL (7.4-10.4) H 03/17/24 04:07 Neut % (Auto) 53.2 % 03/17/24 04:07 Lymph % (Auto) 32.1 % 03/17/24 04:07 Gosper % (Auto) 6.7 % 03/17/24 04:07 Eos % (Auto) 7.1 % 03/17/24 04:07 Baso % (Auto) 0.8 % 03/17/24 04:07 Neut # (Auto) 4.72 10^3/uL (1.8-7.7) 03/17/24 04:07 Lymph # (Auto) 2.8 10^3/uL (0.8-4.8) 03/17/24 04:07 Gosper # (Auto) 0.6 10^3/uL (0.2-0.9) 03/17/24 04:07 Eos # (Auto) 0.6 10^3/uL (0.0-0.8) 03/17/24 04:07 Baso # (Auto) 0.1 10^3/uL (0.0-0.1) 03/17/24 04:07 Nucleated RBC % (auto) 0 % 03/17/24 04:07 Nucleated RBCs # 0.0 /100WBC 03/17/24 04:07 PT 27.60 SECONDS (12.1-14.9) H 03/17/24 04:07 INR 2.46 (0.8-1.2) H 03/17/24 04:07 Sodium 141 mmol/L (136-145) 03/17/24 04:07 Potassium 3.4 mmol/L (3.5-5.1) L 03/17/24 04:07 Chloride 102 mmol/L (98-107) 03/17/24 04:07 Carbon Dioxide 27 mmol/L (22-29) 03/17/24 04:07 Anion Gap 15.4 (5-19) 03/17/24 04:07 BUN 20 mg/dL (8-23) 03/17/24 04:07 Creatinine 1.2 mg/dL (0.5-0.9) H 03/17/24 04:07 GFR Calculation Not Reportable 03/17/24 04:07 Glucose 116 mg/dL (65-115) H 03/17/24 04:07 Calculated Osmolality 296 mOsm/kg (285-295) H 03/17/24 04:07 Calcium 8.8 mg/dL (8.5-10.5) 03/17/24 04:07 Total Bilirubin 0.2 mg/dL (0.15-1.2) 03/17/24 04:07 AST 18 U/L (0-32) 03/17/24 04:07 ALT 12 U/L (0-33) 03/17/24 04:07 Alkaline Phosphatase 119 U/L (35-105) H 03/17/24 04:07 Troponin T Baseline 7 ng/L (0-10) 03/17/24 04:07 Troponin T 120 Minute 10.07 ng/L (0-10) H 03/17/24 06:34 Delta Troponin T 3.07 ABS# (0-10) 03/17/24 06:34 NT-Pro-B Natriuret Pep 529 pg/mL (0-125) H 03/17/24 04:07 Total Protein 7.5 g/dL (6.6-8.7) 03/17/24 04:07 Albumin 3.6 g/dL (3.5-5.2) 03/17/24 04:07 Globulin 3.9 g/dL (1.3-4.6) 03/17/24 04:07 Discharge Plan Discharge Patient Disposition: Home Clinical Impression: Atrial fibrillation Qualifiers: Atrial fibrillation type: unspecified Qualified Code(s): I48.91 - Unspecified atrial fibrillation Hypertension Qualifiers: Hypertension type: primary hypertension Qualified Code(s): I10 - Essential (primary) hypertension Condition: Stable Prescriptions: No Action warfarin 5 mg tablet 5 mg PO QAM Rx Instructions: 5mg one day and then 4mg the next day montelukast [Singulair] 10 mg tablet 10 mg PO BEDTIME budesonide-formoterol [Symbicort] 160-4.5 mcg/actuation HFA aerosol inhaler 2 puff inhalation BID Qty: 10.2 3RF sotalol 80 mg tablet 120 mg PO BID oxybutynin chloride 5 mg tablet extended release 24hr 5 mg PO DAILY Qty: 30 0RF nitrofurantoin monohyd/m-cryst 100 mg capsule 100 mg PO Q12H 7 Days Qty: 14 0RF Rx Instructions: must administer with a meal/food furosemide 20 mg tablet 40 mg PO BID PRN (Reason: edema) Qty: 360 1RF valsartan 40 mg tablet 40 mg PO BID Qty: 180 3RF omeprazole 40 mg Capsule,Delayed Release(Dr/Ec) 40 mg PO QAM aspirin 81 mg Tablet,Delayed Release (Dr/Ec) 81 mg PO BEDTIME levothyroxine 88 mcg tablet 88 mcg PO QAM loratadine [Claritin] 10 mg Tablet 10 mg PO DAILY hydrochlorothiazide 12.5 mg capsule 25 mg PO DAILY Rx Instructions: Take 2 capsules by mouth once daily warfarin 4 mg tablet 4 mg PO EVERY OTHER DAY Rx Instructions: on days after 5 mg rosuvastatin 5 mg tablet 5 mg PO DAILY metronidazole 500 mg tablet 500 mg PO BID potassium chloride 20 mEq tablet extended release 20 meq PO BID PRN (Reason: with lasix) Discharge Orders: Discharge ED (Routine); Ordered 03/17/24 Ordered By: Radha Hernandez Referrals: Lavon Laughlin MD [Primary Care Provider] - (You have been screened and evaluated and felt safe for discharge. Health conditions do change or evolve sometimes and as such it is important that you follow up with your Primary Doctor to be re checked, 3-5 days is a general good time frame for follow up. You are always welcome to return to the ED for re assessment if your symptoms are worsening or you have new concerns) Discharge Diet: Usual diet Discharge Activity: Increase activity as tolerated Patient Instructions: A-fib (Atrial Fibrillation) (ED), Opioid Safety, Pain Management Coding Level of Care Code ED Biological Sciences Instructor for Xenia Moore
[2024-03-17 04:11] LABS: Basophils # 0.1 10^3/uL (0.0-0.1); Basophils % 0.8 %; Eosinophils # 0.6 10^3/uL (0.0-0.8); Eosinophils % 7.1 %; Hematocrit 38.1 % (36-47); Lymphocytes # 2.8 10^3/uL (0.8-4.8); Lymphocytes % 32.1 %; Mean Corpuscular HGB Conc 33.1 g/dL (30-55); Mean Corpuscular Hemoglobin 31.9 pg (27-33); Mean Corpuscular Volume 96.5 fl (85-98); Mean Platelet Volume 10.5 fL (7.4-10.4); Monocytes # 0.6 10^3/uL (0.2-0.9); Monocytes % 6.7 %; Neutrophils # 4.72 10^3/uL (1.8-7.7); Neutrophils % 53.2 %; Nucleated Red Blood Cells % 0 %; Platelet Count 267 10^3/cmm (157-399); Red Blood Count 3.95 10^6/uL (3.85-5.65); Red Cell Distribution Width 13.2 % (12.1-15.1); White Blood Count 8.86 10^3/uL (3.29-11.43)
[2024-03-17 04:24] LABS: INR 2.46 (0.8-1.2)
[2024-03-17 04:33] LABS: Troponin(5th) Baseline 7 ng/L (0-10)
[2024-03-17 04:46] LABS: Alanine Aminotransferase 12 U/L (0-33); Albumin Level 3.6 g/dL (3.5-5.2); Alkaline Phosphatase 119 U/L (35-105); Anion Gap 15.4 (5-19); Aspartate Amino Transferase 18 U/L (0-32); Blood Urea Nitrogen 20 mg/dL (8-23); Calcium 8.8 mg/dL (8.5-10.5); Carbon Dioxide 27 mmol/L (22-29); Chloride 102 mmol/L (98-107); Creatinine Clr Calc Pharmacy 54.3012; Globulin 3.9 g/dL (1.3-4.6); Glucose 116 mg/dL (65-115); NT Pro B Type Natriuretic Pept 529 pg/mL (0-125); Osmolality Calculated 296 mOsm/kg (285-295); Potassium 3.4 mmol/L (3.5-5.1); Sodium 141 mmol/L (136-145); Total Bilirubin 0.2 mg/dL (0.15-1.2); Total Protein 7.5 g/dL (6.6-8.7)
[2024-03-17 06:01] VITALS: BP 163/114; PULSE 64; RESP 17; O2SAT 97
[2024-03-17 06:39] VITALS: BP 198/128; PULSE 62; RESP 18; O2SAT 100
[2024-03-17 07:01] LABS: Troponin 5 2HR 10.07 ng/L (0-10); Troponin 5 2HR Delta 3.07 ABS# (0-10)
[2024-03-17 07:30] VITALS: BP 139/84; PULSE 60; RESP 20; O2SAT 100
--- NOTE | 2024-03-17 07:42 | PC.NURSE ---
this nurse spoke with [employer] technical support representative regarding interrogation of pacemaker @[id number] per technical support representative, on 03/17/2024 pt had episode of a-fib with duration of 1 hour and 20 min. average HR of 124 BPM. rep states pt is paced 96% RA, 0% RV. [employer] rep states he will fax report over.
[2024-03-17 07:56] VITALS: BP 139/84; PULSE 60; RESP 20; O2SAT 100
== END 2024-03-17 07:57 | disposition home or self-care (01) ==
PROVIDERS: Emergency Medicine; Emergency Provider Emergency Medicine; PCP Family Medicine
DX: I48.91 Unspecified atrial fibrillation (principal); I10 Essential (primary) hypertension; Z79.82 Long term (current) use of aspirin; Z79.01 Long term (current) use of anticoagulants; I13.0 Hypertensive heart and chronic kidney disease with heart failure and stage 1 through stage 4 chronic kidney disease, or unspecified chronic kidney disease; E11.22 Type 2 diabetes mellitus with diabetic chronic kidney disease; N18.9 Chronic kidney disease, unspecified; I50.9 Heart failure, unspecified; Z95.0 Presence of cardiac pacemaker
CPT/HCPCS: 71045; 80053; 83880; 84484; 85025; 85610; 93005; 99285

== ENCOUNTER → 2024-06-11 15:48 | Outpatient (BNVA) | payer MEDICARE, MEDICAID, SELFPAY | PROVIDERS: PCP Family Medicine; Visit Provider Internal Medicine Cardiovascular Disease | DX: R06.02 Shortness of breath (principal); I48.91 Unspecified atrial fibrillation; R07.9 Chest pain, unspecified | CPT/HCPCS: 80048; 84443; 93005; 99214 ==

== ENCOUNTER → 2024-06-20 09:22 | Outpatient (BNVA) | payer MEDICARE, MEDICAID, SELFPAY | PROVIDERS: PCP Family Medicine; Visit Provider Internal Medicine | DX: Z45.010 Encounter for checking and testing of cardiac pacemaker pulse generator [battery] (principal) | CPT/HCPCS: 93296 ==

== ENCOUNTER → 2024-09-13 08:30 | Outpatient (BNVA) | payer MEDICARE, MEDICAID, SELFPAY | PROVIDERS: PCP Family Medicine; Visit Provider Podiatrist Foot & Ankle Surgery | DX: L60.0 Ingrowing nail (principal); L60.8 Other nail disorders | CPT/HCPCS: 99213 ==

== ENCOUNTER 2024-09-18 10:19 | Outpatient (CLI) | payer MEDICARE, MEDICAID, SELFPAY ==
--- NOTE | 2024-09-18 10:24 | XRR_ITS ---
PROCEDURE INFORMATION: Exam: XR Thoracic Spine Exam date and time: 09/18/2024 10:47 AM Age: 73 years old Clinical indication: Pain in thoracic spine; Additional info: Upper back pain TECHNIQUE: Imaging protocol: Radiologic exam of the thoracic spine. Views: 3 views. COMPARISON: PT PET skull to thigh INIT [id number] 05/14/2023 8:25 AM FINDINGS: Bones/joints: The thoracic spine maintains a normal kyphotic curvature. No spondylolisthesis identified. The vertebral bodies maintain normal height. Multilevel loss of intervertebral disc height with endplate degenerative changes. Soft tissues: Unremarkable. XR/XR thoracic spine 3V* [id number] IMPRESSION: Multilevel degenerative changes in the thoracic spine.
--- NOTE | 2024-09-18 10:24 | XRR_ITS ---
PROCEDURE INFORMATION: Exam: XR Cervical Spine Exam date and time: 09/18/2024 10:47 AM Age: 73 years old Clinical indication: Neck pain; Additional info: Chronic neck pain TECHNIQUE: Imaging protocol: Radiologic exam of the cervical spine. Views: 2 or 3 views. COMPARISON: PT PET skull to thigh INIT [id number] 05/14/2023 8:25 AM FINDINGS: Bones/joints: The cervical spine demonstrates mild straightening of the normal lordotic curvature. No spondylolisthesis identified. The vertebral bodies maintain normal height. Minimal multilevel loss of intervertebral disc height in the mid cervical spine with anterior osteophytic formation. Mild multilevel facet arthropathy. Soft tissues: Unremarkable. XR/XR cervical spine 3V* [id number] IMPRESSION: Multilevel degenerative changes in the cervical spine.
== END 2024-09-18 10:20 | disposition home or self-care (01) ==
LOC: RAD 10:20
PROVIDERS: PCP Family Medicine; Visit Provider Family Medicine
DX: M51.34 Other intervertebral disc degeneration, thoracic region (principal); M50.30 Other cervical disc degeneration, unspecified cervical region
CPT/HCPCS: 72040; 72072

== ENCOUNTER → 2024-09-27 09:00 | Outpatient (BNVA) | payer MEDICARE, MEDICAID, SELFPAY | PROVIDERS: PCP Family Medicine; Visit Provider Podiatrist Foot & Ankle Surgery | DX: L60.8 Other nail disorders (principal); L60.0 Ingrowing nail | CPT/HCPCS: 11750 ==

== ENCOUNTER → 2024-10-15 09:30 | Outpatient (BNVA) | payer MEDICARE, MEDICAID, SELFPAY | PROVIDERS: PCP Family Medicine; Visit Provider Podiatrist Foot & Ankle Surgery | DX: Z98.890 Other specified postprocedural states (principal) | CPT/HCPCS: 99213 ==

== ENCOUNTER 2024-10-29 12:18 | Outpatient (CLI) | payer MEDICARE, MEDICAID, SELFPAY ==
--- NOTE | 2024-10-29 12:25 | XR_ITS ---
WS: [id number] Exam: XR lumbar spine f/e only [id number] Date/Time of Exam: 10/29/2024 12:27 PM Reason For Exam: VERTEBROGENIC LOW BACK PAIN No fracture noted. Mild disc space thinning at T12-L1, L3-4, L4-5 and L5-S1. Facet arthropathy at all levels. No significant flexion or extension instability. Mild spondylosis. Osteopenia. XR/XR lumbar spine f/e only [id number] IMPRESSION: 1. Moderately advanced degenerative changes as above. 2. No fracture or significant instability identified.
== END 2024-10-29 12:19 | disposition home or self-care (01) ==
LOC: RAD 12:20
PROVIDERS: PCP Family Medicine; Visit Provider Nurse Practitioner
DX: M47.896 Other spondylosis, lumbar region (principal); M85.80 Other specified disorders of bone density and structure, unspecified site
CPT/HCPCS: 72120

== ENCOUNTER 2024-11-06 07:40 | Outpatient (CLI) | payer MEDICARE, MEDICAID, SELFPAY ==
--- NOTE | 2024-11-06 07:45 | CT_ITS ---
WS: [id number] LDCT LUNG CANCER SCREENING TECHNIQUE: Noncontrast CT of the chest with coronal and sagittal reformatted images. CLINICAL INFORMATION: Z87.891 - Personal history of nicotine dependence COMPARISON: CT chest 10/26/2023 DLP: 112.20 mGy.cm DIvol: Mean CTDIvol: 2.70 (mGy) All CT scans at [facility] use at least one of these dose optimization techniques: automat ed exposure control; mA and/or kV adjustment per patient size (includes targeted exams where dose is matched to clinical indication); or iterative reconstruction. FINDINGS: Stable previously described 5 mm RIGHT middle lobe and LEFT perifissural nodules. Mild thoracic kyphosis. Hypertrophic changes thoracic spine. Normal caliber thoracic aorta. Aortic ca lcification. No mediastinal or hilar lymphadenopathy. Coronary calcification. No axillary lymphadenop athy. Large esophageal hiatal hernia. Splenic artery calcification. Adrenal glands are normal. CT/CT lung screening [id number] IMPRESSION: LUNG-RADS: FOLLOW UP:
== END 2024-11-06 07:41 | disposition home or self-care (01) ==
LOC: RAD 07:41
PROVIDERS: PCP Family Medicine; Visit Provider Family Medicine
DX: Z87.891 Personal history of nicotine dependence (principal); Z12.2 Encounter for screening for malignant neoplasm of respiratory organs; R91.8 Other nonspecific abnormal finding of lung field; M51.34 Other intervertebral disc degeneration, thoracic region; I70.0 Atherosclerosis of aorta; I25.84 Coronary atherosclerosis due to calcified coronary lesion; K44.9 Diaphragmatic hernia without obstruction or gangrene; D73.89 Other diseases of spleen
CPT/HCPCS: 71271

== ENCOUNTER 2024-11-23 21:52 | Emergency (ER) | payer MEDICARE, MEDICAID, SELFPAY ==
[2024-11-23 21:58] VITALS: BP 153/73; PULSE 83; RESP 18; TEMP 37.6; O2SAT 96; BMI 30.9
[2024-11-23 22:52] LABS: Influenza A NEGATIVE (Negative); Influenza B NEGATIVE (Negative); Respiratory Syncytial Virus Ce NEGATIVE (Negative)
[2024-11-23 23:18] LABS: Covid PCR Positive (Negative)
--- NOTE | 2024-11-24 00:16 | ED_ITS ---
HPI - URI/Sore Throat General: Chief Complaint: Upper Respiratory Infection Stated Complaint: n/v headache mixed up meds Time Seen by Provider: 11/23/24 22:37 History of Present Illness: The patient presents today with a chief complaint of feeling worse after a brief period of improvement from a recent illness. The patient reports having been sick a couple of weeks ago, feeling better two days ago, and now experiencing a relapse of symptoms. The patient has tested negative for flu and COVID previously. Current symptoms include fever, nausea, and a dry cough. The patient has a history of COPD and is currently using inhalers, such as Albuterol. The patient expresses concern about the potential impact of their current illness on their COPD. The patient has been in contact with a 6-year-old who has been staying at a [facility]'s house and may have been exposed to illness there. Related Data Home Medications Medication Instructions Recorded Confirmed omeprazole 40 mg capsule,delayed 40 mg PO QAM 01/11/20 10/15/24 release montelukast 10 mg tablet 10 mg PO BEDTIME 06/08/21 10/15/24 (Singulair) aspirin 81 mg tablet,delayed 81 mg PO BEDTIME 08/09/22 10/15/24 release levothyroxine 88 mcg tablet 88 mcg PO QAM 08/09/22 10/15/24 sotalol 80 mg tablet 120 mg PO BID 12/15/23 10/15/24 loratadine 10 mg tablet (Claritin) 10 mg PO DAILY 01/26/24 10/15/24 warfarin 5 mg tablet 5 mg PO QAM 02/15/24 10/15/24 metronidazole 500 mg tablet 500 mg PO BID 03/17/24 10/15/24 rosuvastatin 5 mg tablet 5 mg PO DAILY 03/17/24 10/15/24 warfarin 4 mg tablet 4 mg PO EVERY OTHER DAY 03/17/24 10/15/24 Previous Rx's Medication Instructions Recorded furosemide 20 mg tablet 40 mg (2 x 20 mg) PO BID PRN edema 08/16/23 #360 tabs budesonide-formoterol HFA 160 2 puff inhalation BID #10.2 grams 02/23/24 mcg-4.5 mcg/actuation aerosol inhaler (Symbicort) nitrofurantoin 100 mg PO Q12H 7 days #14 caps 03/16/24 monohydrate/macrocrystals 100 mg capsule oxybutynin chloride 5 mg 5 mg PO DAILY #30 tabs 03/16/24 tablet,extended release 24 hr hydrochlorothiazide 12.5 mg capsule 25 mg (2 x 12.5 mg) PO DAILY #180 04/10/24 caps potassium chloride 20 mEq See Rx Instructions .Route 07/24/24 tablet,extended release .COMPLEX #60 tabs mupirocin 2 % topical ointment 1 applic topical BID 2 weeks #22 09/27/24 grams valsartan 40 mg tablet 40 mg PO BID #180 tabs 09/27/24 metoprolol tartrate 25 mg tablet 12.5 mg (1/2 x 25 mg) PO BID #30 10/25/24 tabs nirmatrelvir 300 mg (150 mg See Rx Instructions PO .COMPLEX 11/24/24 x2)-ritonavir 100 mg tablet,dose #30 ea pack (Paxlovid) Allergies Allergy/AdvReac Type Severity Reaction Status Date / Time codeine Allergy ADR-Vomitin Verified 11/23/24 22:01 g Sulfa (Sulfonamide Allergy Unknown Verified 11/23/24 22:01 Antibiotics) Tetanus Vaccines and Toxoid Allergy Unknown Verified 11/23/24 22:01 Review of Systems General: Reports: 10 or more systems reviewed and unremarkable except in HPI and below PFSH ED PFSH: Medical History Arthritis, midfoot Sick sinus syndrome Cystocele History of nonmelanoma skin cancer Chest pain Aortic regurgitation Mitral regurgitation Left foot pain Hammertoe, bilateral Hiatal hernia History of cardioversion CHF (congestive heart failure) Atrial fibrillation New onset of congestive heart failure -BNP-3052 -imaging not indicative of fluid overload; not overtly decompensated; could be secondary to A.fib with RVR -Echo as noted above -on oral Lasix Chronic anticoagulation -on Coumadin Anxiety GERD (gastroesophageal reflux disease) Diabetes Hypertension Chronic kidney disease Hypothyroidism -TSH wnl -on levothyroxine Rhinitis Deviated septum Surgical History History of anterior colporrhaphy (~01/31/24) Anterior colporrhaphy augmented with allograft, single incision mid urethral sling performed by Dr. Asher at [facility] for stage III cystocele, stress urinary incontinence and vaginal vault prolapse. S/P cardiac pacemaker procedure History of colonoscopy History of umbilical hernia repair H/O esophagogastroduodenoscopy (10/01/21) H/O knee surgery bilateral knees H/O: hysterectomy H/O tubal ligation History of hernia surgery History 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, was malignant Family History Denies family history of Colon cancer Ovarian cancer Diabetes Heart disease Hypercholesteremia Breast cancer Hypertension Uterine cancer Thyroid disease Stroke Social History Smoking and tobacco/nicotine status: former use of tobacco/nicotine Physical Exam Const: COMMON NORMALS: no acute distress, patient oriented x3, healthy appearing, alert and well nourished HENMT: COMMON NORMALS: normocephalic HEAD & SCALP: normocephalic Eye: COMMON NORMALS: EOMs intact bilaterally Neck/C-Spine: COMMON NORMALS: full ROM and supple Resp: COMMON NORMALS: normal respiratory effort, No retractions and clear to auscultation bilaterally AUSCULTATION: clear to auscultation bilaterally Cardio: COMMON NORMALS: regular rate, regular rhythm, No gallops present (Cardio) and No murmurs present (Cardio) RATE: regular rate RHYTHM: regular rhythm GI: COMMON NORMALS: Soft to palpation and non-tender PALPATION: Yes Soft to palpation Extremity: GENERAL: Yes normal exam except as noted Neuro: COMMON NORMALS: patient oriented x3 SENSORIUM/ORIENTATION: Yes alert Skin: COMMON NORMALS: no rashes or lesions noted GENERAL SKIN EXAM: no rashes or lesions noted Course Vital Signs: Vital signs: Vital Signs Temperature 99.6 F 11/23/24 21:58 Pulse Rate 74 11/24/24 00:32 Respiratory Rate 18 11/23/24 21:58 Blood Pressure 149/68 11/24/24 00:32 Pulse Oximetry 94 11/24/24 00:32 Oxygen Delivery Me thod Room Air 11/23/24 21:58 MDM - URI/Sore Throat Medical Decision Making COVID-19 Management: Patient presents with recurrent symptoms indicative of COVID-19, including fever, nausea, and dry cough, despite previous negative flu and COVID tests. The patient's history of COPD increases the risk of complications. - Quarantine for 5 days or until fever-free for 24 hours, whichever is longer. - Supportive care recommendations include fluids and [id number] medications for symptom relief. - Administer Tylenol for fever and honey for cough relief. - Prescribe Paxlovid for antiviral treatment. - Continue with prescribed COPD medications without alteration. - Schedule a follow-up appointment with primary care physician Dr. Li next week. - Advise the patient to return if symptoms worsen. COPD Monitoring: Given the patient's history of COPD and current COVID-19 infection, there is a concern for potential exacerbation, although current lung function is not adversely affected. - Continue with prescribed COPD medications, including Albuterol, without changes. - Monitor closely for signs of COPD exacerbation, such as wheezing and shortness of breath. - Consult with primary care physician Dr. Li for potential adjustments to COPD medications in light of the COVID-19 infection. Lab Data Laboratory Results Coronavirus (PCR) Positive (Negative) A 11/23/24 21:58 Influenza A (PCR) Negative (Negative) 11/23/24 21:58 Influenza Type B (PCR) Negative (Negative) 11/23/24 21:58 RSV (PCR) Negative (Negative) 11/23/24 21:58 No radiology studies performed this visit Discharge Plan Discharge Patient Disposition: Home Clinical Impression: COVID-19 COPD (chronic obstructive pulmonary disease) Qualifiers: COPD type: chronic bronchitis Chronic bronchitis type: unspecified Qualified Code(s): J42 - Unspecified chronic bronchitis Condition: Stable Prescriptions: New Paxlovid 300 mg (150 mg x 2)-100 mg tablets,dose pack See Rx Instructions .ROUTE .COMPLEX Qty: 30 0RF Rx Instructions: take TWO 150 mg tablets of nirmatrelvir with ONE 100 mg tablet of ritonavir twice daily for 5 days No Action warfarin 5 mg tablet 5 mg PO QAM Rx Instructions: 5mg one day and then 4mg the next day montelukast [Singulair] 10 mg tablet 10 mg PO BEDTIME budesonide-formoterol [Symbicort] 160-4.5 mcg/actuation HFA aerosol inhaler 2 puff inhalation BID Qty: 10.2 3RF mupirocin 2 % ointment 1 applic topical BID 14 Days Qty: 22 2RF sotalol 80 mg tablet 120 mg PO BID oxybutynin chloride 5 mg tablet extended release 24hr 5 mg PO DAILY Qty: 30 0RF nitrofurantoin monohyd/m-cryst 100 mg capsule 100 mg PO Q12H 7 Days Qty: 14 0RF Rx Instructions: must administer with a meal/food furosemide 20 mg tablet 40 mg PO BID PRN (Reason: edema) Qty: 360 1RF hydrochlorothiazide 12.5 mg capsule 25 mg PO DAILY Qty: 180 3RF Rx Instructions: Take 2 capsules by mouth once daily potassium chloride 20 mEq tablet extended release See Rx Instructions .ROUTE .COMPLEX Qty: 60 3RF Dose Instruction: TAKE 1 TABLET BY MOUTH TWICE DAILY NEEDED TAKE WITH LASIX Rx Instructions: TAKE 1 TABLET BY MOUTH TWICE DAILY NEEDED TAKE WITH LASIX valsartan 40 mg tablet 40 mg PO BID Qty: 180 3RF metoprolol tartrate 25 mg tablet 12.5 mg PO BID Qty: 30 5RF omeprazole 40 mg Capsule,Delayed Release(Dr/Ec) 40 mg PO QAM aspirin 81 mg Tablet,Delayed Release (Dr/Ec) 81 mg PO BEDTIME levothyroxine 88 mcg tablet 88 mcg PO QAM loratadine [Claritin] 10 mg Tablet 10 mg PO DAILY warfarin 4 mg tablet 4 mg PO EVERY OTHER DAY Rx Instructions: on days after 5 mg rosuvastatin 5 mg tablet 5 mg PO DAILY metronidazole 500 mg tablet 500 mg PO BID Discharge Orders: Discharge ED (Routine); Ordered 11/24/24 Ordered By: Jovon Law Referrals: Lavon Laughlin MD [Primary Care Provider] - Discharge Diet: Advance as tolerated Discharge Activity: Limit activity as instructed Patient Instructions: Opioid Safety, Pain Management Activity Restrictions/Additional Instructions: Please isolate from public places for 5 days or until you are 24 hours fever free whichever is longer. Take the Paxlovid as prescribed. Follow-up with your primary care doctor next week. Return to the emergency department with any new or worsening symptoms. Coding Level of Care Code ED Furniture Crater for Xenia Moore
[2024-11-24 00:32] VITALS: BP 149/68; PULSE 74; O2SAT 94
== END 2024-11-24 00:39 | disposition home or self-care (01) ==
PROVIDERS: Emergency Provider General Practice; PCP Family Medicine
DX: U07.1 COVID-19 (principal); J44.9 Chronic obstructive pulmonary disease, unspecified; Z79.01 Long term (current) use of anticoagulants; Z11.52 Encounter for screening for COVID-19; Z87.891 Personal history of nicotine dependence; Z95.0 Presence of cardiac pacemaker; E11.22 Type 2 diabetes mellitus with diabetic chronic kidney disease; I13.0 Hypertensive heart and chronic kidney disease with heart failure and stage 1 through stage 4 chronic kidney disease, or unspecified chronic kidney disease; N18.9 Chronic kidney disease, unspecified; I50.9 Heart failure, unspecified
CPT/HCPCS: 87637; 99283

== ENCOUNTER → 2024-12-12 09:04 | Outpatient (BNVA) | payer MEDICARE, MEDICAID, SELFPAY | PROVIDERS: PCP Family Medicine; Visit Provider Internal Medicine Cardiovascular Disease | DX: I48.91 Unspecified atrial fibrillation (principal); Z45.018 Encounter for adjustment and management of other part of cardiac pacemaker; I11.0 Hypertensive heart disease with heart failure; I50.32 Chronic diastolic (congestive) heart failure; Z79.01 Long term (current) use of anticoagulants | CPT/HCPCS: 93005; 93296; 99214 ==

== ENCOUNTER 2024-12-14 10:41 | Outpatient (CLI) | payer MEDICARE, MEDICAID, SELFPAY ==
[2024-12-14 11:20] LABS: Troponin(5th) Baseline 10 ng/L (0-10)
[2024-12-14 11:45] LABS: NT Pro B Type Natriuretic Pept 736 pg/mL (0-125)
== END 2024-12-14 10:42 | disposition home or self-care (01) ==
LOC: LAB 10:43
PROVIDERS: PCP Family Medicine; Visit Provider Nurse Practitioner Family
DX: R07.9 Chest pain, unspecified (principal)
CPT/HCPCS: 36415; 83880; 84484

== ENCOUNTER 2024-12-17 16:24 | Outpatient (CLI) | payer MEDICARE, MEDICAID, SELFPAY ==
--- NOTE | 2024-12-17 16:27 | CT_ITS ---
WS: [id number] CT LUMBAR SPINE, noncontrast. HISTORY: VERTEBROGENIC LOW BACK PAIN TECHNIQUE: Contiguous 2.0 mm axial imaging are performed. Sagittal and coronal reformats are submitte d and reviewed. All CT scans at [facility] use at least one of these dose optimization techni ques: automated exposure control; mA and/or kV adjustment per patient size (includes targeted exams w here dose is matched to clinical indication); or iterative reconstruction. IV contrast: None DLP: 1242.82 mGy.cm COMPARISON: Lumbar spine radiograph 10/29/2024 Mild degenerative LEFT scoliosis of the lumbar spine and mild increase in the lumbar lordosis. Verteb ral body heights are normal. Facet joint arthropathy most significant from L3-4 through L5-S1. No fra cture. L1-2: Normal. L2-3: 2 mm retrolisthesis of L2, annular disc bulging with ligamentum flavum and facet arthritis. Mil d central, subarticular recess and foraminal stenosis. L3-4: Diffuse annular disc bulging with osteophytic ridging. Facet joint arthritis encroaching upon t he thecal sac. Calcification along the ligamentum flavum. LEFT foraminal disc protrusion. Combination of findings resulting in moderate to severe central with bilateral subarticular recess and foraminal stenosis. L4-5: Diffuse annular disc bulging with osteophytic ridging. RIGHT foraminal disc protrusion. Marked facet arthritis encroaching upon the thecal sac. Moderate to severe central, bilateral subarticular r ecess and foraminal stenosis. Greater stenosis on the RIGHT. L5-S1: Mild annular disc bulging with osteophytic ridging and facet arthritis. Mild central, subartic ular recess and foraminal stenosis. Paravertebral soft tissues are normal. Atherosclerotic plaque within the aorta and splenic artery. CT/CT lumbar spine wo con* [id number] IMPRESSION: 1. No acute lumbar spine fracture. 2. Facet joint arthritis is most significant from L3-4 through L5-S1. 3. L4-5: Moderate to severe central, bilateral subarticular recess and foramin al stenosis, greater on the RIGHT due to combination of disc, osteophyte and fa cet arthritis. 4. L3-4: Moderate to severe central with bilateral subarticular recess and for aminal stenosis due to disc, osteophyte and facet arthropathy. 5. L2-3 and L5-S1: Mild central, subarticular recess and foraminal stenosis.
== END 2024-12-17 16:25 | disposition home or self-care (01) ==
LOC: RAD 16:26
PROVIDERS: PCP Family Medicine; Visit Provider Nurse Practitioner
DX: M47.897 Other spondylosis, lumbosacral region (principal); M48.061 Spinal stenosis, lumbar region without neurogenic claudication; M25.78 Osteophyte, vertebrae; M47.896 Other spondylosis, lumbar region; M48.07 Spinal stenosis, lumbosacral region; M41.86 Other forms of scoliosis, lumbar region; R93.89 Abnormal findings on diagnostic imaging of other specified body structures; M51.369 Other intervertebral disc degeneration, lumbar region without mention of lumbar back pain or lower extremity pain; M51.26 Other intervertebral disc displacement, lumbar region; M51.379 Other intervertebral disc degeneration, lumbosacral region without mention of lumbar back pain or lower extremity pain
CPT/HCPCS: 72131

== ENCOUNTER → 2025-01-17 09:36 | Outpatient (BNVA) | payer MEDICARE, MEDICAID, SELFPAY | PROVIDERS: PCP Family Medicine; Visit Provider Nurse Practitioner Family | DX: I11.0 Hypertensive heart disease with heart failure (principal); I50.32 Chronic diastolic (congestive) heart failure; Z79.01 Long term (current) use of anticoagulants; I48.91 Unspecified atrial fibrillation; Z95.0 Presence of cardiac pacemaker; Z87.891 Personal history of nicotine dependence | CPT/HCPCS: 36415; 80048; 83880; 99214 ==

== ENCOUNTER 2025-01-30 20:00 | Outpatient (CLI) | payer MEDICARE, MEDICAID, SELFPAY | END 2025-01-30 20:01 | disposition home or self-care (01) | LOC: SLEEP 23:19 | PROVIDERS: PCP Family Medicine; Visit Provider Anesthesiology Pain Medicine | DX: G47.33 Obstructive sleep apnea (adult) (pediatric) (principal); G47.36 Sleep related hypoventilation in conditions classified elsewhere | CPT/HCPCS: 95810 ==

== ENCOUNTER 2025-02-19 15:42 | Emergency (ER) | payer MEDICARE, MEDICAID, SELFPAY ==
[2025-02-19 15:44] VITALS: BP 145/83; PULSE 68; RESP 17; O2SAT 97; BMI 47.9
--- NOTE | 2025-02-19 16:00 | CTR_ITS ---
PROCEDURE INFORMATION: Exam: CT Head Without Contrast Exam date and time: 02/19/2025 4:23 PM Age: 74 years old Clinical indication: Pain; Headache not specified; Additional info: [place] TECHNIQUE: Imaging protocol: Computed tomography of the head without contrast. Radiation optimization: All CT scans at this facility use at least one of these dose optimization techniques: automated exposure control; mA and/or kV adjustment per patient size (includes targeted exams where dose is matched to clinical indication); or iterative reconstruction. COMPARISON: CT head wo con* [id number] 09/13/2021 7:09 PM RADIATION DOSE METRICS: Total DLP (mGy-cm): 1112.49 FINDINGS: Brain: No hemorrhage. Periventricular and subcortical white matter hypodensities likely represent chronic small vessel ischemic changes. Similar old lacunar infarct along the left basal ganglia. No mass effect. Cerebral ventricles: No ventriculomegaly. Paranasal sinuses: Visualized sinuses are unremarkable. No fluid levels. Mastoid air cells: Visualized mastoid air cells are well aerated. Bones: Unremarkable. No acute fracture. Soft tissues: Unremarkable. CT/CT head wo con* [id number] IMPRESSION: No acute intracranial abnormality. MRI could be considered for further evaluation if warranted.
--- NOTE | 2025-02-19 16:02 | W.ED.HA ---
HPI - Headache General: Chief Complaint: Headache Stated Complaint: stroke like symptoms Time Seen by Provider: 02/19/25 15:54 Source: patient Mode of arrival: ambulatory Limitations: no limitations History of Present Illness: 74-year-old female who states she had a headache that started today at 1 said headaches been mild's been behind both eyes rates pain 4 out of 10 currently states she is concerned she has noticed some blood to her right eye does have a subconjunctival hemorrhage to the right eye she denies any vision changes denies a sudden onset of headache denies any weakness or slurred speech. Associated symptoms: Deny chest pain, fever(s), nausea, rash or vomiting Related Data Home Medications ?Medication ?Instructions ?Recorded ?Confirmed omeprazole 40 mg capsule,delayed 40 mg PO QAM 01/11/20 02/19/25 release montelukast 10 mg tablet 10 mg PO BEDTIME 06/08/21 02/19/25 (Singulair) aspirin 81 mg tablet,delayed 81 mg PO BEDTIME 08/09/22 02/19/25 release levothyroxine 88 mcg tablet 88 mcg PO QAM 08/09/22 02/19/25 loratadine 10 mg tablet (Claritin) 10 mg PO DAILY 01/26/24 02/19/25 rosuvastatin 5 mg tablet 5 mg PO DAILY 03/17/24 02/19/25 warfarin 4 mg tablet 4 mg PO DAILY 03/17/24 02/19/25 tramadol 25 mg tablet 25 mg PO Q6H PRN Pain 01/17/25 02/19/25 Previous Rx's ?Medication ?Instructions ?Recorded furosemide 20 mg tablet 40 mg (2 x 20 mg) PO BID PRN edema 08/16/23 #360 tabs budesonide-formoterol HFA 160 2 puff inhalation BID #10.2 grams 02/23/24 mcg-4.5 mcg/actuation aerosol inhaler (Symbicort) hydrochlorothiazide 12.5 mg capsule 25 mg (2 x 12.5 mg) PO DAILY #180 04/10/24 caps valsartan 40 mg tablet 40 mg PO BID #180 tabs 09/27/24 metoprolol tartrate 25 mg tablet See Rx Instructions .Route 12/24/24 .COMPLEX #60 tabs sotalol 120 mg tablet 120 mg PO BID #180 tabs 01/17/25 potassium chloride 20 mEq See Rx Instructions .Route 01/18/25 tablet,extended release .COMPLEX #60 tabs Allergies Allergy/AdvReac Type Severity Reaction Status Date / Time codeine Allergy ADR-Vomitin Verified 02/19/25 13:17 g Sulfa (Sulfonamide Allergy Unknown Verified 02/19/25 13:17 Antibiotics) Tetanus Vaccines and Toxoid Allergy Unknown Verified 02/19/25 13:17 Review of Systems Const: Denies: fever(s), chills, body aches or change in appetite Eyes: Reports: eye discomfort ENMT: Denies: throat pain or dental pain Card: Denies: chest pain Resp: Denies: dyspnea GI: Denies: abdominal pain, nausea, vomiting or diarrhea Musc: Denies: neck pain or back pain Skin/Breast: Denies: rash Neuro: Reports: headache(s) PFS ED PFSH: Medical History Chest pain Arthritis, midfoot Sick sinus syndrome Cystocele History of nonmelanoma skin cancer Aortic regurgitation Mitral regurgitation Left foot pain Hammertoe, bilateral Hiatal hernia History of cardioversion CHF (congestive heart failure) Atrial fibrillation New onset of congestive heart failure -BNP-3052 -imaging not indicative of fluid overload; not overtly decompensated; could be secondary to A.fib with RVR -Echo as noted above -on oral Lasix Chronic anticoagulation -on Coumadin Anxiety GERD (gastroesophageal reflux disease) Diabetes Hypertension Chronic kidney disease Hypothyroidism -TSH wnl -on levothyroxine Rhinitis Deviated septum Surgical History History of anterior colporrhaphy (~01/31/24) Anterior colporrhaphy augmented with allograft, single incision mid urethral sling performed by Dr. Asher at [facility] for stage III cystocele, stress urinary incontinence and vaginal vault prolapse. S/P cardiac pacemaker procedure History of colonoscopy History of umbilical hernia repair H/O esophagogastroduodenoscopy (10/01/21) H/O knee surgery bilateral knees H/O: hysterectomy H/O tubal ligation History of hernia surgery History 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, was malignant Family History Denies family history of Colon cancer Ovarian cancer Diabetes Heart disease Hypercholesteremia Breast cancer Hypertension Uterine cancer Thyroid disease Stroke Social History Smoking and tobacco/nicotine status: never used tobacco/nicotine Physical Exam Const: COMMON NORMALS: no acute distress, patient oriented x3 and healthy appearing HENMT: COMMON NORMALS: normocephalic and atraumatic HEAD & SCALP: normocephalic and atraumatic Eye: COMMON NORMALS: Equal, round and reactive pupils present and EOMs intact bilaterally VISUAL ACUITY: Yes acuity normal VISUAL OLIVO: No peripheral vision loss, No left visual field cut, No right visual field cut, No bitemporal visual field cut, No binasal visual field cut and No visual field cut by quadrant ALIGNMENT: Yes alignment normal PUPIL: Yes Equal, round and reactive pupils present OTHER: Subconjunctival hemorrhage noted to right cornea Neck/C-Spine: COMMON NORMALS: full ROM and supple Chest: COMMONS NORMALS: normal inspection of the chest Resp: COMMON NORMALS: normal respiratory effort Cardio: COMMON NORMALS: regular rate RATE: regular rate Extremity: COMMON NORMALS: normal to inspection and full ROM Neuro: COMMON NORMALS: patient oriented x3, moves all extremities and no focal motor deficits CRANIAL NERVES: Yes CN normal except as noted SPEECH: speech normal MOTOR EXAM: 5/5 motor strength present throughout Psych: COMMON NORMALS: mental status grossly normal, Normal thought process present and cooperative THOUGHT PROCESS: Normal thought process present Skin: COMMON NORMALS: no rashes or lesions noted and no wounds GENERAL SKIN EXAM: no rashes or lesions noted Course Vital Signs: Vital signs: Vital Signs Pulse Rate 71 02/19/25 17:21 Respiratory Rate 16 02/19/25 17:21 Blood Pressure 140/81 02/19/25 17:21 Pulse Oximetry 95 02/19/25 17:21 Oxygen Delivery Me thod Room Air 02/19/25 17:21 MDM - Headache Medical Decision Making Patient presents here with headaches mild headache no signs of stroke or brain bleed head CT was normal headache here is resolved she does have a subconjunctival hemorrhage no vision loss we will get her follow-up ophthalmology she is return if worsening she understands agrees plan Medical Records I reviewed the patient's medical records. Lab Data I reviewed the patient's lab results. 02/19/25 16:13 02/19/25 16:[address] 02/19/25 16:00 IMPRESSION: No acute intracranial abnormality. MRI could be considered for further evaluation if warranted. Laboratory Results WBC 7.09 10^3/uL (3.29-11.43) 02/19/25 16:13 RBC 3.66 10^6/uL (3.85-5.65) L 02/19/25 16:13 Hgb 11.80 g/dL (11.27-16.99) 02/19/25 16:13 Hct 35.6 % (36-47) L 02/19/25 16:13 MCV 97.3 fl (85-98) 02/19/25 16:13 MCH 32.2 pg (27-33) 02/19/25 16:13 MCHC 33.1 g/dL (30-55) 02/19/25 16:13 RDW 13.5 % (12.1-15.1) 02/19/25 16:13 Plt Count 301 10^3/cmm (157-399) 02/19/25 16:13 MPV 10.5 fL (7.4-10.4) H 02/19/25 16:13 Neut % (Auto) 51.9 % 02/19/25 16:13 Lymph % (Auto) 29.9 % 02/19/25 16:13 [place] % (Auto) 8.2 % 02/19/25 16:13 Eos % (Auto) 9.0 % 02/19/25 16:13 Baso % (Auto) 0.7 % 02/19/25 16:13 Neut # (Auto) 3.68 10^3/uL (1.8-7.7) 02/19/25 16:13 Lymph # (Auto) 2.1 10^3/uL (0.8-4.8) 02/19/25 16:13 [place] # (Auto) 0.6 10^3/uL (0.2-0.9) 02/19/25 16:13 Eos # (Auto) 0.6 10^3/uL (0.0-0.8) 02/19/25 16:13 Baso # (Auto) 0.1 10^3/uL (0.0-0.1) 02/19/25 16:13 Nucleated RBC % (auto) 0 % 02/19/25 16:13 Nucleated RBCs # 0.0 /100WBC 02/19/25 16:13 PT 27.10 SECONDS (12.1-14.9) H 02/19/25 16:13 INR 2.35 (0.8-1.2) H 02/19/25 16:13 Sodium 139 mmol/L (136-145) 02/19/25 16:13 Potassium 3.6 mmol/L (3.5-5.1) 02/19/25 16:13 Chloride 100 mmol/L (98-107) 02/19/25 16:13 Carbon Dioxide 27 mmol/L (22-29) 02/19/25 16:13 Anion Gap 15.6 (5-19) 02/19/25 16:13 BUN 17 mg/dL (8-23) 02/19/25 16:13 Creatinine 0.8 mg/dL (0.5-0.9) 02/19/25 16:13 GFR Calculation Not Reportable 02/19/25 16:13 Glucose 147 mg/dL (65-115) H 02/19/25 16:13 Calculated Osmolality 292 mOsm/kg (285-295) 02/19/25 16:13 Calcium 8.9 mg/dL (8.5-10.5) 02/19/25 16:13 Total Bilirubin 0.2 mg/dL (0.15-1.2) 02/19/25 16:13 AST 20 U/L (0-32) 02/19/25 16:13 ALT 12 U/L (0-33) 02/19/25 16:13 Alkaline Phosphatase 92 U/L (35-105) 02/19/25 16:13 Total Protein 7.2 g/dL (6.6-8.7) 02/19/25 16:13 Albumin 3.5 g/dL (3.5-5.2) 02/19/25 16:13 Globulin 3.7 g/dL (1.3-4.6) 02/19/25 16:13 No radiology studies performed this visit Discharge Plan Discharge Patient Disposition: Home Clinical Impression: Headache, Subconjunctival hemorrhage Condition: Stable Prescriptions: No Action montelukast [Singulair] 10 mg tablet 10 mg PO BEDTIME budesonide-formoterol [Symbicort] 160-4.5 mcg/actuation HFA aerosol inhaler 2 puff inhalation BID Qty: 10.2 3RF tramadol 25 mg tablet 25 mg PO Q6H PRN (Reason: Pain) sotalol 120 mg tablet 120 mg PO BID Qty: 180 3RF furosemide 20 mg tablet 40 mg PO BID PRN (Reason: edema) Qty: 360 1RF hydrochlorothiazide 12.5 mg capsule 25 mg PO DAILY Qty: 180 3RF Rx Instructions: Take 2 capsules by mouth once daily valsartan 40 mg tablet 40 mg PO BID Qty: 180 3RF metoprolol tartrate 25 mg tablet See Rx Instructions .ROUTE .COMPLEX Qty: 60 0RF Dose Instruction: take 1/2 tablet BY MOUTH TWICE DAILY Rx Instructions: take 1/2 tablet BY MOUTH TWICE DAILY potassium chloride 20 mEq tablet extended release See Rx Instructions .ROUTE .COMPLEX Qty: 60 3RF Dose Instruction: TAKE 1 TABLET BY MOUTH TWICE DAILY NEEDED TAKE WITH LASIX Rx Instructions: TAKE 1 TABLET BY MOUTH TWICE DAILY NEEDED TAKE WITH LASIX omeprazole 40 mg Capsule,Delayed Release(Dr/Ec) 40 mg PO QAM aspirin 81 mg Tablet,Delayed Release (Dr/Ec) 81 mg PO BEDTIME levothyroxine 88 mcg tablet 88 mcg PO QAM loratadine [Claritin] 10 mg Tablet 10 mg PO DAILY warfarin 4 mg tablet 4 mg PO DAILY rosuvastatin 5 mg tablet 5 mg PO DAILY Discharge Orders: Discharge ED (Routine); Ordered 02/19/25 Ordered By: Laura Cowart Referrals: [facility] [Outside] Lavon Laughlin MD [Primary Care Provider] - Discharge Diet: Advance as tolerated Discharge Activity: Resume usual activity Patient Instructions: Subconjunctival Hemorrhage Print Language: Korean Coding Level of Care Code ED Spreader Operator for Xenia Moore
[2025-02-19] MEDS: metoclopramide 5 mg/mL SDV 2 mL IVP (16:50)
[2025-02-19] MEDS: diphenhydrAMINE 50 mg/mL SDV 1mL 25 MG IVP (16:50)
--- NOTE | 2025-02-19 17:05 | PC.PHAR ---
pATIENT STATES SHE TAKES BOTH VALSARTAN AND rOSUVASTATIN
[2025-02-19 17:12] LABS: Basophils # 0.1 10^3/uL (0.0-0.1); Basophils % 0.7 %; Eosinophils # 0.6 10^3/uL (0.0-0.8); Hematocrit 35.6 % (36-47); Lymphocytes # 2.1 10^3/uL (0.8-4.8); Lymphocytes % 29.9 %; Mean Corpuscular HGB Conc 33.1 g/dL (30-55); Mean Corpuscular Hemoglobin 32.2 pg (27-33); Mean Corpuscular Volume 97.3 fl (85-98); Mean Platelet Volume 10.5 fL (7.4-10.4); Monocytes # 0.6 10^3/uL (0.2-0.9); Monocytes % 8.2 %; Neutrophils # 3.68 10^3/uL (1.8-7.7); Neutrophils % 51.9 %; Nucleated Red Blood Cells % 0 %; Platelet Count 301 10^3/cmm (157-399); Red Blood Count 3.66 10^6/uL (3.85-5.65); Red Cell Distribution Width 13.5 % (12.1-15.1); White Blood Count 7.09 10^3/uL (3.29-11.43)
[2025-02-19 17:21] VITALS: BP 140/81; PULSE 71; RESP 16; O2SAT 95
[2025-02-19 17:22] LABS: INR 2.35 (0.8-1.2)
[2025-02-19 17:25] LABS: Alanine Aminotransferase 12 U/L (0-33); Albumin Level 3.5 g/dL (3.5-5.2); Alkaline Phosphatase 92 U/L (35-105); Anion Gap 15.6 (5-19); Aspartate Amino Transferase 20 U/L (0-32); Blood Urea Nitrogen 17 mg/dL (8-23); Calcium 8.9 mg/dL (8.5-10.5); Carbon Dioxide 27 mmol/L (22-29); Chloride 100 mmol/L (98-107); Creatinine Clr Calc Pharmacy 80.8895; Globulin 3.7 g/dL (1.3-4.6); Glucose 147 mg/dL (65-115); Osmolality Calculated 292 mOsm/kg (285-295); Potassium 3.6 mmol/L (3.5-5.1); Sodium 139 mmol/L (136-145); Total Bilirubin 0.2 mg/dL (0.15-1.2); Total Protein 7.2 g/dL (6.6-8.7)
[2025-02-19 17:50] VITALS: BP 127/83; PULSE 65; RESP 14; O2SAT 97
--- NOTE | 2025-02-20 08:44 | DCPLANNER ---
Referral sent to [facility]
== END 2025-02-19 17:50 | disposition home or self-care (01) ==
PROVIDERS: Emergency Provider Emergency Medicine; PCP Family Medicine
DX: R51.9 Headache, unspecified (principal); H11.30 Conjunctival hemorrhage, unspecified eye; Z79.01 Long term (current) use of anticoagulants; E11.22 Type 2 diabetes mellitus with diabetic chronic kidney disease; I13.0 Hypertensive heart and chronic kidney disease with heart failure and stage 1 through stage 4 chronic kidney disease, or unspecified chronic kidney disease; N18.9 Chronic kidney disease, unspecified; I50.9 Heart failure, unspecified
CPT/HCPCS: 70450; 80053; 85025; 85610; 96374; 96375; 99285; J1200; J2765

== ENCOUNTER 2025-02-25 09:28 | Outpatient (CLI) | payer MEDICARE, MEDICAID, SELFPAY ==
--- NOTE | 2025-02-25 09:35 | MM_ITS ---
WS: [id number] BILATERAL SCREENING DIGITAL TOMOSYNTHESIS MAMMOGRAM WITH CAD HISTORY: SCREENING COMPARISON: 02/20/2024, 02/16/2023, 01/27/2022 Bilateral CC and MLO views with tomosynthesis and synthetic mammography submitted. Computer aided detection analyzed. Breast composition: There are scattered areas of fibroglandular density. No suspicious masses, microcalcifications or architectural distortion. Moderate arterial calcifications. There are a few additional scattered benign calcifications in each breast. MM/MM scr tomosynthesis [id number] IMPRESSION: BI-RADS: 2 - Benign. FOLLOW UP: 1 Year Follow-up
== END 2025-02-25 09:29 | disposition home or self-care (01) ==
PROVIDERS: PCP Family Medicine; Visit Provider Family Medicine
DX: Z12.31 Encounter for screening mammogram for malignant neoplasm of breast (principal); R92.323 Mammographic fibroglandular density, bilateral breasts; R92.1 Mammographic calcification found on diagnostic imaging of breast
CPT/HCPCS: 77063; 77067

== ENCOUNTER → 2025-03-27 11:10 | Outpatient (BNVA) | payer MEDICARE, MEDICAID, SELFPAY | PROVIDERS: PCP Family Medicine; Visit Provider Internal Medicine Cardiovascular Disease | DX: Z45.018 Encounter for adjustment and management of other part of cardiac pacemaker (principal) | CPT/HCPCS: 93296 ==

== ENCOUNTER → 2025-06-03 11:28 | Outpatient (BNVA) | payer MEDICARE, MEDICAID, SELFPAY | PROVIDERS: PCP Family Medicine; Visit Provider Internal Medicine Cardiovascular Disease | DX: I13.0 Hypertensive heart and chronic kidney disease with heart failure and stage 1 through stage 4 chronic kidney disease, or unspecified chronic kidney disease (principal); N18.9 Chronic kidney disease, unspecified; I50.32 Chronic diastolic (congestive) heart failure; I48.91 Unspecified atrial fibrillation; Z79.01 Long term (current) use of anticoagulants; Z79.82 Long term (current) use of aspirin; Z95.0 Presence of cardiac pacemaker; R07.9 Chest pain, unspecified; R06.02 Shortness of breath | CPT/HCPCS: 36415; 80048; 83880; 93005; 99214 ==

== ENCOUNTER → 2025-07-10 09:46 | Outpatient (BNVA) | payer MEDICARE, MEDICAID, SELFPAY | PROVIDERS: PCP Family Medicine; Visit Provider Internal Medicine Cardiovascular Disease | DX: Z45.018 Encounter for adjustment and management of other part of cardiac pacemaker (principal) | CPT/HCPCS: 93296 ==

== ENCOUNTER 2025-07-16 21:04 | Outpatient (CLI) | payer MEDICARE, MEDICAID, SELFPAY | END 2025-07-16 21:05 | disposition home or self-care (01) | LOC: SLEEP 21:05 | PROVIDERS: PCP Family Medicine; Referring Provider Anesthesiology Pain Medicine; Visit Provider Internal Medicine Pulmonary Disease | DX: G47.33 Obstructive sleep apnea (adult) (pediatric) (principal) | CPT/HCPCS: 95811 ==

== ENCOUNTER 2025-11-06 14:58 | Outpatient (CLI) | payer MEDICARE, MEDICAID, SELFPAY ==
[2025-11-06 15:44] LABS: INR 1.60 (0.8-1.2); Prothrombin Time 20.10 SECONDS (12.1-14.9)
== END 2025-11-06 14:59 | disposition home or self-care (01) ==
PROVIDERS: PCP Family Medicine; Visit Provider Family Medicine
DX: I48.91 Unspecified atrial fibrillation (principal); Z79.01 Long term (current) use of anticoagulants
CPT/HCPCS: 36415; 85610